=== PATIENT | female | born 1965 ===

== ENCOUNTER 2020-09-27 17:24 | Outpatient (REF) | payer BC, SELFPAY ==
[2020-09-27 14:02] LABS: Vitamin D 25 Total 50.4 ng/ml (30-100)
== END 2020-09-27 17:25 | disposition home or self-care (01) ==
LOC: NCHCN 17:24
PROVIDERS: Visit Provider Nurse Practitioner Community Health
DX: E55.9 Vitamin D deficiency, unspecified (principal)
CPT/HCPCS: 82306

== ENCOUNTER 2024-09-15 15:46 | Outpatient (REF) | payer BC, SELFPAY ==
--- OUTSIDE RECORDS SUMMARY | 2024-09-15 15:47 | XMS_ITS | Encounter Summary ---
Author Organization [facility] Address [address] [place] [address] Care Team Providers Care Crusher And Binder Operator Name Role Phone Elvira Brantley MD Primary Care Provider [phone] Reason for Visit * Reason Comments Advice Only Discuss refill of HR T and possible dose adjustment. Bria is feeling increased hot flashes, irritability and brain fog. Encounter Details Date Type Department Care Team (Late st Contact Info) Description 06/11/2024 8:00 EDT Office Visit [facility] [address] [place] [address] Larissa Watkins MD [address] [facility], [address] [place] [address] Hormone replacement therapy (postmenopausal) (Primary Dx); Vasomotor symptoms due to menopause; Screening cholesterol level Social History Tobacco Use Types Packs/Day Years Used Date Smoking Tobacco: Never Smokeless Tobacco: Never Tobacco Cessation:Counseling Given: Not Answered Alcohol Use Standard Drinks/Week Comments Yes 4 (1 standard drink = 0.6 oz pur e alcohol) Humiliation, Afraid, Rape, and Kick questionnair e Answer Date Recorded Within the last year, have y ou been afraid of your partner or ex-partner? No 11/30/2020 Within the last year, have y ou been humiliated or emotionally abused in other ways by your partner or ex-partner? No Within the last year, have y ou been kicked, hit, slapped, or otherwise physically hurt by your partner or ex-partner? No 11/30/2020 Within the last year, have y ou been raped or forced to have any kind of sexual activity by your partner or ex-partner? No 11/30/2020 AUDIT-C Answer Date Recorded Q1: How often do you have a drink containing alcohol? 4 or more times a week 11/30/2020 Q2: How many drinks containi ng alcohol do you have on a typical day when you are drinking? 1 or 2 Q3: How often do you have si x or more drinks on one occasion? Never 11/30/2020 PHQ-2 Answer Date Recorded PHQ-2 SUBTOTAL 0 06/09/2024 Hunger Vital Sign Answer Date Recorded Within the past 12 months, y ou worried that your food would run out before you got the money to buy more. Never true 12/01/19 21 Within the past 12 months, t he food you bought just didn't last and you didn't have money to get more. Never true 11/30/2020 PRAPARE - Transportation Answer Date Re corded In the past 12 months, has l ack of transportation kept you from medical appointments or from getting medications? No 11/12 In the past 12 months, has l ack of transportation kept you from meetings, work, or from getting things needed for daily living? No 11/30/2020 Interpersonal Safety Answer Date Record ed Physically Hurt Never 03/14/2020 Verbally Threaten Not on file 03/14/2020 Employment Answer Date Recorded Do you want help finding or keeping work or a job? I do not need or want help 06/09/2024 Financial Strain Answer Date Recorded How hard is it for you to pa y for the very basics like food, housing, medical care, and heating? Would you say it is: Not hard at all 06/09/2024 Living Situation Answer Date Recorded What is your living situation today? I have a [facility] place to live 06/09/[address] you li ve. Do you have problems with any of the following? None of the above 06/09/2024 Family & Community Support Answer Date Recorded If for any reason you need h elp with day-to-day activities such as bathing, preparing meals, shopping, managing finances, etc., do you get the help you need? I don't need any help 06/09/2024 How often do you feel lonely or isolated from those around you? Rarely 06/09/2024 Interpersonal Safety Answer Date Record ed How often does anyone, seth rivas family and friends, physically hurt you? Never 06/09/2024 How often does anyone, seth rivas family and friends, insult or talk down to you? Never 06/09/2024 How often does anyone, seth rivas family and friends, threaten you with harm? Never 06/09/2024 How often does anyone, seth rivas family and friends, scream or curse at you? Never 06/09/2024 Food Answer Date Recorded Within the past 12 months, y ou worried that your food would run out before you got money to buy more. Never true 06/09/2024 Within the past 12 months, t he food you bought just didn't last and you didn't have money to get more. Never true 06/09/2024 Transportation Answer Date Recorded In the past 12 months, has l ack of reliable transportation kept you from medical appointments, meetings, work or from getting things needed for daily living? No 06/09/2024 Utilities Answer Date Recorded In the past 12 months has [employer], gas, oil, or water [employer] threatened to shut off services in your home? No 06/09/2024 Education Answer Date Recorded Do you speak a language other than [place] [facility]? No 06/09/2024 Do you want help with school or training? For example, starting or completing job training or getting a high school diploma, GED or equivalent. No 06/09/2024 Physical Activity Answer Date Recorded In the last 30 days, other t mistry the activities you did for work, on average, how many days per week did you engage in moderate exercise (like walking fast, running, jogging, dancing, swimming, biking, or other similar activities)? 3 2023 On average, how many minutes did you usually spend exercising at this level on one of those days? 30 06/09/2024 Comments No Sex and Gender Information Value Date Recorded Sex Assigned at Male 07/03/2024 7:00 EST Legal Sex Female 18:31 EST Gender Identity Female 12/23/2019 14:04 EDT Sexual Orientation Not on file Occupation Industry Job Start Date Job End Date Not on file Not on file Not on file Not on file documented as of this encounter Last Filed Vital Signs Vital Sign Reading Time Taken Comments Blood Pressure 110/62 06/11/2024 08 EDT Pulse - - Temperature - - Respiratory Rate - - Oxygen Saturation - - Inhaled Oxygen Concentration - - Weight 106.6 kg (235 lb) 06/11/2024805 EDT Height 177.8 cm (5' 10) 06/11/2024 08 EDT Body Mass Index 33.72 06/11/2024805 EDT documented in this encounter Functional Status * Are you deaf or do you have serious difficulty hearing? Answer Date of Assessment Author No 06/17/2022 12:30 EDT Maico Trevino RN * Because of a physical, mental, or emotional condition, does this person have difficulty doing errands alone such as visiting a doctor's office or shopping? Answer Date of Assessment Author No 08/10/2017 10:42 EST documented as of this encounter Mental Status * Because of a physical, mental, or emotional condition, does this person have serious difficulty concentrating, remembering, or making decisions? Answer Entry Date Author No 08/10/2017 10:42 EST documented in this encounter Ordered Prescriptions Prescription Sig Dispense Quantity Refills Last Filled Start Date End Date estradioL (VIVELLE-DOT) 0.1 mg/[address] 1 Patch onto the skin twice a week for 90 days. 8 Patch 2 06/12/2024 09/10/2024 documented in this encounter Progress Notes * Larissa Watkins MD - 06/11/2024 0800 EDT I discussed with Bria Nichol Jackman the use of this audio recording tool to create a clinical note. I explained the benefits of the technology, such as time savings and a better patient experience. I explained that the recording will be confidential and converted into a written note which I will review and edit as needed before it is saved in the medical record. The patient expressed an understanding of the use of this technology for clinical documentation and agreed to allow its use for this encounter. HPI Bria Nichol Cedenoa is a 59 y.o. History of Present Illness The patient, on Vivelle (estrogen patch) for HRT for about two years, initially found relief from menopausal symptoms such as brain fog, hot flashes, and irritability. However, in recent months, she has noticed a return of these symptoms. The patient describes experiencing brain fog, forgetfulness,and significant irritability, likening it to a seizing ball of rage in her chest. She also reports occasional hot flashes. The patient initially attributed these symptoms to work-related stress butis now considering other potential causes. She has a history of hysterectomy, therefor does not need progesterone. The patient is also in regular therapy for mental health support. CLIENT ACCOUNT ASSISTANT Hx Cervical cancer screening: nml 11/2020 Medications Outpatient Medications Marked as Taking for the 06/11/24 encounter (Office Visit) with Larissa Watkins MD Medication Sig acetaminophen (TYLENOL ORAL) Take 1,000 mg by mouth as needed. albuterol 90 mcg/actuation HFA aerosol inhaler inhaler Inhale 1 Puff as directed every 4 hours as needed. cholecalciferol, Vitamin D3, 25 mcg (1,000 unit) tablet Take 1 Tablet by mouth daily. cyanocobalamin, vitamin B-12, (VITAMIN B-12 ORAL) Take by mouth. [DISCONTINUED] estradioL (VIVELLE-DOT) 0.05 mg/24 hr patch Use one patch twice weekly. [START ON 06/12/2024] estradioL (VIVELLE-DOT) 0.1 mg/[address] 1 Patch onto the skin twice a week for 90 days. fexofenadine (ROCKY) 60 mg tablet Take 1 Tablet by mouth daily. ibuprofen (MOTRIN) 200 mg tablet Take 3 Tablets by mouth as needed for Pain. MULTIVITAMIN ORAL Take by mouth. Reported on 07/19/2016 sertraline (ZOLOFT) 50 mg tablet Take 1.5 Tablets by mouth daily. vitamin B complex (B COMPLEX ORAL) Take by mouth daily. Takes 1 per day Objective BP 110/62 (BP Cuff Sizes: Adult, regular) Ht 177.8 cm (70) Wt (!) 106.6 kg (235 lb) BMI 33.72 kg/m?? Physical Exam Gen: NAD Results LABS Lipids: Normal (2018) Assessment/Plan Bria Jackman is a 59 y.o. seen today for: Assessment & Plan Menopausal Symptoms Increased irritability, brain fog, and hot flashes despite being on 0.05mg of Vivelle (estrogen) for two years. No contraindications to HRT. Previsouly discussed r/b/a of HRT and these were reviewed again today. -Increase Vivelle to 0.1mg daily. -Continue current self-care routine and therapy. -Reevaluate in a few months to assess effectiveness of increased dose. General Health Maintenance -Not due for pap -Order fasting lipid panel as it was last checked in 2018 and results were normal. -Continue annual mammograms, next one scheduled for later in May 2024. -Continue regular colonoscopies, next one scheduled for August 11, 2024. Larissa Watkins MD This note was prepared using voice recognition software and the EMR. There may be inadvertent errors and omissions. I spent a total of 30 minutes on the date of this encounter meeting with the patient and reviewing documentation/coordinating care as described in the above note. No procedures were performed at the time of the visit. documented in this encounter Plan of Treatment Upcoming Encounters Date Type Department Care Team (Late st Contact Info) Description 09/24/2024 7:30 EST Rehab Therapy Visit [facility] [address] [place], [place] [id number] Mirlande Keene, PT [address] [place] [address] 11/25/2024 9:00 EDT Office Visit [facility] - [address] [place] [address] Tess Rojas NP [address] [place] [address] Scheduled Orders Name Type Priority Associated Diagnoses Orde r Schedule LIPID PROFILE (INCLUDES CHOLESTEROL, TRIGLYCERIDES, HDL, LDL) Lab Routine Screening cholesterol level Expected: 06/11/2024 (Approximate), Expires: 06/11/2025 documented as of this encounter Visit Diagnoses Diagnosis Hormone replacement therapy (postmenopausal)- Primary Need for prophylactic hormone replacement therapy (postmenopausal) Vasomotor symptoms due to menopause Screening cholesterol level Screening for lipoid disorders documented in this encounter Discontinued Medications Medication Sig Discontinue Reason Start Date End Da te fluconazole (DIFLUCAN) 150 mg tablet Take 1 Tablet by mouth daily. May repeat in 3 days if symptoms persist Therapy completed 08/15/2023 06/11/2024 estradioL (VIVELLE-DOT) 0.05 mg/24 hr patchIndications:Vasomot or symptoms due to menopause,Hormone replacement therapy (postmenopausal) Use one patch twice weekly. 01/23/2024 06/11/2024 documented as of this encounter Historical Medications * This list may reflect changes made after this encounter. cyanocobalamin, vitamin B-12, (VITAMIN B-12 ORAL) Take by mouth. added in this encounter Care Teams Crusher And Binder Operator Relationship Specialty Start Date End Date Elvira Brantley MD [address] [place] [address] PCP - General 04/20/22 documented as of this encounter
--- OUTSIDE RECORDS SUMMARY | 2024-09-15 15:47 | XMS_ITS | Encounter Summary ---
Author Organization [facility] Address [address] [place] [address] Care Team Providers Care Line Rider Name Role Phone Elvira Brantley MD Primary Care Provider [phone] Reason for Visit * Reason Comments Burn Encounter Details Date Type Department Care Team (Late st Contact Info) Description 03/30/2024 9:45 EDT Walk-In [facility] [address] [place] [id number] Fior Metz PA-C [address] [facility] [address] [place] [address] Partial thickness burn of finger of right hand, initial encounter (Primary Dx) Social History Tobacco Use Types Packs/Day Years Used Date Smoking Tobacco: Never Smokeless Tobacco: Never Alcohol Use Standard Drinks/Week Comments Yes 4 [...] more drinks on one occasion? Never 11/30/2020 Hunger Vital Sign Answer Date Recorded Within the past 12 months, y ou worried that your food would run out before you got the money to buy more. Never true 12/01/19 Within the past 12 months, t he [...] 03/14/2020 Verbally Threaten Not on file 03/14/2020 Comments No Sex and Gender Information Value [...] Sign Reading Time Taken Comments Blood Pressure 96/58 03/30/2024 0956 EDT Pulse 63 03/30/2024 0956 EDT Temperature 36.6 ??C (97.8 ??F) 03/30/2024 0956 EDT Respiratory Rate 16 03/30/2024 0956 EDT Oxygen Saturation 96% 03/30/2024 0956 EDT Inhaled Oxygen Concentration - - Weight - - Height - - Body Mass Index - - documented in this encounter Functional Status * [...] 08/10/2017 10:42 EST documented in this encounter Patient Instructions * Patient Instructions* Fior Metz PA-C - 03/30/2024 9:45 EDT If your doctor told you how to care for your burn, follow your doctor's instructions. If you did not get instructions, follow this general advice: Wash the burn every day with a mild soap and water. Don't use hydrogen peroxide or alcohol, which can slow healing. Gently pat the burn dry after you wash it. Apply a thin layer of antibiotic ointment or petroleum jelly on the burn. You may cover the burn with a nonstick bandage. There are many bandage products available. Be sure to read the product label for correct use. Replace the bandage as needed. Protect your burn while it is healing. Cover your burn if you are going out in the cold or the sun. Wear long sleeves if the burn is on your hands or arms. Wear a hat if the burn is on your face. Wear socks and shoes if the burn is on your feet. Do not break blisters open. This increases the chance of infection. If a blister breaks open by itself, blot up the liquid, and leave the skin that covered the blister. This helps protect the new skin. If your doctor prescribed antibiotics, take them as directed. Do not stop taking them just because you feel better. You need to take the full course of antibiotics. If you develop increasing swelling, spreading redness, pain develops, fever, or red streaking up hand seek immediate further evaluation. documented in this encounter Progress Notes * Allyson Pulliam RN - 03/30/2024 6684 EDT CC/HPI: Pt here with leiva on index finger and thumb on right hand. Happened yesterday on a bee smoker. Does not hurt. Pt has minimal feeling in those areas at present. Covid Screening: In the last 72 hours, has the patient had: New or unusual cough, shortness of breath, new nasal congestion, sore throat, fever, chills, body aches, or new loss of taste or smell without a reasonable alternative diagnosis? N In the past 10 days, has the patient had a positive Covid test OR a confirmed close Covid exposure?N * Fior Metz PA-C - 03/30/2024 1718 EDT Images from the original note were not included. [facility] Chief Complaint(s): Burn Assessment & Plan: Bria was seen today for burn. Diagnoses and all orders for this visit: Partial thickness burn of finger of right hand, initial encounter Bria Jackman is a 59 y.o. female presents for leiva of 2-3 fingers of right hand that occurred yesterday. Diminished sensation overlying the 2nd finger distal 2nd degree burn with skin layer intact, the surrounding skin has normal sensation to light touch, the same is found in area of 3rd finger burn. Advised on signs of infection to monitor for. The skin remains intact in both areas of burn. Advised on keeping covered with vaseline and bandaid. Leave blisters intact if form. An appropriate medical screening examination was performed. The patient was assessed prior to discharge and deemed stable for discharge home. I printed material and reviewed home management and follow up in detail with patient, see patient instructions below. Patient is advised in use of [employer] to access any lab results or other pertinentvisit information. All questions are answered. Patient is advised to follow up for urgent reassessment for any new/worsening signs and symptoms, otherwise, follow up with PCP or at [facility] for symptoms that persist past current course of treatment or expected resolution as discussed. Patient verbalizes understanding and agreement with this plan of care. HPI: Bria Jackman is a 59 y.o. female who is here with complaint of leiva of the right 2nd and 3rd fingers when using her bee smoker yesterday. Reports the reason she came in is because the areas don'thurt and feel diminished sensation which she was concerned about. The skin is intact overlying and has not developed significant blisters. Has applied aloe. Social History Tobacco Use Smoking Status Never Smokeless Tobacco Never I have reviewed current problem list, current medications and allergies. ROS: ROS See HPI for details Objective: Vitals and nursing notes reviewed Examination: BP 96/58 Pulse 63 Temp 36.6 ??C (97.8 ??F) (Oral) Resp 16 SpO2 96% Physical Exam Constitutional: General: She is not in acute distress. Appearance: She is not toxic-appearing. Skin: Comments: Diminished sensation overlying the 2nd finger distal 2nd degree burn with skin layer intact, the surrounding skin has normal sensation to light touch, the same is found in area of 3rd finger burn. Photo obtained with verbal consent from pt. Neurological: Mental Status: She is alert. This note may be in part documented using [employer] dictation software. Please forgive any errors, omissions or typos that may result from use of dictation. documented in this encounter Plan of Treatment Upcoming Encounters Date Type Department Care Team (Late st Contact Info) Description 09/24/2024 7:30 EST Rehab Therapy Visit [facility] [address] [place], [place] [id number] Mirlande Keene, PT [address] [place] [id number] 11/25/2024 9:00 EDT Office Visit [facility] [place] [address] [place], [place] [address] [place] [address] Tess Rojas NP [address] [place] [address] documented as of this encounter Visit Diagnoses Diagnosis Partial thickness burn of finger of right hand, initial encounter- Primary documented in this encounter Historical Medications * This list may reflect changes made after this encounter. fexofenadine (ROCKY) 60 mg tablet Take 1 Tablet by mouth daily. albuterol 90 mcg/actuation HFA aerosol inhaler inhaler Inhale 1 Puff as directed every 4 hours as needed. 09/07/2023 added in this encounter Care Teams Line Rider Relationship Specialty Start Date End Date Elvira Brantley MD [address] [place] [id number] PCP - General 04/20/22 documented as of this encounter
--- OUTSIDE RECORDS SUMMARY | 2024-09-15 15:47 | XMS_ITS | Encounter Summary ---
Author Organization [facility] Address [address] [place] [address] Care Team Providers Care Technical Services Librarian Name Role Phone Elvira Brantley MD Primary Care Provider Reason for Referral * Referral (Routine/Next Available) - Authorization Not Required Specialty Diagnoses / Procedures Referred By Jefferson ramires Referred To Contact General Surgery Diagnoses Screen for colon cancer Procedures COLONOSCOPY Elvira Brantley MD [address] [place] [address] Phone: tel: fax: [facility] General Surgery [address] [place] [address] Phone: tel: fax: Referral ID Status Reason Start Date Expiration Date Visits Requested Visits Authorized [id number] Authorization Not Required 01/14/2024 1 1 Reason for Visit * Auth/Cert (Routine) Specialty Diagnoses / Procedures Referred By Jefferson ramires Referred To Contact Referral ID Status Reason Start Date Expiration Date Visits Re quested Visits Authorized [id number] 1 1 Encounter Details Date Type Department Care Team (Late st Contact Info) Description 08/11/2024 7:00 EST - 08/11/2024 23:59 EST Hospital Encounter [facility] Endoscopy [address] [place] [address] Zacarias David MD [address] [facility], [facility], [address] [place] [phone] Screen for colon cancer Discharge Disposition: Home or Self Care Social History Tobacco Use Types Packs/Day Years [...] your living situation today? I have a [facility] place to live 06/09/2024 Think about the [...] Recorded In the past 12 months has th e [employer], gas, oil, or water [employer] threatened to shut off services in your home? No 06/09/2024 Education Answer Date Recorded Do you speak a language other than Swedish at [facility]? No 06/09/2024 Do you want help with [...] Sign Reading Time Taken Comments Blood Pressure 110/71 08/11/2024 0913 EST Pulse - - Temperature 36.5 ??C (97.7 ??F) 08/11/2024 0857 EST Respiratory Rate 11 08/11/2024 0913 EST Oxygen Saturation 93% 08/11/2024 0913 EST Inhaled Oxygen Concentration - - Weight 107.7 kg (237 lb 6.4 oz) 08/11/2024 0732 EST Height 182.9 cm (6') 08/11/2024 0732 EST Body Mass Index 32.2 08/11/2024 0732 EST documented in this encounter Functional Status * [...] 08/10/2017 10:42 EST documented in this encounter Medications at Time of Discharge acetaminophen (TYLENOL ORAL) Take 1,000 mg by mouth as needed. albuterol 90 mcg/actuation HFA aerosol inhaler inhaler Inhale 1 Puff as directed every 4 hours as needed. 09/07/2023 cholecalciferol, Vitamin D3, 25 mcg (1,000 unit) tablet Take 1 Tablet by mouth daily. cyanocobalamin, vitamin B-12, (VITAMIN B-12 ORAL) Take by mouth. fexofenadine (ROCKY) 60 mg tablet Take 1 Tablet by mouth daily. ibuprofen (MOTRIN) 200 mg tablet Take 3 Tablets by mouth as needed for Pain. MULTIVITAMIN ORAL Take by mouth. Reported on 07/19/2016 sertraline (ZOLOFT) 50 mg tablet Take 1.5 Tablets by mouth daily. vitamin B complex (B COMPLEX ORAL) Take by mouth daily. Takes 1 per day estradioL (VIVELLE-DOT) 0.1 mg/[address] 1 Patch onto the skin twice a week for 90 days. 8 Patch 2 06/12/2024 09/10/2024 documented as of this encounter Discharge Disposition Disposition Code Departure Means Destination Home or Self Care documented in this encounter H&P Notes * Zacarias David MD - 08/11/2024 0800 EST Endoscopy Sedation for Procedure History & Physical Date: 08/11/2024 Time: 8:05 Location: [facility] Endoscopy Planned Procedure: Colonoscopy Chief Complaint/Indications for Procedure: Screen for colon cancer History Previous Complication with Sedation and/or Anesthesia? No Allergies: Allergies Allergen Reactions Percocet [Oxycodone-Acetaminophen] Other (See Comments) DROPS BLOOD PRESSURE Unable To Assess Other (See Comments) Clams - vomiting Penicillins Rash Sulfa (Sulfonamide Antibiotics) Rash Current Medications: Current Outpatient Medications Medication acetaminophen (TYLENOL ORAL) albuterol 90 mcg/actuation HFA aerosol inhaler inhaler cholecalciferol, Vitamin D3, 25 mcg (1,000 unit) tablet cyanocobalamin, vitamin B-12, (VITAMIN B-12 ORAL) estradioL (VIVELLE-DOT) 0.1 mg/24 hr patch fexofenadine (ROCKY) 60 mg tablet ibuprofen (MOTRIN) 200 mg tablet MULTIVITAMIN ORAL sertraline (ZOLOFT) 50 mg tablet vitamin B complex (B COMPLEX ORAL) Current Facility-Administered Medications Medication Route Frequency sodium chloride 0.9 % (NS) infusion intravenous PRN Or lactated ringers (LR) infusion intravenous PRN lidocaine (PF) 10 mg/mL (1 %) injection 2 mg intradermal PRN lidocaine (PF) 10 mg/mL (1 %) injection 2 mg intradermal PRN ondansetron (PF) (ZOFRAN) injection 4 mg intravenous PRN sodium chloride 0.9 % (flush) flush 5 mL intravenous Q8H sodium chloride 0.9 % (flush) flush 5 mL intravenous PRN Past Medical History: Past Medical History: Diagnosis Date Abnormal Pap smear of cervix Depression Environmental allergies Exercise involving walking Genital herpes History of general anesthesia Keratoconus, unspecified Social History: Past Surgical History: Procedure Laterality Date COLONOSCOPY N/A 06/2018 polyp-sessile adenoma-repeat in 5 years COLPOSCOPY HIP ARTHROSCOPY Left 2005 HUMERUS FRACTURE SURGERY Right 2021 HYSTERECTOMY N/A 02/2017 For endometriosis, still has ovaries KNEE ARTHROSCOPY Bilateral TUBAL LIGATION VARICOSE VEIN SURGERY Right vericose vein tied off Social History Tobacco Use Smoking status: Never Smokeless tobacco: Never Substance Use Topics Alcohol use: Yes Alcohol/week: 4.0 standard drinks of alcohol Types: 4 Glasses of wine per week Family History: Family History Problem Relation Age of Onset Endometrial Cancer Mother Macular Degeneration Mother Atrial fibrillation Mother Dementia Mother COPD Mother Supraventricular tachycardia Mother Bipolar Disorder Father Kidney Failure Father Endometrial Cancer Maternal Grandmother Dementia Maternal Grandfather Breast Cancer Paternal Grandmother Bipolar Disorder Paternal Grandfather Glaucoma Neg Hx Retinal Detachment Neg Hx Review of Systems as pertinent: Physical Exam Vital Signs: BP 119/73 Resp 9 Ht 182.9 cm (72) Wt (!) 107.7 kg (237 lb 6.4 oz) SpO2 95% BMI 32.20 kg/m?? Heart Examination: Cardiac Regularity: Regular Respiratory Examination: Respiratory Pattern: Regular Breath Sounds Right: Clear Breath Sounds Left: Clear Abdominal Examination: Soft, non-tender, bowel sounds normal, no masses, no organomegaly Additional physical exam related to the proposed procedure, patient activity, disease state and treatment as pertinent: Assessment Previous complications with sedation or anesthesia?: No Airway Concerns: None/NA Anesthesia Classification: ASA 2 Plan: Proceed with sedation for procedure Fasting Time: Date of Last Liquid: 08/11/24 Time of Last Liquid: 0115 Date of Last Solid: 08/10/24 Time of Last Solid: 0700 Patient Appropriate Candidate for Planned Sedation?: Yes Zacarias David MD 08/11/2024 8:05 documented in this encounter Plan of Treatment Upcoming Encounters Date Type Department Care Team (Late st Contact Info) Description 09/24/2024 7:30 EST Rehab Therapy Visit [facility] Therapy [address] [place], [place] [phone] Mirlande Keene, PT [address] [place], [place] [phone] 11/25/2024 9:[address] [facility] Total Joint Program - [address] [phone] Tess Rojas NP [address] [place] [address] documented as of this encounter Procedures Procedure Name Priority Date/Time Associated Diagnosis Comments ECG REPORT - SCANNED 08/12/2024 11:06 EST COLONOSCOPY Routine 08/11/2024 8:00 EST Screen for colon cancer documented in this encounter Results * ECG REPORT - SCANNED (08/12/2024 11:06 EST) 08/12/2024 11:0 6 EST us Scan 2 Supervisor [employer] PROCEDURE/MINOR SURGICAL OR DERABLES Final Result * COLONOSCOPY (08/11/2024 8:00 EST) Anatomical Region Laterality Modality Endoscopy Narrative 08/11/2024 8:00 EST [facility] ?? [address], [place], [place] [address] ?? Patient Name ?BESSIE VAUGHN Date of ?1965 Record Number ?[id number] Date/Time of Procedure ?08/11/2024, 08:00:00 AM Endoscopist ?Zacarias David MD ?? Chief Human Resources Officer ? Referring Physician(s) ?? ELVIRA BRANTLEY , Anesthesiologist ? Procedure Performed: COLONOSCOPY Indications for Exam: Surveillance. Instruments: ? F-[id number] ([id number]) Medications: ?Fentanyl 100 mcg , Versed 7 mg I was in continuous face to face attendance during the administration of moderate sedation services that were monitored by an independent trained observer who had no other duties during the procedure. ? Visualization: ? Good ?Tolerance: Good ?Complications: None ? Extent of Exam: ?cecum ? Limitations: ?? Procedure Technique: A physical exam was performed. Informed consent was obtained from the patient after explaining all the risks (perforation, bleeding, infection and adverse effects to the medicine) , benefits and alternatives to the procedure which the patient appeared to understand and so stated. ??The patient was connected to the monitoring devices and placed in the left lateral position. Continuous oxygen was provided with a nasal cannula and IV medicine administered thru an indwelling cannula. After adequate conscious sedation was achieved, a digital exam was performed and the colonoscope introduced into the rectum and advanced under direct visualization to the cecum which was identified by visual landmarks. The scope was subsequently removed slowly while carefully examining the color, texture, anatomy, and integrity of the mucosa on the way out. In the rectum the scope was retroflexed to evaluate for internal hemorrhoids and anorectal pathology. The patient was subsequently transferred to the recovery area in satisfactory condition. The following findings were noted: Findings: small external hemorrhoid on KEVYN no masses or polyps seen to cecum, adequate prep Endoscopic Diagnosis: Normal colonoscopy Recommendations: Based on polyp history repeat colonoscopy in 5 years. Sedation Start: 08:06:45 AM ?? Sedation End: 08:37:40 AM Signature: Zacarias David MD, This note was electronically signed on 08/11/2024 08:39:54 AM By Zacarias David MD Elvira Brantley MD GI PROCEDURE ORDERABLES Final Result documented in this encounter Visit Diagnoses Diagnosis Screen for colon cancer Special screening for malignant neoplasms, colon documented in this encounter Administered Medications Inactive Administered Medications - up to 3 most recent administrations Medication Order MAR Action Action Date Dose Rate Site fentaNYL citrate (PF) injection intravenous, As needed, Starting on Sun08/11/24 at 0807, Until Sun08/11/24 at 0839, Routine, Intraprocedure Given 08/11/2024 8:13 EST 25 mcg Given 08/11/2024 8:10 EST 25 mcg Given 08/11/2024 8:07 EST 50 mcg midazolam (VERSED) injection intravenous, As needed, Starting on Sun08/11/24 at 0807, Until 08/11/24 at 0839, Routine, Intraprocedure Given 08/11/2024 8:29 EST 2 mg Given 08/11/2024 8:13 EST 1 mg Given 08/11/2024 8:10 EST 1 mg documented in this encounter Orders Medications Ordered That Sae ht Not Have Been Administered Count Last Ordered Date First Ordered Date lactated ringers (LR) infusion 1 08/11/2024 lidocaine (PF) 10 mg/mL (1 % ) injection 2 mg 2 08/11/2024 ondansetron (PF) (ZOFRAN) injection 4 mg 1 08/11/2024 sodium chloride 0.9 % (flush) flush 5 mL 2 08/11/2024 sodium chloride 0.9 % (NS) infusion 1 08/11 Discharge Count Last Ordered Date First Orde red Date DISCHARGE PATIENT 1 08/10/2024 documented in this encounter Care Teams Technical Services Librarian Relationship Specialty Start Date End Date Elvira Brantley MD [address] [place] [address] PCP - General 04/20/22 documented as of this encounter
--- OUTSIDE RECORDS SUMMARY | 2024-09-15 15:47 | XMS_ITS | Referral Summary ---
Author Organization [facility] Address [address] [place] [address] Care Team Providers Care Card Player Name Role Phone Elvira Brantley MD Primary Care Provider [phone] Encounters Date Type Department Care Team Description 09/09/2024 Telephone [facility] OBGYN [address] [place] [phone] Larissa Watkins MD Medications Refill 08/11/2024 7:00 EST - 08/11/2024 23:59 EST Hospital Encounter [facility] Endoscopy [address] [place] [address] Zacarias David MD Screen for colon cancer Discharge Disposition: Home or Self Care 07/03/2024 7:00 EST - 07/03/2024 23:59 EST Hospital Encounter [facility] Mammography [address] [place] [address] Encounter for other screening for malignant neoplasm of breast Discharge Disposition: Home or Self Care from Last 3 Months Allergies Active Allergy Reactions Criticality Noted Date Comments Penicillins Rash Low 11/27/2012 Oxycodone-Acetaminophen Other (See Comments) DROPS BLOOD PRESSURE Sulfa (Sulfonamide Antibiotics) Rash Low 11/27/2012 Unable To Assess Other (See Comments) 5 Clams - vomiting Medications sertraline (ZOLOFT) 50 mg tablet Take 1.5 Tablets by mouth daily. Active MULTIVITAMIN ORAL Take by mouth. Reported on 07/19/2016 Active ibuprofen (MOTRIN) 200 mg tablet Take 3 Tablets by mouth as needed for Pain. Active acetaminophen (TYLENOL ORAL) Take 1,000 mg by mouth as needed. Active cholecalciferol , Vitamin D3, 25 mcg (1,000 unit) tablet Take 1 Tablet by mouth daily. Active vitamin B complex (B COMPLEX ORAL) Take by mouth daily. Takes 1 per day Active albuterol 90 mcg/actuation HFA aerosol inhaler inhaler Inhale 1 Puff as directed every 4 hours as needed. 4 Active fexofenadine (ROCKY) 60 mg tablet Take 1 Tablet by mouth daily. Active cyanocobalamin, vitamin B-12, (VITAMIN B-12 ORAL) Take by mouth. Active estradioL (VIVELLE-DOT) 0.1 mg/[address] 1 Patch onto the skin twice a week for 90 days. 8 Patch 2 4 09/10/19 25 Active Problems Problem Noted Date Diagnosed Date Screen for colon cancer 08/11/2024 Bilateral knee pain 07/06/2015 Facet arthropathy, lumbar 05/26/2015 Arthralgia of left hip 05/26/2015 Low back pain radiating to left leg 04/05/2015 Immunizations Name Administration Dates Next Due Covid-19 mRNA Booster Vaccin e (MODERNA COVID-19 BOOSTER) PF 0.25 mL IM (18 yrs+) 06/26/2021 Covid-19 mRNA Vaccine (MODER NA COVID-19) PF 0.5 ml IM (12 yrs+) 11/22/2020,10/25/2020 Social History Tobacco Use Types Packs/Day Years [...] In the past 12 months has th [employer], gas, oil, or water [employer] threatened to shut off services in your home? No 06/09/2024 Education Answer Date Recorded Do you speak a language other than Persian at [facility]? No 06/09/2024 Do you want help with [...] file Not on file Not on file Last Filed Vital Signs Vital Sign Reading Time Taken Comments Blood Pressure 110/71 08/11/2024 0913 EST Pulse 63 03/30/2024 0956 EDT Temperature 36.5 ??C (97.7 ??F) 08/11/2024 0857 EST Respiratory Rate 11 08/11/2024 0913 EST Oxygen Saturation 93% 08/11/2024 0913 EST Inhaled Oxygen Concentration - - Weight 107.7 kg (237 lb 6.4 oz) 08/11/2024 0732 EST Height 182.9 cm (6') 08/11/2024 0732 EST Body Mass Index 32.2 08/11/2024 0732 EST Functional Status * Are you deaf or do you have serious difficulty hearing? Answer Date of Assessment Author No 06/17/2022 12:30 EDT Maico Trevino , JOIE * Because of a physical, mental, or emotional condition, does this person have difficulty doing errands alone such as visiting a doctor's office or shopping? Answer Date of Assessment Author No 08/10/2017 10:42 EST Mental Status * Because of a physical, mental, or emotional condition, does this person have serious difficulty concentrating, remembering, or making decisions? Answer Entry Date Author No 08/10/2017 10:42 EST Plan of Treatment Upcoming Encounters Date Type Department Care Team (Late st Contact Info) Description 09/24/2024 7:30 EST Rehab Therapy Visit [facility] [place] [facility] Therapy [address] [place] [address] Mirlande Keene, PT [address] [place] [address] 11/25/2024 9:00 EDT Office Visit [facility] Total Joint Program - [address] [place] [address] Tess Rojas, LUCAS [address] [place] [address] Medical Devices Implanted Type Area Stereotyper Device Identifier Shelf Expiration Date Model / Serial / Lot Bone Cancellous Cubes 5cc [id number] - [id number] Implanted:Qty: 1 on 10/12/2022 by Gallito Sanders MD MPH at [facility] Bone Right: Humerus [facility] 03/22/2027 [id number] / [id number] / [id number] Plate Bone Cmprs Lckng Prox Hum 12 Hole Sm Frag [id number] Lcp [id number] - [id number] Implanted:Qty: 1 on 10/12/2022 by Gallito Sanders MD MPH at [facility] Plate Implant Right: Humerus [employer] 10/13/2023 223.621 / . / Plate Bone Cmprs Lckng Ankl Ft Lo Pro 7 Hole 2.7x67mm Lcp 670856 - [id number] Implanted:Qty: 1 on 10/12/2022 by Gallito Sanders MD MPH at [facility] Plate Implant Right: Humerus [employer] 10/13/2023 249.683 / . / Screw Cortex 2.7mm 20mm Slftpng With T8 [employer] - [id number] Implanted:Qty: 2 on 10/12/2022 by Gallito Sanders MD MPH at [facility] [place] [facility] Screw Implant Right: Humerus [employer] 10/13/2023 202.880 / . / Screw Bone Cortical Slf Tpng 2.7x22mm Lcp [id number] - [id number] Implanted:Qty: 1 on 10/12/2022 by Gallito Sanders MD MPH at [facility] Screw Implant Right: Humerus [employer] 10/13/2023 202.882 / . / Screw Bone Cortical Slf Tpng 2.7x24mm Lcp 900896 - [id number] Implanted:Qty: 1 on 10/12/2022 by Gallito Sanders MD MPH at [facility] Screw Implant Right: Humerus [employer] 10/13/2023 202.884 / . / Screw Cortex Self-Tapping [id number] 75288 - [id number] Implanted:Qty: 1 on 10/12/2022 by Gallito Sanders MD MPH at [facility] Screw Implant Right: Humerus [employer] 10/13/2023 204.820 / . / Screw Cortex Self-Tapping [id number] 655469 - [id number] Implanted:Qty: 2 on 10/12/2022 by Gallito Sanders MD MPH at [facility] Screw Implant Right: Humerus [employer] 10/13/2023 204.822 / . / Screw Cortex Self-Tapping [id number] 192396 - [id number] Implanted:Qty: 1 on 10/12/2022 by Gallito Sanders MD MPH at [facility] [place] [facility] Screw Implant Right: Humerus [employer] 10/13/2023 204.824 / . / Screw Cortex Self-Tapping [id number] - [id number] Implanted:Qty: 2 on 10/12/2022 by Gallito Sanders MD MPH at [facility] Screw Implant Right: Humerus [employer] 10/13/2023 204.826 / . / Procedures Procedure Name Priority Date/Time Associated Diagnosis Comments ECG REPORT - SCANNED 08/12/2024 11:06 EST COLONOSCOPY Routine 08/11/2024 8:00 EST Screen for colon cancer MA BREAST SCREENING SHRUTI BILATERAL Routine 07/03/2024 7:21 EST Encounter for other screening for malignant neoplasm of breast from Last 3 Months Results * ECG REPORT - SCANNED (08/12/2024 11:06 EST) 08/12/2024 11:0 6 EST us Scan 2 Autopsy Assistant PROCEDURE/MINOR SURGICAL OR DERABLES Final Result * COLONOSCOPY (08/11/2024 8:00 EST) Anatomical Region Laterality Modality Endoscopy Narrative 08/11/2024 8:00 EST [facility] ?? [address], [place], [place] [address] ?? Patient Name ?BESSIE VAUGHN Date of ?1965 Record Number ?[id number] Date/Time of Procedure ?08/11/2024, 08:00:00 AM Endoscopist ?Zacarias David MD ?? High School Guidance Counselor ? Referring Physician(s) ?? ELVIRA BRANTLEY , Anesthesiologist ? Procedure Performed: COLONOSCOPY Indications for Exam: Surveillance. Instruments: ? [facility]-[id number] ([id number]) Medications: ?Fentanyl 100 mcg , Versed 7 [...] 08/11/2024 08:39:54 AM By Zacarias David MD us Elvira Brantley MD GI PROCEDURE ORDERABLES Final Result * MA BREAST SCREENING SHRUTI BILATERAL (07/03/2024 7:21 EST) Anatomical Region Laterality Modality Breast Bilateral Mammography 07/03/2024 8:14 EST Impressions 07/03/2024 8:14 EST Negative, no evidence of malignancy. RECOMMENDATION: Routine screening mammography is recommended. OVERALL ASSESSMENT: BI-RADS 1: Negative These results will be communicated to your patient via a lay letter from Radiology. If any additional imaging is needed we will [place] [address] [id number] Narrative 07/03/2024 8:14 EST MA BREAST SCREENING SHRUTI BILATERAL ??07/03/2024 7:11 AM History: Bilateral Screening Comparison: ??Comparison has been made to previous images . ? Technique: Routine 3D tomosynthesis with synthesized 2D views with CAD Breast Composition: There are scattered areas of fibroglandular density. Bilateral Breast Findings: ??No significant masses, calcifications or other abnormalities are seen. Resulting Agency Comment [id number] Procedure Note Willie Cuellar MD - 07/03/2024 MA BREAST SCREENING SHRUTI BILATERAL 07/03/2024 7:11 AM History: Bilateral Screening Comparison: Comparison has been made to previous images . Technique: Routine 3D tomosynthesis with synthesized 2D views with CAD Breast Composition: There are scattered areas of fibroglandular density. Bilateral Breast Findings: No significant masses, calcifications or otherabnormalities are seen. IMPRESSION Negative, no evidence of malignancy. RECOMMENDATION: Routine screening mammography is recommended. OVERALL ASSESSMENT: BI-RADS 1: Negative These results will be communicated to your patient via a lay letter fromRadiology. If any additional imaging is needed we will contact yourpatient directly. [place] [phone] [id number] Elvira Brantley MD IMG MAMMOGRAPHY ORDERABLES Fi nal Result from Last 3 Months Insurance [facility] Address: [address] [address] Advance Directives For more information, please contact: [phone] * Full Code (Latest Code Status on File) Date Activated Date Inactivated Comments 10/12/2022 7:04 10/12/2022 19:15 Question Answer Comments When the patient has NO PULSE: Full Code / CPR Who Made the Decision? Default/Not Discussed Care Teams Card Player Relationship Specialty Start Date End Date Elvira Brantley MD [address] [place] [address] PCP - General 04/20/22
--- OUTSIDE RECORDS SUMMARY | 2024-09-15 15:47 | XMS_ITS | Encounter Summary ---
Author Organization [facility] Address [address] [place] [address] Care Team Providers Care Custodian Blood Bank Name Role Phone Elvira Brantley MD Primary Care Provider [phone] Reason for Visit * Reason Onset Date Comments Medications Refill 09/09/2024 Encounter Details Date Type Department Care Team (Late st Contact Info) Description 09/09/2024 Telephone [facility] OBGYN [address] [place], [place] [id number] Larissa Watkins MD [address] [facility], [address] [place] [address] Medications Refill Social History Tobacco Use Types Packs/Day Years [...] your living situation today? I have a [facility] place to live 06/09/2024 Think about the [...] Recorded In the past 12 months has [facility] [employer], gas, oil, or water [employer] threatened to shut off services in your home? No 06/09/2024 Education Answer Date Recorded Do you speak a language other than Latvian at [facility]? No 06/09/2024 Do you want help with [...] on file documented as of this encounter Functional Status * Are you deaf or do you have serious difficulty hearing? Answer Date of Assessment Author No 06/17/2022 12:30 EDT Maico Trevino , RN * Because of a physical, mental, [...] 08/10/2017 10:42 EST documented in this encounter Miscellaneous Notes * Telephone Encounter - Larissa Watkins MD - 09/10/2024 1023 EST Ok to refill. Please scheudle f/u as below Waitlist Don't sched b/f: NA F/u time: within 3 mo Call day? Yes Televideo? Yes Priority: Normal Visit type: Follow up (15) or Mychart Televideo (30) Reason: f/u HRT Provider: Garland watkins Other: NA * Telephone Encounter - Maritza Olvera RN - 09/09/2024 1620 EST Last appt: 06/11/2024 OV with RL - f/u HRT Plan: Menopausal Symptoms Increased irritability, brain fog, and hot flashes despite being on 0.05mg of Vivelle (estrogen) for two years. No contraindications to HRT. Previsouly discussed r/b/a of HRT and these were reviewed again today. -Increase Vivelle to 0.1mg daily. -Continue current self-care routine and therapy. -Reevaluate in a few months to assess effectiveness of increased dose. Next appt: none scheduled Last refilled / Rx last sent: 06/12/2024 for 8 patches with 2 refills with end date of 09/10/24 Dr. Watkins - please advise re: refill and f/u plan. Thanks! * Telephone Encounter - Tate Garcia MA - 09/09/2024 1556 EST Pt calling needing a refill on her estradiol patch. documented in this encounter Plan of Treatment Upcoming Encounters Date Type Department Care Team (Late st Contact Info) Description 09/24/2024 7:30 EST Rehab Therapy Visit [facility] Rehabilitation Therapy [address] [place], [place] [phone] Mirlande Keene, PT [address] [place] [address] 11/25/2024 9:00 EDT Office Visit [facility] Total Joint Program - [address] [address] Tess Rojas NP [address] [place] [address] documented as of this encounter Visit Diagnoses Not on filedocumented in this encounter Care Teams Custodian Blood Bank Relationship Specialty Start Date End Date Elvira Brantley MD [address] [place] [id number] PCP - General 04/20/22 documented as of this encounter
--- OUTSIDE RECORDS SUMMARY | 2024-09-15 15:47 | XMS_ITS | Encounter Summary ---
Author Organization [facility] Address [address] [place] [address] Care Team Providers Care Battery Filler Name Role Phone Elvira Brantley MD Primary Care Provider [phone] Reason for Referral * Radiology Services (Routine/Next Available) - Authorization Not Required Specialty Diagnoses / Procedures Referred By Jefferson ramires Referred To Contact Diagnoses Encounter for other screening for malignant neoplasm of breast Procedures MA BREAST SCREENING SHRUTI BILATERAL Elvira Brantley MD [address] [place] [address] Phone: tel: fax: [facility] Referral ID Status Reason Start Date Expiration Date Visits Requested Visits Authorized [id number] Authorization Not Required 09/06/2023 1 1 Reason for Visit * Radiology Services (Routine/Next Available) - Authorization Not Required Specialty Diagnoses / Procedures Referred By Jefferson ramires Referred To Contact Diagnoses Encounter for other screening for malignant neoplasm of breast Procedures MA BREAST SCREENING SHRUTI BILATERAL Elvira Brantley MD [address] [place] [address] Phone: tel: fax: [facility] Referral ID Status Reason Start Date Expiration Date Visits Requested Visits Authorized [id number] Authorization Not Required 09/06/2023 1 1 Encounter Details Date Type Department Care Team (Latest Contact Info) Description 07/03/2024 7:00 EST - 07/03/2024 23:59 [facility] Hospital Encounter [facility] Mammography [address] [place] [address] Encounter for other screening for malignant neoplasm of breast Discharge Disposition: Home or Self Care Social [...] your living situation today? I have a [facility] place to live 06/09/2024 Think about [...] the past 12 months has th e [employer] gas, oil, or water company threatened to shut off services in your home? No 06/09/2024 Education Answer Date Recorded Do you speak a language other than Latvian at [facility]? No 06/09/2024 Do you want help [...] Sign Reading Time Taken Comments Blood Pressure - - Pulse - - Temperature - - Respiratory Rate - - Oxygen Saturation - - Inhaled Oxygen Concentration - - Weight 106.6 kg (235 lb) 07/03/2024 0712 EST Height 182.9 cm (6') 07/03/2024 0712 EST Body Mass Index 31.87 07/03/2024 0712 EST documented in this encounter Functional Status [...] or Self Care documented in this encounter Plan of Treatment Upcoming Encounters Date Type Department Care Team (Late st Contact Info) Description 09/24/2024 7:30 EST Rehab Therapy Visit [facility] Rehabilitation Therapy [address] [place], [place] [address] Mirlande Keene, PT [address] [place] [address] 11/25/2024 9:00 EDT Office Visit [facility] Total Joint Program - [address] [place] [address] Tess Rojas NP [address] [place] [address] documented as of this encounter Procedures Procedure Name Priority Date/Time Associated Diagnosis Comments MA BREAST SCREENING SHRUTI BILATERAL Routine 07/03/2024 7:21 EST Encounter for other screening for malignant neoplasm of breast documented in this encounter Results * MA BREAST SCREENING SHRUTI BILATERAL (07/03/2024 [...] needed we will contact your patient directly. [place] [phone] [id number] Narrative 07/03/2024 8:14 EST MA BREAST SCREENING SHRUTI BILATERAL ??07/03/2024 7:11 AM History: Bilateral Screening Comparison: ??Comparison has been made to previous images . ? Technique: Routine 3D tomosynthesis with synthesized 2D views with CAD Breast Composition: There are scattered areas of fibroglandular density. Bilateral Breast Findings: ??No significant masses, calcifications or other abnormalities are seen. Resulting Agency Comment [id number] Procedure Note Willie Cuellar MD - 07/03/2024 [...] is needed we [place] [address] [id number] Result [facility] Elvira Brantley MD IM MAMMOGRAPHY ORDERABLES Fi nal Result documented in this encounter Visit Diagnoses Diagnosis Encounter for other screening for malignant neoplasm of breast documented in this encounter Care Teams Battery Filler Relationship Specialty Start Date End Date Elvira Brantley MD [address] [place] [address] PCP - General 04/20/22 documented as of this encounter
--- OUTSIDE RECORDS SUMMARY | 2024-09-15 15:47 | XMS_ITS | Clinical Summary ---
Author Organization [facility] Address [address] [place] [address] Care Team Providers Care Pediatric Psychologist Name Role Phone Elvira Brantley MD Primary Care Provider [phone] Allergies Active Allergy Reactions Criticality Noted Date [...] back pain radiating to left leg 04/05/2015 Encounters Date Type Department Care Team Description 09/09/2024 Telephone [facility] OBGYN [address] [place] [address] Larissa Watkins MD Medications Refill 08/11/2024 7:00 EST - 08/11/2024 23:59 EST Hospital Encounter [facility] Endoscopy [address] [place] [address] Zacarias David MD Screen for colon cancer Discharge Disposition: Home or Self Care 07/03/2024 7:00 EST - 07/03/2024 23:59 EST Hospital Encounter [facility] Mammography [address] [place] [address] Encounter for other screening for malignant neoplasm of breast Discharge Disposition: Home or Self Care from Last 3 Months Immunizations Name Administration Dates Next Due Covid-19 mRNA Booster Vaccin e (MODERNA COVID-19 BOOSTER) PF 0.25 mL IM (18 yrs+) 06/26/2021 Covid-19 mRNA Vaccine (MODER NA COVID-19) PF 0.5 ml IM (12 yrs+) 11/22/2020,10/25/2020 Surgical History Surgery Date Site/Laterality Comments KNEE ARTHROSCOPY Bilateral HIP ARTHROSCOPY 08/13/2005 - 08/12/2006 Left TUBAL LIGATION HYSTERECTOMY 02/10/2017 - 03/12/2017 N/A For endometriosis, still has ovaries COLONOSCOPY 06/13/2018 - 07/12/2018 N/A polyp-sessile adenoma-repeat in 5 years COLPOSCOPY VARICOSE VEIN SURGERY Right vericose vein tied off HUMERUS FRACTURE SURGERY 08/13/2021 - 08/12/2022 Right Medical History Medical History Date Comments Depression Keratoconus, unspecified Environmental allergies Abnormal Pap smear of cervix Genital herpes History of general anesthesia Exercise involving walking Family History Medical History Relation Comments Bipolar Disorder Father Kidney Failure Father Dementia Maternal Grandfather Endometrial Cancer Maternal Grandmother Atrial fibrillation Mother COPD Mother Dementia Mother Endometrial Cancer Mother Macular Degeneration Mother Supraventricular tachycardia Mother Bipolar Disorder Paternal Grandfather Breast Cancer Paternal Grandmother Glaucoma Neg Hx Retinal Detachment Neg Hx Relation Status Comments Brother 1 Alive Brother 2 Alive Daughter Alive Father Kidney failure d /t lithium Maternal Grandfather Maternal Grandmother Mother ventricular tach ycardia Paternal Grandfather Paternal Grandmother Social History Tobacco Use Types Packs/Day Years [...] your living situation today? I have a [facility] place to live 06/09/2024 Think about the [...] Recorded In the past 12 months has [employer], gas, oil, or water company threatened to shut off services in your home? No 06/09/2024 Education Answer Date Recorded Do you speak a language other than Slovak at [facility]? No 06/09/2024 Do you want help with [...] file Not on file Not on file Obstetrics History Para Term AB IAB SAB Ectopic Multiple Livin g Live Births 1 1 1 1 1 Date Outcome GA Total Labor Labor/2nd/3rd Weight Sex Type Anes PTL Vivian A1 A5 Name Clin 1995 Term F Vag-S pont Living Last Filed Vital Signs Vital Sign Reading [...] Body Mass Index 32.2 08/11/2024 0732 EST Plan of Treatment Upcoming Encounters Date Type Department Care Team (Late st Contact Info) Description 09/24/2024 7:30 EST Rehab Therapy Visit [facility] [place] [facility] Therapy [address] [place], [place] [phone] Mirlande Keene, PT [address] [place] [address] 11/25/2024 9:00 EDT Office Visit [facility] Total Joint Program - [facility] [address] [facility] [place], [place] [phone] Tess Rojas, PLUG AND MOLD FINISHER [address] [place] [address] Health Maintenance Due Date Last Done Comments Hepatitis C Screen 1965 Hepatitis B Vaccine (1 of 3 - 19+ 3-dose series) 1986 COVID-19 Vaccine (2023-2 5 season) 2024 05/31/2022, 06/26/2021, 11/22/2020, Additional history exists Colonoscopy (Colon Cancer Screening) Discontinued 08/11/2024 Colorectal Cancer Screening Discontinued Cologuard (Colon Cancer Screening) Discontinued FIT Test (Colon Cancer Screening) Discontinued Sigmoidoscopy (Colon Cancer Screening) Discontinued Medical Devices Implanted Type Area Hoop Flaring Machine Operator Device Identifier Shelf Expiration Date Model / Serial / Lot Bone Cancellous Cubes 5cc [id number] - [id number] Implanted:Qty: 1 on 10/12/2022 by Gallito Sanders MD MPH at [facility] Bone Right: Humerus [employer] 03/22/2027 [id number] / [id number] / [id number] Plate Bone Cmprs Lckng Prox Hum 12 Hole Sm Frag 3.8m384sh Lcp [id number] - [id number] Implanted:Qty: 1 on 10/12/2022 by Gallito Sanders MD MPH at [facility] Plate Implant Right: Humerus [employer] 10/13/2023 223.621 / . / Plate Bone Cmprs Lckng Ankl Ft Lo Pro 7 Hole 2.7x67mm Lcp [id number] - [id number] Implanted:Qty: 1 on 10/12/2022 by Gallito Sanders MD MPH at [facility] Plate Implant Right: Humerus [employer] 10/13/2023 249.683 / . / Screw Cortex 2.7mm 20mm Slftpng With T8 [employer] - [id number] Implanted:Qty: 2 on 10/12/2022 by Gallito Sanders MD MPH at [facility] Screw Implant Right: Humerus [employer] 10/13/2023 202.880 / . / Screw Bone Cortical Slf Tpng 2.7x22mm Lcp [id number] - [id number] Implanted:Qty: 1 on 10/12/2022 by Gallito Sanders MD MPH at [facility] Screw Implant Right: Humerus [employer] 10/13/2023 202.882 / . / Screw Bone Cortical Slf Tpng 2.7x24mm Lcp [id number] - [id number] Implanted:Qty: 1 on 10/12/2022 by Gallito Sanders MD MPH at [facility] Screw Implant Right: Humerus [employer] 10/13/2023 202.884 / . / Screw Cortex Self-Tapping [id number] 83939 - [id number] Implanted:Qty: 1 on 10/12/2022 by Gallito Sanders MD MPH at [facility] Screw Implant Right: Humerus [employer] 10/13/2023 204.820 / . / Screw Cortex Self-Tapping [id number] - [id number] Implanted:Qty: 2 on 10/12/2022 by Gallito Sanders MD MPH at [facility] Screw Implant Right: Humerus [employer] 10/13/2023 204.822 / . / Screw Cortex Self-Tapping [id number] - [id number] Implanted:Qty: 1 on 10/12/2022 by Gallito Sanders MD MPH at [facility] Screw Implant Right: Humerus [employer] 10/13/2023 204.824 / . / Screw Cortex Self-Tapping [id number] - [id number] Implanted:Qty: 2 on 10/12/2022 by Gallito Sanders MD MPH at [facility] Screw Implant Right: Humerus DEPUY [...] 08/12/2024 11:0 6 EST us Scan 2 Care Program Resident PROCEDURE/MINOR SURGICAL OR DERABLES Final Result * COLONOSCOPY (08/11/2024 8:00 EST) Anatomical Region Laterality Modality Endoscopy Narrative 08/11/2024 8:00 EST [facility] ?? [address] [address] ?? Patient Name ?BESSIE VAUGHN Date of ?1965 Record Number ?[id number] Date/Time of Procedure ?08/11/2024, 08:00:00 AM Endoscopist ?Zacarias David MD ?? Police Officer Booking ? Referring Physician(s) ?? ELVIRA BRANTLEY , Anesthesiologist ? Procedure Performed: COLONOSCOPY Indications for Exam: Surveillance. Instruments: ? [id number] ([id number]) Medications: ?Fentanyl 100 mcg , Versed 7 [...] needed we will contact your patient directly. [address] [address] [id number] Narrative 07/03/2024 8:14 EST MA BREAST SCREENING SHRUTI BILATERAL ??07/03/2024 7:11 AM History: Bilateral Screening Comparison: ??Comparison has been made to previous images . ? Technique: Routine 3D tomosynthesis with synthesized 2D views with CAD Breast Composition: There are scattered areas of fibroglandular density. Bilateral Breast Findings: ??No significant masses, calcifications or other abnormalities are seen. Resulting Agency Comment [id number] Procedure Note Willie Cuellar MD - 07/03/2024 MA BREAST SCREENING SHRTUI BILATERAL 07/03/2024 7:11 AM History: Bilateral Screening [...] is needed we will contact yourpatient directly. [address] [address] [id number] Elvira Brantley MD IMG MAMMOGRAPHY ORDERABLES Fi nal Result from Last 3 Months Insurance [facility] Advance Directives For more information, please contact: [phone] * Full Code (Latest Code Status on File) Date Activated Date Inactivated Comments 10/12/2022 7:04 10/12/2022 19:15 Question Answer Comments When the patient has NO PULSE: Full Code / CPR Who Made the Decision? Default/Not Discussed Care Teams Pediatric Psychologist Relationship Specialty Start Date End Date Elvira Brantley MD [address] [place] [address] PCP - General 04/20/22
--- OUTSIDE RECORDS SUMMARY | 2024-09-15 15:47 | XMS_ITS | Encounter Summary ---
Author Organization [facility] Address [address] [place] [address] Care Team Providers Care Per Assessment Nurse Name Role Phone Elvira Brantley MD Primary Care Provider [phone] Reason for Visit * Reason Onset Date Comments Medication Questions 06/06/2024 Encounter Details Date Type Department Care Team (Late st Contact Info) Description 06/06/2024 Telephone [facility] OBGYN [address] [place] [address] Adrienne Cordova DO [address] [facility], [address] [place] [address] Medication Questions Social History Tobacco Use Types Packs/Day Years [...] encounter Miscellaneous Notes * Telephone Encounter - Dorota Taylor - 06/06/2024 1101 EDT Scheduled 06/11 with RL, Óscar LMOM to call and Confirm * Telephone Encounter - Maritza Olvera RN - 06/06/2024 1048 EDT Last appt: 08/15/2023 OV with CG Was scheduled for AE with VERNELL 02/11/24 - pt canceled Last OV for f/u on estrogen replacement/WW care = 02/22/2023 Please assist pt with scheduling an AE Waitlist: Appt type: : AE / WWE Provider: Any Provider Timeframe: June and July, or August 2024 * Telephone Encounter - Saumya Haywood - 06/06/2024 0912 EDT Patient would like to get her hormone levels checked. She is taking Estradiol but has increased night sweats, brain frog, irritability, etc. documented in this encounter Plan of Treatment Upcoming Encounters Date Type Department Care Team (Late st Contact Info) Description 09/24/2024 7:30 EST Rehab Therapy Visit [facility] Therapy [address] [place], [place] [address] Mirlande Keene, PT [address] [place] [address] 11/25/2024 9:00 EDT Office Visit [facility] Total Joint Program - [place] [address] Tess Rojas, LUCAS [address] [place] [address] documented as of this encounter Visit Diagnoses Not on filedocumented in this encounter Care Teams Per Assessment Nurse Relationship Specialty Start Date End Date Elvira Brantley MD [address] [place] [address] PCP - General 04/20/22 documented as of this encounter
--- OUTSIDE RECORDS SUMMARY | 2024-09-15 15:48 | XMS_ITS | Encounter Summary ---
Author Organization [facility] Address [address] [place] [address] Care Team Providers Care Punch Box Tender Name Role Phone Elvira Brantley MD Primary Care Provider [phone] Reason for Visit * Reason Onset Date Comments Vaginal Issues 08/07/2023 Encounter Details Date Type Department Care Team (Late st Contact Info) Description 08/07/2023 Telephone [facility] OBGYN [address] [place], [place] [id number] Larissa Watkins MD [address] [facility], [address] [place] [address] Vaginal Issues Social History Tobacco Use Types Packs/Day Years [...] encounter Miscellaneous Notes * Telephone Encounter - Saumya Haywood - 08/08/2023 0919 EST Patient has appointment with CG on 08/15. * Telephone Encounter - Larissa Watkins MD - 08/07/2023 1659 EST Please schedule visit as follows: Waitlist Don't sched b/f: NA F/u time: within 2 weeks Call day? Yes Televideo? No Priority: Normal Visit type: Office Visit Reason: vaginitis DIPTI: 20m Provider: Any provider Other: NA * Telephone Encounter - Maritza Olvera RN - 08/07/2023 1528 EST Last appt: 03/02/2023 HRT discussion with Next appt: NA Spoke with pt. Reports 2 weeks ago started with vaginal discomfort and irritation. Thought it was an abnormal flare of HSV at first - took a course of valacyclovir and it didn't seem to help at all. Pt reports vaginal discharge - clear , discharge is thin, and amount - moderate; feels damp all thetime. Denies foul / fishy odor. Reports some external itching, and a low grade vaginal burning feeling. Feels a little bit like things are swollen. Denies urinary burning/pain. Reports some recent pain with intercourse as well; had to stop the last time they attempted. Plan: will review with provider and call back with plan Pt verbalized understanding of plan * Telephone Encounter - Saumya Haywood - 08/07/2023 1431 EST Patient has had vaginal irritation and discomfort for the past two weeks and it seems to be gettingworse. Please advise at [phone]. documented in this encounter Plan of Treatment Upcoming Encounters Date Type Department Care Team (Late st Contact Info) Description 09/24/2024 7:30 EST Rehab Therapy Visit [facility] Rehabilitation Therapy [address] [place], [place] [address] Mirlande Keene, PT [address] [place] [address], [place] [phone] 11/25/2024 9:00 EDT Office Visit [facility] Total Joint Program - [address] [place] [address] Tess Rojas, LUCAS [address] [place] [address] documented as of this encounter Visit Diagnoses Not on filedocumented in this encounter Care Teams Punch Box Tender Relationship Specialty Start Date End Date Elvira Brantley MD [address] [place] [id number] PCP - General 04/20/22 documented as of this encounter
--- OUTSIDE RECORDS SUMMARY | 2024-09-15 15:48 | XMS_ITS | Encounter Summary ---
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 Orthopedic Trauma - [address] [address] Phone: tel: fax: Referral ID Status Reason Start Date Expiration Date Visits Requested Visits Authorized [id number] Receiving Office to Obtain Authorization Specialty Services Required 10/12/2022 1 1 Encounter Details Date Type Department Care Team (Late st Contact Info) Description 10/17/2023 9:00 EST Office Visit 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 Date of Injury/Surgery: 10/12/2022. Subjective: Bria Jackman presents to clinic for regular scheduled follow-up 1 year after undergoing open treatment of a right humeral shaft fracture nonunion via an anterolateral approach with open plating and iliac crest bone autograft. Overall she feels like is doing fairly well. She notes the recovery around the shoulder and upper extremity has been slow and, in hindsight, was fairly exhausting mentally for her. She does have some mild cold weather dependent, pain around her fracture site and notes that, as she is starting to get back to her normal activity, her arm feels a little bit funny with resisted flexion. She has not any wound issues nor any concerns for infection-she in fact recently hada tattoo done around her surgical scar. Objective: On examination, patient remains a pleasant adult female in no acute distress. Well-healed surgical scar without erythema or drainage. Active flexion arc through the right versus left elbow is roughly intact, with perhaps a 5 degree asymmetric loss of extension on the right versus the left. No pain with resisted flexion or flexion/supination. Assessment and Plan: 58 y.o. female, 1 year out from above-satisfactory course postoperatively. I discussed with her that the likely be a little bit different in appearance of her anterior brachial musculature due to surgical approach and tethering. I also discussed that our surgical approach violates the brachialis bynecessity, which could lead to some loss of strength with flexion and also some irritation/scarringaround the brachialis. At this point she is in no way shape or form interested in hardware removal and feels like her complaints are relatively minor. Going forward, she can follow-up with our clinicon an as- needed basis if any new issues arise. All of her questions and concerns were answered and addressed in clinic today. I spent a total of 26 minutes on the date of this encounter meeting with the patient and reviewing and preparing documentation/coordinating care as described in the above note. documented in this encounter Plan of Treatment Upcoming Encounters Date Type Department Care Team (Late st Contact Info) Description 09/24/2024 7:30 EST Rehab Therapy Visit [facility] [address] [place], [place] [phone] Mirlande Keene, PT [address] [place] [id number] 11/25/2024 9:00 EDT Office Visit 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
--- OUTSIDE RECORDS SUMMARY | 2024-09-15 15:48 | XMS_ITS | Encounter Summary ---
Author Organization [facility] Address [address] [place] [address] Care Team Providers Care Senior Examiner Name Role Phone Elvira Brantley MD Primary Care Provider [phone] Reason for Visit * Reason Onset Date Comments Appointment Related 12/13/2022 Encounter Details Date Type Department Care Team (Late st Contact Info) Description 12/13/2022 Telephone [facility] OBGYN [address] [place], [place] [phone] Corina Naik NP [facility] [address] [facility], [address] [place] [address] Appointment Related Social History Tobacco Use Types Packs/Day Years [...] encounter Miscellaneous Notes * Telephone Encounter - Adilene Crowley RN - 12/14/2022 0817 EDT Can you call pt and adjust apt per EV instructions may have to be different day and time per scheduled availability. * Telephone Encounter - Corina Naik APRN - 12/13/2022 2158 EDT This is a patient scheduled with me next week by triage nurse. Please move to SENIOR VICE PRESIDENT or Farideh. Not an ideal client to be seen by CNM. Thank-you! documented in this encounter Plan of Treatment Upcoming Encounters Date Type Department Care Team (Late st Contact Info) Description 09/24/2024 7:30 EST Rehab Therapy Visit [facility] [address] [place], [place] [phone] Mirlande Keene, PT [address] [place] [address] 11/25/2024 9:00 EDT Office Visit [facility] Total Joint Program - [address] [phone] Tess Rojas, LUCAS [address] [place] [phone] documented as of this encounter Visit Diagnoses Not on filedocumented in this encounter Care Teams Senior Examiner Relationship Specialty Start Date End Date Elvira Brantley MD [address] [place] [phone] PCP - General 04/20/22 documented as of this encounter
--- OUTSIDE RECORDS SUMMARY | 2024-09-15 15:48 | XMS_ITS | Encounter Summary ---
Author Organization [facility] Address [address] [place] [address] Care Team Providers Care Medical Examiner Name Role Phone Elvira Brantley MD Primary Care Provider [phone] Reason for Visit * Reason Onset Date Comments Medications Refill 12/27/2022 Needs a refil l please Encounter Details Date Type Department Care Team (Late st Contact Info) Description 12/27/2022 Refill [facility] [address] [place] [address] Yeimi Castaneda, CHAPTER RELATIONS ADMINISTRATOR [address] [facility], [address] [place] [address] Medications Refill (Needs a refill please ) Social History Tobacco Use Types Packs/Day Years [...] Filled Start Date End Date estradioL (VIVELLE-DOT) 0.05 mg/24 hr patch Use one patch twice weekly. 8 Patch 12/28/2022 02/07/2023 documented in this encounter Miscellaneous Notes * Telephone Encounter - Maritza Olvera RN - 12/27/2022 8148 EDT Last appt: TM visit with JF on 04/11/22 to discuss HRT / f/u on vivelle start in 12/2021 ?? Next appt: 01/04/23 AE with [facility] ?? Refill was sent on 04/11/22 for 84 days with 2 refills Yeimi - ok to refill x 1 month? Order pended. Thanks! * Telephone Encounter - Ruba Melo - 12/27/2022 4366 EDT Pt is seeing VERNELL next week to go over her medication. She will run out of the estradiol before her visit. Pt is wondering if she could get a 1 month refill. Just in case the prescription changes. [facility] in [place]. documented in this encounter Plan of Treatment Upcoming Encounters Date Type Department Care Team (Late st Contact Info) Description 09/24/2024 7:30 EST Rehab Therapy Visit [facility] [address] [place], [place] [address] Mirlande Keene, PT [address] [place] [phone] 11/25/2024 9:00 EDT Office Visit [facility] Total Joint Program - [address] [place] [address] Tess Rojas, LUCAS [address] [place] [address] documented as of this encounter Visit Diagnoses Not on filedocumented in this encounter Discontinued Medications Medication Sig Discontinue Reason Start Date End Da te estradioL (VIVELLE) 0.05 mg/24 hr patch Use one patch twice weekly. Reorder 04/11/2022 12/27/2022 documented as of this encounter Care Teams Medical Examiner Relationship Specialty Start Date End Date Elvira Brantley MD [address] [place] [address] PCP - General 04/20/22 documented as of this encounter
--- OUTSIDE RECORDS SUMMARY | 2024-09-15 15:48 | XMS_ITS | Encounter Summary ---
Author Organization [facility] Address [address] [place] [address] Care Team Providers Care Store Stock Help Name Role Phone Elvira Brantley MD Primary Care Provider [phone] Encounter Details Date Type Department Care Team (Latest Contact Info) Description 01/03/2023 8:41 EDT - 01/03/2023 23:59 EDT Hospital Encounter [address] [facility] [address] [place] [address] Closed fracture of shaft of right humerus with routine healing, unspecified fracture morphology, subsequent encounter Discharge Disposition: Home or Self Care Social [...] Take 1,000 mg by mouth as needed. cholecalciferol, Vitamin D3, 25 mcg (1,000 unit) tablet Take 1 Tablet by mouth daily. ibuprofen (MOTRIN) 200 mg tablet Take 3 Tablets by mouth as needed for Pain. MULTIVITAMIN ORAL Take by mouth. Reported on 07/19/2016 sertraline (ZOLOFT) 50 mg tablet Take 1.5 Tablets by mouth daily. estradioL (VIVELLE-DOT) 0.05 mg/24 hr patch Use one patch twice weekly. 8 Patch 12/28/2022 02/07/2023 documented as of this encounter Discharge Disposition Disposition Code Departure Means Destination Home or Self Care documented in this encounter Plan of Treatment Upcoming Encounters Date Type Department Care Team (Late st Contact Info) Description 09/24/2024 7:30 EST Rehab Therapy Visit [facility] Rehabilitation Therapy [address] [place], [place] [phone] Mirlande Keene, PT [address] [place] [address] 11/25/2024 9:00 EDT Office Visit [facility] Total Joint Program - [address] [address] Tess Rojas NP [address] [place] [address] documented as of this encounter Procedures Procedure Name Priority Date/Time Associated Diagnosis Comments XR HUMERUS RIGHT Routine 01/03/2023 8:49 EDT Closed fracture of shaft of right humerus with routine healing, unspecified fracture morphology, subsequent encounter documented in this encounter Results * XR HUMERUS RIGHT (01/03/2023 8:49 EDT) Anatomical Region Laterality Modality Right Computed Radiogr aphy 01/03/2023 12:0 7 EDT Impressions 01/03/2023 12:07 EDT FINDINGS / IMPRESSION: 2 views of the right humerus again demonstrate ORIF of the mid humeral shaft fracture using 2 plate screw constructs that both appear intact and well aligned. There is progressive healing and callus formation at the fracture site. An nirali spur is again incidentally noted. Narrative 01/03/2023 12:07 EDT EXAM/TECHNIQUE: XR HUMERUS RIGHT ??01/03/2023 8:45 AM HISTORY: ?? Assess healing COMPARISON: Radiograph 11/22/2022. Procedure Note Aidan Haile, DO - 01/03/2023 EXAM/TECHNIQUE: XR HUMERUS RIGHT 01/03/2023 8:45 AM HISTORY: Assess healing COMPARISON: Radiograph 11/22/2022. IMPRESSION FINDINGS / IMPRESSION: 2 views of the right humerus again demonstrate ORIF of the mid humeralshaft fracture using 2 plate screw constructs that both appear intact andwell aligned. There is progressive healing and callus formation at thefracture site. An nirali spur is again incidentally noted. us Gallito Sanders MD MPH IMG DIAGNOSTIC IMAGING ORDERABLES Final Result documented in this encounter Visit Diagnoses Diagnosis Closed fracture of shaft of right humerus with routine healing, unspecified fracture morphology, subsequent encounter documented in this encounter Care Teams Store Stock Help Relationship Specialty Start Date End Date Elvira Brantley MD [address] [place] [address] PCP - General 04/20/22 documented as of this encounter
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
--- OUTSIDE RECORDS SUMMARY | 2024-09-15 15:48 | XMS_ITS | Encounter Summary ---
Author Organization [facility] Address [address] [place] [address] Care Team Providers Care Digitizer Operator Name Role Phone Elvira Brantley MD Primary Care Provider [phone] Encounter Details Date Type Department Care Team (Late st Contact Info) Description 12/24/2022 Orders Only [facility] Orthopedic Trauma - [address] [phone] Gallito Sanders MD MPH [address] [place] [address] Other closed displaced fracture of proximal end of right humerus with routine healing, subsequent encounter (Primary Dx) Social History Tobacco [...] documented in this encounter Progress Notes * Whit Tadeo 12/24/2022 1832 EDT ERROR documented in this encounter Plan of Treatment Upcoming Encounters Date Type Department Care Team (Late st Contact Info) Description 09/24/2024 7:30 EST Rehab Therapy Visit [facility] [address] [place], [place] [address] Mirlande Keene, PT [address] [place] [phone] 11/25/2024 9:00 EDT Office Visit [facility] Total Joint Program - [address] [phone] Tess Rojas, LUCAS [address] [place] [address] documented as of this encounter Visit Diagnoses Diagnosis Other closed displaced fracture of proximal end of right humerus with routine healing, subsequent encounter- Primary documented in this encounter Care Teams Digitizer Operator Relationship Specialty Start Date End Date Elvira Brantley MD [address] [place] [address] PCP - General 04/20/22 documented as of this encounter
--- OUTSIDE RECORDS SUMMARY | 2024-09-15 15:48 | XMS_ITS | Encounter Summary ---
Author Organization [facility] Address [address] [place] [address] Care Team Providers Care Security Manager Name Role Phone Elvira Brantley MD Primary Care Provider [phone] Encounter Details Date Type Department Care Team (Late st Contact Info) Description 12/17/2022 Orders Only [facility] Orthopedic Trauma - [address] [phone] Gallito Sanders MD MPH [address] [place] [address] Closed fracture of shaft of right humerus with routine healing, unspecified fracture morphology, subsequent encounter (Primary Dx) Social History Tobacco [...] 08/10/2017 10:42 EST documented in this encounter Plan of Treatment Upcoming Encounters Date Type Department Care Team (Late st Contact Info) Description 09/24/2024 7:30 EST Rehab Therapy Visit [facility] [address] [place], [place] [address] Keene Mirlande, PT [address] [place], [place] [address] 11/25/2024 9:00 EDT Office Visit [facility] Total Joint Program - [address] [place] [address] Tess Rojas, LUCAS [address] [place] [address] documented as of this encounter Results * XR HUMERUS RIGHT [...] with routine healing, unspecified fracture morphology, subsequent encounter- Primary Closed fracture of shaft of right humerus with routine healing, unspecified fracture morphology, subsequent encounter documented in this encounter Care Teams Security Manager Relationship Specialty Start Date End Date Elvira Brantley MD [address] [place] [address] PCP - General 04/20/22 documented as of this encounter
--- OUTSIDE RECORDS SUMMARY | 2024-09-15 15:48 | XMS_ITS | Encounter Summary ---
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 Bob Arora MD Phone: tel: fax: [facility] Orthopedic Trauma - [address] [address] Phone: tel: fax: Referral ID Status Reason Start Date Expiration Date Visits Requested Visits Authorized [id number] Receiving Office to Obtain Authorization Specialty Services Required 10/12/2022 1 1 Encounter Details Date Type Department Care Team (Late st Contact Info) Description 01/03/2023 9:00 EDT Office Visit [facility] Orthopedic Trauma - [address] [address] Gallito Sanders MD MPH [address] [place] [phone] Closed displaced transverse fracture of shaft [...] Notes * Gallito Sanders MD MPH - 01/03/2023 0900 EDT Orthopaedic Trauma Service [facility] Orthopaedics Clinic Note Problem/Surgery:??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 Date of Injury/Surgery:??10/12/2022. ?? Subjective: Bria Jackman presents to clinic for regular scheduled 3-month postoperative follow-up after undergoing ORIF of right humeral shaft fracture nonunion that was treated surgically with takedown of her nonunion and compression plating in addition iliac crest bone marrow autograft. Her initial injury was back in June 2022. Postoperatively, she has done well without any significant complications. She notes she has continued to make fairly steady progress with her range of motion and activity. She feels her shoulder motion is essentially symmetric to her left and she recently had a fairly sudden increase in her elbow range of motion with a few painless crackles while she was doing PT that rest ored her ability to fully extend her elbow. Her pain has remained minimal and her incision has remained well-healed without any concerns for infection. Objective: On examination, Bria remains a pleasant adult female in no acute distress. She is alert and oriented in clinic. Right shoulder abduction is near symmetric with perhaps 10 degree deficit on the right versus left;forward flexion similarly near symmetric. Shoulder external rotation symmetric to 45 degrees and internal rotation symmetric to the mid/low lumbar. Right elbow flexion arc from 5 to 135 degrees of flexion, painless. Light touch sensation is intact distally in the right upper extremity in the radial, ulnar and median nerve distributions. Strength is 5/5 in testing of right EPL, FPL, FDS/FDP to theindex, EIP as well as finger abduction/interossei. Incision is well-healed over the anterolateral right brachium without erythema or drainage suggestive of infection. Plain radiographs of the right humerus, obtained in clinic today, ordered and independently reviewed by myself. These demonstrate maintained satisfactory reduction alignment. There is been interval callus formation, bridging and maturing, along the posterior cortex as well as posterior lateral and medial cortices. The 2.7 mm cortical screws that are nearest to the fracture site do appear fractured but otherwise implants are intact without evidence of implant failure or loosening. There appears to be callus formation and progressive healing within the fracture itself. Assessment and Plan: Bria is a 57-year-old female, 3 months s/p ORIF of a right humeral shaft fracture, satisfactory course postoperative. She has a fracture of two of the 2.7 mm cortical screws-but I suspect this wasa bit of auto-dynamization of her construct and there is likely some strain on these screws was placed during compression across the fracture site during implant placement. Radiographically and clinically she appears like she has robustly healing and at this point she can increase her activity, including weightbearing and range of motion, as tolerated. I did prevocational/rehabilitation counselor her that she should avoid riding, given the unpredictability nature of horses, until around 6 months from surgery. I'd like to seeher back at around that time, and early April/late March 2023. No x- rays need to be obtained unless she has new or worsening symptoms. All of her questions and concerns were answered in clinic today. 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
--- OUTSIDE RECORDS SUMMARY | 2024-09-15 15:48 | XMS_ITS | Encounter Summary ---
Author Organization [facility] Address [address] [place] [address] Care Team Providers Care Religious Activities Director Name Role Phone Elvira Brantley MD Primary Care Provider Reason for Visit * Reason Onset Date Comments Medications Refill 02/07/2023 Appointment Related 02/07/2023 Encounter Details Date Type Department Care Team (Late st Contact Info) Description 02/07/2023 Refill [facility] [address] [place] [address] Larissa Watkins MD [address] [facility], [address] [place] [address] Medications Refill; Appointment Related Social History Tobacco Use Types [...] End Date estradioL (VIVELLE-DOT) 0.05 mg/24 hr patchIndications:Ho rmone replacement therapy (postmenopausal),Pe rimenopausal vasomotor symptoms Use one patch twice weekly. 8 Patch 02/07/2023 02/22/2023 documented in this encounter Miscellaneous Notes * Telephone Encounter - Fior Rodas RN - 02/07/2023 1504 EDT Pt rescheduled for her f/u for HRT on 02/22/2023 w/. Ok to refill her estradial to get her to that appt? Order pended, pharmacy verified * Telephone Encounter - Dorota Taylor - 02/07/2023 1049 EDT Patient missed her Follow up Last week wanted to know if she really needed it, she is feeling much better thinks it was due to anxiety from her brother. Also Needs a Refill on the Medication, Estradiol documented in this encounter Plan of Treatment Upcoming Encounters Date Type Department Care Team (Late st Contact Info) Description 09/24/2024 7:30 EST Rehab Therapy Visit [facility] [address] [place], [place] [id number] Mirlande Keene, PT [address] [place] [id number] 11/25/2024 9:00 EDT Office Visit [facility] [place] [address] Tess Rojas, LUCAS [address] [place] [address] documented as of this encounter Visit Diagnoses Diagnosis Perimenopausal vasomotor symptoms- Primary Symptomatic menopausal or female climacteric states Hormone replacement therapy (postmenopausal) Need for prophylactic hormone replacement therapy (postmenopausal) documented in this encounter Discontinued Medications Medication Sig Discontinue Reason Start Date End Da te estradioL (VIVELLE-DOT) 0.05 mg/24 hr patch Use one patch twice weekly. Reorder 12/28/2022 02/07/2023 documented as of this encounter Care Teams Religious Activities Director Relationship Specialty Start Date End Date Elvira Brantley MD [address] [place] [id number] PCP - General 04/20/22 documented as of this encounter
--- OUTSIDE RECORDS SUMMARY | 2024-09-15 15:48 | XMS_ITS | Encounter Summary ---
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 Bob Arora MD Phone: tel: fax: [facility] Orthopedic Trauma - [address] [address] Phone: tel: fax: Referral ID Status Reason Start Date Expiration Date Visits Requested Visits Authorized [id number] Receiving Office to Obtain Authorization Specialty Services Required 10/12/2022 1 1 Encounter Details Date Type Department Care Team (Late st Contact Info) Description 04/18/2023 9:00 EDT Office Visit [facility] Orthopedic Trauma - [address] [address] Gallito Sanders MD MPH [address] [place] [phone] Closed displaced transverse fracture of shaft [...] Notes * Gallito Sanders MD MPH - 04/18/2023 0900 EDT Orthopaedic Trauma Service [facility] Clinic Note Problem/Surgery:??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 Date of Injury/Surgery:??10/12/2022. Subjective: Bria Jackman presents to clinic for regularly scheduled follow up now 6 months after undergoing open reduction internal fixation with iliac crest autograft of her right humeral shaft fracture nonunion. She feels that she is back to her usual level of activity but does not feel like her right arm limits her from doing anything that she would like to do. She has yet to get back to horseback riding, though is planning to get back in the saddle here in the next few days or weeks. Objective: On examination, patient remains a pleasant adult female in no acute distress. Focused examination of the right upper extremity continues to reveal light touch sensation is intact in the radial, ulnar, median and axillary nerve distribution with 5/5 elbow flexion and extension as well as intact wrist extension and IP extension. Incision is well-healed over the anterolateral brachium. Shoulder abduction lacks perhaps 10 to 15 degrees as does forward flexion. External and internal rotation of the shoulder is intact. Elbow flexion arc symmetric bilaterally. Assessment and Plan: Bria Jackman is a 58-year-old active female, satisfactory course now 6 months s/p above. At thispoint I think it perfectly fine for her to return to all activities as tolerated, allowing for her pain to continue limit advancing her function and activity. Her range of motion is great and radiographically she had excellent evidence of progression towards union at her last follow-up. I like to see her back at the 1 year keila postoperatively, in October 2023. If she is doing well she can certainly cancel this appointment. All of her questions and concerns were answered in clinic today. I spent a total of 23 minutes on the date of this encounter meeting with the patient and reviewing and preparing documentation/coordinating care as described in the above note. 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
--- OUTSIDE RECORDS SUMMARY | 2024-09-15 15:48 | XMS_ITS | Encounter Summary ---
Author Organization [facility] Address [address] [place] [address] Care Team Providers Care Sales And Marketing Intern Name Role Phone Elvira Brantley MD Primary Care Provider [phone] Reason for Visit * Reason Onset Date Comments Medications Refill 01/14/2024 Encounter Details Date Type Department Care Team (Late st Contact Info) Description 01/14/2024 Refill [facility] [address] [place] [address] Deanne Valverde RN Medications Refill Social History Tobacco Use Types [...] one patch twice weekly. 24 Patch 3 01/23/2024 06/11/2024 documented in this encounter Miscellaneous Notes * Telephone Encounter - Maritza Olvera RN - 01/23/2024 1450 EDT Spoke with pt; discussed reason for call. Pt states no concerns; happy to defer appt this year. Happy for 1 year refill. Will call back with any questions or concerns. I will update scheduling team to update recall for AE with summer 2024 Spoke with Saumya; recall list updated. * Telephone Encounter - Kimberly Lopez MD - 01/23/2024 1440 EDT If she has no concerns/changes and would like to defer visit this year as we discussed, that is fine. * Telephone Encounter - Maritza Olvera RN - 01/22/2024 1508 EDT Last AE / f/u on HRT: 02/22/2023 with [facility] Last appt: 08/15/2023 OV with CG for BV Plan: f/u every OTHER year Next appt: on waitlist - but ? If she needs to be? Last refilled / Rx last sent: 03/02/2023 for 90 days with [address] Lopez - Order pended x 1 yr based on your notes from last year * Telephone Encounter - Saumya Haywood - 01/22/2024 1444 EDT Patient called office to make AE appointment and get refill on Estradiol (preferred pharmacy is [facility] in [place]). Told her that she had AE scheduled for 02/10. She was not aware and is on vacation that week. No AE available with [facility], [facility], [facility] or [facility]. Cancelled appointment and put her on Wait list. Patient said she has about 2 weeks of Estradiol left. * Telephone Encounter - Maritza Olvera RN - 01/21/2024 1055 EDT Fax from [facility] for estradiol 0.05 mg patches, #24 patches, last filled 11/05/23 is on file Pt has not returned call to office * Telephone Encounter - Deanne Valverde RN - 01/14/2024 1555 EDT Please see scans on 01/13 for Medication refill request. Pt was last seen on 02/22/2023 by for Vasomotor symptoms and HRT therapy. The recommendation/ plan for that OV was to return in 03/2024 for reevaluation. PSS scheduling is aware of this. Pt was called to see if she is still using the medications and needs a refill. documented in this encounter Plan of Treatment Upcoming Encounters Date Type Department Care Team (Late st Contact Info) Description 09/24/2024 7:30 EST Rehab Therapy Visit [facility] [address] [place], [place] [phone] Mirlande Keene, PT [address] [place] [address] 11/25/2024 9:00 EDT Office Visit [facility] - [address] [place] [address] Tess Rojas NP [address] [place] [address] documented as of this encounter Visit Diagnoses Diagnosis Vasomotor symptoms due to menopause Hormone replacement therapy (postmenopausal) Need for prophylactic hormone replacement therapy (postmenopausal) documented in this encounter Discontinued Medications Medication Sig Discontinue Reason Start Date End Da te estradioL (VIVELLE-DOT) 0.05 mg/24 hr patchIndications:Vasomoto r symptoms due to menopause,Hormone replacement therapy (postmenopausal) Use one patch twice weekly. Reorder 03/02/2023 01/22/2024 documented as of this encounter Care Teams Sales And Marketing Intern Relationship Specialty Start Date End Date Elvira Brantley MD [address] [place] [address] PCP - General 04/20/22 documented as of this encounter
--- OUTSIDE RECORDS SUMMARY | 2024-09-15 15:48 | XMS_ITS | Encounter Summary ---
Author Organization [facility] Address [address] [place] [address] Care Team Providers Care Heel Seat Flap Stapler Name Role Phone Elvira Brantley MD Primary Care Provider [phone] Reason for Visit * Reason Comments Vaginitis Some vaginal dischar ge. Achy, irritated, no noticeable lesions, pain with intercourse, took PRN valtrex. Encounter Details Date Type Department Care Team (Late st Contact Info) Description 08/15/2023 10:20 EST Office Visit [facility] [address] [place] [address] Luma Lucas, SALIMA [facility] [address] [facility], [address] [place] [address] Bacterial vaginitis (Primary Dx); Vaginal yeast infection Social History Tobacco Use Types Packs/Day Years [...] Sign Reading Time Taken Comments Blood Pressure 112/70 08/15/2023 1028 EST Pulse - - Temperature - - Respiratory Rate - - Oxygen Saturation - - Inhaled Oxygen Concentration - - Weight 104.3 kg (230 lb) 08/15/2023 1028 EST Height 177.8 cm (5' 10) 08/15/2023 1028 EST Body Mass Index 33 08/15/2023 1028 EST documented in this encounter Functional Status [...] Refills Last Filled Start Date End Date metroNIDAZOLE (FLAGYL) 500 mg tablet Take 1 Tablet by mouth 2 times daily for 7 days. 14 Tablet 08/15/2023 4 fluconazole (DIFLUCAN) 150 mg tablet Take 1 Tablet by mouth daily. May repeat in 3 days if symptoms persist 2 Tablet 08/15/2023 4 documented in this encounter Progress Notes * Luma Lucas, MUKUND - 08/15/2023 1020 EST Subjective: Chief Complaint Patient presents with Vaginitis Some vaginal discharge. Achy, irritated, no noticeable lesions, pain with intercourse, took PRN valtrex. Bria Jackman is a 58 y.o. female here for symptoms of vaginits. States she has had vaginal burning, pain with intercourse and feels as though her vagina feel irritated. Has a history of HSV and thought she was having an outbreak - although taking Valtrex did not help. Has noticed a vaginal odor at times, but not fishy. Declines STD screening. No LMP recorded. Patient has had a hysterectomy. Sexually active with same partner : Current Outpatient Medications on File Prior to Visit Medication Sig Dispense Refill acetaminophen (TYLENOL ORAL) Take 1,000 mg by mouth as needed. cholecalciferol, Vitamin D3, 25 mcg (1,000 unit) tablet Take 1 Tablet by mouth daily. estradioL (VIVELLE-DOT) 0.05 mg/24 hr patch Use one patch twice weekly. 24 Patch 3 ibuprofen (MOTRIN) 200 mg tablet Take 3 Tablets by mouth as needed for Pain. MULTIVITAMIN ORAL Take by mouth. Reported on 07/19/2016 (Patient not taking: Reported on 02/22/2023) sertraline (ZOLOFT) 50 mg tablet Take 1.5 Tablets by mouth daily. vitamin B complex (B COMPLEX ORAL) Take by mouth daily. Takes 1 per day No current facility-administered medications on file prior to visit. Allergies Allergen Reactions Percocet [Oxycodone-Acetaminophen] Other (See Comments) DROPS BLOOD PRESSURE Unable To Assess Other (See Comments) Clams - vomiting Penicillins Rash Sulfa (Sulfonamide Antibiotics) Rash OB History Para Term AB Living 1 1 1 1 SAB IAB Ectopic Multiple Live Births 1 # Outcome Date GA Lbr Jc/2nd Weight Sex Delivery Anes PTL Lv 1 Term 03/01/96 F Vag-Spont ALMA Past Medical History: Diagnosis Date Abnormal Pap smear of cervix Depression Environmental allergies Exercise involving walking Genital herpes History of general anesthesia Keratoconus, unspecified Objective: BP 112/70 (BP Cuff Location: Right arm, BP Patient Position: Sitting, BP Cuff Sizes: Adult, regular) Ht 177.8 cm (70) Wt (!) 104.3 kg (230 lb) BMI 33.00 kg/m?? Appears well, no acute distress, bright affect FLOOR CLEANER: normal outer genitalia with no lesions. Speculum exam with normal appearing CX, white clumpy discharge on vaginal martin. Water discharge also noted. Outer labia slightly pink with irritation. No herpetic lesions visualized. Wet mount: + clue cells + yeast hyphae PH 6 + whiff test Assessment & Plan: 1. Bacterial vaginitis 2. Vaginal yeast infection Plan: Meds, labs, imaging as detailed above Treat with Flagyl BID for 7 days Diflucan for treatment of yeast Avoid intercourse for the next week Increase foods with beneficial bacteria No scented products vaginally Call/see sooner PRN if sxs persist or do not improve This visit was conducted in the clinic. I spent a total of 25 minutes in discussion/exam with the patient as described in the progress note. documented in this encounter Plan of Treatment Upcoming Encounters Date Type Department Care Team (Late st Contact Info) Description 09/24/2024 7:30 EST Rehab Therapy Visit [facility] Therapy [address] [place], [place] [phone] Mirlande Keene, PT [address] [place], [place] [phone] 11/25/2024 9:00 EDT Office Visit [facility] - [address] [place] [address] Tess Rojas, LUCAS [address] [place] [address] documented as of this encounter Visit Diagnoses Diagnosis Bacterial vaginitis- Primary Vaginitis and vulvovaginitis, unspecified Vaginal yeast infection Candidiasis of vulva and vagina documented in this encounter Care Teams Heel Seat Flap Stapler Relationship Specialty Start Date End Date Elvira Brantley MD [address] [place], [place] [phone] PCP - General 04/20/22 documented as of this encounter
--- OUTSIDE RECORDS SUMMARY | 2024-09-15 15:48 | XMS_ITS | Encounter Summary ---
Author Organization [facility] Address [address] [place] [address] Care Team Providers Care Veterinary Surgeon Name Role Phone Elvira Brantley MD Primary Care Provider [phone] Reason for Visit * Reason Comments Follow-up Encounter Details Date Type Department Care Team (Late st Contact Info) Description 02/22/2023 14:00 EDT Office Visit [facility] OBGYN [address] [place] [address] Kimberly Lopez MD [address], [address] [place] [address] Vasomotor symptoms due to menopause (Primary Dx); Hormone replacement therapy (postmenopausal) Social History Tobacco Use Types Packs/Day Years [...] Sign Reading Time Taken Comments Blood Pressure 122/78 02/22/2023 1411 EDT Pulse - - Temperature - - Respiratory Rate - - Oxygen Saturation - - Inhaled Oxygen Concentration - - Weight 102.1 kg (225 lb) 02/22/2023 1411 EDT Height 177.8 cm (5' 10) 02/22/2023 1411 EDT Body Mass Index 32.28 02/22/2023 1411 EDT documented in this encounter Functional Status [...] this encounter Patient Instructions * Patient Instructions* Kimberly Lopez MD - 02/22/2023 14:00 EDT Here are some other sources of menopause information that may be helpful: [place] [employer] (NAMS) - Focused on Providing Physicians, Practitioners & Women Menopause Information, Help & Treatment Insights Menopause Manifesto - Dr. Leilani Sorto (L-3 GCS) Women Have Been Misled About Menopause - The [employer] ([employer]) documented in this encounter Ordered Prescriptions Prescription Sig Dispense Quantity Refills Last Filled Start Date End Date estradioL (VIVELLE-DOT) 0.05 mg/24 hr patchIndications:Va somotor symptoms due to menopause,Hormone replacement therapy (postmenopausal) Use one patch twice weekly. 24 Patch 3 02/22/2023 03/02/2023 estradioL (VIVELLE-DOT) 0.05 mg/24 hr patchIndications:Ho rmone replacement therapy (postmenopausal) Use one patch twice weekly. 24 Patch 3 02/22/2023 02/22/2023 documented in this encounter Progress Notes * Kimberly Lopez MD - 02/22/2023 1400 EDT Images from the original note were not included. [facility] Gynecology Visit Note HPI: Bria Jackman is a 58 y.o. who presents for follow up on her estrogen replacement and discussion of ongoing women's wellness care. Originally made appointment in December due to scrambled thinking and not sleeping well. This improved after she finished dealing with some family stressors. Has been on estradiol patch for a little over a year. It is a game changer. Sleeps much better overall. Only occasional night sweats or hot flashes. Concentration and articulation are significantlybetter. Sexually active - uses coconut oil as a lubricant. Libido is not great but also not a concern. PROMOTIONS COORDINATOR History: No LMP recorded. Patient has had a hysterectomy. Social History Substance and Sexual Activity Sexual Activity Yes ??? Partners: Male ??? control/protection: Post-menopausal Comment: 3 1/2 yrs relationship Health Maintenance: Cervical cancer screening: up to date Cervical Cancer Screening History - Results and Follow-ups All results Result date Tests and Procedures Follow-ups 11/30/2020 (Order#[id number]) HPV DNA Detection with Genotyping, PCR, ThinPrep [facility] HPV SPECIMEN SOURCE: vagina [facility] HPV HIGH RISK TYPE 16, PCR: Negative [facility] HPV HIGH RISK TYPE 18, PCR: Negative [facility] HPV OTHER HIGH RISK TYPES, PCR: Negative 11/30/2020 (Order#[id number]) PAP TEST *Pap Smear: NILM *HPV: HRHPV - [facility] GREASE BUFFER 1 SPECIMEN ADEQUACY: Satisfactory for Evaluation - assessment of transformation zone component not applicable ( e.g. atrophy, vaginal sample, hysterectomy) [facility] GREASE BUFFER 1 GENERAL CATEGORIZATION: Negative for intraepithelial lesion or malignancy [facility] CYTOLOGY ATTESTATION: . HPV testing in 5 years, Pap in 5 years Due Date: 11/30/2025 02/25/2016 (Order#[id number]) Pap Test 02/02/2016 (Order#[id number]) Pap Test 03/06/2013 (Order#[id number]) PAP TEST 11/15/2011 (Order#[id number]) PAP TEST 11/03/2010 (Order#[id number]) PAP TEST 07/14/2009 (Order#[id number]) PAP TEST *Indicates a transcribed result Breast cancer screening: up to date History of breast cancer in Paternal Grandmother. Colon cancer screening up to date Osteoporosis risk factors: Parental history of hip fracture - father - in late 70s, was on dialysis Osteoporosis Screening: may not needed at this time, recently menopausal and on ERT, had a fracturebut not fragility OB History Para Term AB Living 1 1 1 1 SAB IAB Ectopic Multiple Live Births 1 # Outcome Date GA Lbr Jc/2nd Weight Sex Delivery Anes PTL Lv 1 Term 03/01/96 F Vag-Spont ALMA Allergies Allergen Reactions ??? Percocet [Oxycodone-Acetaminophen] Other (See Comments) DROPS BLOOD PRESSURE ??? Unable To Assess Other (See Comments) Clams - vomiting ??? Penicillins Rash ??? Sulfa (Sulfonamide Antibiotics) Rash Outpatient Medications Marked as Taking for the 02/22/23 encounter (Office Visit) with Kimberly Lopez MD Medication Sig ??? acetaminophen (TYLENOL ORAL) Take 1,000 mg by mouth as needed. ??? cholecalciferol, Vitamin D3, 25 mcg (1,000 unit) tablet Take 1 Tablet by mouth daily. ??? [DISCONTINUED] estradioL (VIVELLE-DOT) 0.05 mg/24 hr patch Use one patch twice weekly. ??? ibuprofen (MOTRIN) 200 mg tablet Take 3 Tablets by mouth as needed for Pain. ??? sertraline (ZOLOFT) 50 mg tablet Take 1.5 Tablets by mouth daily. ??? vitamin B complex (B COMPLEX ORAL) Take by mouth daily. Takes 1 per day I have reviewed medical, surgical, social, and family history. Problem list updated; diagnoses relevant to today's visit indicated below. Objective: BP 122/78 (BP Cuff Location: Right arm, BP Patient Position: Sitting) Ht 177.8 cm (70) Wt (!) 102.1 kg (225 lb) BMI 32.28 kg/m?? Exam deferred Assessment/Plan: Bria Jackman is a 58 y.o. who presents for a follow up of mensopausal symptoms on transdermal estrogen replacement. She is doing well on current dose and her risk profile has not changed. She is up to date on screening. Discussed role of clinical breast and pelvic examinations, and frequency of these can be individualized in absence of symptoms. She thinks every other year (even years) seems like a good plan for her. She does practice breast self awareness. 1. Vasomotor symptoms due to menopause estradioL (VIVELLE-DOT) 0.05 mg/24 hr patch 2. Hormone replacement therapy (postmenopausal) estradioL (VIVELLE-DOT) 0.05 mg/24 hr patch DISCONTINUED: estradioL (VIVELLE-DOT) 0.05 mg/24 hr patch I spent a total of 35 minutes on the date of this encounter meeting with the patient and reviewing documentation/coordinating care as described in the above note. No procedures were performed at the time of the visit. Kimberly Lopez MD documented in this encounter Plan of Treatment Upcoming Encounters Date Type Department Care Team (Late st Contact Info) Description 09/24/2024 7:30 EST Rehab Therapy Visit [facility] [address] [place], [place] [phone] Mirlande Keene, PT [address] [place] [address] 11/25/2024 9:00 EDT Office Visit [facility] Total Joint Program - [address] [address] Tess Rojas, LUCAS [address] [place] [address] documented as of this encounter Visit Diagnoses Diagnosis Vasomotor symptoms due to menopause- Primary Hormone replacement therapy (postmenopausal) Need for prophylactic hormone replacement therapy (postmenopausal) documented in this encounter Discontinued Medications Medication Sig Discontinue Reason Start Date End Da te estradioL (VIVELLE-DOT) 0.05 mg/24 hr patchIndications:Hormone replacement therapy (postmenopausal),Perimeno pausal vasomotor symptoms Use one patch twice weekly. Reorder 02/07/2023 02/22/2023 estradioL (VIVELLE-DOT) 0.05 mg/24 hr patchIndications:Hormone replacement therapy (postmenopausal) Use one patch twice weekly. 02/22/2023 02/22/2023 documented as of this encounter Historical Medications * This list may reflect changes made after this encounter. vitamin B complex (B COMPLEX ORAL) Take by mouth daily. Takes 1 per day added in this encounter Care Teams Veterinary Surgeon Relationship Specialty Start Date End Date Elvira Brantley MD [address] [place], [place] [address] PCP - General 04/20/22 documented as of this encounter
--- OUTSIDE RECORDS SUMMARY | 2024-09-15 15:48 | XMS_ITS | Encounter Summary ---
Author Organization [facility] Address [address] [place] [address] Care Team Providers Care Block Mason Name Role Phone Elvira Brantley MD Primary Care Provider Encounter Details Date Type Department Care Team (Latest Contact Info) Description 09/25/2023 12:26 EST - 09/25/2023 23:59 EST Hospital Encounter [facility] [address] [place] [address] Discharge Disposition: Home or Self Care Social [...] daily. Takes 1 per day estradioL (VIVELLE-DOT) 0.05 mg/24 hr patchIndications: Vasomotor symptoms due to menopause,Hormone replacement therapy (postmenopausal) Use one patch twice weekly. 24 Patch 3 03/02/2023 fluconazole (DIFLUCAN) 150 mg tablet Take 1 Tablet by mouth daily. May repeat in 3 days if symptoms persist 2 Tablet 08/15/2023 4 documented as of this encounter Discharge Disposition Disposition Code Departure Means Destination Home or Self Care documented in this encounter Plan of Treatment Upcoming Encounters Date Type Department Care Team (Late st Contact Info) Description 09/24/2024 7:30 EST Rehab Therapy Visit [facility] [address] [place], [place] [address] Mirlande Keene, PT [address] [place] [address] 11/25/2024 9:00 EDT [facility] Visit [facility] Total Joint Program - [address] [phone] Tess Rojas NP [address] [place] [address] documented as of this encounter Visit Diagnoses Not on filedocumented in this encounter Care Teams Block Mason Relationship Specialty Start Date End Date Elvira Brantley MD [address] [place] [address] PCP - General 04/20/22 documented as of this encounter
--- OUTSIDE RECORDS SUMMARY | 2024-09-15 15:48 | XMS_ITS | Encounter Summary ---
Author Organization [facility] Address [address] [place] [address] Care Team Providers Care Green End Department Supervisor Name Role Phone Elvira Brantley MD Primary Care Provider [phone] Reason for Referral * Referral (Routine/Next Available) - Authorization Not Required Specialty Diagnoses / Procedures [facility] Referred To Contact General Surgery Diagnoses Screen for colon cancer Procedures COLONOSCOPY Elvira Brantley MD [address] [place] [address] Phone: tel: fax: [facility] General Surgery [address] [place] [address] Phone: tel: fax: Referral ID Status Reason Start Date Expiration Date Visits Requested Visits Authorized [id number] Authorization Not Required 01/14/2024 1 1 Encounter Details Date Type Department Care Team (Latest Contact Info) Description 01/14/2024 Transcribe Orders [facility] General Surgery [address] [place] [id number] Elvira Brantley MD [address] [place] [address] Screen for colon cancer (Primary Dx) Social History Tobacco Use Types [...] Description 09/24/2024 7:30 EST Rehab Therapy Visit [facility] [place] [facility] Therapy [address] [place], [place] [phone] Mirlande Keene, PT [address] [place] [phone] 11/25/2024 9:00 EDT Office Visit [facility] Total Joint Program - [address] [place] [address] Tess Rojas, LUCAS [address] [place] [address] documented as of this encounter Results * COLONOSCOPY (08/11/2024 8:00 EST) Anatomical Region Laterality Modality Endoscopy Narrative 08/11/2024 8:00 EST [facility] ?? [address], [place], [place] [address] ?? Patient Name ?BESSIE VAUGHN Date of ?1965 Record Number ?[id number] Date/Time of Procedure ?08/11/2024, 08:00:00 AM Endoscopist ?Zacarias David MD ?? Applications Architect ? Referring Physician(s) ?? ELVIRA BRANTLEY , Anesthesiologist ? Procedure Performed: COLONOSCOPY Indications for Exam: Surveillance. Instruments: ? [id number] ([id number]) Medications: ?Fentanyl 100 mcg , Versed 7 [...] encounter Visit Diagnoses Diagnosis Screen for colon cancer- Primary Special screening for malignant neoplasms, colon Screen for colon cancer Special screening for malignant neoplasms, colon documented in this encounter Care Teams Green End Department Supervisor Relationship Specialty Start Date End Date Elvira Brantley MD [address] [place] [address] PCP - General 04/20/22 documented as of this encounter
--- OUTSIDE RECORDS SUMMARY | 2024-09-15 15:49 | XMS_ITS | Encounter Summary ---
Author Organization [facility] Address [address] [place] [address] Care Team Providers Care Cobol Application Developer Name Role Phone Elvira Brantley MD Primary Care Provider [phone] Reason for Referral * Radiology Services (Routine/Next Available) - Authorization Not Required Specialty Diagnoses / Procedures Referred By [facility] ramires Referred To Contact Diagnoses Encounter for screening mammogram for malignant neoplasm of breast Procedures MA BREAST SCREENING SHRUTI BILATERAL Elvira Brantley MD [address] [place] [address] Phone: tel: fax: [facility] Referral ID Status Reason Start Date Expiration Date Visits Requested Visits Authorized [id number] Authorization Not Required 11/07/2022 1 1 Reason for Visit * Radiology Services (Routine/Next Available) - Authorization Not Required Specialty Diagnoses / Procedures Referred By [facility] ramires Referred To Contact Diagnoses Encounter for screening mammogram for malignant neoplasm of breast Procedures MA BREAST SCREENING SHRUTI BILATERAL Elvira Brantley MD [address] [place] [address] Phone: tel: fax: [facility] Referral ID Status Reason Start Date Expiration Date Visits Requested Visits Authorized [id number] Authorization Not Required 11/07/2022 1 1 Encounter Details Date Type Department Care Team (Latest Contact Info) Description 12/05/2022 7:56 EDT - 12/05/2022 23:59 EDT Hospital Encounter [facility] Mammography [address] [place] [address] Encounter for screening mammogram for malignant neoplasm of breast Discharge Disposition: [...] - - Weight 102.1 kg (225 lb) 12/05/2022 08 EDT Height 177.8 cm (5' 10) 12/05/2022818 EDT Body Mass Index 32.28 12/05/2022 08 EDT documented in this encounter Functional Status [...] Take 1.5 Tablets by mouth daily. estradioL (VIVELLE) 0.05 mg/24 hr patch Use one patch twice weekly. 24 Patch 2 04/11/2022 12/27/2022 documented as of this encounter Discharge Disposition Disposition Code Departure Means Destination Home or Self Care documented in this encounter Plan of Treatment Upcoming Encounters Date Type Department Care Team (Late st Contact Info) Description 09/24/2024 7:30 EST Rehab Therapy Visit [facility] [address] [place], [place] [phone] Mirlande Keene, PT [address] [place], [place] [address] 11/25/2024 9:00 EDT Office Visit [facility] Total Joint Program - [facility] [address] [facility] [place] [address] Tess Rojas, LUCAS [address] [place] [address] documented as of this encounter Procedures Procedure Name Priority Date/Time Associated Diagnosis Comments MA BREAST SCREENING SHRUTI BILATERAL Routine 12/05/2022 8:22 EDT Encounter for screening mammogram for malignant neoplasm of breast documented in this encounter Results * MA BREAST SCREENING SHRUTI BILATERAL (12/05/2022 8:22 EDT) Anatomical Region Laterality Modality Breast Bilateral Mammography 12/05/2022 15:3 8 EDT Impressions 12/05/2022 15:38 EDT Negative, no evidence of malignancy. RECOMMENDATION: Routine screening mammography is recommended. OVERALL ASSESSMENT: BI-RADS 1: Negative These results will be communicated to your patient via a lay letter from Radiology. If any additional imaging is needed we will contact your patient directly. Narrative 12/05/2022 15:38 EDT MA BREAST SCREENING SHRUTI BILATERAL ??12/05/2022 8:10 AM History: routine screening Comparison: ??Comparison has been made to previous images. Technique: Routine 3D tomosynthesis with synthesized 2D views with CAD Bilateral Breast Composition: The breast tissue is heterogenously dense, which may obscure small masses. Bilateral Breast Findings: ??No significant masses, calcifications or other abnormalities are seen. Procedure Note Matti Martinez MD - 12/05/2022 MA BREAST SCREENING SHRUTI BILATERAL 12/05/2022 8:10 AM History: routine screening Comparison: Comparison has been made to previous images. Technique: Routine 3D tomosynthesis with synthesized 2D views with CAD Bilateral Breast Composition: The breast tissue is heterogenously dense,which may obscure small masses. Bilateral Breast Findings: No significant masses, calcifications or otherabnormalities are seen. IMPRESSION Negative, no evidence of malignancy. RECOMMENDATION: Routine screening mammography is recommended. OVERALL ASSESSMENT: BI-RADS 1: Negative These results will be communicated to your patient via a lay letter fromRadiology. If any additional imaging is needed we will contact yourpatient directly. us Elvira Brantley MD IMG MAMMOGRAPHY ORDERABLES Fi nal Result documented in this encounter Visit Diagnoses Diagnosis Encounter for screening mammogram for malignant neoplasm of breast Other screening mammogram documented in this encounter Care Teams Cobol Application Developer Relationship Specialty Start Date End Date Elvira Brantley MD [address] [place] [address] PCP - General 04/20/22 documented as of this encounter
--- OUTSIDE RECORDS SUMMARY | 2024-09-15 15:49 | XMS_ITS | Encounter Summary ---
Author Organization [facility] Address [address] [place] [address] Care Team Providers Care Pbx Wire Chief Name Role Phone Elvira Brantley MD Primary Care Provider [phone] Encounter Details Date Type Department Care Team (Latest Contact Info) Description 09/06/2022 13:26 EST - 09/06/2022 23:59 EST Hospital Encounter [address] [facility] [address] [place] [address] Displaced transverse fracture of shaft of humerus, left arm, subsequent encounter for fracture with routine healing Discharge Disposition: Home or Self Care Social History Tobacco Use Types Packs/Day Years Used Date Smoking Tobacco: Never Smokeless Tobacco: Never Alcohol Use Standard Drinks/Week Comments Yes 0 (1 standard drink = 0.6 oz pur e alcohol) social Humiliation, Afraid, Rape, and Kick questionnair e [...] Take 1,000 mg by mouth as needed. ibuprofen (MOTRIN) 200 mg tablet Take 3 Tablets by mouth as needed for Pain. MULTIVITAMIN ORAL Take by mouth. Reported on 07/19/2016 sertraline (ZOLOFT) 50 mg tablet Take 1.5 Tablets by mouth daily. estradioL (VIVELLE) 0.05 mg/24 hr patch Use one patch twice weekly. 24 Patch 2 04/11/2022 12/27/2022 fexofenadine HCl (ROCKY ORAL) Take by mouth. 2022 valACYclovir (VALTREX) 500 mg tablet Take 500 mg by mouth as needed. Reported on 07/19/2016 10/12/2022 documented as of this encounter Discharge Disposition Disposition Code Departure Means Destination Home or Self Care documented in this encounter Plan of Treatment Upcoming Encounters Date Type Department Care Team (Late st Contact Info) Description 09/24/2024 7:30 EST Rehab Therapy Visit [facility] Rehabilitation Therapy [address] [place] [phone] Mirlande Keene, PT [address] [place] [phone] 11/25/2024 9:00 EDT Office Visit [facility] Total Joint Program - [address] [place] [address] Tess Rojas NP [address] [place] [address] documented as of this encounter Procedures Procedure Name Priority Date/Time Associated Diagnosis Comments XR HUMERUS RIGHT Routine 09/06/2022 13:4 5 EST Displaced transverse fracture of shaft of humerus, left arm, subsequent encounter for fracture with routine healing documented in this encounter Results * XR HUMERUS RIGHT (09/06/2022 13:45 EST) Anatomical Region Laterality Modality Right Computed Radiogr aphy 09/06/2022 16:4 4 EST Impressions 09/06/2022 16:44 EST FINDINGS / IMPRESSION: 2 views of the right humerus were obtained with a soft tissue brace in place. There is a small amount of progressive callus formation at the fracture site in the mid humeral shaft with unchanged alignment of fragments. The bones are osteopenic. Narrative 09/06/2022 16:44 EST EXAM/TECHNIQUE: XR HUMERUS RIGHT ??09/06/2022 1:30 PM HISTORY: ?? Assess healing,transverse fracture of shaft of humerus COMPARISON: Radiographs 08/09/2022. Procedure Note Aidan Haile, DO - 09/06/2022 EXAM/TECHNIQUE: XR HUMERUS RIGHT 09/06/2022 1:30 PM HISTORY: Assess healing,transverse fracture of shaft of humerus COMPARISON: Radiographs 08/09/2022. IMPRESSION FINDINGS / IMPRESSION: 2 views of the right humerus were obtained with a soft tissue brace inplace. There is a small amount of progressive callus formation at thefracture site in the mid humeral shaft with unchanged alignment offragments. The bones are osteopenic. Bairon Kat PA-C [facility] ORDERABLES Final Result documented in this encounter Visit Diagnoses Diagnosis Displaced transverse fracture of shaft of humerus, left arm, subsequent encounter for fracture with routine healing documented in this encounter Care Teams Pbx Wire Chief Relationship Specialty Start Date End Date Elvira Brantley MD [address] [place] [address] PCP - General 04/20/22 documented as of this encounter
--- OUTSIDE RECORDS SUMMARY | 2024-09-15 15:49 | XMS_ITS | Encounter Summary ---
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 Bob Arora MD Phone: tel: fax: [facility] Orthopedic Trauma - [address] [address] Phone: tel: fax: Referral ID Status Reason Start Date Expiration Date Visits Requested Visits Authorized [id number] Receiving Office to Obtain Authorization Specialty Services Required 10/12/2022 1 1 Encounter Details Date Type Department Care Team (Late st Contact Info) Description 11/22/2022 9:00 EDT Office Visit [facility] Orthopedic Trauma - [address] [address] Gallito Sanders MD MPH [address] [place] [phone] Closed displaced transverse fracture of shaft [...] Notes * Gallito Sanders MD MPH - 11/22/2022 0900 EDT Orthopaedic Trauma Service [facility] Orthopaedics Clinic Note Problem/Surgery: 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 Date of Injury/Surgery: 10/12/2022. Subjective: Bria Jackman presents to clinic for regular scheduled 6-week postoperative follow-up after undergoing open treatment with compression plating and iliac crest autograft for her right humeral shaft fracture nonunion in early October. Overall she feels that she is doing well and progressing satisfactorily with PT. She has been working on both shoulder and elbow range of motion and feels like she is making good progress in this regard. She had some numbness along the lateral aspect of her arm, just along the outside portion of her incision, that progressed to some uncomfortable tingly sensationswhich has slowly subsided with time. Otherwise she has not had any other complaints of numbness andher incision has gone on to heal without issue. Objective: On examination, Bria remains a pleasant adult female in no acute distress. She is alert and oriented in clinic. Light touch sensation is intact distally in bilateral upper extremities with a well-healed surgical incision over the anterolateral brachium. Elbow flexion arc is from 5 to 135 degreesand shoulder scapular plane abduction is to 120 degrees and forward flexion to the same on the right. 5/5 strength in testing of bilateral EPL, FPL, EIP, FDS/FDP to the index, wrist extension, wrist flexion as well as interossei. Plain radiographs of the right humerus, obtained in clinic today, were ordered and independent reviewed by myself. These demonstrate maintained satisfactory coronal and sagittal plane alignment through a right humeral shaft fracture with ongoing progression towards bony union and interval formationof bony callus along the dorsal as well as ulnar aspects of the fracture nonunion site. Implants remain intact without evidence of loosening or failure. 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 At this point she can progress as previously described to5 pounds weightbearing through the right upper extremity and range of motion as tolerated through the same. No antibiotic prophylaxis for dental procedures necessary. I would like to see her back in another 6 weeks with repeat radiographs of the right humerus taken prior to being seen. All of her questions and concerns were answered in clinic today. 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 Therapy completed 10/12/2022 11/22/2022 ondansetron (ZOFRAN) 4 mg tablet Take 1 Tablet by mouth daily as needed for Nausea. Therapy completed 10/12/2022 11/22/2022 oxyCODONE (ROXICODONE) 5 mg immediate release tablet Take 1 Tablet by mouth every 4 hours as needed for Pain. Daily Max: 30 mg Therapy completed 10/12/2022 11/22/2022 documented as of this encounter Historical Medications * This list may reflect changes made after this encounter. cholecalciferol, Vitamin D3, 25 mcg (1,000 unit) tablet Take 1 Tablet by mouth daily. added in this encounter Care Teams Semiconductor Packages Sealer Relationship Specialty Start Date End Date Elvira Brantley MD [address] [place] [id number] PCP - General 04/20/22 documented as of this encounter
--- OUTSIDE RECORDS SUMMARY | 2024-09-15 15:49 | XMS_ITS | Encounter Summary ---
Author Organization [facility] Address [address] [place] [address] Care Team Providers Care Head Turbine Operator Name Role Phone Elvira Brantley MD Primary Care Provider [phone] Encounter Details Date Type Department Care Team (Latest Contact Info) Description 08/09/2022 11:42 EST - 08/09/2022 23:59 EST Hospital Encounter [address] [facility] [address] [place] [address] Displaced transverse fracture of shaft [...] tablet Take 1.5 Tablets by mouth daily. Carboxymethylcel lulose Sodium 1 % drops, liquid gel Place 1 Drop into the right eye 4 times daily. Reported on 09/18/2016 09/06/2022 estradioL (VIVELLE) 0.05 mg/24 hr patch Use [...] Therapy Visit [facility] Rehabilitation Therapy [address] [place], [place] [phone] Mirlande Keene, PT [address] [place] [phone] 11/25/2024 9:00 EDT Office Visit [facility] Total Joint Program - [address] [address] Tess Rojas NP [address] [place] [address] documented as of this encounter Procedures Procedure Name Priority Date/Time Associated Diagnosis Comments XR HUMERUS RIGHT Routine 08/09/2022 11:4 8 EST Displaced transverse fracture of shaft of humerus, left arm, subsequent encounter for fracture with routine healing documented in this encounter Results * XR HUMERUS RIGHT (08/09/2022 11:48 EST) Anatomical Region Laterality Modality Right Computed Radiogr aphy 08/09/2022 14:0 5 EST Impressions 08/09/2022 14:05 EST FINDINGS / IMPRESSION: * ??Mid humeral diaphyseal fracture with mild angulation demonstrates stable alignment with some interval healing changes. * ??Osseous demineralization. * ??Anterior distal humeral insertional ligamentous spur. Narrative 08/09/2022 14:05 EST EXAM/TECHNIQUE: 08/09/2022 11:45 AM ??XR HUMERUS RIGHT 2 views ?? HISTORY: ??Assess healing,displaced transverse fracture of shaft of humerus Procedure Note Abhishek Cortez MD - 08/09/2022 EXAM/TECHNIQUE: 08/09/2022 11:45 AM XR HUMERUS RIGHT 2 views HISTORY: Assess healing,displaced transverse fracture of shaft ofhumerus IMPRESSION FINDINGS / IMPRESSION: * Mid humeral diaphyseal fracture with mild angulation demonstratesstable alignment with some interval healing changes. * Osseous demineralization. * Anterior distal humeral insertional ligamentous spur. Bairon Kat PA-C IMG DIAGNOSTIC IMAGING ORDERABLES Final Result documented in this encounter Visit Diagnoses Diagnosis Displaced transverse fracture of shaft of humerus, left arm, subsequent encounter for fracture with routine healing documented in this encounter Care Teams Head Turbine Operator Relationship Specialty Start Date End Date Elvira Brantley MD [address] [place] [id number] PCP - General 04/20/22 documented as of this encounter
--- OUTSIDE RECORDS SUMMARY | 2024-09-15 15:49 | XMS_ITS | Encounter Summary ---
Author Organization [facility] Address [address] [place] [address] Care Team Providers Care Aerospace Manager Name Role Phone Elvira Brantley MD Primary Care Provider Reason for Visit * Reason Onset Date Comments Medications Refill 09/08/2022 Naye patch Encounter Details Date Type Department Care Team (Late st Contact Info) Description 09/08/2022 Telephone [facility] [address] [place] [address] Maritza Olvera RN Medications Refill (Naye patch) Social History Tobacco Use Types Packs/Day Years [...] Telephone Encounter - Maritza Olvera RN - 09/08/2022 1142 EST Please add pt to recall for AE end of December any provider. Then ok to close this - thanks! * Telephone Encounter - Maritza Olvera RN - 09/08/2022 1137 EST Chart reviewed - pt had TM visit with JF on 04/11/22 to discuss HRT / f/u on vivelle start in 12/2021 AE is due 12/2022. Refill was sent on 04/11/22 for 84 days with 2 refills = should be covered until due for AE Called pharmacy - they do have refills on file; this came in under old rx. They will remove that from system and prepare refill for pt. * Telephone Encounter - Maritza Olvera RN - 09/08/2022 1032 EST Fax refill request from [facility] for Naye 0.05 patch documented in this encounter Plan of Treatment Upcoming Encounters Date Type Department Care Team (Late st Contact Info) Description 09/24/2024 7:30 EST Rehab Therapy Visit [facility] Rehabilitation Therapy [address] [place], [place] [phone] Mirlande Keene, PT [address] [place] [id number] 11/25/2024 9:00 EDT Office Visit [facility] Total Joint Program - [address] [facility] [place] [address] Tess Rojas, LUCAS [address] [place] [address] documented as of this encounter Visit Diagnoses Not on filedocumented in this encounter Care Teams Aerospace Manager Relationship Specialty Start Date End Date Elvira Brantley MD [address] [place] [address] PCP - General 04/20/22 documented as of this encounter
--- OUTSIDE RECORDS SUMMARY | 2024-09-15 15:49 | XMS_ITS | Encounter Summary ---
Author Organization [facility] Address [address] [place] [address] Care Team Providers Care Software Quality Analyst Name Role Phone Elvira Brantley MD Primary Care Provider [phone] Encounter Details Date Type Department Care Team (Late st Contact Info) Description 09/27/2022 Orders Only [facility] Orthopedic Trauma - [address] [address] Bairon Kat PA-C [address] [place] [address] Displaced transverse fracture of shaft of humerus, left arm, subsequent encounter for fracture with routine healing (Primary Dx) Social History Tobacco Use Types [...] Description 09/24/2024 7:30 EST Rehab Therapy Visit [facility] Rehabilitation Therapy [address] [place], [place] [phone] Mirlande Keene, PT [address] [place], [place] [phone] 11/25/2024 9:00 EDT Office Visit [facility] Total Joint Program - [address] [facility] [place] [address] Tess Rojas, LUCAS [address] [place] [address] documented as of this encounter Results * XR HUMERUS RIGHT (10/04/2022 11:31 EST) Anatomical Region Laterality Modality Right Computed Radiogr aphy 10/08/2022 23:1 1 EST Impressions 10/08/2022 23:11 EST FINDINGS / IMPRESSION: 2 views of the right humerus redemonstrate a mildly displaced mid shaft humeral fracture, the overall alignment is stable including the degree of displacement and apex and evaluation of the fracture site. While there is evidence of some ongoing callus formation, no significant bone bridging is seen along the fracture edges. No new fracture seen. The shoulder and elbow joints are congruent. Redemonstrated is a supracondylar process (i.e., nirali spur), an anatomical variant. Mineralization is age appropriate. Soft tissues are grossly unremarkable. Narrative 10/08/2022 23:11 EST EXAM/TECHNIQUE: XR HUMERUS RIGHT ??10/04/2022 11:30 AM HISTORY: ?? Assess healing COMPARISON: Radiographs of the right humerus dated September 06, 2022; August 09, 2022; July 05, 2022; June 26, 2022 and June 17, 2022. Procedure Note Ash Wallace MD - 10/08/2022 EXAM/TECHNIQUE: XR HUMERUS RIGHT 10/04/2022 11:30 AM HISTORY: Assess healing COMPARISON: Radiographs of the right humerus dated September 06, 2022; July; July 05, 2022; June 26, 2022 and June 17, 2022. IMPRESSION FINDINGS / IMPRESSION: 2 views of the right humerus redemonstrate a mildly displaced mid shafthumeral fracture, the overall alignment is stable including the degree ofdisplacement and apex and evaluation of the fracture site. While there isevidence of some ongoing callus formation, no significant bone bridging isseen along the fracture edges. No new fracture seen. The shoulder andelbow joints are congruent. Redemonstrated is a supracondylar process(i.e., nirali spur), an anatomical variant. Mineralization is ageappropriate. Soft tissues are grossly unremarkable. Bairon Kat PA-C IM[facility] DIAGNOSTIC IMAGING ORDERABLES Final Result documented in this encounter Visit Diagnoses Diagnosis Displaced transverse fracture of shaft of humerus, left arm, subsequent encounter for fracture with routine healing- Primary Displaced transverse fracture of shaft of humerus, left arm, subsequent encounter for fracture with routine healing documented in this encounter Care Teams Software Quality Analyst Relationship Specialty Start Date End Date Elvira Brantley MD [address] [place] [address] PCP - General 04/20/22 documented as of this encounter
--- OUTSIDE RECORDS SUMMARY | 2024-09-15 15:49 | XMS_ITS | Encounter Summary ---
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, unspecified fracture morphology, subsequent encounter (Primary Dx) [...] Description 09/24/2024 7:30 EST Rehab Therapy Visit [facility] Therapy [address] [place], [place] [phone] KeeneMirlande, PT [address] [place], [place] [phone] 11/25/2024 9:00 EDT Office Visit [facility] Total Joint Program - [address] [place], [place] [phone] Tess Rojas, LUCAS [address] [place] [address] documented as of this encounter Results * XR HUMERUS RIGHT (10/25/2022 9:17 EDT) Anatomical Region Laterality Modality Right Computed Radiogr aphy 10/25/2022 11:0 3 EDT Impressions 10/25/2022 11:03 EDT FINDINGS / IMPRESSION: Right humerus 2 views again show postsurgical changes related to the recent plate and screw fixation of the humeral midshaft fracture with grossly unchanged appearance and alignment compared to the fluoroscopic images from 10/12/2022. There appears to be a very slight degree of residual apex dorsal angulation at the fracture site. The bones are osteopenic. Redemonstrated is a humeral supracondylar process (nirali spur) an anatomic variant. Residual soft tissue swelling is noted. Narrative 10/25/2022 11:03 EDT EXAM/TECHNIQUE: 10/25/2022 9:00 AM ??XR HUMERUS RIGHT 2 views ?? HISTORY: ??Assess healing COMPARISON: Intraoperative fluoroscopic images right humerus 10/12/2022. Right humerus radiographs 10/04/2022 Procedure Note Fahad Vivas MD - 10/25/2022 EXAM/TECHNIQUE: 10/25/2022 9:00 AM XR HUMERUS RIGHT 2 views HISTORY: Assess healing COMPARISON: Intraoperative fluoroscopic images right humerus 10/12/2022.Right humerus radiographs 10/04/2022 IMPRESSION FINDINGS / IMPRESSION: Right humerus 2 views again show postsurgical changes related to therecent plate and screw fixation of the humeral midshaft fracture withgrossly unchanged appearance and alignment compared to the fluoroscopicimages from 10/12/2022. There appears to be a very slight degree of residualapex dorsal angulation at the fracture site. The bones are osteopenic.Redemonstrated is a humeral supracondylar process (nirali spur) an anatomicvariant. Residual soft tissue swelling is noted. 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
--- OUTSIDE RECORDS SUMMARY | 2024-09-15 15:49 | XMS_ITS | Encounter Summary ---
Author Organization [facility] Address [address] [place] [address] Care Team Providers Care Sprinkler Repair Technician Name Role Phone Elvira Brantley MD Primary Care Provider [phone] Reason for Visit * Auth/Cert (Routine) Specialty Diagnoses / Procedures Referred By Jefferson ramires Referred To Contact Diagnoses Closed nondisplaced 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, subsequent encounter Procedures NM REPAIR NON/MALUNION HUMERUS,GRAFT open treatment of right humeral shaft fracture nonunion with right iliac crest bone marrow autograft harvest Gallito Sanders MD [address] [address] Phone: tel: fax: Referral ID Status Reason Start Date Expiration Date Visits Re quested Visits Authorized [id number] 10/05/2022 1 1 Encounter Details Date Type Department Care Team (Late st Contact Info) Description 10/12/2022 8:34 EST Anesthesia Event [facility] [place] [facility] [address] [place], [place] [id number] Rowdy Godinez MD [address] [place] [id number] Pedrito Gtz MD [address] [place] [id number] Anesthesia Record Procedure Summary Procedure Name Responsible Anesthesiologist Anesthesia Start Time Anesthesia Stop Time open treatment of right humeral shaft fracture nonunion with right iliac crest bone marrow autograft harvest (Right: Shoulder) Rowdy Godinez MD 10/12/22 0834 10/12/22 1315 Events Date Time Event Comment 10/12/2022 0834 An Start The patient was re-evaluated immediately before moderate or deep sedation use, before anesthesia induction, or before the anesthesia procedure. 0834 An Start Data 0837 An Induction The patient was reevaluated immediately before moderate or deep sedation use and before anesthesia induction. 0839 An Intubation 0851 Anesthesia Ready 1256 An Extubation 1306 an stop data 1315 Handoff to RN I completed my handoff to the receiving nurse during which we: 1. Identified the patient 2. Identified the responsible provider 3. Reviewed the pertinent medical history 4. Discussed the surgical course 5. Reviewed intra-op anesthesia management and issues during anesthesia 6. Set expectations for post-procedure period 7. Allowed opportunity for questions and acknowledgement of understanding. 1315 An Stop Meds Name Total dexaMETHasone (DECADRON) injection 4 mg/ mL (for IV doses up to 10mg) 8 mg ePHEDrine pre-filled syringe 15 mg fentanyl citrate (PF) injection 100 mcg HYDROmorphone vial 2 mg/mL 1.2 mg ketAMINE 5 mL prefilled syringe 40 mg midazolam (versed) 1 mg/mL 2 mL vial 2 m g ondansetron (PF) (ZOFRAN) injection 4 mg lidocaine 2% (PF) injection glass vial 8 0 mg phenylephrine pre-filled syringe 500 mcg propOFol (DIPRIVAN) injection 180 mg propOFol injection 1,442,286 mcg rocuronium 10 mg/mL vial 80 mg sugammadex 100 mg/mL 2 mL vial 200 mg ceFAZolin (ANCEF) syringe 2 g 4 g phenylephrine pre-made bag 20 mg/250 mL 4,620 mcg acetaminophen 10 mg/ml 100 mL infusion 1 ,000 mg dexmedetomidine injection - vial 8 mcg lactated ringers (LR) infusion 1,300 mL * Agents Name Insp Sevoflurane Exp Sevoflurane O2 N2O Air * Blood No blood administrations on file. Lines, Drains, and Airways Type Details Placement Removal Peripheral IV 10/12/22; 0742; 05/05; 20; 1.25; Protect IV Plus; Anterior, Left; Forearm; Inserted by RN; 2; None; 3.15% Chlorhexidine with IPA; 10/12/22; 1640; Discharged, Per order; Catheter intact, Dressing applied 10/12/22 0742 by Melani Hair RN 10/12/22 1640 by Steff Gagnon RN Non-Surgical Airway 10/12/22; 0907 (brenda nieves via procedure documentation); 10/12/22; 1256 10/12/22 0907 by Citlalli Larose, CROSSTIE INSPECTOR 10/12/22 1256 by Citlalli Larose, CROSSTIE INSPECTOR Wound 10/12/22; 0932; Inci judy; Anterior, Right, Upper; Arm; open treatment of right humeral shaft fracture nonunion; N; Full thickness; 08/11/24; Healed 10/12/22 0932 by Molly Rothman RN 08/11/24 0000 by Arjun Lema RN Wound 10/12/22; 0933; Inci judy; Anterior, Proximal, Right; Hip; right iliac crest bone marrow autograft harvest site; N; Full thickness; 08/11/24; Healed 10/12/22 0933 by Molly Rothman RN 08/11/24 0000 by Arjun Lema RN documented in this encounter Social History Tobacco Use Types Packs/Day Years [...] 08/10/2017 10:42 EST documented in this encounter OR Notes * Anesthesia Postprocedure Evaluation - Citlalli Bennett CRNA - 10/12/2022 1315 EST Patient: Bria Gandara Gasper Vital signs were reviewed with the recovery nurse. Complete vitals history is available in the Epicflowsheets. Vitals Value Taken Time BP 104/68 10/12/22 1315 Temp 36.1 10/12/22 1315 Resp 10 10/12/22 1315 Pulse From Oximetry 66 BPM 10/12/22 1315 SpO2 97 % 10/12/22 1315 Heart Rate 66 BPM 10/12/22 1315 Vitals shown include unvalidated device data. Last Pain Score - Numeric Pain Level (Scale 1-10): 1 Type of Anesthesia - general Anesthesia Post Evaluation Post-procedure vitals reviewed and are stable. Level of consciousness: awake Temperature status: normothermia Respiratory status: airway patent and face mask Cardiovascular status: acceptable Hydration status: adequate Nausea/Vomiting: none Pain management: adequate Post-Op Assessment: patient tolerated procedure well with no complications Patient participation: able to participate Disposition: outpatient/home Anesthesia Complications: No apparent anesthesia complications * Anesthesia Procedure Notes - Citlalli Bennett CRNA - 10/12/2022 0906 EST Associated Order(s): Airway Airway Date/Time: 10/12/2022 8:39 Urgency: elective Airway not difficult General Information and Staff Patient location during procedure: OR Performed: resident/CROSSTIE INSPECTOR/AA Indications and Patient Condition Indications for airway management: anesthesia Sedation level: GA Preoxygenated: yes Patient position: sniffing Ventilation assessment: 1 - Easy Final Airway Details Final airway type: endotracheal airway Successful airway: ETT Cuffed: yes Successful intubation technique: direct laryngoscopy Facilitating devices/methods: intubating stylet Endotracheal tube insertion site: oral Blade: Cheng Blade size: #3 ETT size (mm): 7.0 Cormack-Lehane Classification: grade IIa - partial view of glottis Placement verified by: chest auscultation and capnometry Cuff volume (mL): 9 Measured from: teeth ETT to teeth (cm): 21 Number of attempts at approach: 1 Ventilation between attempts: none Number of other approaches attempted: 0 Additional Comments ETT placed without difficulty by medical student dalila Musa. * Anesthesia Preprocedure Evaluation - Rowdy Godinez MD - 10/12/2022 0603 EST Anesthesia Preprocedure Evaluation Patient Medical History, including Anesthesia History reviewed. Chart and Nursing Notes reviewed, including NPO status and Medication History. Additional ROS/History Findings: 57 y.o. right hand dominant female who is here today for follow up. Today Bria is a little under4 months out from her right humeral shaft fracture. This injury has been treated nonoperatively with a fracture brace. She has been doing physical therapy working on light range of motion in the elbow and shoulder. At today's encounter she reports 0/10 pain in the right humerus. She is unsure if there continues to be some movement through the fracture but overall does not feel any significant pain. She denies any numbness or tingling or weakness in the right wrist or hand. ?? Hx back/hip pain, depression, s/p hysterectomy. Plan GETA, possible post op block Allergies Allergen Reactions ??? Percocet [Oxycodone-Acetaminophen] Other (See Comments) DROPS BLOOD PRESSURE ??? Unable To Assess clams ??? Penicillins Rash ??? Sulfa (Sulfonamide Antibiotics) Rash Review of Systems Past Medical History: Diagnosis Date ??? Abnormal Pap smear of cervix ??? Depression ??? Environmental allergies ??? Exercise involving walking ??? Genital herpes ??? History of general anesthesia ??? Keratoconus, unspecified Relevant Problems No relevant active problems Physical Exam Airway Mallampati: II TM distance: >3 FB Neck ROM: full Cardiovascular - normal exam Dental - normal exam Pulmonary - normal exam Abdominal Anesthesia Plan ASA 2 Anesthesia Type - general, to include intravenous induction. Anesthesia plan and risks discussed. Informed consent obtained from patient. Use of blood products discussed with patient who. PAT Note Notes from 09/12/22 through 10/12/22 No notes of this type exist for this encounter. documented in this encounter Plan of Treatment Upcoming Encounters Date Type Department Care Team (Late st Contact Info) Description 09/24/2024 7:30 EST Rehab Therapy Visit [facility] [address] [place] [address] Keene Mirlande, PT [address] [place] [address] 11/25/2024 9:00 EDT Office Visit [facility] Total [facility] Program - [place] [address] [facility] [place] [address] Tess Rojas, LUCAS [address] [place] [address] documented as of this encounter Procedures Procedure Name Priority Date/Time Associated Diagnosis Comments ANESTHESIA INTUBATION Routine 10/12/2022 8:39 EST documented in this encounter Results * NM AN ELECTIVE ENDOTRACHEAL AIRWAY (10/12/2022 8:39 EST) Narrative Citlalli Bennett CRNA - 10/12/2022 8:39 EST Citlalli Bennett CRNA ? 10/12/2022 ??9:07 Airway Date/Time: 10/12/2022 8:39 Urgency: elective Airway not difficult General Information and Staff Patient location during procedure: OR Performed: resident/CROSSTIE INSPECTOR/AA Indications and Patient Condition Indications for airway management: anesthesia Sedation level: GA Preoxygenated: yes Patient position: sniffing Ventilation assessment: 1 - Easy Final Airway Details Final airway type: endotracheal airway Successful airway: ETT Cuffed: yes Successful intubation technique: direct laryngoscopy Facilitating devices/methods: intubating stylet Endotracheal tube insertion site: oral Blade: Cheng Blade size: #3 ETT size (mm): 7.0 Cormack-Lehane Classification: grade IIa - partial view of glottis Placement verified by: chest auscultation and capnometry Cuff volume (mL): 9 Measured from: teeth ETT to teeth (cm): 21 Number of attempts at approach: 1 Ventilation between attempts: none Number of other approaches attempted: 0 Additional Comments ETT placed without difficulty by medical student dalila Musa. us Rowdy Godinez MD ANESTHESIA ORDERABLES Final R esult documented in this encounter Visit Diagnoses Not on filedocumented in this encounter Administered Medications Inactive Administered Medications - up to 3 most recent administrations Medication Order MAR Action Action Date Dose Rate Site acetaminophen (OFIRMEV) IV solution intravenous, PRN, Starting on Yelena 10/12/22 at 1102, Until Yelena 10/12/22 at 1315, Routine, Anesthesia Intraprocedure Given 10/12/2022 11:02 EST 1,000 mg ceFAZolin (ANCEF) syringe 2 g 2 g, intravenous, Administer over 5 Minutes, PRE-OP ONCE, 1 dose, On Yelena 10/12/22 at 0730, Routine, Preprocedure Given 10/12/2022 12:49 EST 2 g Given 10/12/2022 8:51 EST 2 g dexAMETHasone (DECADRON) injection intravenous, PRN, Starting on Yelena 10/12/22 at 0850, Until Yelena 10/12/22 at 1315, Routine, Anesthesia Intraprocedure Given 10/12/2022 8:50 EST 8 mg dexmedeTOMIDine (PRECEDEX) injection intravenous, PRN, Starting on Yelena 10/12/22 at 1258, Until Yelena 10/12/22 at 1315, Routine, Anesthesia Intraprocedure Given 10/12/2022 12:58 EST 8 mcg ePHEDrine injection 25 mg/5 mL syringe intravenous, PRN, Starting on Yelena 10/12/22 at 0923, Until Yelena 10/12/22 at 1315, Routine, Anesthesia Intraprocedure Given 10/12/2022 9:46 EST 5 mg Given 10/12/2022 9:37 EST 5 mg Given 10/12/2022 9:23 EST 5 mg fentaNYL citrate (PF) injection intravenous, PRN, Starting on Yelena 10/12/22 at 0837, Until Yelena 10/12/22 at 1315, Routine, Anesthesia Intraprocedure Given 10/12/2022 9:16 EST 50 mcg Given 10/12/2022 8:37 EST 50 mcg HYDROmorphone (DILAUDUD) 2 mg/mL injection intravenous, PRN, Starting on Yelena 10/12/22 at 0944, Until Yelena 10/12/22 at 1315, Routine, Anesthesia Intraprocedure Given 10/12/2022 12:58 EST 0.2 mg Given 10/12/2022 12:15 EST 0.4 mg Given 10/12/2022 9:44 EST 0.6 mg ketAMINE in NaCl, iso-osmotic (KETALAR) 50 mg/5 mL (10 mg/mL) IV injection intravenous, PRN, Starting on Yelena 10/12/22 at 0854, Until Yelena 10/12/22 at 1315, Routine, Anesthesia Intraprocedure Given 10/12/2022 11:00 EST 10 mg Given 10/12/2022 8:54 EST 30 mg lactated ringers (LR) infusion at 25 mL/hr, intravenous, CONTINUOUS, Starting on Yelena 10/12/22 at 0730, Until Yelena 10/12/22 at 1915, Routine, Preprocedure New Bag 10/12/2022 12:16 EST Restarted 10/12/2022 8:35 EST Continued by Anesthesia 10/12/2022 8:34 EST 25 mL/hr lidocaine (PF) 20 mg/mL (2 %) injection intravenous, PRN, Starting on Yelena 10/12/22 at 0837, Until Yelena 10/12/22 at 1315, Routine, Anesthesia Intraprocedure Given 10/12/2022 8:37 EST 80 mg midazolam (PF) (VERSED) injection intravenous, PRN, Starting on Yelena 10/12/22 at 0834, Until Yelena 10/12/22 at 1315, Routine, Anesthesia Intraprocedure Given 10/12/2022 8:34 EST 2 mg ondansetron (PF) (ZOFRAN) injection intravenous, PRN, Starting on Yelena 10/12/22 at 1230, Until Yelena 10/12/22 at 1315, Routine, Anesthesia Intraprocedure Given 10/12/2022 12:30 EST 4 mg phenylephrine HCl in 0.9% NaCl (NEO_SYNEPHRINE) 20 mg/250 mL (80 mcg/mL) infusion solution intravenous, FA IP EQF CONTINUOUS PRN FOR ONE STEP MEDS, Starting on Yelena 10/12/22 at 1015, Until Yelena 10/12/22 at 1315, Routine, Anesthesia Intraprocedure Rate Change 10/12/2022 11:52 EST 30 mcg/min 22.5 mL/hr Rate Change 10/12/2022 11:20 EST 40 mcg/min 30 mL/hr Rate Change 10/12/2022 10:27 EST 20 mcg/min 15 mL/hr phenylephrine HCl in 0.9% NaCl injection intravenous, PRN, Starting on Yelena 10/12/22 at 0905, Until Yelena 3 at 1315, Routine, Anesthesia Intraprocedure Given 10/12/2022 13:13 EST 100 mcg Given 10/12/2022 10:11 EST 100 mcg Given 10/12/2022 9:46 EST 100 mcg propOFol (DIPRIVAN) injection intravenous, PRN, Starting on Yelena 10/12/22 at 0837, Until Yelena 3 at 1315, Routine, Anesthesia Intraprocedure Given 10/12/2022 8:37 EST 180 mg propOFol (DIPRIVAN) injection intravenous, FA IP EQF CONTINUOUS PRN FOR ONE STEP MEDS, Starting on Yelena 10/12/22 at 0838, Until Yelena 10/12/22 at 1315, Routine, Anesthesia Intraprocedure Rate Change 10/12/2022 12:41 EST 15 mcg/kg/min 9.396 mL/hr Rate Change 10/12/2022 12:20 EST 30 mcg/kg/min 18.792 mL/h r Rate Change 10/12/2022 9:25 EST 50 mcg/kg/min 31.32 mL/hr rocuronium (ZEMURON) injection intravenous, PRN, Starting on Yelena 10/12/22 at 0837, Until Yelena 3 at 1315, Routine, Anesthesia Intraprocedure Given 10/12/2022 8:37 EST 80 mg sugammadex (BRIDION) injection intravenous, PRN, Starting on Yelena 10/12/22 at 1252, Until Yelena 3 at 1315, Routine, Anesthesia Intraprocedure Given 10/12/2022 12:52 EST 200 mg documented in this encounter Care Teams Sprinkler Repair Technician Relationship Specialty Start Date End Date Elvira Brantley MD [address] [place] [id number] PCP - General 04/20/22 documented as of this encounter
--- OUTSIDE RECORDS SUMMARY | 2024-09-15 15:49 | XMS_ITS | Encounter Summary ---
Author Organization [facility] Address [address] [place] [address] Care Team Providers Care Plywood Layup Line Core Feeder Name Role Phone Elvira Brantley MD Primary Care Provider [phone] Reason for Visit * Reason Comments Fracture Follow-up * Consult (See Order Priority) - Order Cancelled Specialty Diagnoses / Procedures Referred By Jefferson ramires Referred To Contact Orthopedic Surgery Diagnoses Closed fracture of shaft of right humerus, unspecified fracture morphology, initial encounter [facility] Emergency Department [address] [place] [address] Phone: tel: fax: [facility] Orthopedic Trauma - [address] [address] Phone: tel: fax: Referral ID Status Reason Start Date Expiration Date Visits Requested Visits Authorized [id number] Order Cancelled Specialty Services Required 06/17/2022 1 1 Encounter Details Date Type Department Care Team (Late st Contact Info) Description 10/04/2022 11:30 EST Office Visit [facility] Orthopedic Trauma - [address] [address] Bairon Kat PA-C [address] [place] [id number] Closed nondisplaced transverse fracture of shaft of [...] documented in this encounter Progress Notes * Bairon Kat PA-C - 10/04/2022 1130 EST PROBLEM: Follow-up: Right humeral shaft fracture. Date of injury: 06/17/2022 SUBJECTIVE: Bria Jackman is a 57 y.o. right hand dominant female who is here today for follow up. Today Bria is a little under 4 months out from her right humeral shaft [...] or tingling or weakness in the right wristor hand. The past medical, family and social history have been reviewed in the patient chart. OBJECTIVE: There were no vitals taken for this visit. On physical exam, the patient is found to be a very pleasant and cooperative female. Psych: She is alert and oriented x 3 with normal affect. Constitutional: She is well-developed and in no significant distress. Eyes: Sclerae clear. Resp: Breathing is regular and nonlabored without audible wheezing. Skin: On examination of the right arm the skin is intact. Hem: There is no visible ecchymosis. Msk: Focused extremity examination: Inspection of the patient's right upper arm reveals an obvious deformity of the arm with apex anterior/lateral angulation to the mid arm. No tenderness to palpation over the known fracture site is observed. There is gross movement through the fracture site however without any significant pain. She has 5 out of 5 strength with wrist extension, thumb extension, and extension of the index and middle finger. Elbow range of motion is grossly normal. Neuro-vascularly: Sensation intact in the distribution of the radial, ulnar, and median nerves measured at the right hand with no pallor or cyanosis observed. DIAGNOSTICS: Radiographs of the patient's right humerus including AP and lateral views were orderedand taken in the office today. These were independently reviewed by me. These radiographs demonstrate an incompletely healed fracture through the midshaft of the right humerus. There is evidence of increased callus formation however which is not bridging the fracture. 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 At today's encounter Dr. Sanders was consulted regarding this patient's care. He was able to meet with the patient in the clinic today to discuss the diagnosis of fracture nonunion and advised treatment options to help treat the fracture. Dr. Sanders explained that at this point in time it is unlikely that this fracture will go on to heal and that operative managementmay be necessary in order to affect fracture healing. He discussed the procedure for open reductioninternal fixation of fracture nonunion with use of bone graft in order to further stimulate bone healing. Dr. Sanders discussed the rare possibility that her poor fracture healing is the result of the metabolic derangement and therefore we will order bone metabolic labs today to assess for any medicalcause for this. Additionally, Dr. Sanders discussed the risks of surgery including the very small risk of infection, injury of the radial nerve to include temporary neuropraxia, and low risk that despite good fracture reduction, that the bone fails to heal. After considering the risks and benefits of surgery, she would like to move forward with surgical treatment at the next available opportunity. PLAN: 1. The plan today is to move forward with scheduling open reduction internal fixation for right humeral shaft fracture nonunion. This will be done by Dr. Sanders at the next available surgical opportunity. Bone metabolic labs are ordered today and will be reviewed by Dr. Sanders prior to surgery. She will be contacted with any abnormal results which need attention. 2. Concluding today's encounter the patient was met by Dr Marilyn Whittaker's surgical nurse for preoperative scheduling and counseling. 3. She will follow-up postoperatively with Dr. Sanders. 4. Today all questions were answered, the patient indicates understanding, and agrees with the plan. Dr. Sanders was the attending physician available in the clinic today if needed. A consultation was not required. This note was prepared using voice recognition software and the EMR. There may be inadvertent errors and omissions. 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 Patient was seen and examined with Compa Kat at his request. I independently reviewed her x-rays from today and discussed her course with him. 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 This was treated closed with a functional fracture brace. She has been followed with x-rays and clinical exam and on today's exam she has continued persistent subjective as well as objective gross motion through her fracture site. X-rays, which were obtained in clinic today were reviewed and these demonstrate no bridgingcallus. On exam her light touch sensation is intact over the right upper extremity distal wrist andEPL, EIP as well as interosseous, FDS/FDP to the index are all 5/5 in strength. There is gross motion on passive manipulation through the fracture site/mid brachium. There is decreased light touch sensation over the dorsum of her antebrachium. I discussed treatment options with her at length. Though not unreasonable, I discussed that continued observation of her fracture will be unlikely to result in progression towards union. Though thereis no urgency in treating this surgically, surgical treatment would be indicated to help promote union. This surgery would be an open reduction internal fixation through an anterolateral approach with compression plating of her nonunion, debriding the nonunion site at the time and obtaining severalbone biopsies to evaluate for an occult infection. In addition we would obtain ipsilateral iliac crest bone marrow autograft and apply this at the fracture site. The most reasonable risks inherent with the surgery would be radial nerve palsy-which could be permanent and resultant debility as well as infection, joint stiffness, recurrent nonunion/malunion and other neurovascular injury. She would like to proceed with surgery and we will plan on proceeding with this outpatient procedure at our nex t available operative date. All of her questions and concerns were answered in clinic today. * Rose Marie Short RN - 10/04/2022 1130 EST Patient Education Topic: pre-op education Method: Handout and Verbal Taught to: Patient Barriers: None Outcomes: independent and verbalized understanding Acetaminophen pre-op protocol Handout: 3 doses of 1 gram each Signature:ROSE MARIE SHORT RN documented in this encounter Plan of Treatment Upcoming Encounters Date Type Department Care Team (Late st Contact Info) Description 09/24/2024 7:30 EST Rehab Therapy Visit [facility] Rehabilitation Therapy [address] [place], [place] [address] Mirlande Keene, PT [address] [place] [id number] 11/25/2024 9:00 EDT Office Visit [facility] Total Joint Program - [address] [place], [place] [id number] Tess Rojas NP [address] [place] [address] documented as of this encounter Results * SED RATE (10/05/2022 12:53 EST) Sed Rate 9 0 - 30 mm/hr 10/05/2022 13:42 EST [facility] Blood VENOUS BLOOD / Unknown Venipuncture / Unknown 10/05/2022 12:53 EST 10/05/2022 13:35 EST Baironelaine KUHN-C HEMATOLOGY & PF4 ORDER EDWIN Final Result Performing Organization Address City/[facility]/ZIP Co de Phone Number [facility] [address] [place] [address] * C REACTIVE PROTEIN (10/05/2022 12:53 EST) Pathologist [facility] C-Reactive Protein <5.0 <10.0 mg/L 10/05/2022 14:09 EST [facility] Blood VENOUS BLOOD / Unknown Venipuncture / Unknown 10/05/2022 12:53 EST 10/05/2022 13:33 EST Bairon Tram KUHN-C CHEMISTRY & BLOOD GAS ORDERABLES Final Result Performing Organization Address [facility] Co de Phone Number [facility] [address] [place] [address] * VITAMIN D (25,OH) (10/05/2022 12:53 EST) Pathologist [facility] 25OH Vitamin D Tot 39 30 - 100 ng/mL 10/05/2022 14:28 EST [facility] Blood VENOUS BLOOD / Unknown Venipuncture / Unknown 10/05/2022 12:53 EST 10/05/2022 13:33 EST Bairon Tram KUHN-C CHEMISTRY & BLOOD GAS ORDERABLES Final Result Performing Organization Address City/[facility]/ZIP Co de Phone Number [facility] [address] [place] [address] * TSH (10/05/2022 12:53 EST) Pathologist [facility] TSH 1.90 0.47 - 4.68 mIU/L 10/05/2022 14:42 EST [facility] Blood VENOUS BLOOD / Unknown Venipuncture / Unknown 10/05/2022 12:53 EST 10/05/2022 13:33 EST Narrative [facility] - 10/05/2022 14:42 EST The results of this assay can be falsely lowered due to the consumption of Biotin. Bairon Rasheedveronique Kat PA-C CHEMISTRY & BLOOD GAS ORDERABLES Final Result Performing Organization Address [facility]/ZIP Co de Phone Number [facility] [address] [place] [address] * PTT (10/05/2022 12:53 EST) Pathologist [facility] PTT 31 26 - 37 secs 10/05/2022 13:57 EST [facility] Blood VENOUS BLOOD / Unknown Venipuncture / Unknown 10/05/2022 12:53 EST 10/05/2022 13:35 EST Bairon Ugalde Shey PA-C HEMATOLOGY & PF4 ORDER EDWIN Final Result Performing Organization Address [facility] Co de Phone Number [facility] [address] [place] [address] * PTH INTACT (10/05/2022 12:53 EST) [facility] Intact PTH 78 19 - 88 pg/mL 10/05/2022 21:00 EST [facility] Blood VENOUS BLOOD / Unknown Venipuncture / Unknown 10/05/2022 12:53 EST 10/05/2022 13:32 EST Bairon Ugalde Shey PA-C CHEMISTRY & BLOOD GAS ORDERABLES Final Result Performing Organization Address City/[facility]/ZIP Co de Phone Number [facility] [address] [place] [address] * (ABNORMAL) COMPREHENSIVE METABOLIC PANEL (CMP) (10/05/2022 12:53 EST) [facility] Sodium 140 136 - 145 mmol/L 10/05/2022 14:09 [facility] Potassium 3.9 3.5 - 5.0 mmol/L 10/05/2022 14:09 [facility] Chloride 103 96 - 110 mmol/L 10/05/2022 14:09 [facility] CO2 Total 26 22 - 32 mmol/L 10/05/2022 14:09 [facility] Glucose 112(H) 70 - 100 mg/dL 10/05/2022 14:09 [facility] BUN 14 10 - 26 mg/dL 10/05/2022 14:09 [facility] Creatinine 0.70 0.52 - 1.04 mg/dL 10/05/2022 14:09 [facility] eGFR 102 >60 mL/min/1.7 3m2 10/05/2022 14:09 [facility] Total Protein 7.5 6.3 - 8.2 g/dL 10/05/2022 14:09 [facility] Albumin 4.4 3.4 - 4.9 g/dL 10/05/2022 14:09 [facility] Alkaline Phosphatase 74 38 - 126 U/L 10/05/2022 14:09 [facility] AST 37 15 - 46 U/L 10/05/2022 14:09 [facility] ALT 25 <35 U/L 10/05/2022 14:09 [facility] Bilirubin, Total 0.3 <1.4 mg/dL 10/05/19 14:09 [facility] Calcium 8.9 8.5 - 10.5 mg/dL 10/05/2022 14:09 [facility] Albumin/Globulin Ratio 1.4 1.0 - 2.5 10/05/2022 14:09 [facility] Anion Gap 11 5 - 14 10/05/2022 14:09 [facility] Blood VENOUS BLOOD / Unknown Venipuncture / Unknown 10/05/2022 12:53 EST 10/05/2022 13:33 EST us Bairon Kat PA-C CHEMISTRY & BLOOD GAS ORDERABLES Final Result [facility] [address] [place] [address] * (ABNORMAL) COMPLETE BLOOD COUNT AND DIFFERENTIAL (10/05/2022 12:53 [facility]) WBC 5.00 4.00 - 12.40 K/cmm 10/05/2022 13:37 [facility] RBC 4.09 3.86 - 5.04 M/cmm 10/05/2022 13:37 [facility] Hemoglobin 13.3 11.6 - 15.2 gm/dL 10/05/2022 13:37 [facility] HCT 41.0 34.9 - 44.4 % 10/05/2022 13:37 [facility] MCV 100(H) 81 - 98 fl 10/05/2022 13:37 [facility] MCH 32.5 26.7 - 33.3 pg 10/05/2022 13:37 [facility] MCHC 32.4 32.1 - 35.9 gm/dL 10/05/2022 13:37 [facility] RDW-CV 13.0 <14.7 % 10/05/2022 13:37 [facility] RDW-SD 48.3 <50.4 fl 10/05/2022 13:37 [facility] PLT 225 141 - 377 K/cmm 10/05/2022 13:37 [facility] MPV 10.5 9.5 - 12.7 fl 10/05/2022 13:37 [facility] % Neutrophils 45.4 % 10/05/2022 13:37 [facility] % Lymphocytes 44.0 % 10/05/2022 13:37 [facility] % Monocytes 7.8 % 10/05/2022 13:37 [facility] % Eosinophils 2.4 % 10/05/2022 13:37 [facility] % Basophils 0.4 % 10/05/2022 13:37 [facility] % Immature Grans 0.0 % 10/05/19 13:37 [facility] Absolute Neutrophils 2.27 2.20 - 8.85 K/cmm 10/05/2022 13:37 [facility] Absolute Lymphocytes 2.20 1.09 - 3.30 K/cmm 10/05/2022 13:37 [facility] Absolute Monocytes 0.39 0.10 - 0.80 K/cmm 10/05/2022 13:37 [facility] Absolute Eosinophils 0.12 0.03 - 0.61 K/cmm 10/05/2022 13:37 [facility] ABS Basophils 0.02 0.01 - 0.11 K/cmm 10/05/2022 13:37 [facility] Absolute Immature Grans 0.00 0.00 - 0.06 K/cmm 10/05/2022 13:37 [facility] Type of Differential: Auto 10/05/2022 13:37 [facility] Blood VENOUS BLOOD / Unknown Venipuncture / Unknown 10/05/2022 12:53 EST 10/05/2022 13:35 EST us Bairon Kat PA-C PACKAGES & DNA PROBE O RDERABLES Final Result Performing Organization Address City/State/[facility] Co de Phone Number [facility] [address] [place] [address] documented in this encounter Visit Diagnoses Diagnosis Closed nondisplaced 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, subsequent encounter- Primary documented in this encounter Care Teams Plywood Layup Line Core Feeder Relationship Specialty Start Date End Date Elvira Brantley MD [address] [place], [place] [address] PCP - General 04/20/22 documented as of this encounter
--- OUTSIDE RECORDS SUMMARY | 2024-09-15 15:49 | XMS_ITS | Encounter Summary ---
Author Organization [facility] Address [address] [place] [address] Care Team Providers Care Lye Boiler Name Role Phone Elvira Brantley MD Primary Care Provider Encounter Details Date Type Department Care Team (Latest Contact Info) Description 10/25/2022 9:00 EDT - 10/25/2022 23:59 EDT Hospital Encounter [facility] [address] [place] [address] Closed fracture of shaft of right humerus with nonunion, unspecified fracture morphology, subsequent encounter Discharge Disposition: [...] twice weekly. 24 Patch 2 04/11/2022 12/27/2022 methocarbamoL (ROBAXIN) 750 mg tablet Take 1 Tablet by mouth every 6 hours as needed for Muscle Spasms. 25 Tablet 10/12/2022 11/22/2022 ondansetron (ZOFRAN) 4 mg tablet Take 1 Tablet by mouth daily as needed for Nausea. 10 Tablet 1 10/12/2022 11/22/2022 oxyCODONE (ROXICODONE) 5 mg immediate release tablet Take 1 Tablet by mouth every 4 hours as needed for Pain. Daily Max: 30 mg 20 Tablet 10/12/2022 11/22/2022 documented as of this encounter Discharge Disposition Disposition Code Departure Means Destination Home or Self Care documented in this encounter Plan of Treatment Upcoming Encounters Date Type Department Care Team (Late st Contact Info) Description 09/24/2024 7:30 EST Rehab Therapy Visit [facility] Rehabilitation Therapy [address] [place], [place] [address] Mirlande Keene, PT [address] [place] [address] 11/25/2024 9:00 EDT Office Visit [facility] Total Joint Program - [address] [place] [address] Tess Rojas, LUCAS [address] [place] [address] documented as of this encounter Procedures Procedure Name Priority Date/Time Associated Diagnosis Comments XR HUMERUS RIGHT Routine 10/25/2022 9:17 EDT Closed fracture of shaft of right [...] encounter documented in this encounter Care Teams Lye Boiler Relationship Specialty Start Date End Date Elvira Brantley MD [address] [place] [id number] PCP - General 04/20/22 documented as of this encounter
--- OUTSIDE RECORDS SUMMARY | 2024-09-15 15:49 | XMS_ITS | Encounter Summary ---
Author Organization [facility] Address [address] [place] [address] Care Team Providers Care Resource Room Special Education Teacher Name Role Phone Elvira Brantley MD Primary Care Provider [phone] Encounter Details Date Type Department Care Team (Latest Contact Info) Description 10/11/2022 13:18 EST - 10/11/2022 23:59 [facility] Hospital Encounter [facility] Pre-Surgical Testing [address], [place] [id number] Discharge Disposition: Home or Self Care Social [...] - - Weight 104.3 kg (230 lb) 10/11/2022 1308 EST Height 182.9 cm (6') 10/11/2022 1308 EST Body Mass Index 31.19 10/11/2022 1308 EST documented in this encounter Functional Status [...] HCl (ROCKY ORAL) Take by mouth. 2022 methocarbamoL (ROBAXIN) 750 mg tablet Take 1 [...] Max: 30 mg 20 Tablet 10/12/2022 11/22/2022 valACYclovir (VALTREX) 500 mg tablet Take 500 mg by mouth as needed. Reported on 07/19/2016 10/12/2022 documented as of this encounter Discharge Disposition Disposition Code Departure Means Destination Home or Self Care documented in this encounter OR Notes * Preprocedure Instructions - Yanira Cassidy RN - 10/11/2022 1400 EST Bria Jackman has been instructed as follows regarding medication administration for the day of the scheduled procedure. Date of Surgery: 10/12/22 Instructions for Taking Medications Day of Surgery Medication Dose and frequency Last Dose Hold Day of Surgery Take Day of Surgery acetaminophen (TYLENOL ORAL) Take 1,000 mg by mouth as needed. x estradioL (VIVELLE) 0.05 mg/24 hr patch Use one patch twice weekly. x fexofenadine HCl (ROCKY ORAL) Take by mouth. x ibuprofen (MOTRIN) 200 mg tablet Take 200 mg by mouth as needed for Pain. x MULTIVITAMIN ORAL Take by mouth. Reported on 07/19/2016 x sertraline (ZOLOFT) 50 mg tablet Take 75 mg by mouth daily. x valACYclovir (VALTREX) 500 mg tablet Take 500 mg by mouth as needed. Reported on 07/19/2016 x Stop all vitamins and supplements 7 days prior to surgery. Nonsteroidal anti-inflammatories (NSAIDS; i.e. ibuprofen, naproxen, indomethacin, ketorolac, Motrin) stop 3 days prior to surgery. Acetaminophen (Tylenol) can be taken prior to surgery if needed. Preparing for surgery: o Fasting- Follow the eating and drinking instructions below unless otherwise instructed by your surgeon - STOP all solid FOOD and LIQUIDS Containing Fats, including Milk, at midnight the night before surgery - You May have FAT FREE CLEAR liquids until 2 hours before your scheduled time to arrive to the hospital on the day of surgery. Acceptable clear liquids include Water, apple juice, and sports drinks (Gatorade?? or Powerade?? avoid red and purple). - On the day of your procedure, no gum, mints, lozenges or hard candy. - Children under 1 year of age may have breast milk up to 4 hours and formula up to 6 hours before their procedure. - Pedialyte?? is also an acceptable clear liquid for children. o Safety - Infection prevention Shower with an ANTIBACTERIAL SOAP the night before surgery and the morning of surgery. If you were given scrub sponges, use those also, scrubbing well over the area indicated by your surgeon. Do not shave your surgical site for 3 days prior to surgery. Protect Surgical Site from injury such as cuts, bruising or leiva After your morning shower avoid any personal care products such as creams, lotion, powders, deodorant, makeup, hairspray, perfumes or colognes. - Ride home We require you have a responsible Adult to drive you home after surgery or to accompany you in getting home via Taxi or Bus Your Family Member/Ride Home should stay at the hospital during the procedure until you are discharged. If your ride can't stay in the hospital, they still need to come in to pick you up to assist with medication warehouse picker from pharmacy, review of discharge instructions and surgical consult. We ask that your ride stay within 15 minutes of the hospital for warehouse picker. - CPAP/BiPAP Bring your CPAP or BiPAP machine in with you on the day of your surgery. - Nail colombian and Jewelry Remove all finger nail colombian and makeup before surgery Remove all jewelry including rings and Body Piercings before coming in for Surgery. - Glasses and Contacts Wear glasses on the Day of surgery. For eye surgeries avoid contacts for 7 days prior to surgery, unless otherwise instructed by your surgeon. - Full beards Shaving is optional, certain aspects of the anesthetic management can be made easier without a fullbeard. - Smoking Stop smoking tobacco and marijuana prior to surgery as much as possible with a minimum of 24 hours prior to surgery. o Medications - Inhalers Bring your inhalers in with you on the day of your surgery. - Bowel cleansing Follow the instructions for bowel cleansing given to you by your surgeon. Once you start, drink lots of clear liquids, stopping them at the time your surgeon told you to stop. It would be best to stay at home while doing the bowel cleansing. o Legal Guardianship - BRING Proof of Guardianship on Day of Surgery. - Legal Guardian is to be available on the Day of Surgery by Telephone if not physically present onthe Day of Surgery. - Surgical and/or other consents will be signed by Legal Guardian prior to the Day of Surgery if possible. o Call your surgeon IF: - You become ill before your surgery. - You have any new skin problems near the area where your surgery will be, such as a rash, blister,or infection. - You have any questions. - Your surgeon may have given you other instructions to prepare for surgery. Please follow these and if you have questions call your surgeon's office. Day of surgery o Identification - Please bring a photo ID, insurance card and any other information needed for your surgery. o Arrival - General Arrival Time is 2 hours prior to your surgery time. o Medications - Take as directed above with a small sip of water on day of surgery. - Bring a list of medications you take on the day of surgery. - Leave medications at home. o Clothing - Wear casual, loose fitting and comfortable clothing. We recommend you wear/bring inexpensive (avoid silks, etc.) clothing on Day of Surgery. For arm and hand surgery wear a zip up or button up shirt with short sleeves. For eye surgery, do not wear a shirt that pulls over the head unless it has a wide neck opening. Bring a hat with a visor or a pair of sunglasses to wear home after surgery. o Medical Devices - Bring any medical devices that you would normally use during the course of your day. These items include, but are not limited to: insulin pumps, mobility aids, CPAP. o Valuables - Bring only money you may need for you hospital co-pay and to purchase any prescriptions on the way home. Let the person driving you home hold you're your money while you are in surgery. - Leave jewelry at home - Leave contact lenses at home. Wear your eye glasses and bring your eye glass case. - Leave valuable items at home. Ask a family member to bring them in after you have been admitted to the inpatient unit if possible. o Equipment - Remember to bring pillows for the car ride home to elevate your arm or leg (for arm/leg surgery).Bring Crutches if needed. - Use the Volumetric Professor Of Genetics given to you by your surgeon or nurse. Starting 2 weeks prior to your surgery use it 2 times a day, 10 times each use. Bring it with you on the day of your surgery. o Visitation - Per our Welcoming Policy ???Unit nursing staff may have to ask patients and families to limit numbers of family members at the bedside when it impacts the environment of care?? - Typically two visitors are allowed in the Preop and Recovery areas. o Bring plastic bags and paper towels in the car for the Trip Home. o Contact information - Patient/Family given Preop Contact Numbers appropriate to campus of surgery. For Day of Surgery: [facility] [place]: [phone]; [facility] [place]; [phone]. Prior to Day of Surgery call: [phone]. Pre-op toll Free Number . - More information can also be found on our website: [email or web address] YANIRA CASSIDY RN documented in this encounter Plan of Treatment Upcoming Encounters Date Type Department Care Team (Late st Contact Info) Description 09/24/2024 7:30 EST Rehab Therapy Visit [facility] Rehabilitation Therapy [address] [place], [place] [id number] Mirlande Keene, PT [address] [place] [id number] 11/25/2024 9:00 EDT Office Visit [facility] Total Joint Program - [address] [place], [place] [id number] Tess Rojas, LUCAS [address] [place] [address] documented as of this encounter Visit Diagnoses Not on filedocumented in this encounter Care Teams Resource Room Special Education Teacher Relationship Specialty Start Date End Date Elvira Brantley MD [address] [place], [place] [id number] PCP - General 04/20/22 documented as of this encounter
--- OUTSIDE RECORDS SUMMARY | 2024-09-15 15:49 | XMS_ITS | Encounter Summary ---
Author Organization [facility] Address [address] [place] [address] Care Team Providers Care Service And Repair Supervisor Name Role Phone Elvira Brantley MD Primary Care Provider [phone] Encounter Details Date Type Department Care Team (Latest Contact Info) Description 11/22/2022 8:35 EDT - 11/22/2022 23:59 EDT Hospital Encounter [address] [facility] [address] [place] [address] Closed displaced 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, subsequent encounter Discharge Disposition: Home or Self [...] Description 09/24/2024 7:30 EST Rehab Therapy Visit [facility] Rehabilitation Therapy [address] [place], [place] [phone] Mirlande Keene, PT [address] [place] [address] 11/25/2024 9:00 EDT Office Visit 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 An nirali spur is again noted on the anteromedial aspect of the distal humerus. Narrative 11/22/2022 17:11 EDT EXAM/TECHNIQUE: XR HUMERUS RIGHT ??11/22/2022 8:45 AM HISTORY: ?? Assess healing COMPARISON: Radiograph 10/25/2022. Procedure Note Aidan Haile, DO - 11/22/2022 EXAM/TECHNIQUE: XR HUMERUS RIGHT 11/22/2022 8:45 AM HISTORY: Assess healing COMPARISON: Radiograph 10/25/2022. IMPRESSION FINDINGS / IMPRESSION: 2 views of the right humerus again demonstrate plate-screw fixation of themid humeral shaft fracture with ongoing healing and intact hardware. Anavian spur is again noted on the anteromedial aspect of the distalhumerus. us Gallito Sanders MD MPH IMG DIAGNOSTIC IMAGING ORDERABLES Final Result documented in this encounter Visit Diagnoses Diagnosis Closed displaced 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, subsequent encounter documented in this encounter Care Teams Service And Repair Supervisor Relationship Specialty Start Date End Date Elvira Brantley MD [address] [place] [address] PCP - General 04/20/22 documented as of this encounter
--- OUTSIDE RECORDS SUMMARY | 2024-09-15 15:49 | XMS_ITS | Encounter Summary ---
Author Organization [facility] Address [address] [place] [address] Care Team Providers Care Intern Product Marketing Manager Name Role Phone Elvira Brantley MD Primary Care Provider [phone] Reason for Visit * Reason Comments Post-OP Follow Up Right humerus fx DOI 06/17/22 DOS 10/12/22 * Consult (Routine/Next Available) - Receiving Office to Obtain Authorization Specialty Diagnoses / Procedures Referred By Contronald t Referred To Contact Orthopedic Surgery Diagnoses Closed displaced 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 Bob Arora MD Phone: tel: fax: [facility] Orthopedic Trauma - [address] [address] Phone: tel: fax: Referral ID Status Reason Start Date Expiration Date Visits Requested Visits Authorized [id number] Receiving Office to Obtain Authorization Specialty Services Required 10/12/2022 1 1 Encounter Details Date Type Department Care Team (Late st Contact Info) Description 10/25/2022 9:15 EDT Post-op Visit [facility] Orthopedic Trauma - [address] [address] Gallito Sanders MD MPH [address] [place] [phone] Closed fracture of shaft of right [...] Notes * Gallito Sanders MD MPH - 10/25/2022 0915 [address] Trauma Service 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 Date of Injury/Surgery: 10/12/2022. Subjective: Bria Jackman presents to clinic for regular scheduled postoperative follow-up now 2 weeks after undergoing open treatment of her right humeral shaft fracture nonunion. She feels that she is doing quite well and is back to work. She has started knitting again and was actually able to knit a couple of frogs which she brought into clinic with her today. She denies any new numbness or tingling in the right upper extremity has not any fevers or wound chills. There have been no issues with her dressing and she denies any significant drainage or spotting on her bandage. Pain has been well controlled on oral medications. She has discontinued her sling and for the most part has not been wearing it throughout her day. Objective: On examination, Bria remains a pleasant adult female in no acute distress. She is alert and oriented in clinic. Light touch sensation is intact and symmetric bilaterally in the radial, ulnar and median nerve distributions of her hands as well as over the lateral and medial aspects of her brachium-with maintained/static and unchanged-decrease sensation over her dorsal lateral forearm, which waspresent preoperatively. Strength is 5 out of 5 in testing of bilateral EIP, EPL, FDS/FDP to the index, FPL and interosseous as well as shoulder abduction. There is a well approximated anterolateral incision over the right brachium with an intact closure line; no drainage, erythema or other signs ofinfection/breakdown. Elbow flexion arc is actively from 30 to 105 degrees. Plain radiographs of the right humerus, obtained in clinic today, ordered and independent reviewed by myself. These demonstrate maintained satisfactory reduction and implant placement relative to a midshaft humeral shaft fracture. Assessment and Plan: Bria Jackman is a 57-year-old female, 2 weeks s/p right humeral shaft fracture nonunion open treatment, satisfactory course postoperatively without any new neurovascular deficit. I counseled her to continue working on elbow and shoulder range of motion. Physical therapy can be useful to both help guide her in regaining a symmetric elbow flexion arc as well as to help rehab her periscapular musculature. We discussed that focusing on her posterior scapular muscles, including her rhomboids etc., can be helpful to regaining normal upper extremity function. There is no evidence of infection today or major complications. At this point she no longer needs to apply dressing and can get her woundwet in the shower. No soaks until the wound is entirely healed and this was discussed with her. Shecan continue to not use her sling. I would like to see her back in 4 weeks, around the 6-week keila postoperatively, with repeat x- rays of the right humerus taken prior to being seen. All of her questions and concerns were answered in clinic today. documented in this encounter Plan of Treatment Upcoming Encounters Date Type Department Care Team (Late st Contact Info) Description 09/24/2024 7:30 EST Rehab Therapy Visit [facility] Rehabilitation Therapy [address] [place], [place] [phone] Mirlande Keene, PT [address] [place], [place] [id number] 11/25/2024 9:00 EDT Office Visit [facility] Total Joint Program - [address] [facility] [place] [address] Tess Rojas NP [address] [place] [address] documented as of this encounter Visit Diagnoses Diagnosis Closed fracture of shaft of right humerus with nonunion, unspecified fracture morphology, subsequent encounter- Primary documented in this encounter Care Teams Intern Product Marketing Manager Relationship Specialty Start Date End Date Elvira Brantley MD [address] [place] [address] PCP - General 04/20/22 documented as of this encounter
--- OUTSIDE RECORDS SUMMARY | 2024-09-15 15:49 | XMS_ITS | Encounter Summary ---
Author Organization [facility] Address [address] [place] [address] Care Team Providers Care Tool Sharpener Name Role Phone Elvira Brantley MD Primary Care Provider [phone] Reason for Visit * Reason Comments Follow-up Right humerus fx DOI 06/17/22 * Consult (See Order Priority) - Order Cancelled Specialty Diagnoses / Procedures Referred By Jefferson ramires Referred To Contact Orthopedic Surgery Diagnoses Closed fracture of shaft of right humerus, unspecified fracture morphology, initial encounter [facility] Emergency Department [address] [place] [address] Phone: tel: fax: [facility] Orthopedic Trauma - [address] [address] Phone: tel: fax: Referral ID Status Reason Start Date Expiration Date Visits Requested Visits Authorized [id number] Order Cancelled Specialty Services Required 06/17/2022 1 1 Encounter Details Date Type Department Care Team (Late st Contact Info) Description 09/06/2022 13:30 EST Office Visit [facility] Orthopedic Trauma - [address] [address] Bairon Kat PA-C [address] [place] [phone] Displaced transverse fracture of shaft of [...] Progress Notes * Bairon Kat PA-C - 09/06/2022 1330 EST PROBLEM: Follow-up: Right humeral shaft fracture. Date of injury: 06/17/2022 SUBJECTIVE: Bria Jackman is a 57 y.o. right hand dominant female who is here today for follow up. Today Bria is approximately 2 months +3 weeks out from her injury which has been treated nonoperatively with a fracture brace. Today she is doing well. She began physical therapy around 2 weeks agoand has been working on very light range of motion in the elbow and shoulder. She has continued to wear her fracture brace without difficulty although does find it annoying with a little bit of skin irritation noted. In general she does not report any significant pain in the right arm. She denies any numbness or tingling in the right upper extremity. The past medical, family and social history [...] wheezing. Skin: On examination of the right upper arm overlying the fracture the skin is intact, is warm and well-perfused. Hem: There is no visible ecchymosis. Msk: Focused extremity examination: Inspection of the patient's right arm does not reveal any noticeable swelling of the soft tissues. No gross deformity is observed in the right upper arm. Elbow, wrist, and digital range of motion appears grossly normal. She fires EPL, FPL, and first dorsal interosseous without difficulty. Neuro-vascularly: Sensation intact in the distribution of the radial, ulnar, and median nerves measured at the right hand with no pallor or cyanosis observed. DIAGNOSTICS: Radiographs of right humerus including AP and lateral views were ordered and taken in the office today. These were independently reviewed by me. These radiographs demonstrate a progressively healing fracture of the right humeral shaft. There is evidence of progressive bony callus formation bridging the fracture which remains incompletely healed at this time. ASSESSMENT: Bria Jackman is a 57-year-old [id number] female with a healing midshaft fracture of the right humerus. Date of injury: 06/17/2022. Now 2 months +3 weeks postinjury. She is doing well today both clinically and radiographically. Radiographs were reviewed with her in the office today. I showed her specifically the increase in bony callus that is visible on today's x-rays versus those taken 4 weeks ago. I imagine that this fracture will take at least another 2 months to fully heal, possibly longer. For the time being, we will continue with nonoperative management of this fracture. PLAN: 1. Continue immobilization in fracture brace. Limit weightbearing with the right upper extremity to1 to 2 pounds. Physical therapy can be continued and should focus on range of motion in the shoulder and elbow without strengthening at this time. 2. Follow-up with me in clinic in 1 month for reevaluation. Follow-up repeat radiographs of the right humerus will be obtained including AP and lateral views. 3. Today all questions were answered, the patient indicates understanding, and agrees with the plan. Dr. Gallito Sanders was the attending physician available in the clinic today if needed. A consultation was not required. This note was prepared using voice recognition software and the EMR. There may be inadvertent errors and omissions. BAM [place] 09/06/2022 documented in this encounter Plan of Treatment Upcoming Encounters Date Type Department Care Team (Late st Contact Info) Description 09/24/2024 7:30 EST Rehab Therapy Visit [facility] Rehabilitation Therapy [address] [place], [place] [address] Mirlande Keene, PT [address] [place], [place] [address] 11/25/2024 9:00 EDT Office Visit [facility] Total Joint Program - [facility] [address] [facility] [place] [address] Tess Rojas, LUCAS [address] [place] [address] documented as of this encounter Visit Diagnoses Diagnosis Displaced transverse fracture of shaft of humerus, left arm, subsequent encounter for fracture with routine healing- Primary documented in this encounter Discontinued Medications Medication Sig Discontinue Reason Start Date End Da te Carboxymethylcellulose Sodium 1 % drops, liquid gel Place 1 Drop into the right eye 4 times daily. Reported on 09/18/2016 Therapy completed 09/06/2022 documented as of this encounter Care Teams Tool Sharpener Relationship Specialty Start Date End Date Elvira Brantley MD [address] [place] [address] PCP - General 04/20/22 documented as of this encounter
--- OUTSIDE RECORDS SUMMARY | 2024-09-15 15:49 | XMS_ITS | Encounter Summary ---
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 Bob Arora MD Phone: tel: fax: [facility] [address] [address] Phone: tel: fax: Referral ID Status Reason Start Date Expiration Date Visits Requested Visits Authorized [id number] Receiving Office to Obtain Authorization Specialty Services Required 10/12/2022 1 1 Question Answer Reason for Request: S/p ORIF right humeral shaft nonunion 10/12 (Marilyn) * Specialty Diagnoses / Procedures Referred By Jefferson ramires Referred To Contact Bob Arora MD Phone: tel: fax: Referral ID Status Reason Start Date Expiration Date Visits Re quested Visits Authorized Comments See Gallito Sanders MD *. [facility] is located at [address] [place] [address]. Call [phone] if no appointment is scheduled. Reason for Visit * Auth/Cert (Routine) Specialty Diagnoses / Procedures Referred By Contac t Referred To Contact Diagnoses Closed nondisplaced 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, subsequent encounter Procedures NV REPAIR NON/MALUNION HUMERUS,GRAFT open treatment of right humeral shaft fracture nonunion with right iliac crest bone marrow autograft harvest Gallito Sanders MD MPH [address] [place] [phone] Phone: tel: fax: Referral ID Status Reason Start Date Expiration Date Visits Re quested Visits Authorized [id number] 10/05/2022 1 1 Encounter Details Date Type Department Care Team (Latest Contact Info) Description 10/12/2022 6:27 EST - 10/12/2022 16:45 EST Hospital Encounter [facility] [place] [address] [place] [address] Gallito Sanders MD MPH [address] [place] [phone] 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 Answer Date of Assessment Author No 06/17/2022 12:30 Maico Uribe RN * Because of a physical, mental, [...] 10/12/2022 11/22/2022 documented as of this encounter Ordered Prescriptions Prescription Sig Dispense Quantity Refills Last Filled Start Date End Date methocarbamoL (ROBAXIN) 750 mg tablet Take 1 [...] 30 mg 20 Tablet 10/12/2022 11/22/2022 documented in this encounter Discharge Disposition Disposition Code Departure Means Destination Home or Self Skilled Nursing documented in this encounter H&P Notes * Bob Arora MD - 10/12/2022 0813 EST The preoperative history and physical which was performed within 30 days of this procedure has been reviewed and the clinically appropriate elements of the physical examination have been repeated. There are no changes to the documented history and physical or if so such changes are documented below Bob Arora MD 10/12/2022 8:13 Cosigned by Gallito Sanders MD MPH at 10/12/2022 13:18 EST Source Note - TROUBLE LOCATER, SCAN - 10/09/2022 9:43 EST * Gallito Sanders MD MPH - 10/12/2022 0811 EST The preoperative history and physical which was performed within 30 days of this procedure has beenreviewed and the clinically appropriate elements of the physical examination have been repeated. There are no changes to the documented history and physical or if so such changes are documented below Gallito Sanders MD MPH 10/12/2022 8:11 Source Note - TROUBLE LOCATER, SCAN - 10/09/2022 9:43 EST documented in this encounter OR Notes * OR Surgeon - Gallito Sanders MD MPH - 10/12/2022 1329 EST OPERATIVE REPORT SERVICE DATE: 10/12/2022 SURGEON: Gallito Sanders MD MPH ASSISTANTS: Bob Arora MD and Santos Mendoza MD. 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 PROCEDURE: Open treatment of right humeral shaft fracture nonunion with right iliac crest bone autograft and cortical cancellous allograft. ANESTHESIA: GETA. ESTIMATED BLOOD LOSS: 100 mL. IMPLANTS: Synthes 2.7 mm LC-DCP; Synthes 12-hole 3.5 mm LC-DCP. COMPLICATIONS: None. Post operative neurovascular exam demonstrated intact radial nerve function. INDICATIONS: Ms. Jackman is a 57-year-old female who sustained a right humeral shaft fracture after fall off a horse in June. She was treated nonsurgically with a functional fracture brace. She recently followed up in the orthopedic trauma clinic at the [facility] and was 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 There is no evidence of bridging bony callus radiographically. Metabolic bone work-up demonstrated no metabolic abnormality. The risks and benefits of operative versus nonoperative treatment were discussed with her and she elected to proceed with surgical treatment. She presents to the operative theater at [facility] for that purpose today. NARRATIVE: Patient was greeted pre-operatively; operative extremity was identified and marked. Risks and benefits of operative versus non-operative treatment, including all reasonable alternative treatments, were discussed with patient and/or surrogate. Consent reviewed and verified. Patient transferred to the operative theater where upon institutional, pre-induction, brief was performed. Patient transferred to the operative table where care was taken to appropriately pad all bony prominences and secure the patient on the table. Anesthesia induced and airway secured by anesthesia. Operative site preppedwith a gentle chlorhexidine soap scrub followed by isopropyl alcohol wash. Operative site was then prepped with ChloraPrep and draped in a standard sterile fashion. A second institutional, pre-incisional, brief was performed. A 2 cm incision was made proximal to the iliac crest in line with the gluteus medius pillar. Blunt dissection was taken down to the iliac crest. A trocar- tipped needle was introduced between the inner and outer tables through the iliac crest cortex. In separate 5 ml aliquots, 20 mL of iliac crest bone marrow autograft were obtained-with each aliquot obtained from a different region within the gluteus medius pillar. This autograft was mixed with 5 cm?? of morselized cortical cancellous allograft. This wound was irrigated and closed with Monocryl and Dermabond and dressed with a sterile dressing. An anterior lateral approach to the brachium and humerus was performed with an incision made in line with the deltopectoral groove proximally and following the lateral border of the biceps brachii and lateral aspect of the biceps tendon distally. Incision taken sharply through skin with a scalpel. Bovie electrocautery was used to obtain hemostasis. Fascia overlying the biceps brachii and the anterior compartment fascia identified and split along the lateral border of the biceps. Biceps elevatedoff the lateral intermuscular septum and the pseudocapsule and fibrous nonunion site identified. Radial nerve identified and mobilized. This nerve was protected throughout the case. Nonunion site debrided with periosteal elevators and rongeurs. Any local bone that was obtained wasincorporated into the bone graft mixture as noted above. The nonunion site was debrided thoroughly back to bleeding cortical cancellous bone ends at the cranial and caudal aspect of the nonunion site. Intramedullary canal reestablished. The nonunion was then reduced with pointed reduction forceps and a 2.7 mm LC-DCP was selected and applied to the medial aspect of the anterior humeral shaft. Given the short-oblique nature of the fracture, this plate was applied and fixated proximally to function as an anti-glide plate. After fixation proximally, fluoroscopy was brought in and demonstrated sati sfactory reduction. A portion of the autograft/allograft mixture was then impacted into the fracture site. The distal segment was then compressed through the plate to the proximal segment with placement of two distal screws in the dynamic holes of the LC-DCP. A 12-hole 3.5 mm LC-DCP was then applied to the lateral aspect of the humeral shaft and position under fluoroscopy. Care was taken to protect the radial nerve to prevent iatrogenic placement of the plate over the nerve distally. The plate was provisionally fixated and compressed to the humeral shaft and then definitively fixated proximally with cortical screws. The further amount of the bone graft mixture was then impacted into the nonunion site. Three cortical screws were placed distally with further compression applied through the plate. Fluoroscopy again demonstrated satisfactory reductionand fixation. Provisional implements removed. Wound irrigated with sterile saline and the remainderof the allograft/autograft mixture was impacted about the nonunion site. Wound was then closed in layers with anterior compartment fascia repaired with nonabsorbable monofilament suture. Subcutaneous fascia closed with 2-0 Monocryl in a running 3-0 Monocryl was used to close skin with Dermabond applied thereafter. Sterile dressing applied. Final fluoroscopic imaging noted no unintended radiopaque foreign body and satisfactory implant position as well as reduction. Patient was then awakened from anesthesia and transferred to the PACU in good and stable condition with a neurovascular exam as noted above demonstrating intact radial nerve function. POST-OPERATIVE PLAN: 1. DVT/VTE PROPHYLAXIS: Mobilization. 2. ACTIVITY RESTRICTIONS: Range of motion as tolerated-Donahue brace may be worn as needed. Slingshould be DC'd after 2 weeks postoperatively. 2 pound weightbearing limit until 6 weeks postoperatively and then advance to 5 pound weightbearing limit until 3 months and then advance to weightbearing as tolerated. 3. WOUND CARE: Keep dressing clean dry and intact until first postoperative visit. No soaks until wound is entirely healed. 4. ANTIBIOTICS/SPECIAL MEDICATIONS: Perioperative antibiotics only. 5. PAIN MANAGEMENT: Wean off all narcotic opioids prior to 6 weeks postoperatively. 6. FOLLOW UP VISIT: 10 to 14 days at [facility] orthopedics for wound check and x-rays and clinical exam at 6 weeks and 3 months postoperatively. documented in this encounter Miscellaneous Notes * Brief Op Note - Bob Arora MD - 10/12/2022 1241 EST Brief Op Note Date of Surgery: 10/12/2022 Diagnosis: Right humeral shaft nonunion Procedure: 1. Open treatment of right humeral shaft nonunion 2. Iliac crest autograft Surgeon: Marilyn Lead Software Development Engineer: Ulysses Mendoza Anesthesia Type: General EBL: 200 IVF: 1100 UOP: NR Specimen: None Cultures: None Implants: See formal dictation Complications: None perceived Disposition and Condition: PACU in Stable condition per anesthesia. NWB RUE, AAT Sling CHICHO Regular diet Multimodal pain control Dispo planning: Home from PACU Closed with monocryl, dermabond Bob Arora MD 10/12/2022 12:41 [id number] documented in this encounter Plan of Treatment Upcoming Encounters Date Type Department Care Team (Golden Contact Info) Description 09/24/2024 7:30 EST Rehab Therapy Visit [facility] [address] [place], [place] [id number] Mirlande Keene, PT [address] [place], [place] [address] 11/25/2024 9:00 EDT Office Visit [facility] [address] [place] [address] Tess Rojas NP [address] [place] [phone] Scheduled Referrals Name Type Priority Associated Diagnoses Order Schedule PROVIDER FOLLOW-UP INSTRUCTIONS Outpatient Referral Routine Ordered: 10/12/2022 AMB CONS/FOLLOW UP ORTHOPEDICS - [facility] Outpatient Referral Routine/Next Available 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 AEROBES), OTHER Routine 10/12/2022 11:02 EST ANAEROBE CULTURE/SMEAR(INC. AEROBES), OTHER Routine 10/12/2022 11:01 EST ANAEROBE CULTURE/SMEAR(INC. AEROBES), OTHER Routine 10/12/2022 10:58 EST POC US ANESTHESIA NERVE BLOCK INTERSCALENE Routine 10/12/2022 9:15 EST REPAIR, FRACTURE NONUNION OR MALUNION, HUMERUS, USING AUTOGRAFT 10/12/2022 8:32 EST Closed nondisplaced 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, subsequent encounter Special Needs Skytron radiolucent with extension REVERSED WITH EXTENSION @ HOB;Ortho basic; Trauma specialty; Bone marrow aspirate needle / Jamshidi needle; Synthes small frag; Synthes mini frag locking documented in this encounter Results * IMPLANT RECORD - SCANNED (10/16/2022 9:27 EST) 10/16/2022 9:27 EST us Scan 2 Block Sorter PROCEDURE/MINOR SURGICAL OR DERABLES Final Result * XR HUMERUS RIGHT (10/12/2022 13:05 EST) Anatomical Region Laterality Modality Right Radio Fluoroscop y 10/12/2022 13:5 7 EST Impressions 10/12/2022 13:57 EST FINDINGS / IMPRESSION: Coned-down two-view fluoroscopic images of the right humeral midshaft show postsurgical changes related to plate and screw fixation of the humeral midshaft fracture. Expected postsurgical changes are noted in the soft tissues. No unexpected retained radiopaque foreign body identified on the final 2 views. Redemonstrated is a supracondylar process (i.e., nirali spur), an anatomical variant. Narrative 10/12/2022 13:57 EST EXAM/TECHNIQUE: 10/12/2022 8:30 AM ??XR HUMERUS RIGHT 2 views ?? HISTORY: ??Right humerus fx S/P ORIF Routine post op for no count ??Done in OR COMPARISON: Right humerus radiographs 10/04/2022. Procedure Note Fahad Vivas MD - 10/12/2022 EXAM/TECHNIQUE: 10/12/2022 8:30 AM XR HUMERUS RIGHT 2 views HISTORY: Right humerus fx S/P ORIF Routine post op for no count Donein OR COMPARISON: Right humerus radiographs 10/04/2022. IMPRESSION FINDINGS / IMPRESSION: Coned-down two-view fluoroscopic images of the right humeral midshaft showpostsurgical changes related to plate and screw fixation of the humeralmidshaft fracture. Expected postsurgical changes are noted in the softtissues. No unexpected retained radiopaque foreign body identified on thefinal 2 views. Redemonstrated is a supracondylar process (i.e., avianspur), an anatomical variant. us Gallito Sanders MD MPH IMG DIAGNOSTIC IMAGING ORDERABLES Final Result * FL C-ARM 0-1 HOUR (10/12/2022 13:05 EST) Narrative 10/12/2022 13:05 EST This is a non-reportable exam. us Gallito Sanders MD MPH IMG OTHER IMAGING ORDE RABLES Final Result * (ABNORMAL) ANAEROBE CULTURE/SMEAR(INC. AEROBES), OTHER (10/12/2022 11:02 EST) Organism ID No Growth 10/17/2022 12:23 EST [facility] Smear Neutrophils Present(A) 10/17/2022 12:23 EST [facility] Smear No bacteria seen(A) 10/17/2022 12:23 EST [facility] Tissue SOFT TISSUE / Unknown 10/12/2022 11:02 EST 10/12/2022 11:14 EST Gallito Sanders MD MPH MICROBIOLOGY - GENERAL ORDERABLES Final Result [facility] [address] [place] [address] * (ABNORMAL) ANAEROBE CULTURE/SMEAR(INC. AEROBES), OTHER (10/12/2022 11:01 EST) Organism ID No Growth 10/17/2022 12:24 EST [facility] Smear Neutrophils Present(A) 10/17/2022 12:24 EST [facility] Smear No bacteria seen(A) 10/17/2022 12:24 EST [facility] Tissue SOFT TISSUE / Unknown 10/12/2022 11:01 EST 10/12/2022 11:14 EST Result [facility] Gallito Sanders MD MPH MICROBIOLOGY - GENERAL ORDERABLES Final Result [facility] [address] [place] [address] * (ABNORMAL) ANAEROBE CULTURE/SMEAR(INC. AEROBES), OTHER (10/12/2022 10:58 EST) Organism ID No Growth 10/17/2022 12:24 EST [facility] Smear Neutrophils Present(A) 10/17/2022 12:24 EST [facility] Smear No bacteria seen(A) 10/17/2022 12:24 EST [facility] Tissue SOFT TISSUE / Unknown 10/12/2022 10:58 EST 10/12/2022 11:14 EST Gallito Sanders MD MPH MICROBIOLOGY - GENERAL ORDERABLES Final Result Performing Organization Address City/[facility] Co de Phone Number [facility] [address] [place] [address] * POC US ANESTHESIA NERVE BLOCK INTERSCALENE (10/12/2022 9:15 EST) Narrative 10/12/2022 9:15 EST This is a non-reportable exam. 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- Primary documented in this encounter Administered Medications Inactive Administered Medications - up to 3 most recent administrations Medication Order MAR Action Action Date Dose Rate Site atropine 0.1 mg/mL syringe 0.5 mg 0.5 mg, intravenous, PRN, Starting on Yelena 10/12/22 at 1227, Until Yelena 10/12/22 at 1915, Symptomatic HR < 50, Routine, Recovery (only) diphenhydrAMINE (BENADRYL) injection 12.5 mg 12.5 mg, intravenous, PRN, 1 dose, Starting on Yelena 10/12/22 at 1227, Until Yelena 10/12/22 at 1915, nausea, Routine, Recovery (only) fentaNYL citrate (PF) injection 25-50 mcg 25-50 mcg, intravenous, EVERY 5 MIN PRN, Starting on Yelena 10/12/22 at 1227, Until Yelena 10/12/22 at 1915, Pain, Routine, Recovery (only) HYDROmorphone (DILAUDID) tablet 2-4 mg 2-4 mg, oral, EVERY 30 MINUTES PRN, 2 doses, Starting on Yelena 10/12/22 at 1227, Until Yelena 10/12/22 at 1915, Pain, Routine, Recovery (only) HYDROmorphone (PF) (DILAUDID) 0.5 mg/0.5 mL syringe 0.3-0.5 mg 0.3-0.5 mg, intravenous, EVERY 10 MINUTES PRN, Starting on Yelena 10/12/22 at 1227, Until Yelena 10/12/22 at 1915, Pain, Routine, Recovery (only) ketOROLAC (TORADOL) injection 15 mg 15 mg, intravenous, NOW X1, 1 dose, On Yelena 10/12/22 at 1445, Routine, Recovery (only) Given 10/12/2022 16:11 EST 15 mg lactated ringers (LR) infusion at 25 mL/hr, intravenous, CONTINUOUS, Starting on Yelena 10/12/22 at 0730, Until Yelena 10/12/22 at 1915, Routine, Preprocedure New Bag 10/12/2022 12:16 EST Restarted 10/12/2022 8:35 EST Continued by Anesthesia 10/12/2022 8:34 EST 25 mL/hr lactated ringers (LR) infusion at 75 mL/hr, intravenous, PACU CONTINUOUS, Starting on Yelena 10/12/22 at 1245, Until Yelena 10/12/22 at 1915, Routine, Recovery (only) Rate Change 10/12/2022 13:15 EST 75 mL/hr Rate Change 10/12/2022 13:10 EST 75 mL/hr naloxone (NARCAN) injection 0.2 mg 0.2 mg, intravenous, PRN, Starting on Yelena 10/12/22 at 1227, Until Yelena 10/12/22 at 1915, Opioid Reversal, Routine, Recovery (only) ondansetron (PF) (ZOFRAN) injection 4 mg 4 mg, intravenous, PRN, 1 dose, Starting on Yelena 3 at 1227, Until Yelena 10/12/22 at 1915, Nausea, Vomiting, Routine, Recovery (only) documented in this encounter Discontinued Medications Medication Sig Discontinue Reason Start Date End Da te valACYclovir (VALTREX) 500 mg tablet Take 500 mg by mouth as needed. Reported on 07/19/2016 10/12/2022 fexofenadine HCl (ROCKY ORAL) Take by mouth. 10/12/2022 documented as of this encounter Active and Recently Administered Medications Times are shown in EST. Scheduled Medication Order 10/10/2022 10/11/2022 10/12/2022 ceFAZolin (ANCEF) syringe 2 g (COMPLETED) 2 g, intravenous, Administer over 5 Minutes, PRE-OP ONCE, 1 dose, On Yelena 10/12/22 at 0730, Routine, Preprocedure 0851 (Given - Provid er: Citlalli Bennett CRNA)1249 (Given - Provider: Citlalli Bennett CRNA)1314 (Anesthesia Volume Adjustment - Provider: Citlalli Bennett CRNA) ketOROLAC (TORADOL) injection 15 mg (COMPLETED) 15 mg, intravenous, NOW X1, 1 dose, On Yelena 3 at 1445, Routine, Recovery (only) 1611 (Given - Provid er: Steff Gagnon RN - Comment: Given in PACU) Continuous Medication Order 10/10/2022 10/11/2022 10/12/2022 lactated ringers (LR) infusion at 25 mL/hr, intravenous, CONTINUOUS, Starting on Yelena 3 at 0730, Until Yelena 323 at 1915, Routine, Preprocedure 0742 (New Bag - Prov ider: Melani Hair RN)0834 (Continued by Anesthesia - Provider: Citlalli Bennett CRNA)0834 (Paused - Provider: iCtlalli Bennett CRNA - Comment: Switch to gravity)0835 (Restarted - Provider: Citlalli Bennett CRNA)1216 (New Bag - Provider: Citlalli Bennett CRNA)1314 (Anesthesia Volume Adjustment - Provider: Citlalli Bennett CRNA) lactated ringers (LR) infusion at 75 mL/hr, intravenous, PACU CONTINUOUS, Starting on Yelena 10/12/22 at 1245, Until Yelena 10/12/22 at 191, Routine, Recovery (only) 1310 (Rate Change - Provider: Steff Gagnon, JOIE)1315 (Rate Change - Provider: Steff Gagnon RN) PRN Medication Order 10/10/2022 10/11/2022 10/12/2022 atropine 0.1 mg/mL syringe 0.5 mg 0.5 mg, intravenous, PRN, Starting on Yelena 10/12/22 at 1227, Until Yelena 10/12/22 at 191, Symptomatic HR < 50, Routine, Recovery (only) diphenhydrAMINE (BENADRYL) injection 12.5 mg 12.5 mg, intravenous, PRN, 1 dose, Starting on Yelena 10/12/22 at 1227, Until Yelena 10/12/22 at 191, nausea, Routine, Recovery (only) fentaNYL citrate (PF) injection 25-50 mcg 25-50 mcg, intravenous, EVERY 5 MIN PRN, Starting on Yelena 10/12/22 at 1227, Until Yelena 10/12/22 at 191, Pain, Routine, Recovery (only) HYDROmorphone (DILAUDID) tablet 2-4 mg 2-4 mg, oral, EVERY 30 MINUTES PRN, 2 doses, Starting on Yelena 10/12/22 at 1227, Until Yelena 10/12/22 at 191, Pain, Routine, Recovery (only) HYDROmorphone (PF) (DILAUDID) 0.5 mg/0.5 mL syringe 0.3-0.5 mg 0.3-0.5 mg, intravenous, EVERY 10 MINUTES PRN, Starting on Yelena 10/12/22 at 1227, Until Yelena 10/12/22 at 191, Pain, Routine, Recovery (only) naloxone (NARCAN) injection 0.2 mg 0.2 mg, intravenous, PRN, Starting on Yelnea 10/12/22 at 1227, Until Yelena 10/12/22 at 191, Opioid Reversal, Routine, Recovery (only) ondansetron (PF) (ZOFRAN) injection 4 mg 4 mg, intravenous, PRN, 1 dose, Starting on Yelena 3 at 1227, Until Yelena 10/12/22 at 1915, Nausea, Vomiting, Routine, Recovery (only) sodium chloride 0.9 % irrigation (CANCELED) PRN, Starting on Yelena 10/12/22 at 0917, Until Yelena 10/12/22 at 1323, Routine, Intraprocedure 0917 (Given - Provid er: Gallito Sanders MD MPH - Comment: to back table)1141 (Given - Provider: Gallito Sanders MD MPH) documented in this encounter Orders Medications Ordered That Sae ht Not Have Been Administered Count Last Ordered Date First Ordered Date atropine 0.1 mg/mL syringe 0.5 mg 1 023 ceFAZolin (ANCEF) syringe 2 g 1 10/12/2022 diphenhydrAMINE (BENADRYL) i njection 12.5 mg 1 10/12/2022 fentaNYL citrate (PF) injection 25-50 mcg 1 10/12/2022 HYDROmorphone (DILAUDID) tablet 2-4 mg 1 HYDROmorphone (PF) (DILAUDID ) 0.5 mg/0.5 mL syringe 0.3-0.5 mg 1 10/12/2022 lidocaine (PF) 10 mg/mL (1 % ) injection 2 mg 1 10/12/2022 naloxone (NARCAN) injection 0.2 mg 1 2022 ondansetron (PF) (ZOFRAN) injection 4 mg 1 10/12/2022 sodium chloride 0.9 % irrigation 1 10/13/19 23 Diet Count Last Ordered Date First Orde red Date DISCHARGE DIET 1 10/12/2022 Nursing Count Last Ordered Date First Orde red Date ACTIVITY INSTRUCTIONS 2 10/12/2022 BATHING INSTRUCTIONS 1 10/12/2022 WOUND CARE INSTRUCTIONS 1 10/12/2022 Discharge Count Last Ordered Date First Orde red Date DISCHARGE PATIENT 1 10/12/2022 Legal Count Last Ordered Date First Orde red Date MISCELLANEOUS DISCHARGE INSTRUCTIONS 1 09/2022 documented in this encounter Care Teams Advanced Practice Registered Nurse Relationship Specialty Start Date End Date Elvira Brantley MD [address] [place] [address] PCP - General 04/20/22 documented as of this encounter
--- OUTSIDE RECORDS SUMMARY | 2024-09-15 15:49 | XMS_ITS | Encounter Summary ---
Author Organization [facility] Address [address] [place] [address] Care Team Providers Care Film Critic Name Role Phone Elvira Brantley MD Primary Care Provider [phone] Reason for Visit * Reason Onset Date Comments Physical Therapy 09/04/2022 Encounter Details Date Type Department Care Team (Late st Contact Info) Description 09/04/2022 Telephone [facility] Spine Program - [address] [address] Bairon Kat PA-C [address] [place] [address] Physical Therapy Social History Tobacco Use Types Packs/Day Years [...] encounter Miscellaneous Notes * Telephone Encounter - Edi Blackwood - 09/04/2022 1500 EST Reason for Call: PT Summary: Called to inform PT were wondering what protocol they should be following for her fx. Patient is not expecting a call back unless we are unable to inform PT. Appointment Offered? No Edi Blackwood 09/04/2022 15:01 documented in this encounter Plan of Treatment Upcoming Encounters Date Type Department Care Team (Late st Contact Info) Description 09/24/2024 7:30 EST Rehab Therapy Visit [facility] Rehabilitation Therapy [address] [place], [place] [address] Mirlande Keene, PT [address] [place] [id number] 11/25/2024 9:00 EDT Office Visit [facility] Total Joint Program - [address] [phone] Tess Rojas, LUCAS [address] [place] [address] documented as of this encounter Visit Diagnoses Not on filedocumented in this encounter Care Teams Film Critic Relationship Specialty Start Date End Date Elvira Brantley MD [address] [place] [phone] PCP - General 04/20/22 documented as of this encounter
--- OUTSIDE RECORDS SUMMARY | 2024-09-15 15:49 | XMS_ITS | Encounter Summary ---
Author Organization [facility] Address [address] [place] [address] Care Team Providers Care Firesetter Name Role Phone Elvira Brantley MD Primary Care Provider [phone] Encounter Details Date Type Department Care Team (Late st Contact Info) Description 11/16/2022 Orders Only [facility] Orthopedic Trauma - [address] [phone] Gallito Sanders MD MPH [address] [place] [address] Closed displaced transverse fracture of shaft [...] Description 09/24/2024 7:30 EST Rehab Therapy Visit [facility] Rehabilitation Therapy [address] [place], [place] [address] Keene Mirlande, PT [address] [place] [address] 11/25/2024 9:00 EDT Office Visit [facility] Total Joint Program - [facility] [address] [place], [place] [phone] Tess Rojas, LUCAS [address] [place] [address] documented as of this encounter [...] right humerus with nonunion, subsequent encounter- Primary 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
--- OUTSIDE RECORDS SUMMARY | 2024-09-15 15:49 | XMS_ITS | Encounter Summary ---
Author Organization [facility] Address [address] [place] [address] Care Team Providers Care Co Founder And Chief Strategy Officer Name Role Phone Elvira Brantley MD Primary Care Provider [phone] Encounter Details Date Type Department Care Team (Late st Contact Info) Description 08/31/2022 Orders Only [facility] Orthopedic Trauma - [address] [address] Bairon Kat PA-C [address] [place] [address] Displaced transverse fracture of shaft [...] Description 09/24/2024 7:30 EST Rehab Therapy Visit [facility] Rehabilitation Therapy [address] [place], [place] [phone] Mirlande Keene, PT [address] [place], [place] [address] 11/25/2024 9:00 EDT Office Visit [facility] Total Joint Program - [address] [place] [address] Tess Rojas, LUCAS [address] [place] [address] documented as of this encounter [...] COMPARISON: Radiographs 08/09/2022. Procedure Note Aidan Haile, - 09/06/2022 EXAM/TECHNIQUE: XR HUMERUS RIGHT 09/06/2022 1:30 PM HISTORY: Assess healing,transverse fracture of shaft of humerus COMPARISON: Radiographs 08/09/2022. IMPRESSION FINDINGS / IMPRESSION: 2 views of the right humerus were obtained with a soft tissue brace inplace. There is a small amount of progressive callus formation at thefracture site in the mid humeral shaft with unchanged alignment offragments. The bones are osteopenic. us Bairon Kat PA-C IMG DIAGNOSTIC IMAGING ORDERABLES Final Result documented in this encounter Visit Diagnoses Diagnosis Displaced transverse fracture of shaft of humerus, left arm, subsequent encounter for fracture with routine healing- Primary Displaced transverse fracture of shaft of humerus, left arm, subsequent encounter for fracture with routine healing documented in this encounter Care Teams Co Founder And Chief Strategy Officer Relationship Specialty Start Date End Date Elvira Brantley MD [address] [place] [address] PCP - General 04/20/22 documented as of this encounter
--- OUTSIDE RECORDS SUMMARY | 2024-09-15 15:49 | XMS_ITS | Encounter Summary ---
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, subsequent encounter Social History Tobacco Use Types Packs/Day [...] Visit [facility] Rehabilitation Therapy [address] [place] [address] Mirlande Keene, PT [address] [place] [address] 11/25/2024 9:00 EDT Office Visit [facility] Total Joint Program - [facility] [address] [facility] [place] [address] Tess Rojas, LUCAS [address] [facility] [place] [address] documented as of this encounter Procedures Procedure Name Priority Date/Time Associated Diagnosis Comments VITAMIN D (25,[place]) Routine 10/05/2022 12: 53 EST Closed nondisplaced 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, subsequent encounter PTH INTACT Routine 10/05/2022 12:53 EST Closed nondisplaced 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, subsequent encounter PTT Routine 10/05/2022 12:53 EST Closed nondisplaced 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, subsequent encounter SED RATE Routine 10/05/2022 12:53 EST Closed nondisplaced 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, subsequent encounter COMPLETE BLOOD COUNT AND DIFFERENTIAL Routine 10/05/2022 12:53 EST Closed nondisplaced 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, subsequent encounter C REACTIVE PROTEIN Routine 10/05/2022 12 :53 EST Closed nondisplaced 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, subsequent encounter TSH Routine 10/05/2022 12:53 EST Closed nondisplaced 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, subsequent encounter COMPREHENSIVE METABOLIC PANEL (CMP) Routine 10/05/2022 12:53 EST Closed nondisplaced 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, subsequent encounter documented in this encounter Results * SED RATE (10/05/2022 12:53 EST) Pathologist [facility] Sed Rate 9 0 - 30 mm/hr 10/05/2022 13:42 EST [facility] Blood VENOUS BLOOD / Unknown Venipuncture / Unknown 10/05/2022 12:53 EST 10/05/2022 13:35 EST Bairon Tram Kat PA-C HEMATOLOGY & PF4 ORDER [place] Final Result Performing Organization Address City/[facility]/ZIP Co de Phone Number [facility] [address] [place] [address] * C REACTIVE PROTEIN (10/05/2022 12:53 EST) [facility] C-Reactive Protein <5.0 <10.0 mg/L 10/05/2022 14:09 EST [facility] Blood VENOUS BLOOD / Unknown Venipuncture / Unknown 10/05/2022 12:53 EST 10/05/2022 13:33 EST Bairon Tram Cardenasman PA-C CHEMISTRY & BLOOD GAS ORDERABLES Final Result Performing Organization Address City/[facility]/ZIP Co de Phone Number [facility] [address] [place] [id number] * VITAMIN D (25,[place]) (10/05/2022 12:53 EST) [facility] 25OH Vitamin D Tot 39 30 - 100 ng/mL 10/05/2022 14:28 EST [facility] Blood VENOUS BLOOD / Unknown Venipuncture / Unknown 10/05/2022 12:53 EST 10/05/2022 13:33 EST Bairon Benwood Shey PA-C CHEMISTRY & BLOOD GAS ORDERABLES Final Result Performing Organization Address City/[facility]/ZIP Co de Phone Number [facility] [address] [place] [address] * TSH (10/05/2022 12:53 EST) TSH 1.90 0.47 - 4.68 mIU/L 10/05/2022 14:42 EST [facility] Blood VENOUS BLOOD / Unknown Venipuncture / Unknown 10/05/2022 12:53 EST 10/05/2022 13:33 EST Narrative [facility] - 10/05/2022 14:42 EST The results of this assay can be falsely lowered due to the consumption of Biotin. AdNectarton Shey PA-C CHEMISTRY & BLOOD GAS ORDERABLES Final Result Performing Organization Address City/[facility]/ZIP Co de Phone Number [facility] [address] [place] [address] * PTT (10/05/2022 12:53 EST) Pathologist [facility] PTT 31 26 - 37 secs 10/05/2022 13:57 EST [facility] Blood VENOUS BLOOD / Unknown Venipuncture / Unknown 10/05/2022 12:53 EST 10/05/2022 13:35 EST Bairon Tramveronique Kat PA-C HEMATOLOGY & PF4 ORDER [place] Final Result Performing Organization Address City/[facility]/ZIP Co de Phone Number [facility] [address] [place] [address] * PTH INTACT (10/05/2022 12:53 EST) Pathologist [facility] Intact PTH 78 19 - 88 pg/mL 10/05/2022 21:00 EST [facility] Blood VENOUS BLOOD / Unknown Venipuncture / Unknown 10/05/2022 12:53 EST 10/05/2022 13:32 EST Gogo Shey PA-C CHEMISTRY & BLOOD GAS ORDERABLES Final Result [facility] [address] [place] [address] * (ABNORMAL) COMPREHENSIVE METABOLIC PANEL (CMP) (10/05/2022 12:53 [facility]) Sodium 140 136 - 145 mmol/L 10/05/2022 14:09 [facility] Potassium 3.9 3.5 - 5.0 mmol/L 10/05/2022 14:09 [facility] Chloride 103 96 - 110 mmol/L 10/05/2022 14:09 [facility] CO2 Total 26 22 - 32 mmol/L 10/05/2022 14:09 [facility] Glucose 112(H) 70 - 100 mg/dL 10/05/2022 14:09 [facility] BUN 14 10 - 26 mg/dL 10/05/2022 14:09 [facility] Creatinine 0.70 0.52 - 1.04 mg/dL 10/05/2022 14:09 [facility] eGFR 102 >60 mL/min/1.7 3m2 10/05/2022 14:09 [facility] Total Protein 7.5 6.3 - 8.2 g/dL 10/05/2022 14:09 [facility] Albumin 4.4 3.4 - 4.9 g/dL 10/05/2022 14:09 [facility] Alkaline Phosphatase 74 38 - 126 U/L 10/05/2022 14:09 [facility] AST 37 15 - 46 U/L 10/05/2022 14:09 [facility] ALT 25 <35 U/L 10/05/2022 14:09 [facility] Bilirubin, Total 0.3 <1.4 mg/dL 10/05/19 14:09 [facility] Calcium 8.9 8.5 - 10.5 mg/dL 10/05/2022 14:09 [facility] Albumin/Globulin Ratio 1.4 1.0 - 2.5 10/05/2022 14:09 [facility] Anion Gap 11 5 - 14 10/05/2022 14:09 [facility] Blood VENOUS BLOOD / Unknown Venipuncture / Unknown 10/05/2022 12:53 EST 10/05/2022 13:33 EST us Bairon Kat PA-C CHEMISTRY & BLOOD GAS ORDERABLES Final Result [facility] [address] [place] [address] * (ABNORMAL) COMPLETE BLOOD COUNT AND DIFFERENTIAL (10/05/2022 12:53 EST) WBC 5.00 4.00 - 12.40 K/cmm 10/05/2022 13:37 [facility] RBC 4.09 3.86 - 5.04 M/cmm 10/05/2022 13:37 [facility] Hemoglobin 13.3 11.6 - 15.2 gm/dL 10/05/2022 13:37 [facility] HCT 41.0 34.9 - 44.4 % 10/05/2022 13:37 [facility] MCV 100(H) 81 - 98 fl 10/05/2022 13:37 [facility] MCH 32.5 26.7 - 33.3 pg 10/05/2022 13:37 [facility] MCHC 32.4 32.1 - 35.9 gm/dL 10/05/2022 13:37 [facility] RDW-CV 13.0 <14.7 % 10/05/2022 13:37 [facility] RDW-SD 48.3 <50.4 fl 10/05/2022 13:37 [facility] PLT 225 141 - 377 K/cmm 10/05/2022 13:37 [facility] MPV 10.5 9.5 - 12.7 fl 10/05/2022 13:37 [facility] % Neutrophils 45.4 % 10/05/2022 13:37 [facility] % Lymphocytes 44.0 % 10/05/2022 13:37 [facility] % Monocytes 7.8 % 10/05/2022 13:37 [facility] % Eosinophils 2.4 % 10/05/2022 13:37 [facility] % Basophils 0.4 % 10/05/2022 13:37 [facility] % Immature Grans 0.0 % 10/05/19 13:37 [facility] Absolute Neutrophils 2.27 2.20 - 8.85 K/cmm 10/05/2022 13:37 [facility] Absolute Lymphocytes 2.20 1.09 - 3.30 K/cmm 10/05/2022 13:37 [facility] Absolute Monocytes 0.39 0.10 - 0.80 K/cmm 10/05/2022 13:37 [facility] Absolute Eosinophils 0.12 0.03 - 0.61 K/cmm 10/05/2022 13:37 [facility] ABS Basophils 0.02 0.01 - 0.11 K/cmm 10/05/2022 13:37 [facility] Absolute Immature Grans 0.00 0.00 - 0.06 K/cmm 10/05/2022 13:37 [facility] Type of Differential: Auto 10/05/2022 13:37 [facility] Blood VENOUS BLOOD / Unknown Venipuncture / Unknown 10/05/2022 12:53 EST 10/05/2022 13:35 EST us Bairon Kat PA-C PACKAGES & DNA PROBE O RDERABLES Final Result [facility] [address] [place] [address] documented in this encounter Visit Diagnoses Diagnosis 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
--- OUTSIDE RECORDS SUMMARY | 2024-09-15 15:49 | XMS_ITS | Encounter Summary ---
Author Organization [facility] Address [address] [place] [address] Care Team Providers Care Manager Clinic Name Role Phone Elvira Brantley MD Primary Care Provider [phone] Reason for Visit * Reason Onset Date Comments Medication Management 12/12/2022 Encounter Details Date Type Department Care Team (Late st Contact Info) Description 12/12/2022 Telephone [facility] OBGYN [address] [place] [address] Corina Naik NP [facility] [address] [facility], [address] [place] [address] Medication Management Social History Tobacco Use Types Packs/Day Years [...] Miscellaneous Notes * Telephone Encounter - Adilene Crowley, RN - 12/12/2022 1119 EDT Left message for pt that my suggestion would be to see provider and discuss at that visit if any need for blood work and it can be ordered at that visit. If further questions pt can call back. * Telephone Encounter - Pennie Liang - 12/12/2022 1110 EDT Yeimi put pt on Estradial and now pt is having night sweats, not sure if dosing needs to change. Ptscheduled with EV 12/20, pt wondering of she needs to get any blood work done before appt. documented in this encounter Plan of Treatment Upcoming Encounters Date Type Department Care Team (Late st Contact Info) Description 09/24/2024 7:30 EST Rehab Therapy Visit [facility] Rehabilitation Therapy [address] [place], [place] [phone] Mirlande Keene, PT [address] [place] [address] 11/25/2024 9:00 EDT Office Visit [facility] Total Joint Program - [address] [phone] Tess Rojas, LUCAS [address] [place] [address] documented as of this encounter Visit Diagnoses Not on filedocumented in this encounter Care Teams Manager Clinic Relationship Specialty Start Date End Date Elvira Brantley MD [address] [place], [place] [phone] PCP - General 04/20/22 documented as of this encounter
--- OUTSIDE RECORDS SUMMARY | 2024-09-15 15:49 | XMS_ITS | Encounter Summary ---
Author Organization [facility] Address [address] [place] [address] Care Team Providers Care Chisel Grinder Name Role Phone Elvira Brantley MD Primary Care Provider [phone] Encounter Details Date Type Department Care Team (Latest Contact Info) Description 10/04/2022 11:21 EST - 10/04/2022 23:59 EST Hospital Encounter [address] [place] [address] Displaced transverse fracture of shaft [...] EST Rehab Therapy Visit [facility] Rehabilitation Therapy [address] [place] [phone] Mirlande Keene, PT [address] [place] [phone] 11/25/2024 9:00 EDT Office Visit [facility] Total Joint Program - [address] [place] [address] Tess Rojas NP [address] [place] [address] documented as of this encounter Procedures Procedure Name Priority Date/Time Associated Diagnosis Comments XR HUMERUS RIGHT Routine 10/04/2022 11:3 1 EST Displaced transverse fracture of shaft of [...] healing documented in this encounter Care Teams Chisel Grinder Relationship Specialty Start Date End Date Elvira Brantley MD [address] [place] [phone] PCP - General 04/20/22 documented as of this encounter
--- OUTSIDE RECORDS SUMMARY | 2024-09-15 15:49 | XMS_ITS | Encounter Summary ---
Author Organization [facility] Address [address] [place] [address] Care Team Providers Care [employer] Services Program Associate Name Role Phone Elvira Brantley MD Primary Care Provider [phone] Encounter Details Date Type Department Care Team (Late st Contact Info) Description 10/09/2022 Prep for Procedure [facility] Orthopedic Trauma - [address] [address] Rose Marie Short, RN Social History Tobacco Use Types Packs/Day Years [...] 7:30 EST Rehab Therapy Visit [facility] Rehabilitation Therapy [address] [place] [phone] Mirlande Keene, PT [address] [place], [place] [phone] 11/25/2024 9:00 EDT Office Visit [facility] Total Joint Program - [address] [place] [address] Tess Rojas, LUCAS [address] [place] [address] documented as of this encounter Visit Diagnoses Not on filedocumented in this encounter Care Teams [employer] Services Program Associate Relationship Specialty Start Date End Date Elvira Brantley MD [address] [place] [phone] PCP - General 04/20/22 documented as of this encounter
--- OUTSIDE RECORDS SUMMARY | 2024-09-15 15:49 | XMS_ITS | Encounter Summary ---
Author Organization [facility] Address [address] [place] [address] Care Team Providers Care Loading And Unloading Supervisor Name Role Phone Elvira Brantley MD Primary Care Provider [phone] Reason for Visit * Reason Comments Fracture Follow-up * Consult (See Order Priority) - Order Cancelled Specialty Diagnoses / Procedures Referred By Jefferson ramires Referred To Contact Orthopedic Surgery Diagnoses Closed fracture of shaft of right humerus, unspecified fracture morphology, initial encounter [facility] Emergency Department [address] [place] [address] Phone: tel: fax: [facility] Orthopedic Trauma - [address] [address] Phone: tel: fax: Referral ID Status Reason Start Date Expiration Date Visits Requested Visits Authorized [id number] Order Cancelled Specialty Services Required 06/17/2022 1 1 Encounter Details Date Type Department Care Team (Late st Contact Info) Description 08/09/2022 11:45 EST Office Visit [facility] Orthopedic Trauma - [address] [address] Bairon Kat PA-C [address] [place] [phone] Displaced transverse fracture of shaft of [...] Progress Notes * Bairon Kat PA-C - 08/09/2022 1145 EST PROBLEM: Follow-up: Right humeral shaft fracture. DOI: 06/17/2022 SUBJECTIVE: Bria Jackman is a 57 y.o. right hand dominant female who is here today for follow up. Today Bria is approximately 7 weeks post injury. She has been treated nonoperatively for her midshaft right humerus fracture with a fracture brace. She reports that she is doing very well today noting a current 3/10 pain in the right shoulder. She does not report any new numbness or tingling in the right upper extremity. She has a scheduled physical therapy appointment for 08/21/2022. The past medical, family and social history [...] On examination of the right upper arm the skin is intact with mild scaling flaking noted. Hem: There is no visible ecchymosis. Msk: Focused extremity examination: With fracture brace removed inspection of the patient's right upper extremity does not reveal any significant swelling over the fracture. The fracture does not appear to be grossly unstable although range of motion in the right shoulder was not significantly challenged. There is no tenderness to palpation over the humerus. Elbow, wrist, and digital range of motion appears grossly normal and she fires EPL, FPL, and first dorsal interosseous difficulty. Neuro-vascularly: Sensation intact in the distribution of the radial, ulnar, and median nerves measured at the right hand with no pallor or cyanosis observed. DIAGNOSTICS: Radiographs of the patient's right humerus including AP and lateral views were orderedand taken in the office today. These were independently reviewed by me. These radiographs redemonstrate a slightly apex varus angulated fracture of the right humeral shaft when viewed AP with overallfracture alignment that appears unchanged when compared to previous radiographs. There is evidence of early fracture healing. ASSESSMENT: Bria Jackman is a 57-year-old [id number] female with a healing midshaft fracture of the right humerus. Date of injury: 06/17/2022. She is doing very well today both clinically and radiographically. We will continue with nonoperative management of this fracture. PLAN: 1. The plan today is to continue with immobilization of her humeral shaft fracture in current fracture brace. She should remain largely nonweightbearing through the right upper extremity except for light tasks as tolerated by her own comfort. She can start physical therapy on 08/21/2022 for which shehas a scheduled appointment. 2. Follow-up with myself in 4 weeks for reevaluation. Follow-up repeat radiographs of the [...] be inadvertent errors and omissions. BAM Johnson 08/09/2022 documented in this encounter Plan of Treatment Upcoming Encounters Date Type Department Care Team (Late st Contact Info) Description 09/24/2024 7:30 EST Rehab Therapy Visit [facility] Rehabilitation Therapy [address] [place] [id number] Mirlande Keene, PT [address] [place] [phone] 11/25/2024 9:00 EDT Office Visit [facility] Total Joint Program - [facility] [address] [facility] [place] [address] Tess Rojas, LUCAS [address] [place] [address] documented as of this encounter Visit Diagnoses Diagnosis Displaced transverse fracture of shaft of humerus, left arm, subsequent encounter for fracture with routine healing- Primary documented in this encounter Care Teams Loading And Unloading Supervisor Relationship Specialty Start Date End Date Elvira Brantley MD [address] [place] [phone] PCP - General 04/20/22 documented as of this encounter
--- OUTSIDE RECORDS SUMMARY | 2024-09-15 15:49 | XMS_ITS | Encounter Summary ---
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, subsequent encounter Procedures MO REPAIR NON/MALUNION HUMERUS,GRAFT open treatment of right humeral shaft fracture nonunion with right iliac crest bone marrow autograft harvest Gallito Sanders MD MPH [address] [place] [phone] Phone: tel: fax: Referral ID Status Reason Start Date Expiration Date Visits Re quested Visits Authorized [id number] 10/05/2022 1 1 Encounter Details Date Type Department Care Team (Late st Contact Info) Description 10/12/2022 8:25 EST - 10/12/2022 13:20 EST Surgery [facility] [place] [address] [place], [place] [address] Gallito Sanders MD MPH [address] [place] [phone] open treatment of right humeral shaft fracture nonunion with right iliac crest bone marrow autograft harvest [[id number] (CPT??)] Surgery Details Date/Time Status Location OR Service Patient Class Case Cl ass Case Type Trauma Case? 10/12/2022 0825 Posted [facility] OR [address] Outpatient Surgery H - Elective Panel 1 Procedure LRB Anes Op Region Wound Class Comments open treatment of right augusto ral shaft fracture nonunion with right iliac crest bone marrow autograft harvest Right General Shoulder Class I/ Clean Surgeon Surgeon Role Service Panel Gallito Sanders MD MPH Primary Orthopedics 1 Santos Mendoza MD Resident - Assisting Orthopedics 1 Bob Arora MD Resident - Assisting Orthopedic s 1 Bob Arora MD Resident - Assisting Orthopedic s 1 Special Needs Skytron radiolucent with extension REVERSED WITH EXTENSION @ HOB;Ortho basic; Trauma specialty; Bone marrow aspirate needle / Jamshidi needle; Synthes small frag; Synthes mini frag locking documented in this encounter Social History Tobacco [...] Sign Reading Time Taken Comments Blood Pressure 104/68 10/12/2022 1315 EST Pulse - - Temperature 36.1 ??C (97 ??F) 10/12/2022 1310 EST Respiratory Rate 10 10/12/2022 1315 EST Oxygen Saturation 98% 10/12/2022 1315 EST Inhaled Oxygen Concentration - - Weight [...] Code Departure Means Destination Home or Self Custodial documented in this encounter H&P Notes * [...] at 10/12/2022 13:18 EST Source Note - TELEPHONE BETTING CLERK, SCAN 2 - 10/09/2022 9:43 EST * Gallito Sanders [...] MD MPH 10/12/2022 8:11 Source Note - TELEPHONE BETTING CLERK, SCAN - 10/09/2022 9:43 EST documented in [...] in the orthopedic trauma clinic at the [facility] and was 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 There is no evidence of bridging bony callus radiographically. Metabolic bone work-up demonstrated no metabolic abnormality. The risks and benefits of operative versus nonoperative treatment were discussed with her and she elected to proceed with surgical treatment. She presents to the operative theater at [facility] for that purpose today. NARRATIVE: Patient [...] UP VISIT: 10 to 14 days at [facility] orthopedics for wound check and x-rays and clinical exam at 6 weeks and 3 months postoperatively. documented in this encounter Miscellaneous Notes * Brief Op Note - Bob Arora MD - 10/12/2022 1241 EST Brief Op Note Date of Surgery: 10/12/2022 Diagnosis: Right humeral shaft nonunion Procedure: 1. Open treatment of right humeral shaft nonunion 2. Iliac crest autograft Surgeon: Marilyn Account Leader: Ulysses Mendoza Anesthesia Type: General EBL: 200 IVF: 1100 UOP: NR Specimen: None Cultures: None Implants: See formal dictation Complications: None perceived Disposition and Condition: PACU in Stable condition per anesthesia. NWB RUE, AAT Sling RUE Regular diet Multimodal pain control Dispo planning: Home from PACU Closed with donalryervin agrawalabond Bob Arora MD 10/12/2022 12:41 [id number] documented in this encounter Plan of Treatment Upcoming Encounters Date Type Department Care Team (Late st Contact Info) Description 09/24/2024 7:30 EST Rehab Therapy Visit [facility] Rehabilitation Therapy [address] [place], [place] [address] Mirlande Keene, PT [address] [place] [phone] 11/25/2024 9:00 EDT Office Visit [facility] Total Joint Program - [address] [place] [id number] Tess Rojas, LUCAS [address] [place] [phone] Scheduled Referrals Name Type Priority Associated Diagnoses Order Schedule PROVIDER FOLLOW-UP INSTRUCTIONS Outpatient Referral Routine Ordered: 10/12/2022 AMB CONS/FOLLOW UP ORTHOPEDICS - [facility] Outpatient Referral Routine/Next Available Closed displaced [...] EST) 10/16/2022 9:27 EST us Scan 2 Basic Combatant Swimmer PROCEDURE/MINOR SURGICAL OR DERABLES Final Result * [...] Organism ID No Growth 10/17/2022 12:23 EST [facility] Smear Neutrophils Present(A) 10/17/2022 12:23 EST [facility] Smear No bacteria seen(A) 10/17/2022 12:23 EST [facility] Tissue SOFT TISSUE / Unknown 10/12/2022 11:02 EST 10/12/2022 11:14 EST Gallito Sanders MD MPH MICROBIOLOGY - GENERAL ORDERABLES Final Result Performing Organization Address [facility] Co de Phone Number [facility] [address] [place] [address] * (ABNORMAL) ANAEROBE CULTURE/SMEAR(INC. AEROBES), OTHER (10/12/2022 11:01 EST) Organism ID No Growth 10/17/2022 12:24 EST [facility] Smear Neutrophils Present(A) 10/17/2022 12:24 EST [facility] Smear No bacteria seen(A) 10/17/2022 12:24 EST [facility] Tissue SOFT TISSUE / Unknown 10/12/2022 11:01 EST 10/12/2022 11:14 EST Gallito Sanders MD MPH MICROBIOLOGY - GENERAL ORDERABLES Final Result Performing Organization Address City/[facility]/ZIP Co de Phone Number [facility] [address] [place] [address] * (ABNORMAL) ANAEROBE CULTURE/SMEAR(INC. AEROBES), OTHER (10/12/2022 10:58 EST) Organism ID No Growth 10/17/2022 12:24 EST [facility] Smear Neutrophils Present(A) 10/17/2022 12:24 EST [facility] Smear No bacteria seen(A) 10/17/2022 12:24 EST [facility] Tissue SOFT TISSUE / Unknown 10/12/2022 10:58 EST 10/12/2022 11:14 EST us Gallito Sanders MD MPH MICROBIOLOGY - GENERAL ORDERABLES Final Result [facility] [address] [place] [address] * POC US ANESTHESIA NERVE BLOCK INTERSCALENE (10/12/2022 9:15 EST) Narrative 10/12/2022 9:15 EST This is a non-reportable exam. 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, subsequent encounter documented in this encounter Administered Medications Inactive [...] Starting on Yelena 10/12/22 at 1227, Until Yelnea 10/12/22 at 1915, nausea, Routine, Recovery (only) [...] Recovery (only) sodium chloride 0.9 % irrigation PRN, Starting on Yelena 10/12/22 at 0917, Until Yelena 10/12/22 at 1323, Routine, Intraprocedure Given 10/12/2022 11:41 EST 1,000 mL Right Arm Given 10/12/2022 9:17 EST 1,000 mL Right Arm documented in this encounter Discontinued Medications Medication [...] Yelena 10/12/22 at 1445, Routine, Recovery (only) 1611 (Given - Provid er: Steff Gagnon RN - Comment: Given in PACU) Continuous Medication Order 10/10/2022 10/11/2022 10/12/2022 lactated ringers (LR) infusion at 25 mL/hr, intravenous, CONTINUOUS, Starting on Yelena 3 at 0730, Until Yelena 3 at 1915, Routine, Preprocedure 0742 (New Bag - Prov ider: Melani Hair RN)0834 (Continued by Anesthesia - Provider: Citlalli Bennett CRNA)0834 (Paused - Provider: Citlalli Bennett CRNA - Comment: Switch to gravity)0835 (Restarted - Provider: Citlalli Bennett CRNA)1216 (New Bag - Provider: Citlalli Bennett CRNA)1314 (Anesthesia Volume Adjustment - Provider: Citlalli Bennett CRNA) lactated ringers (LR) infusion at 75 mL/hr, intravenous, PACU CONTINUOUS, Starting on Yelena 3 at 1245, Until Yelena 3 at 1915, Routine, Recovery (only) 1310 (Rate Change - [...] at 1227, Until Yelena 10/12/22 at 191, Nausea, Vomiting, Routine, Recovery (only) sodium chloride 0.9 % irrigation (CANCELED) PRN, Starting on Yelena 3 at 0917, Until Yelena 3 at 1323, Routine, Intraprocedure 0917 (Given - [...] (PF) (ZOFRAN) injection 4 mg 1 10/12/2022 Diet Count Last Ordered Date First Orde [...] 09/2022 documented in this encounter Care Teams Medicare Coordinator Relationship Specialty Start Date End Date Elvira Brantley MD [address] [place] [address] PCP - General 04/20/22 documented as of this encounter
--- OUTSIDE RECORDS SUMMARY | 2024-09-15 15:50 | XMS_ITS | Encounter Summary ---
Author Organization [facility] Address [address] [place] [address] Care Team Providers Care Divisional Merchandising Manager Name Role Phone Elvira Brantley MD Primary Care Provider [phone] Encounter Details Date Type Department Care Team (Late st Contact Info) Description 06/22/2022 Orders Only [facility] Orthopedic Trauma - [address] [address] Bairon Kat PA-C [address] [place] [address] Closed displaced oblique fracture of shaft of right humerus with routine healing, subsequent [...] file Not on file Not on file COVID-19 Exposure Response Date Recorded In the last 10 days, have yo u been in contact with someone who was confirmed or suspected to have Coronavirus/COVID-19? No / Unsure 06/17/2022 12:30 EDT documented as of this encounter Functional Status [...] Therapy Visit [facility] Rehabilitation Therapy [address] [place], [place] [phone] Mirlande Keene, PT [address] [place], [place] [phone] 11/25/2024 9:00 EDT Office Visit [facility] Total Joint Program - [facility] [address] [place] [address] Tess Rojas NP [address] [facility] [place] [address] documented as of this encounter Results * XR HUMERUS RIGHT (06/26/2022 13:55 EST) Anatomical Region Laterality Modality Right Computed Radiogr aphy 06/26/2022 15:3 3 EST Impressions 06/26/2022 15:33 EST FINDINGS / IMPRESSION: * ??There is a displaced fracture of the distal humeral diaphysis, without radiographic evidence of osseous healing or bony bridging. * ??Stable ossific fragment adjacent to the fracture site. * ??Unremarkable soft tissues. * ??Incidental osseous spur in the distal humerus. I have personally reviewed the images and the above interpretation and agree with the findings. Narrative 06/26/2022 15:33 EST EXAM/TECHNIQUE: 06/26/2022 1:00 PM ??XR HUMERUS RIGHT 2 views ?? HISTORY: ??Assess healing,Oblique fracture with displacement mid humeral shaft. COMPARISON: Right humerus radiographs 06/17/2022 Procedure Note Pedrito Perry MD - 06/26/2022 EXAM/TECHNIQUE: 06/26/2022 1:00 PM XR HUMERUS RIGHT 2 views HISTORY: Assess healing,Oblique fracture with displacement mid humeralshaft. COMPARISON: Right humerus radiographs 06/17/2022 IMPRESSION FINDINGS / IMPRESSION: * There is a displaced fracture of the distal humeral diaphysis, withoutradiographic evidence of osseous healing or bony bridging. * Stable ossific fragment adjacent to the fracture site. * Unremarkable soft tissues. * Incidental osseous spur in the distal humerus. I have personally reviewed the images and the above interpretation andagree with the findings. Bairon Kat PA-C [facility] ORDERABLES Final Result documented in this encounter Visit Diagnoses Diagnosis Closed displaced oblique fracture of shaft of right humerus with routine healing, subsequent encounter- Primary Closed displaced oblique fracture of shaft of right humerus with routine healing, subsequent encounter documented in this encounter Care Teams Divisional Merchandising Manager Relationship Specialty Start Date End Date Elvira Brantley MD [address] [place] [address] PCP - General 04/20/22 documented as of this encounter
--- OUTSIDE RECORDS SUMMARY | 2024-09-15 15:50 | XMS_ITS | Encounter Summary ---
Author Organization [facility] Address [address] [place] [address] Care Team Providers Care Truck Body Builder Apprentice Name Role Phone Elvira Brantley MD Primary Care Provider [phone] Encounter Details Date Type Department Care Team (Latest Contact Info) Description 06/17/2022 Travel Social History Tobacco Use Types Packs/Day Years [...] Rehab Therapy Visit [facility] Rehabilitation Therapy [address] [place], [place] [phone] Mirlande Keene, PT [address] [place] [address] 11/25/2024 9:00 EDT Office Visit [facility] Total Joint Program - [address] [place] [address] Tess Rojas, LUCAS [address] [place] [address] documented as of this encounter Visit Diagnoses Not on filedocumented in this encounter Care Teams Truck Body Builder Apprentice Relationship Specialty Start Date End Date Elvira Brantley MD [address] [place], [place] [phone] PCP - General 04/20/22 documented as of this encounter
--- OUTSIDE RECORDS SUMMARY | 2024-09-15 15:50 | XMS_ITS | Encounter Summary ---
Author Organization [facility] Address [address] [place] [address] Care Team Providers Care Sports Activities Foul Judge Name Role Phone Elvira Brantley MD Primary Care Provider [phone] Encounter Details Date Type Department Care Team (Late st Contact Info) Description 08/02/2022 Orders Only [facility] Orthopedic Trauma - [address] [address] Bairon Kat PA-C [address] [place] [address] Displaced transverse fracture of shaft [...] Rehab Therapy Visit [facility] Rehabilitation Therapy [address] [place], [place] [address] Mirlande Keene, PT [address] [place], [place] [address] 11/25/2024 9:00 EDT Office Visit [facility] Total Joint Program - [address] [place] [address] Tess Rojas, LUCAS [address] [place] [address] documented as of this encounter [...] * Anterior distal humeral insertional ligamentous spur. us Bairon Kat PA-C [facility] ORDERABLES Final Result documented in this encounter Visit Diagnoses Diagnosis Displaced transverse fracture of shaft of humerus, left arm, subsequent encounter for fracture with routine healing- Primary Displaced transverse fracture of shaft of humerus, left arm, subsequent encounter for fracture with routine healing documented in this encounter Care Teams Sports Activities Foul Judge Relationship Specialty Start Date End Date Elvira Brantley MD [address] [place] [address] PCP - General 04/20/22 documented as of this encounter
--- OUTSIDE RECORDS SUMMARY | 2024-09-15 15:50 | XMS_ITS | Encounter Summary ---
Author Organization [facility] Address [address] [place] [address] Care Team Providers Care Rotary Shear Operator Name Role Phone Elvira Brantley MD Primary Care Provider [phone] Encounter Details Date Type Department Care Team (Late st Contact Info) Description 07/03/2022 Orders Only [facility] Orthopedic Trauma - [address] [address] Bairon Kat PA-C [address] [place] [address] Closed displaced oblique fracture of [...] Rehab Therapy Visit [facility] Rehabilitation Therapy [address] [place] [address] Mirlande Keene, PT [address] [place] [address] 11/25/2024 9:00 EDT Office Visit [facility] Total Joint Program - [facility] [address] [place] [address] Tess Rojas, LUCAS [address] [facility] [place] [address] documented as of this encounter Results * XR HUMERUS RIGHT (07/05/2022 13:16 EST) Anatomical Region Laterality Modality Right Computed Radiogr aphy 07/05/2022 13:5 1 EST Impressions 07/05/2022 13:51 EST FINDINGS / IMPRESSION: Right humerus 2 views obtained with the arm in an external brace device. The mildly displaced and slightly angulated fracture of the humeral diaphysis is grossly unchanged in appearance and alignment compared to the prior study. No radiographic evidence for osseous bridging of the fracture site. Previously identified nirali supracondylar humeral spur is again noted. Narrative 07/05/2022 13:51 EST EXAM/TECHNIQUE: XR HUMERUS RIGHT ??07/05/2022 1:00 PM HISTORY: ?? Assess healing COMPARISON: Right humerus radiographs 06/26/2022. Procedure Note Fahad Vivas MD - 07/05/2022 EXAM/TECHNIQUE: XR HUMERUS RIGHT 07/05/2022 1:00 PM HISTORY: Assess healing COMPARISON: Right humerus radiographs 06/26/2022. IMPRESSION FINDINGS / IMPRESSION: Right humerus 2 views obtained with the arm in an external brace device.The mildly displaced and slightly angulated fracture of the humeraldiaphysis is grossly unchanged in appearance and alignment compared to theprior study. No radiographic evidence for osseous bridging of the fracturesite. Previously identified nirali supracondylar humeral spur is againnoted. us Bairon Tram Kat PA-C [facility] DI[facility]NOSTIC IMAGING ORDERABLES Final Result documented in this encounter Visit Diagnoses Diagnosis Closed displaced oblique fracture of shaft of right humerus with routine healing, subsequent encounter- Primary Closed displaced oblique fracture of shaft of right humerus with routine healing, subsequent encounter documented in this encounter Care Teams Rotary Shear Operator Relationship Specialty Start Date End Date Elvira Brantley MD [address] [place] [address] PCP - General 04/20/22 documented as of this encounter
--- OUTSIDE RECORDS SUMMARY | 2024-09-15 15:50 | XMS_ITS | Encounter Summary ---
Author Organization [facility] Address [address] [place] [address] Care Team Providers Care Solar Energy System Installer Name Role Phone Elvira Brantley MD Primary Care Provider [phone] Reason for Visit * Reason Comments Fracture * Consult (See Order Priority) - Order Cancelled Specialty Diagnoses / Procedures Referred By Jefferson ramires Referred To Contact Orthopedic Surgery Diagnoses Closed fracture of shaft of right humerus, unspecified fracture morphology, initial encounter [facility] Emergency Department [address] [place] [address] Phone: tel: fax: [facility] Orthopedic Trauma - [address] [address] Phone: tel: fax: Referral ID Status Reason Start Date Expiration Date Visits Requested Visits Authorized [id number] Order Cancelled Specialty Services Required 06/17/2022 1 1 Encounter Details Date Type Department Care Team (Late st Contact Info) Description 06/26/2022 13:00 EST Office Visit [facility] Orthopedic Trauma - [address] [address] Bairon Kat PA-C [address] [place] [phone] Closed displaced transverse fracture of shaft of right humerus, initial encounter (Primary Dx) Social History Tobacco [...] Recorded In the last 10 days, have haim howe been in contact with someone who was [...] Progress Notes * Bairon Kat PA-C - 06/26/2022 1300 EST PROBLEM: Right humeral shaft fracture. Date of injury: 06/17/2022 SUBJECTIVE: Bria Jackman is a 57 y.o. right hand dominant female with past medical history that issignificant for depression, arthritis, and allergies who presents to the office today for evaluation of a right humeral shaft fracture which occurred on 06/17/2022 when she fell from her horse. She was subsequently seen at the [facility] emergency department on the day of injury where x-rays revealed an essentially transverse and minimally to moderately displaced fracture of the right humeral shaft. She was placed into a long coaptation splint and referred to [facility] trauma orthopedics for further outpatient management. At today's encounter she is 9 days postinjury. She reportsthat she is doing well and that her pain is well controlled with Tylenol, current 11/20. She denies any numbness or tingling in the right hand. She denies any weakness in the right wrist or hand. A 10-point review of systems has been reviewed from the new patient intake sheet. At today's encounter the new patient intake sheet was reviewed in the office by myself, signed, dated, and scanned into the patient's chart. The past medical, family and social history have been reviewed in the patient chart. She is a non-smoker. 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 Past Medical History: Diagnosis Date ??? Abnormal Pap smear of cervix ??? Arthritis ??? Depression ??? Environmental allergies ??? Genital herpes ??? Keratoconus, unspecified Past Surgical History: Procedure Laterality Date ??? COLONOSCOPY N/A 06/2018 polyp-sessile adenoma-repeat in 5 years ??? COLPOSCOPY ??? HIP ARTHROSCOPY Left 2005 ??? HYSTERECTOMY N/A 02/2017 For endometriosis, still has ovaries ??? KNEE ARTHROSCOPY Bilateral ??? TUBAL LIGATION ??? VARICOSE VEIN SURGERY Right vericose vein tied off Outpatient Encounter Medications as of 06/26/2022 Medication Sig Dispense Refill ??? Carboxymethylcellulose Sodium (REFRESH) 1 % Drops, Liquid Gel Place 1 Drop into the right eye 4times daily. Reported on 09/18/2016 ??? estradioL (VIVELLE) 0.05 mg/24 hr patch Use one patch twice weekly. 24 Patch 2 ??? fexofenadine HCl (ROCKY ORAL) Take by mouth. (Patient not taking: Reported on 03/17/2022) ??? ibuprofen (MOTRIN) 200 mg tablet Take 200 mg by mouth every 6 hours as needed for Pain. ??? MULTIVITAMIN ORAL Take by mouth. Reported on 07/19/2016 ??? sertraline (ZOLOFT) 50 mg tablet Take 75 mg by mouth daily. ??? valACYclovir (VALTREX) 500 mg tablet Take 500 mg by mouth as needed. Reported on 07/19/2016 No facility-administered encounter medications on file as of 06/26/2022. OBJECTIVE: There were no vitals taken for this visit. On physical exam, the patient is found to be a very pleasant and cooperative female. Psych: She is alert and oriented x 3 with normal affect. Constitutional: She is well-developed and in no significant distress. Skin: On examination of the right arm the skin is intact. Hem: There is very mild visible ecchymosis over the anterior aspect of the right arm. Msk: Focused extremity examination: Inspection of the patient's right arm does not reveal any significant swelling of the soft tissues except for mild swelling over the dorsum of the right hand. No swelling over the fracture. No tenderness to light palpation over the fracture. Elbow, wrist, and digital range of motion appears full and she has 5 out of 5 strength with resisted extension of the fing ers. Neuro-vascularly: Sensation intact in the distribution of the radial, ulnar, and median nerves measured at the right hand with no pallor or cyanosis observed. DIAGNOSTICS: X-rays of the patient's right humerus including AP and lateral views were obtained at today's encounter. These radiographs demonstrate interval placement of a clamshell fracture brace. Redemonstrated is the transverse fracture of the right humeral shaft. Fracture alignment appears stable when compared to previous radiographs. There is around 20 degrees of varus angulation. ASSESSMENT: This is a 57-year-old sqyij-tlad-wulldltg female with a right mid humeral shaft fracture. Date of injury 06/17/2022. Radiographs taken today show acceptable fracture alignment for continued nonoperative management. There is no evidence of a radial nerve palsy. I explained that full fracture healing will take around 3 to 4 months time and that immobilization in a current fracture brace should provide effective immobilization of the fracture. We will continue with close follow-up to ensure that the fracture remains well aligned. PLAN: 1. The plan today is to place Cyrus into a fracture brace for her humeral shaft fracture. She willremain immobilized in the brace at all times except for when bathing and during those times will use extreme caution to avoid any movement of her right arm. 2. She can work on some gentle pendular and circumduction exercises with the right shoulder to limit stiffness and an informational handout was provided today detailing these. 3. Follow-up with myself in 7 to 10 days time for reevaluation. At follow-up repeat radiographs of the right humerus will be obtained including AP and lateral views with fracture brace on. 4. Today all questions were answered, the patient indicates understanding, and agrees with the plan. Dr. Johns was the attending physician available in the clinic today if needed. A consultation was not required. This note was prepared using voice recognition software and the EMR. There may be inadvertent errors and omissions. BAM Johnson 06/26/2022 documented in this encounter Plan of Treatment Upcoming Encounters Date Type Department Care Team (Late st Contact Info) Description 09/24/2024 7:30 EST Rehab Therapy Visit [facility] Rehabilitation Therapy [address] [place], [place] [id number] Mirlande Keene, PT [address] [place] [address] 11/25/2024 9:00 EDT Office Visit [facility] Total Joint Program - [address] [address] Tess Rojas, LUCAS [address] [place] [address] documented as of this encounter Visit Diagnoses Diagnosis Closed displaced transverse fracture of shaft of right humerus, initial encounter- Primary documented in this encounter Care Teams Solar Energy System Installer Relationship Specialty Start Date End Date Elvira Brantley MD [address] [place], [place] [address] PCP - General 04/20/22 documented as of this encounter
--- OUTSIDE RECORDS SUMMARY | 2024-09-15 15:50 | XMS_ITS | Encounter Summary ---
Author Organization [facility] Address [address] [place] [address] Care Team Providers Care Candy Catcher Name Role Phone Elvira Brantley MD Primary Care Provider [phone] Reason for Visit * Reason Onset Date Comments Appointment Related 07/17/2022 Encounter Details Date Type Department Care Team (Late st Contact Info) Description 07/17/2022 Telephone [facility] Orthopedic Trauma - [address] [address] Bairon Kat PA-C [address] [place] [address] Appointment Related Social History Tobacco Use Types [...] encounter Miscellaneous Notes * Telephone Encounter - Margarita Martinez MA - 07/17/2022 1045 EST Left a message for patient to reschedule her 07/19 to 07/20 with Bairon Kat am appointment only. documented in this encounter Plan of Treatment Upcoming Encounters Date Type Department Care Team (Late st Contact Info) Description 09/24/2024 7:30 EST Rehab Therapy Visit [facility] Rehabilitation Therapy [address] [place], [place] [phone] Mirlande Keene, PT [address] [place] [phone] 11/25/2024 9:00 EDT Office Visit [facility] Total Joint Program - [address] [address] Tess Rojas NP [address] [place] [phone] documented as of this encounter Visit Diagnoses Not on filedocumented in this encounter Care Teams Candy Catcher Relationship Specialty Start Date End Date Elvira Brantley MD [address] [place] [address] PCP - General 04/20/22 documented as of this encounter
--- OUTSIDE RECORDS SUMMARY | 2024-09-15 15:50 | XMS_ITS | Encounter Summary ---
Author Organization [facility] Address [address] [place] [address] Care Team Providers Care Occupational Therapist Assistants Name Role Phone Elvira Brantley MD Primary Care Provider [phone] Reason for Visit * Reason Comments Fracture Follow-up * Consult (See Order Priority) - Order Cancelled Specialty Diagnoses / Procedures Referred By Jefferson ramires Referred To Contact Orthopedic Surgery Diagnoses Closed fracture of shaft of right humerus, unspecified fracture morphology, initial encounter [facility] Emergency Department [address] [place] [address] Phone: tel: fax: [facility] Orthopedic Trauma - [address] [address] Phone: tel: fax: Referral ID Status Reason Start Date Expiration Date Visits Requested Visits Authorized [id number] Order Cancelled Specialty Services Required 06/17/2022 1 1 Encounter Details Date Type Department Care Team (Late st Contact Info) Description 07/05/2022 13:00 EST Office Visit [facility] Orthopedic Trauma - [address] [address] Bairon Kat PA-C [address] [place] [phone] Closed displaced transverse fracture of shaft [...] In the last 10 days, have yo shyam been in contact with someone who was [...] Progress Notes * Bairon Kat PA-C - 07/05/2022 1300 EST PROBLEM: Follow-up: Right humeral shaft fracture. DOI: 06/17/2022 SUBJECTIVE: Bria Jackman is a 57 y.o. right hand dominant female who is here today for follow up for a right midshaft humerus fracture sustained on 06/17/2022 when she fell off a horse. She has been treated nonoperatively with a humerus fracture brace which was fitted at our last encounter dated 06/26/2022. At today's encounter she reports that she is doing generally well noting a current 4-5 outof 10 pain in the right arm. She reports her pain is generally tolerable unless suddenly move when she can get a twinge. She does report a slight new area of decreased sensation in the right forearm overlying the area served by the musculocutaneous nerve. She does report that her forearm brace has had some trouble staying up on her arm and has been pressing on her forearm on occasion when it slips down. She otherwise reports no new numbness or tingling in the right upper extremity. All she continues to sleep in a reclined position. The past medical, family and social history [...] examination: Inspection of the patient's right upper extremity does not reveal any significant swelling or deformity. Elbow, wrist, and digital range of motion appears grossly normal. She fires the EPL, FPL, and first dorsal interosseous. Wrist extension is full with 5 out of5 strength. Neuro-vascularly: Sensation intact in the distribution of the radial, ulnar, and median nerves measured at the right hand with no pallor or cyanosis observed. Sensation decreased in the musculocutaneous nerve distribution in the right forearm. DIAGNOSTICS: X-rays of the patient's right humerus including AP and lateral views were obtained at today's encounter. These radiographs redemonstrate a slightly displaced transverse fracture through the midportion of the right humerus. Fracture alignment appears generally stable and compared to previous radiographs with no evidence of fracture healing as of yet. ASSESSMENT: This is a 57-year-old ftvxm-wcdr-mhjdtqcz female 18 days status post right midshaft humerus fracture. Bria is doing well today both clinically and radiographically. We will continue with nonoperative management of the fracture. I reeducated her today on proper fitting of the fracturebrace and I explained that I believe that some pressure from the brace over the proximal forearm may be the cause of her recent area of numbness, and advised her that this will likely return. PLAN: 1. Continue with nonoperative management for right humeral shaft fracture. Encouraged proper wearing of functional brace. Applied a small strip of Coban around her upper arm to limit distal migrationof the brace. 2. Continue to avoid any significant weightbearing with the right upper extremity. 3. Informational handout on Codman exercises which she can perform on her own at home was provided today. 4. Follow-up with myself in 2 weeks for reevaluation. Follow-up repeat radiographs of the right humerus will be obtained including AP and lateral views. 5. Today all questions were answered, the patient indicates understanding, and agrees with the plan. Dr. Vazquez was the attending physician available in the clinic today if needed. A consultation was not required. This note was prepared using voice recognition software and the EMR. There may be inadvertent errors and omissions. BAM Johnson 07/05/2022 documented in this encounter Plan of Treatment Upcoming Encounters Date Type Department Care Team (Late st Contact Info) Description 09/24/2024 7:30 EST Rehab Therapy Visit [facility] [place] [facility] Rehabilitation Therapy [address] [place], [place] [address] Mirlande Keene, PT [address] [place] [phone] 11/25/2024 9:00 EDT Office Visit [facility] Total Joint Program - [address] [phone] Tess Rojas, LUCAS [address] [place] [address] documented as of this encounter Visit Diagnoses Diagnosis Closed displaced transverse fracture of shaft of right humerus with routine healing, subsequent encounter- Primary documented in this encounter Care Teams Occupational Therapist Assistants Relationship Specialty Start Date End Date Elvira Brantley MD [address] [place] [phone] PCP - General 04/20/22 documented as of this encounter
--- OUTSIDE RECORDS SUMMARY | 2024-09-15 15:50 | XMS_ITS | Encounter Summary ---
Author Organization [facility] Address [address] [place] [address] Care Team Providers Care Coat Presser Name Role Phone Elvira Brantley MD Primary Care Provider [phone] Encounter Details Date Type Department Care Team (Late st Contact Info) Description 06/26/2022 Orders Only [facility] Orthopedic Trauma - [address] [phone] Bairon Kat PA-C [address] [place] [address] Closed nondisplaced oblique fracture of shaft of right humerus [...] Therapy Visit [facility] [place] [facility] Rehabilitation Therapy [address] [place], [place] [address] Mirlande Keene, PT [address] [place], [place] [phone] 11/25/2024 9:00 EDT Office Visit [facility] Total Joint Program - [address] [phone] Tess Rojas, LUCAS [address] [place] [phone] documented as of this encounter Visit Diagnoses Diagnosis Closed nondisplaced oblique fracture of shaft of right humerus with routine healing, subsequent encounter- Primary documented in this encounter Orders Equipment Count Last Ordered Date First Orde red Date SCHWARZ BRACE (HUMERUS) ID D-LENGTH (L3980) 1 06/26/2022 documented in this encounter Care Teams Coat Presser Relationship Specialty Start Date End Date Elvira Brantley MD [address] [place], [place] [phone] PCP - General 04/20/22 documented as of this encounter
--- OUTSIDE RECORDS SUMMARY | 2024-09-15 15:50 | XMS_ITS | Encounter Summary ---
Author Organization [facility] Address [address] [place] [address] Care Team Providers Care Dial Brusher Name Role Phone Elvira Brantley MD Primary Care Provider [phone] Encounter Details Date Type Department Care Team (Latest Contact Info) Description 07/05/2022 12:57 EST - 07/05/2022 23:59 EST Hospital Encounter [address] [place] [address] Closed displaced oblique fracture of shaft of right humerus with routine healing, subsequent encounter Discharge Disposition: Home or Self [...] this encounter Medications at Time of Discharge ibuprofen (MOTRIN) 200 mg tablet Take 3 [...] 7:30 EST Rehab Therapy Visit [facility] Rehabilitation Therapy [address] [place], [place] [address] Mirlande Keene, PT [address] [place] [address] 11/25/2024 9:00 EDT Office Visit [facility] Total Joint Program - [address] [place] [address] Tess Rojas NP [address] [place] [address] documented as of this encounter Procedures Procedure Name Priority Date/Time Associated Diagnosis Comments XR HUMERUS RIGHT Routine 07/05/2022 13:1 6 EST Closed displaced oblique fracture of shaft of right humerus with routine healing, subsequent encounter documented in this encounter Results [...] identified nirali supracondylar humeral spur is againnoted. Bairon Kat PA-C [facility] ORDERABLES Final Result documented in this encounter Visit Diagnoses Diagnosis Closed displaced oblique fracture of shaft of right humerus with routine healing, subsequent encounter documented in this encounter Care Teams Dial Brusher Relationship Specialty Start Date End Date Elvira Brantley MD [address] [place] [id number] PCP - General 04/20/22 documented as of this encounter
--- OUTSIDE RECORDS SUMMARY | 2024-09-15 15:50 | XMS_ITS | Encounter Summary ---
Author Organization [facility] Address [address] [place] [address] Care Team Providers Care Lead Javascript Engineer Name Role Phone Elvira Brantley MD Primary Care Provider [phone] Encounter Details Date Type Department Care Team (Late st Contact Info) Description 08/02/2022 Orders Only [facility] Orthopedic Trauma - [address] [address] Bairon Kat PA-C [address] [place] [address] Social History Tobacco Use Types Packs/Day Years [...] Rehab Therapy Visit [facility] Rehabilitation Therapy [address] [facility] [place] [phone] Mirlande Keene, PT [address] [place] [address], [place] [phone] 11/25/2024 9:00 EDT Office Visit [facility] Total Joint Program - [address] [place] [address] Tess Rojas, LUCAS [address] [place] [address] documented as of this encounter Visit Diagnoses Not on filedocumented in this encounter Care Teams Lead Javascript Engineer Relationship Specialty Start Date End Date Elvira Brantley MD [address] [place] [id number] PCP - General 04/20/22 documented as of this encounter
--- OUTSIDE RECORDS SUMMARY | 2024-09-15 15:50 | XMS_ITS | Encounter Summary ---
Author Organization [facility] Address [address] [place] [address] Care Team Providers Care Human Capital Consultant Name Role Phone Elvira Brantley MD Primary Care Provider Encounter Details Date Type Department Care Team (Latest Contact Info) Description 06/26/2022 13:00 EST - 06/26/2022 23:59 [facility] Hospital Encounter [address] [place] [address] Closed displaced oblique fracture of [...] EST Rehab Therapy Visit [facility] Rehabilitation Therapy [address] [place], [place] [phone] Mirlande Keene, PT [address] [place] [address] 11/25/2024 9:00 EDT Office Visit [facility] Total Joint Program - [address] [place] [address] Tess Rojas NP [address] [place] [phone] documented as of this encounter Procedures Procedure Name Priority Date/Time Associated Diagnosis Comments XR HUMERUS RIGHT Routine 06/26/2022 13:5 5 EST Closed displaced oblique fracture of shaft [...] Right humerus radiographs 06/17/2022 Procedure Note Pedrito Peryr MD - 06/26/2022 EXAM/TECHNIQUE: 06/26/2022 1:00 PM [...] encounter documented in this encounter Care Teams Human Capital Consultant Relationship Specialty Start Date End Date Elvira Brantley MD [address] [place] [address] PCP - General 04/20/22 documented as of this encounter
--- OUTSIDE RECORDS SUMMARY | 2024-09-15 15:50 | XMS_ITS | Encounter Summary ---
Author Organization [facility] Address [address] [place] [address] Care Team Providers Care Coffee Sampler Name Role Phone Elvira Brantley MD Primary Care Provider [phone] Reason for Visit * Reason Onset Date Comments Advice Only 06/28/2022 Encounter Details Date Type Department Care Team (Late st Contact Info) Description 06/28/2022 Telephone [facility] Orthopedic Trauma - [address] [address] Bairon Kat PA-C [address] [place] [address] Advice Only Social History Tobacco Use Types Packs/Day Years [...] Telephone Encounter - Margarita Martinez MA - 06/28/2022 5255 EST Patient was calling today to state that last night her brace slipped down while sleeping and she woke up and re-adjusted her brace. She states that she has some numbness between her wrist and elbow. We saw her here for her Right humeral shaft fracture on 06/26/2022. Spoke with Bairon Kat and he asked me to ask patient if she had any numbness between index finger and little finger and if she could bend her wrist backwards. He also indicated patient should be wearing brace up as high as possible. I spoke with the patient and she stated she could bend wrist and did not have any more numbness in the fingers than she did at her appointment on 06/26/2022. I lether know that she could call with any other concerns. She agreed and understood. documented in this encounter Plan of Treatment Upcoming Encounters Date Type Department Care Team (Late st Contact Info) Description 09/24/2024 7:30 EST Rehab Therapy Visit [facility] Rehabilitation Therapy [address] [place], [place] [phone] Mirlande Keene, PT [address] [place] [phone] 11/25/2024 9:00 EDT Office Visit [facility] Total Joint Program - [address] [place] [address] Tess Rojas, LUCAS [address] [place] [address] documented as of this encounter Visit Diagnoses Not on filedocumented in this encounter Care Teams Coffee Sampler Relationship Specialty Start Date End Date Elvira Brantley MD [address] [place] [address] PCP - General 04/20/22 documented as of this encounter
--- OUTSIDE RECORDS SUMMARY | 2024-09-15 15:50 | XMS_ITS | Encounter Summary ---
Author Organization [facility] Address [address] [place] [address] Care Team Providers Care Wireless Development Manager Name Role Phone Elvira Brantley MD Primary Care Provider [phone] Reason for Visit * Reason Comments Fracture Right humerus fx 06/17/22 * Consult (See Order Priority) - Order Cancelled Specialty Diagnoses / Procedures Referred By Jefferson ramires Referred To Contact Orthopedic Surgery Diagnoses Closed fracture of shaft of right humerus, unspecified fracture morphology, initial encounter [facility] Emergency Department [address] [place] [address] Phone: tel: fax: [facility] Orthopedic Trauma - [address] [address] Phone: tel: fax: Referral ID Status Reason Start Date Expiration Date Visits Requested Visits Authorized [id number] Order Cancelled Specialty Services Required 06/17/2022 1 1 Encounter Details Date Type Department Care Team (Late st Contact Info) Description 07/20/2022 8:30 EST Office Visit [facility] Orthopedic Trauma - [address] [address] Bairon Kat PA-C [address] [place] [phone] Closed displaced transverse fracture of shaft of right humerus with routine healing, subsequent encounter (Primary Dx) Social History Tobacco Use Types Packs/Day Years Used Date Smoking Tobacco: Never Smokeless Tobacco: Never Tobacco Cessation:Counseling Given: Not Answered Alcohol Use Standard Drinks/Week Comments Yes 0 [...] Progress Notes * Bairon Kat PA-C - 07/20/2022 0830 EST PROBLEM: Follow-up: Right humeral shaft fracture. Date of injury: 06/17/2022 SUBJECTIVE: Bria Jackman is a 57 y.o. right hand dominant female who is here today for follow up. Briefly, she has been treated nonoperatively by myself for a right humeral shaft fracture suffered on 06/17/2022 when she fell off a horse. This injury has been treated with a fracture brace since our first visit dated 06/26/2022. At today's encounter she is a little bit shy 5 weeks postinjury. She is doing well today. She reports that her right arm pain has been improving since our last visit on 07/05/2022. She continues to do pendular and circumduction exercises with the right arm while hangingwithout significant discomfort. She has been diligent with wearing of her fracture brace, and is jensen ping it high on her arm, adjusting it whenever it slides down. She denies any new onset weakness inthe right upper extremity. She does continue to have a little bit of subjective decrease sensation over the radial aspect of the right forearm. The past medical, family and social history [...] On examination of the right arm the exposed skin is intact. Hem: There is no visible ecchymosis. Msk: Focused extremity examination: Inspection of the patient's right upper extremity does not reveal any significant swelling or deformity. Fracture brace is on, in good position, positioned midway over the fracture. Elbow range of motion appears grossly normal with a little bit of discomfort elicited during flexion beyond 90 degrees at the site of fracture. Wrist and digital range of motion is full and she fires the EPL, FPL, and first dorsal interosseous with 5/5 strength. Neuro-vascularly: Sensation intact in the distribution of the axillary, radial, ulnar, and median nerves measured at the right shoulder and right hand with no pallor or cyanosis observed. DIAGNOSTICS: Radiographs of the patient's right humerus including AP and lateral views were orderedand taken in the office today. These were independently reviewed by me. These radiographs redemonstrate a slightly apex varus angulated fracture of the right proximal humerus when viewed AP with 20 to 30% shaft displacement when viewed laterally. Fracture alignment appears otherwise unchanged when compared to previous radiographs. ASSESSMENT: Bria Jackman is a 57-year-old [id number] female a little under 5 weeks out for right humeral shaft fracture. Date of injury: 06/17/2022. She is doing very well today both clinically and radiographically. We will continue with nonoperative management of this fracture. I reiterated the fact that this fracture will likely take 4 months to heal however in another month or so should be effectively healed so that she can start coming out of her fracture brace with increased frequency at times of low risk of reinjury. PLAN: 1. The plan today is to continue with nonoperative management for right humeral shaft fracture. Shecan continue to do pendular and circumduction exercises with the right shoulder to limit stiffness in the shoulder. Range of motion in the right elbow was encouraged including passive range of motionbeyond 90 degrees where she is currently limited by discomfort in order to limit stiffness in the elbow. Light activity such as holding a coffee cup can be done on the right side as long as does not cause undue pain. 2. Physical therapy referral provided at today's encounter so she can schedule PT in another 3 to 4weeks shortly following her next visit. 3. Follow-up with myself 3 weeks for reevaluation. At follow-up repeat radiographs of the right humerus will be obtained including AP and lateral views. If fracture healing is observed then I would recommend she begin physical therapy. 4. Today all questions were answered, the patient indicates understanding, and agrees with the plan. Dr. Hodges was the attending physician available in the clinic today if needed. A consultation was not required. This note was prepared using voice recognition software and the EMR. There may be inadvertent errors and omissions. BAM Johnson 07/20/2022 documented in this encounter Plan of Treatment Upcoming Encounters Date Type Department Care Team (Late st Contact Info) Description 09/24/2024 7:30 EST Rehab Therapy Visit [facility] Rehabilitation Therapy [address] [place], [place] [id number] Mirlande Keene, PT [address] [place] [phone] 11/25/2024 9:00 EDT Office Visit [facility] Total Joint Program - [address] [place] [address] Tess Rojas, LUCAS [address] [place] [address] documented as of this encounter Procedures Procedure Name Priority Date/Time Associated Diagnosis Comments XR HUMERUS RIGHT Routine 07/20/2022 8:48 EST Closed displaced transverse fracture of shaft of right humerus with routine healing, subsequent encounter documented in this encounter Results * XR HUMERUS RIGHT (07/20/2022 8:48 EST) Anatomical Region Laterality Modality Right Computed Radiogr aphy 07/20/2022 9:19 EST Impressions 07/20/2022 9:19 EST FINDINGS / IMPRESSION: Right humerus 2 views obtained with the arm in an external brace device again demonstrates a mildly displaced and slightly angulated fracture of the humeral diaphysis is grossly unchanged in appearance and alignment compared to the prior study. No radiographic evidence for osseous bridging of the fracture site. Previously identified nirali supracondylar humeral spur is again noted as well. Narrative 07/20/2022 9:19 EST EXAM/TECHNIQUE: XR HUMERUS RIGHT ??07/20/2022 8:40 AM HISTORY: ?? Right humerus fracture COMPARISON: Right humerus radiographs 07/05/2022. Procedure Note Fahad Vivas MD - 07/20/2022 EXAM/TECHNIQUE: XR HUMERUS RIGHT 07/20/2022 8:40 AM HISTORY: Right humerus fracture COMPARISON: Right humerus radiographs 07/05/2022. IMPRESSION FINDINGS / IMPRESSION: Right humerus 2 views obtained with the arm in an external brace deviceagain demonstrates a mildly displaced and slightly angulated fracture ofthe humeral diaphysis is grossly unchanged in appearance and alignmentcompared to the prior study. No radiographic evidence for osseous bridgingof the fracture site. Previously identified nirali supracondylar humeralspur is again noted as well. Bairon Kat PA-C [facility] ORDERABLES Final Result documented in this encounter Visit Diagnoses Diagnosis Closed displaced transverse fracture of shaft of right humerus with routine healing, subsequent encounter- Primary documented in this encounter Historical Medications * This list may reflect changes made after this encounter. acetaminophen (TYLENOL ORAL) Take 1,000 mg by mouth as needed. added in this encounter Care Teams Wireless Development Manager Relationship Specialty Start Date End Date Elvira Brantley MD [address] [place] [address] PCP - General 04/20/22 documented as of this encounter
--- OUTSIDE RECORDS SUMMARY | 2024-09-15 15:50 | XMS_ITS | Encounter Summary ---
Author Organization [facility] Address [address] [place] [address] Care Team Providers Care Insurance Instructor Name Role Phone Elvira Brantley MD Primary Care Provider [phone] Encounter Details Date Type Department Care Team (Late st Contact Info) Description 07/10/2022 Orders Only [facility] Orthopedic Trauma - [address] [address] Bairon Kat PA-C [address] [place] [address] Closed displaced transverse fracture of [...] Therapy Visit [facility] Therapy [address] [place], [place] [phone] Mirlande Keene, PT [address] [place] [phone] 11/25/2024 9:00 EDT Office Visit [facility] Total Joint Program - [address] [address] Tess Rojas, LUCAS [address] [place] [address] documented as of this encounter Visit Diagnoses Diagnosis Closed displaced transverse fracture of shaft of right humerus with routine healing, subsequent encounter- Primary documented in this encounter Care Teams Insurance Instructor Relationship Specialty Start Date End Date Elvira Brantley MD [address] [place] [id number] PCP - General 04/20/22 documented as of this encounter
--- OUTSIDE RECORDS SUMMARY | 2024-09-15 15:50 | XMS_ITS | Encounter Summary ---
Author Organization [facility] Address [address] [place] [address] Care Team Providers Care Cooling System Operator Name Role Phone Elvira Brantley MD Primary Care Provider [phone] Encounter Details Date Type Department Care Team (Latest Contact Info) Description 07/20/2022 8:38 EST - 07/20/2022 23:59 EST Hospital Encounter [address] [facility] [place], [place] [phone] Discharge Disposition: Home or Self Care Social [...] Visit [facility] Rehabilitation Therapy [address] [place], [place] [phone] Mirlande Keene, PT [address] [place], [place] [address] 11/25/2024 9:00 EDT Office Visit [facility] Total Joint Program - [address] [phone] Tess Rojas NP [address] [place] [address] documented as of this encounter [...] supracondylar humeralspur is again noted as well. us Bairon Kat PA-C [facility] ORDERABLES Final Result documented in this encounter Visit Diagnoses Not on filedocumented in this encounter Care Teams Cooling System Operator Relationship Specialty Start Date End Date Elvira Brantley MD [address] [place] [address] PCP - General 04/20/22 documented as of this encounter
--- OUTSIDE RECORDS SUMMARY | 2024-09-15 15:51 | XMS_ITS | Encounter Summary ---
Author Organization [facility] Address [address] [place] [address] Care Team Providers Care Cytotechnologist Name Role Phone Brea Mendoza BRITT Primary Care Provider [phone] Reason for Referral * Radiology Services (STAT) - Closed Specialty Diagnoses / Procedures Referred By Jefferson ramires Referred To Contact Radiology Diagnoses Right shoulder pain, unspecified chronicity Procedures MR SHOULDER WO CONTRAST RIGHT Ulises Cortez MD Phone: tel: fax: [facility] Referral ID Status Reason Start Date Expiration Date Visits Re quested Visits Authorized [id number] Closed 04/07/2022 06/05/2022 1 1 Reason for Visit * Reason Onset Date Comments Other 04/05/2022 Encounter Details Date Type Department Care Team (Late st Contact Info) Description 04/05/2022 Orders Only [facility] Sports Medicine Program - [address] [address] Ulises Cortez MD [address] [place] [phone] Right shoulder pain, unspecified chronicity (Primary Dx) Social History Tobacco Use Types [...] suspected to have Coronavirus/COVID-19? No / Unsure 03/12/2022 12:48 EDT documented as of this encounter Functional Status * Because of a physical, mental, [...] documented in this encounter Progress Notes * Stacia Jane MA - 04/05/2022 1114 EDT Patient was seen on 03/17/2022. Calling today requesting an MRI be ordered for her right shoulder. Spoke with Dr. Cortez who agreed with this. Order placed. STACIA JANE MA 04/05/22 documented in this encounter Plan of Treatment Upcoming Encounters Date Type Department Care Team (Late st Contact Info) Description 09/24/2024 7:30 EST Rehab Therapy Visit [facility] Rehabilitation Therapy [address] [place], [place] [phone] Mirlande Keene, PT [address] [place] [phone] 11/25/2024 9:00 EDT Office Visit [facility] Total Joint Program - [address] [place] [address] Tess Rojas NP [address] [place] [address] documented as of this encounter Results * MR SHOULDER WO CONTRAST RIGHT (04/21/2022 11:35 EDT) Anatomical Region Laterality Modality Upper Extremities Right Magnetic Reson ance 04/21/2022 12:3 1 EDT Impressions 04/21/2022 12:31 EDT MR SHOULDER WO CONTRAST RIGHT 1. ??Sequela from shoulder dislocation with anterior inferior glenoid and posterior superior humeral fractures. 2. ??Labral tearing involving the superior, anterior, and inferior labrum with anterior inferior glenoid chondral fissuring. 3. ??Supraspinatus and subscapularis tendinosis without discrete tearing. 4. ??Infraspinatus tendinosis with high signal of the insertional fibers likely related to contusion from the regional Hill-Sachs injury. Narrative 04/21/2022 12:31 EDT EXAM: MR SHOULDER WO CONTRAST RIGHT ??04/21/2022 11:15 AM TECHNIQUE: MR SHOULDER WO CONTRAST RIGHT HISTORY: RIGHT SHOULDER PAIN; right shoulder pain COMPARISON: None. FINDINGS: Rotator Cuff: Supraspinatus: Supraspinatus demonstrates mild tendinosis without discrete tearing or muscle atrophy. Infraspinatus: Infraspinatus demonstrates mild tendinosis with high signal of the insertional fibers likely related to regional Hill-Sachs injury. No muscle atrophy. Teres Minor: Teres minor tendon is intact. ??No muscle atrophy or fatty infiltration. Subscapularis: Subscapularis demonstrates tendinosis as well without discrete tearing or muscle atrophy. Long head biceps tendon: ??Long head biceps tendon is intact and normally positioned within the bicipital groove. Labrum: Superior, anterior, inferior labral tearing. Cartilage: ??Anterior inferior chondral fissuring with adjacent small anteroinferior glenoid avulsion. Joint Space: ??No joint effusion or definite intra-articular body. Bones: ??Hill-Sachs impaction deformity along the posterior lateral proximal humerus. Anterior inferior glenoid avulsion fracture. Acromioclavicular Joint: ??Mild AC joint degenerative changes. Subacromial-Subdeltoid Bursa: ??Small subacromial bursal fluid Procedure Note Abhishek Cortez MD - 04/21/2022 EXAM: MR SHOULDER WO CONTRAST RIGHT 04/21/2022 11:15 AM TECHNIQUE: MR SHOULDER WO CONTRAST RIGHT HISTORY: RIGHT SHOULDER PAIN; right shoulder pain COMPARISON: None. FINDINGS: Rotator Cuff: Supraspinatus: Supraspinatus demonstrates mild tendinosis without discretetearing or muscle atrophy. Infraspinatus: Infraspinatus demonstrates mild tendinosis with high signalof the insertional fibers likely related to regional Hill-Sachs injury. Nomuscle atrophy. Teres Minor: Teres minor tendon is intact. No muscle atrophy or fattyinfiltration. Subscapularis: Subscapularis demonstrates tendinosis as well withoutdiscrete tearing or muscle atrophy. Long head biceps tendon: Long head biceps tendon is intact and normallypositioned within the bicipital groove. Labrum: Superior, anterior, inferior labral tearing. Cartilage: Anterior inferior chondral fissuring with adjacent smallanteroinferior glenoid avulsion. Joint Space: No joint effusion or definite intra-articular body. Bones: Hill-Sachs impaction deformity along the posterior lateralproximal humerus. Anterior inferior glenoid avulsion fracture. Acromioclavicular Joint: Mild AC joint degenerative changes. Subacromial-Subdeltoid Bursa: Small subacromial bursal fluid IMPRESSION MR SHOULDER WO CONTRAST RIGHT 1. Sequela from shoulder dislocation with anterior inferior glenoid andposterior superior humeral fractures. 2. Labral tearing involving the superior, anterior, and inferior labrumwith anterior inferior glenoid chondral fissuring. 3. Supraspinatus and subscapularis tendinosis without discrete tearing. 4. Infraspinatus tendinosis with high signal of the insertional fiberslikely related to contusion from the regional Hill-Sachs injury. Ulises Cortez MD [facility] [place] ORDERABLES Final Resul t documented in this encounter Visit Diagnoses Diagnosis Right shoulder pain, unspecified chronicity- Primary Right shoulder pain, unspecified chronicity documented in this encounter Care Teams Cytotechnologist Relationship Specialty Start Date End Date Brea Mendoza FNP [facility], [address] [place] [address] PCP - General Family Medicine - Primary Care 03/12/22 04/19/22 documented as of this encounter
--- OUTSIDE RECORDS SUMMARY | 2024-09-15 15:51 | XMS_ITS | Encounter Summary ---
Author Organization [facility] Address [address] [place] [address] Care Team Providers Care Curtain Worker Name Role Phone Alissa Arellano Primary Care Provider [phone] Encounter Details Date Type Department Care Team (Latest Contact Info) Description 12/23/2021 Travel Social History Tobacco Use Types Packs/Day [...] suspected to have Coronavirus/COVID-19? No / Unsure 12/23/2021 8:40 EDT documented as of this encounter Functional [...] Visit [facility] Rehabilitation Therapy [address] [place] [address] Mirlande Keene, PT [address] [place] [phone] (Work) 11/25/2024 9:00 EDT Office Visit [facility] Total Joint Program - [address] [place], [place] [phone] Tess Rojas, LUCAS [address] [place] [phone] documented as of this encounter Visit Diagnoses Not on filedocumented in this encounter Care Teams Curtain Worker Relationship Specialty Start Date End Date Alissa Arellano PA [address] [place] [address] PCP - General 11/27/12 03/11/22 documented as of this encounter
--- OUTSIDE RECORDS SUMMARY | 2024-09-15 15:51 | XMS_ITS | Encounter Summary ---
Author Organization [facility] Address [address] [place] [address] Care Team Providers Care Laboratory Technology Teacher Name Role Phone Brea Mendoza BRITT Primary Care Provider Reason for Visit * Reason Comments Fall Fall from horse, abo ut 5'8, landing onto R shoulder. -LOC, -headstrike. Expressing dizziness when lifting head, believes to be related to severe pain from shoulder. Near syncopal in triage. Encounter Details Date Type Department Care Team (Late st Contact Info) Description 03/12/2022 12:48 EDT - 03/12/2022 15:[address] [facility] Emergency Department - [address] [phone] Nam Serrano MD [address] [place] [address], [address] [place] [address] Carlos Varner MD [address] [place] [id number] Anterior shoulder dislocation, right, initial encounter (Primary Dx) Discharge Disposition: Home or Self [...] 12:48 EDT documented as of this encounter Last Filed Vital Signs Vital Sign Reading Time Taken Comments Blood Pressure 103/68 03/12/2022 1450 EDT Pulse 100 03/12/2022 1246 EDT Temperature 36 ??C (96.8 ??F) 03/12/2022 1246 EDT Respiratory Rate 20 03/12/2022 1450 EDT Oxygen Saturation 100% 03/12/2022 1450 EDT Inhaled Oxygen Concentration - - Weight 99.8 kg (220 lb) 03/12/2022 1246 EDT Height 182.9 cm (6') 03/12/2022 1246 EDT Body Mass Index 29.84 03/12/2022 1246 EDT documented in this encounter Functional Status * Because of [...] 08/10/2017 10:42 EST documented in this encounter Discharge Instructions * Discharge Instructions* Perry Bey MD - 03/12/2022 15:10 EDT -Thank you for choosing [facility] for your medical care today. You were evaluated today for shoulder pain. X-rays showed a shoulder dislocation. Your dislocation was reduced in the emergency department. -Referral for outpatient follow-up with orthopedics has been placed. You should expect a phone callfrom the review coordinator at the clinic to set up your appointment. -Wear your sling as needed until your outpatient follow-up. It is advisable that you refrain from the reaching overhead with your right arm. -Continue to use ibuprofen and acetaminophen for pain in the outpatient setting. He may alternate these medications throughout the day for better pain coverage. -Return to the emergency department with any worsening or otherwise concerning symptoms. * Attachments The following attachments cannot be sent through Care Everywhere. * Shoulder Dislocation (Trinidadian) * Shoulder Joint: Anatomy Sketch (Trinidadian) documented in this encounter Medications at Time [...] Use one patch twice weekly. 8 Patch 03/09/2022 04/11/2022 fexofenadine HCl (ROCKY ORAL) Take by mouth. 2022 valACYclovir (VALTREX) 500 mg tablet Take 500 mg by mouth as needed. Reported on 07/19/2016 10/12/2022 documented as of this encounter Discharge Disposition Disposition Code Departure Means Destination Home or Self Prison documented in this encounter ED Notes * Renu Barcenas RN - 03/12/2022 1557 EDT Patient stable upon discharge, ambulatory out of department. Sling applied to RUE. Reviewed discharge instructions including follow up with orthopedics, pain control, movements to avoid with RUE andreturn precautions. Patient verbalized understanding and denied having further questions at this time. * Ligia Montoya MD - 03/12/2022 1538 EDT I, Tere Collins, am scribing for Carlos Varner MD and Ligia Montoya MD while he/she is personallyperforming the service. Tere Collins 03/12/2022 15:38 Bria Jackman is a 57 y.o. female who presents to the ED with a fall. The patient was riding a horse today when she fell off and landed on her right shoulder. She currently endorses right shoulder pain and dizziness. She denies neck pain. Care and work-up prior to sign out includes: Patient was administered Propofol, Fentanyl, Toradol, and Zofran. An XR right shoulder, XR humerus right, and an XR right wrist were obtained. Patient's right shoulder was reduced. I assumed care of patient from Dr. Serrano with reevaluation pending. After I assumed care the patient had: Relevant Data as of Mar 12 1625 Sun Mar 12, 2022 1534 Patient's postreduction films demonstrated relocation of her right shoulder. On reevaluation her pain is much improved and she does have good range of motion. The patient was placed in a sling. A referral was made to orthopedics. Advise she use Tylenol, ibuprofen, ice for pain. Additionally, she and her were given strict ED return precautions. They voiced understanding were agreeableto plan. They were stable and well-appearing at time discharge. [EG] Relevant Data User Index [EG] Ligia Montoya MD This documentation is recorded by Tere Collins acting as Scribe under the direction and presence ofCarlos Varner MD and Ligia Montoya MD . Carlos Varner MD and Ligia Montoya MD : I personally performed the services recorded by the scribe in my presence. I confirm the scribe's documentation has been reviewed by me to accurately and completely record my work, treatment, procedures, and medical decision making. LIGIA MONTOYA MD 03/12/2022 16:25 Cosigned by Carlos Varner MD at 03/12/2022 19:02 EDT Associated attestation - Carlos Varner MD - 03/12/2022 1902 EDT ICarlos MD, performed a history and exam of this patient and discussed the case with the resident. I have reviewed and edited this note, and the documentation is consistent with my findings, assessment and plan. I fully participated in the medical decision making. * Margarita OtooleJOIE - 03/12/2022 6899 EDT Sedation for shoulder relocation; 150mg IV Propofol administered for adequate sedation. VSS. * Nam Serrano MD - 03/12/2022 1258 EDTAssociated Order(s): Joint Disl - UE; Sedation Emergency Department Visit I, Nam Serrano MD, performed a history and exam of this patient and discussed the case withthe resident. I have reviewed and edited this note, and the documentation is consistent with my findings, assessment and plan. I fully participated in the medical decision making. I supervised the sedation procedure, which was performed by the resident. For further information, please see the procedure note. This documentation is recorded by Harsh Brennan acting as Scribe under the direction and presenceof Nam Serrano MD. Nam Serrano MD: I personally performed the services recorded by the scribe in my presence. I confirm the scribe's documentation has been reviewed by me to accurately and completely record my work, treatment, procedures, and medical decision making. Assessment and ED Course Patient presented to the emergency department for right shoulder pain following a fall from horse. Differential diagnosis includes but is not limited to fracture, dislocation, soft tissue injury. Plan of care includes physical examination and imaging to assess for etiology of patient's acute pain. Physical examination significant for right shoulder deformity, with arm held in adduction and internally rotated. Concern for both fracture and dislocation given presentation. Further evaluation withx-ray was performed, showing anterior dislocation without evidence of fracture. Right wrist also evaluated, no evidence of injury. Patient was administered Toradol, fentanyl, and ondansetron for his symptoms. Reduction was performed as below. Patient tolerated procedure without difficulty. She reported improvement in symptoms post reduction. X-ray was repeated and confirmed successful reduction. The patient was placed in a sling. Referral for outpatient follow-up with orthopedic surgery was placed. She was advised to follow-up with her PCP for further evaluation and to return to the emergency department with any worsening or otherwise concerning symptoms. ED COURSE: 1259: Patient's pain treated with 50 mcg Fentanyl IM. 1313: Patient received 15 mg Toradol IM. 1357: Patient received 4 mg Zofran IM & 50 mcg Fentanyl IM. Relevant Data as of Mar 12 1623 Sun Mar 12, 2022 1534 Patient's postreduction films demonstrated relocation of her right shoulder. On reevaluation her pain is much improved and she does have good range of motion. The patient was placed in a sling. A referral was made to orthopedics. Advise she use Tylenol, ibuprofen, ice for pain. Additionally, she and her were given strict ED return precautions. They voiced understanding were agreeableto plan. They were stable and well-appearing at time discharge. [EG] Relevant Data User Index [EG] Ligia Montoya MD Final diagnoses: None Disposition: No disposition on file Chief complaint: Fall HPI Bria Jackman is a 57 y.o. female who presents to the ED for fall. The patient was riding a horsetoday when she fell off and landed on her right shoulder. She reports wearing a helmet and denies head strike or LOC. She states the horse stood at about 5'8. She currently endorses right shoulder pain. She denies neck pain, headache, vision changes, hearing changes, chest pain, shortness of breath, abdominal pain, and nausea/emesis. Patient has full recollection of the fall. She did not have analgesic medication prior to arrival to ED. Patient is not on anticoagulant medications. She states that she is right-hand dominant and has not had prior dislocation or fracture. History was provided by: Patient Patient's pertinent PMH, FH, SH were reviewed and edited as necessary. ROS A 10-point review of systems was performed. The patient answered negative to all questions with theexceptions of those explicitly detailed as positives in the HPI. Pertinent negatives are also explicitly stated. Physical Exam BP (!) 87/51 (BP Cuff Location: Left arm, BP Patient Position: Sitting) Pulse 100 Temp 36 ??C (96.8 ??F) (Temporal) Resp 18 Ht 182.9 cm (72) Wt 99.8 kg (220 lb) SpO2 100% BMI 29.84 kg/m?? A medical screening exam was performed. Physical Exam Nursing notes and vital signs were reviewed. Constitutional: Awake and alert during interview and examination, in mild distress due to pain. HEENT: PERRL, EOMI, clear conjunctivae. Mouth: Moist oral mucosa without apparent lesions. Neck: Full ROM, no cervical LAD; no cervical spine tenderness to palpation. Heart: RRR, appears well perfused. Lungs: No audible airway noises. Bilateral chest rise. No respiratory distress or accessory muscle use. Lungs clear to auscultation bilaterally. Abdomen: Soft NT/ND. Skin: No overt rashes or lesions on exposed skin. MSK: Moving extremities spontaneously, warm, radial/DP/PT pulses 2+ b/l. Right arm held in adduction and internally rotated. Deformity noted at the right proximal humerus/shoulder. Neuro: CN 3, 4, 6, 7 evaluated and intact. Normal speech, gait wnl, strength and sensation to lighttouch wnl in UE/LE/b/l. Imaging obtained was reviewed and independently interpreted. Procedures Sedation Performed by: Nam Serrano MD Authorized by: Nam Serrano MD Consent: Consent obtained: Verbal Consent given by: Patient Risks discussed: Inadequate sedation Indications: Procedure performed: Dislocation reduction Procedure necessitating sedation performed by: Physician performing sedation Pre-sedation assessment: ASA classification: class 1 - normal, healthy patient Neck mobility: normal Pre-sedation assessments completed and reviewed: pain level History of difficult intubation: no Immediate pre-procedure details: Reviewed: vital signs Procedure details (see MAR for exact dosages): Sedation start time: 03/12/2022 14:55 Preoxygenation: Nasal cannula Sedation: Propofol Intra-procedure monitoring: Blood pressure monitoring, monitoring analyst and continuous pulse oximetry Intra-procedure events: none Post-procedure details: Patient is stable for discharge or admission: yes Patient tolerance: Tolerated well, no immediate complications Joint Disl - UE Performed by: Perry Bey MD Authorized by: Nam Serrano MD Consent: Consent obtained: Verbal Consent given by: Patient Risks discussed: Fracture, irreducible dislocation, recurrent dislocation, nerve damage and stiffness Alternatives discussed: Delayed treatment Location: Location: Shoulder Shoulder location: R shoulder Shoulder dislocation type: anterior Chronicity: New Pre-procedure assessment: Pre-procedure imaging: X-ray Imaging findings: dislocation present Imaging findings: no fracture Distal perfusion: normal Sedation: Sedation type: Moderate (conscious) sedation Anesthesia (see MAR for exact dosages): Anesthesia method: None Procedure details: Manipulation performed: no Shoulder reduction method: Direct traction and traction and counter traction Reduction successful: yes Reduction confirmed with imaging: yes Immobilization: Sling Supplies used: Sling Post-procedure details: Neurological function: normal Distal perfusion: normal Range of motion: improved Patient tolerance of procedure: Tolerated well, no immediate complications * Yesika Toledo - 03/12/2022 1245 EDT Assisted pt from vehicle to wheelchair, able to stand and pivot with support. documented in this encounter Plan of Treatment Upcoming Encounters Date Type Department Care Team (Late st Contact Info) Description 09/24/2024 7:30 EST Rehab Therapy Visit [facility] [address] [place], [place] [id number] Mirlande Keene, PT [address] [place] [id number] 11/25/2024 9:00 EDT Office Visit [facility] Program - [address] [place] [address] Tess Rojas NP [address] [place] [address] documented as of this encounter Procedures Procedure Name Priority Date/Time Associated Diagnosis Comments XR SHOULDER RIGHT 2 OR MORE VIEWS STAT 03/12/2022 15:04 EDT XR SHOULDER RIGHT 2 OR MORE VIEWS STAT 03/12/2022 13:45 EDT XR HUMERUS RIGHT STAT 03/12/2022 13:4 5 EDT XR WRIST RIGHT 3 OR MORE VIEWS STAT 03/12/2022 13:42 EDT ED ORTHOPAEDIC INJURY TREATMENT - UPPER EXTREMITY Routine 03/12/2022 12:58 EDT ED SEDATION PROCEDURE Routine 03/12/2022 12:58 EDT documented in this encounter Results * XR SHOULDER RIGHT 2 OR MORE VIEWS (03/12/2022 15:04 EDT) Anatomical Region Laterality Modality Right Computed Radiogr aphy 03/12/2022 15:2 0 EDT Impressions 03/12/2022 15:20 EDT Findings/ Impression: Previously seen dislocation of the right shoulder has been reduced. The right humeral head is now well seated within the glenoid fossa. Tiny osseous fragment along the inferior aspect of the glenoid appears well-corticated and may be chronic. However, it is possible that this represent a tiny Bankart lesion. No Hill-Sachs deformity is visible. No other fracture is seen. The acromioclavicular joint appears well aligned. Visualized soft tissues are unremarkable. Visualized portion of the right lung is clear. Narrative 03/12/2022 15:20 EDT XR SHOULDER RIGHT 2 OR MORE VIEWS ??03/12/2022 2:55 PM Clinical History/Comments: post-reduction x-ray Comparison: Radiographs done earlier on the same date Technique: Right shoulder, 3 views Procedure Note Janice Beltran MD - 03/12/2022 XR SHOULDER RIGHT 2 OR MORE VIEWS 03/12/2022 2:55 PM Clinical History/Comments: post-reduction x-ray Comparison: Radiographs done earlier on the same date Technique: Right shoulder, 3 views IMPRESSION Findings/ Impression: Previously seen dislocation of the right shoulder has been reduced. Theright humeral head is now well seated within the glenoid fossa. Tinyosseous fragment along the inferior aspect of the glenoid appearswell-corticated and may be chronic. However, it is possible that thisrepresent a tiny Bankart lesion. No Hill-Sachs deformity is visible. Noother fracture is seen. The acromioclavicular joint appears well aligned.Visualized soft tissues are unremarkable. Visualized portion of the rightlung is clear. us Perry Bey MD [facility] ORDERABL ES Final Result * XR HUMERUS RIGHT (03/12/2022 13:45 EDT) Anatomical Region Laterality Modality Right Computed Radiogr aphy 03/12/2022 13:5 5 EDT Impressions 03/12/2022 13:55 EDT Findings/ Impression: No fracture of the humerus is identified. The humeral head is dislocated from the glenoid fossa, however evaluation is limited on this single view. The elbow is essentially excluded from the [id number]. Soft tissues appear unremarkable. Narrative 03/12/2022 13:55 EDT XR HUMERUS RIGHT ??03/12/2022 1:05 PM Clinical History/Comments: fall from horse, concern for fracture/dislocation Comparison: None Technique: One view of the right humerus Procedure Note Janice Beltran MD - 03/12/2022 XR HUMERUS RIGHT 03/12/2022 1:05 PM Clinical History/Comments: fall from horse, concern for fracture/dislocation Comparison: None Technique: One view of the right humerus IMPRESSION Findings/ Impression: No fracture of the humerus is identified. The humeral head is dislocatedfrom the glenoid fossa, however evaluation is limited on this single view.The elbow is essentially excluded from the [id number]. Soft tissuesappear unremarkable. us Perry Bey MD [facility] ORDERABL ES Final Result * XR SHOULDER RIGHT 2 OR MORE VIEWS (03/12/2022 13:45 EDT) Anatomical Region Laterality Modality Right Computed Radiogr aphy 03/12/2022 13:5 6 EDT Impressions 03/12/2022 13:56 EDT Findings/ Impression: There is a complete anterior dislocation of the right shoulder. No fracture is identified. The acromioclavicular joint appears well aligned, with mild degenerative changes. Soft tissues are unremarkable. Visualized portion of the right lung appears clear. Narrative 03/12/2022 13:56 EDT XR SHOULDER RIGHT 2 OR MORE VIEWS ??03/12/2022 1:05 PM Clinical History/Comments: fall from horse, concern for fracture/dislocation Comparison: No prior x-rays of the right shoulder Technique: Right shoulder, 3 views Procedure Note Janice Beltran MD - 03/12/2022 XR SHOULDER RIGHT 2 OR MORE VIEWS 03/12/2022 1:05 PM Clinical History/Comments: fall from horse, concern for fracture/dislocation Comparison: No prior x-rays of the right shoulder Technique: Right shoulder, 3 views IMPRESSION Findings/ Impression: There is a complete anterior dislocation of the right shoulder. Nofracture is identified. The acromioclavicular joint appears well aligned,with mild degenerative changes. Soft tissues are unremarkable. Visualizedportion of the right lung appears clear. us Perry Bey MD [facility] ORDERABL ES Final Result * XR WRIST RIGHT 3 OR MORE VIEWS (03/12/2022 13:42 EDT) Anatomical Region Laterality Modality Upper Extremities Right Computed Radio graphy 03/12/2022 13:5 3 EDT Impressions 03/12/2022 13:53 EDT Findings/ Impression: No fracture or malalignment is seen. Joint spaces are well-maintained. There is slight negative ulnar variance. Soft tissues appear normal. Narrative 03/12/2022 13:53 EDT XR WRIST RIGHT 3 OR MORE VIEWS ??03/12/2022 1:15 PM Clinical History/Comments: fall, pain Comparison: None Technique: Right wrist, 3 views Procedure Note Janice Beltran MD - 03/12/2022 XR WRIST RIGHT 3 OR MORE VIEWS 03/12/2022 1:15 PM Clinical History/Comments: fall, pain Comparison: None Technique: Right wrist, 3 views IMPRESSION Findings/ Impression: No fracture or malalignment is seen. Joint spaces are well-maintained.There is slight negative ulnar variance. Soft tissues appear normal. us Nam Serrano MD [facility] ORDE RABLES Final Result * Joint Disl - UE (03/12/2022 12:58 EDT) Narrative [facility] EKG - 03/12/2022 12:58 EDT Nam Serrano MD ? 04/06/2022 14:45 Joint Disl - UE Performed by: Perry Bey MD Authorized by: Nam Serrano MD Consent: ??Consent obtained: ??Verbal ??Consent given by: ??Patient ??Risks discussed: ??Fracture, irreducible dislocation, recurrent dislocation, nerve damage and stiffness ??Alternatives discussed: ??Delayed treatment Location: ??Location: ??Shoulder ??Shoulder location: ??R shoulder ??Shoulder dislocation type: anterior ?Chronicity: ??New Pre-procedure assessment: ??Pre-procedure imaging: ??X-ray ??Imaging findings: dislocation present ?Imaging findings: no fracture ?Distal perfusion: normal ?? Sedation: ??Sedation type: ??Moderate (conscious) sedation Anesthesia (see MAR for exact dosages): ??Anesthesia method: ??None Procedure details: ??Manipulation performed: no ?Shoulder reduction method: ??Direct traction and traction and counter traction ??Reduction successful: yes ?Reduction confirmed with imaging: yes ?Immobilization: ??Sling ??Supplies used: ??Sling Post-procedure details: ??Neurological function: normal ?Distal perfusion: normal ?Range of motion: improved ?Patient tolerance of procedure: ??Tolerated well, no immediate complications Nam Serrano MD PROCEDURE/MINOR SURGICAL OR DERABLES Final Result Performing Organization Address City/State/[facility] Co de Phone Number [facility] EKG * Sedation (03/12/2022 12:58 EDT) Narrative [facility] EKG - 03/12/2022 12:58 EDT Nam Serrano MD ? 04/06/2022 14:45 Sedation Performed by: Nam Serrano MD Authorized by: Nam Serrano MD Consent: ??Consent obtained: ??Verbal ??Consent given by: ??Patient ??Risks discussed: ??Inadequate sedation Indications: ??Procedure performed: ??Dislocation reduction ??Procedure necessitating sedation performed by: ??Physician performing sedation Pre-sedation assessment: ??ASA classification: class 1 - normal, healthy patient ?Neck mobility: normal ?Pre-sedation assessments completed and reviewed: pain level ?History of difficult intubation: no ?? Immediate pre-procedure details: ??Reviewed: vital signs ?? Procedure details (see MAR for exact dosages): ??Sedation start time: ??03/12/2022 14:55 ??Preoxygenation: ??Nasal cannula ??Sedation: ??Propofol ??Intra-procedure monitoring: ??Blood pressure monitoring, monitoring analyst and continuous pulse oximetry ??Intra-procedure events: none ?? Post-procedure details: ??Patient is stable for discharge or admission: yes ?Patient tolerance: ??Tolerated well, no immediate complications us Nam Serrano MD PROCEDURE/MINOR SURGICAL OR DERABLES Final Result [facility] EKG documented in this encounter Visit Diagnoses Diagnosis Anterior shoulder dislocation, right, initial encounter- Primary documented in this encounter Administered Medications Inactive Administered Medications - up to 3 most recent administrations Medication Order [facility] Action Action Date Dose Rate Site fentaNYL citrate (PF) 50 mcg/mL injection 1 dose, Starting on 03/12/22 at 1258, Until 03/12/22 at 1259 fentaNYL citrate (PF) injection 50 mcg 50 mcg, intravenous, NOW X1, 1 dose, On 03/12/22 at 1300, STAT Given 03/12/2022 12:59 EDT 50 mcg fentaNYL citrate (PF) injection 50 mcg 50 mcg, intravenous, NOW X1, 1 dose, On 03/12/22 at 1300, STAT Given 03/12/2022 13:57 EDT 50 mcg ketOROLAC (TORADOL) injection 15 mg 15 mg, intravenous, NOW X1, 1 dose, On 03/12/22 at 1300, STAT Given 03/12/2022 13:13 EDT 15 mg ondansetron (PF) (ZOFRAN) 4 mg/2 mL injection 1 dose, Starting on 03/12/22 at 1351, Until 03/12/22 at 1357 ondansetron (PF) (ZOFRAN) injection 4 mg 4 mg, intravenous, NOW X1, 1 dose, On 03/12/22 at 1400, STAT Given 03/12/2022 13:57 EDT 4 mg propOFol (DIPRIVAN) injection 100 mg 100 mg (rounded from 99.8 mg = 1 mg/kg ? 99.8 kg), intravenous, NOW X1, 1 dose, On 03/12/22 at 1415, STAT Given 03/12/2022 14:44 EDT 150 mg documented in this encounter Active and Recently Administered Medications Times are shown in EDT. Scheduled Medication Order 03/10/2022 03/11/2022 03/12/2022 fentaNYL citrate (PF) injection 50 mcg (COMPLETED) 50 mcg, intravenous, NOW X1, 1 dose, On 03/12/22 at 1300, STAT 1259 (Given - Provid er: Margarita Otoole RN) fentaNYL citrate (PF) injection 50 mcg (COMPLETED) 50 mcg, intravenous, NOW X1, 1 dose, On 03/12/22 at 1300, STAT 1357 (Given - Provid er: Margarita Otoole RN) ketOROLAC (TORADOL) injection 15 mg (COMPLETED) 15 mg, intravenous, NOW X1, 1 dose, On 03/12/22 at 1300, STAT 1313 (Given - Provid er: Margarita Otoole RN) ondansetron (PF) (ZOFRAN) injection 4 mg (COMPLETED) 4 mg, intravenous, NOW X1, 1 dose, On 03/12/22 at 1400, STAT 1357 (Given - Provid er: Margarita Otoole RN) propOFol (DIPRIVAN) injection 100 mg (COMPLETED) 100 mg (rounded from 99.8 mg = 1 mg/kg ? 99.8 kg), intravenous, NOW X1, 1 dose, On 03/12/22 at 1415, STAT 1444 (Given - Provid er: Margarita Otoole RN - Comment: given during sedation, per MD Serrano) documented in this encounter Care Teams Laboratory Technology Teacher Relationship Specialty Start Date End Date Brea Mendoza FNP [facility] [employer] [facility], [address] [place] [address] PCP - General Family Medicine - Primary Care 03/12/22 04/19/22 documented as of this encounter
--- OUTSIDE RECORDS SUMMARY | 2024-09-15 15:51 | XMS_ITS | Encounter Summary ---
Author Organization [facility] Address [address] [place] [address] Care Team Providers Care Metal Fitter Name Role Phone Brea Mendoza BRITT Primary Care Provider [phone] Reason for Visit * Reason Comments Pain * Consult (See Order Priority) - Order Cancelled Specialty Diagnoses / Procedures Referred By Jefferson ramires Referred To Contact Orthopedic Surgery Diagnoses Anterior shoulder dislocation, right, initial encounter ePrry Bey MD [address] [place] [address] Phone: tel: fax: [facility] Sports Medicine Program [place] [place] [address] Phone: tel: fax: Referral ID Status Reason Start Date Expiration Date Visits Requested Visits Authorized [id number] Order Cancelled Specialty Services Required 03/12/2022 1 1 Encounter Details Date Type Department Care Team (Late st Contact Info) Description 03/17/2022 9:00 EDT Office Visit [facility] Medicine Program [place] [address] Ulises Cortez MD [address] [place] [address] Acute pain of right shoulder (Primary Dx) Social History Tobacco Use Types [...] documented in this encounter Progress Notes * Ulises Cortez MD - 03/17/2022 0900 EDT Chief Complaint Right shoulder dislocation HPI 03/17/2022 visit: Bria Jackman is 57 y.o. 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 Underwent closed reduction in the emergency department. Denies numbness or tingling. Has been using the sling for most activities. Physical Exam Functional: Mobilizes in exam room without difficulty C-Spine: No gross neurological deficits Left shoulder: Adequate range of motion and strength Right shoulder: Palpation: Nontender Appearance: Skin intact, no deformity AROM: 60 ER, lateral hip IR, 150 abd, 170 forward flexion Strength: 5-/5 ER, 5-/5 IR, 5-/5 Abd Apprehension testing deferred given acute injury Imaging 03/12/2022 pre and postreduction radiographs demonstrates a tiny inferior glenoid abnormality that could be consistent with a small glenoid fracture. Assessment/Plan 57-year-old status post right shoulder dislocation and closed reduction, possible small inferior glenoid fracture, adequate strength and motion. We discussed risk of rotator cuff tear. She is comfortable with performing physical therapy and then following up for an MRI if shoulder pain persists. Wediscussed night pain, lateral pain, difficulty lifting or signs of tearing. We also discussed risk of recurrent instability after shoulder dislocation. Ulises Cortez MD 03/17/2022 9:35 documented in this encounter Plan of Treatment Upcoming Encounters Date Type Department Care Team (Late st Contact Info) Description 09/24/2024 7:30 EST Rehab Therapy Visit [facility] [address] [place], [place] [address] Mirlande Keene, PT [address] [place] [phone] 11/25/2024 9:00 EDT Office Visit [facility] Total Joint Program - [address] [address] Tess Rojas NP [address] [place] [address] documented as of this encounter Visit Diagnoses Diagnosis Acute pain of right shoulder- Primary documented in this encounter Care Teams Metal Fitter Relationship Specialty Start Date End Date Brea Mendoza FNP [address], [address] [place], [place] [address] PCP - General Family Medicine - Primary Care 03/12/22 04/19/22 documented as of this encounter
--- OUTSIDE RECORDS SUMMARY | 2024-09-15 15:51 | XMS_ITS | Encounter Summary ---
Author Organization [facility] Address [address] [place] [address] Care Team Providers Care Chicken Fancier Name Role Phone Alissa Arellano Primary Care Provider [phone] Encounter Details Date Type Department Care Team (Late st Contact Info) Description 12/23/2021 9:10 EDT Phlebotomy Only [facility] - Outpatient Phlebotomy Drawing [address] [place] [address] Lab, [facility] Perimenopausal vasomotor symptoms; History of short term memory loss; Mood changes; Frequent headaches Social History Tobacco Use Types Packs/Day Years [...] Description 09/24/2024 7:30 EST Rehab Therapy Visit [facility] [place] [address] [place], [place] [phone] Mirlande Keene, PT [address] [place] [address] 11/25/2024 9:00 EDT Office Visit [facility] Total Joint Program - [facility] [address] [place], [place] [phone] Tess Rojas, LUCAS [address] [place] [address] documented as of this encounter Procedures Procedure Name Priority Date/Time Associated Diagnosis Comments PROLACTIN Routine 12/23/2021 9:14 EDT Perimenopausal vasomotor symptoms History of short term memory loss Mood changes Frequent headaches ESTRADIOL, ADULTS Routine 12/23/2021 9:14 EDT Perimenopausal vasomotor symptoms History of short term memory loss Mood changes FSH Routine 12/23/2021 9:14 EDT Perimenopausal vasomotor symptoms History of short term memory loss Mood changes documented in this encounter Results * PROLACTIN (12/23/2021 9:14 EDT) Prolactin 6.9 See Note ng/mL 12/23/2021 22:37 EDT [facility] Comment: NOTE: Female Reference Ranges: PHYSIOLOGICAL STATUS ?EXPECTED RANGE ? Postmenopausal ?1.8 - 20.3 ng/mL ?9.7 - 208.5 ng/mL Non- ?2.8 - 29.2 ng/mL Reference Ranges for Prolactin in female patients <18 years old have not been established. Blood VENOUS BLOOD / Unknown Venipuncture / Unknown 12/23/2021 9:14 EDT 12/23/2021 9:45 EDT Yeimi Castaneda NP CHEMISTRY & BLOOD GAS ORDERAB LES Final Result Performing Organization Address [facility] de Phone Number [facility] [address] [place] [address] * ESTRADIOL, ADULTS (12/23/2021 9:14 EDT) Estradiol 28 See Note pg/mL 12/23/2021 22:14 EDT [facility] Comment: NOTE: FEMALE REFERENCE RANGES: MENSTRUATING ? By cycle day relative to LH peak Follicular ?(-12 to -4 days) ??20-144 pg/mL Midcycle ?(-3 to +2 days) ?? 64-357 pg/mL Luteal ?(+4 t0 +12 days) ??56-214 pg/mL POSTMENOPAUSAL ?<32 pg/mL *Cross reactivity with Fulvestrant could lead to a falsely elevated estradiol result in patients treated with this drug. Blood VENOUS BLOOD / Unknown Venipuncture / Unknown 12/23/2021 9:14 EDT 12/23/2021 9:45 EDT Yeimi Castaneda NP CHEMISTRY & BLOOD GAS ORDERAB LES Final Result Performing Organization Address [facility] Co de Phone Number [facility] [address] [place] [address] * FSH (12/23/2021 9:14 EDT) FSH 23.7 See Note mIU/mL 12/23/2021 22:33 EDT [facility] Blood VENOUS BLOOD / Unknown Venipuncture / Unknown 12/23/2021 9:14 EDT 12/23/2021 9:45 EDT Narrative [facility] - 12/23/2021 22:33 EDT NOTE: Female FSH Reference Ranges (>= 13 Menstruating): PHYSIOLOGICAL STATUS ? REFERENCE RANGE ? Follicular (-12 to -4 days): ?? 2.5 - 10.2 mIU/mL Midcycle (-3 to +2 days): ?3.4 - 33.4 mIU/mL Luteal (+4 to +12 days): ? 1.5 - 9.1 mIU/mL Postmenopausal: ?23.0 - 116.3 mIU/mL Reference Ranges for female patients <13 years old have not been established. us Yeimi Castaneda NUCLEAR PLANT EQUIPMENT OPERATOR CHEMISTRY & BLOOD GAS ORDERAB LES Final Result [facility] [address] [place] [address] documented in this encounter Visit Diagnoses Diagnosis Perimenopausal vasomotor symptoms Symptomatic menopausal or female climacteric states History of short term memory loss Personal history of other disorders of nervous system and sense organs Mood changes Unspecified episodic mood disorder Frequent headaches documented in this encounter Care Teams Chicken Fancier Relationship Specialty Start Date End Date Alissa Arellano PA [address] [place], [place] PCP - General 11/27/12 03/11/22 documented as of this encounter
--- OUTSIDE RECORDS SUMMARY | 2024-09-15 15:51 | XMS_ITS | Encounter Summary ---
Author Organization [facility] Address [address] [place] [address] Care Team Providers Care Business Segment Manager Name Role Phone Brea Mendoza BRITT Primary Care Provider [phone] Reason for Visit * Reason Comments Medications Refill Menopause Telemedicine Phone Call Encounter Details Date Type Department Care Team (Late st Contact Info) Description 04/11/2022 14:00 EDT Telemedicine [facility] [address] [place] [address] Yeimi Castaneda, TAPER/FINISHER [address] [facility], [address] [place] [address] Hormone replacement therapy (postmenopausal) (Primary Dx); Vasomotor symptoms due to menopause Social History Tobacco Use Types Packs/Day Years [...] Last Filled Start Date End Date estradioL (VIVELLE) 0.05 mg/24 hr patch Use one patch twice weekly. 24 Patch 2 04/11/2022 12/27/2022 documented in this encounter Progress Notes * Yeimi Castaneda, TAPER/FINISHER - 04/11/2022 1400 EDT [facility] Telephone Visit Verbal consent: The concept of ???Telemedicine?? has been described to the patient.? Patient has been informed of the anticipated benefits and possible risks.? Patient understands the information provided regardingtelemedicine, has had the opportunity to ask questions about this information, and all questions have been answered to patient???s satisfaction. Patient consents for the use of telemedicine in his/her medical care and authorizes the transmission of any relevant medical information to providers and their staff involved in patient???s medical or mental health care. Subjective: Chief Complaint(s): No chief complaint on file. HPI: Telemed phone call to follow up on ERT-Vivelle patches. Bria is at work and I am in my office. Bria reports she had a great response to patches when she started them in the Spring-vasomotor sxs, mood changes, and memory issues resolved but then she got Covid in February and symptoms of memory fogreturned for awhile. Doing much better now. I have reviewed current problem list and current medications. ROS: Partial hysterectomy for endometriosis. Started Vivlle 0.05mg patch in 12/2021 for management of vasomotor hot flashes/night sweats, mood changes, headaches, and memory fog. Happy with her response and would like to continue. Objective: Examination: Home Vitals: There were no vitals taken for this visit. Pertinent exam findings patient can observe: see HPI/ROS Data reviewed with patient: B/P taken in ED 03/12/22 was 87/51 Assessment & Plan: HRT for post menopausal vasomotor and other symptoms. Vivelle dot 0.05mg patch refills sent. AE due12/2022 Patient initiated phone contact with the office No, Is an established patient (parent, guardian) Yes, E/M provided within previous 7 days for same Assessment No, Anticipate E/M service within 24hrs or next available urgent appointment No, Time spent in medical discussion 21-30. 25 minutes Yeimi Castaneda NP documented in this encounter Plan of Treatment Upcoming Encounters Date Type Department Care Team (Late st Contact Info) Description 09/24/2024 7:30 EST Rehab Therapy Visit [facility] [address] [place] [address] Mirlande Keene, PT [address] [place] [address], [place] [phone] 11/25/2024 9:00 EDT Office Visit [facility] Total Joint Program - [address] [place] [address] Tess Rojas NP [address] [place] [address] documented as of this encounter Visit Diagnoses Diagnosis Hormone replacement therapy (postmenopausal)- Primary Need for prophylactic hormone replacement therapy (postmenopausal) Vasomotor symptoms due to menopause documented in this encounter Discontinued Medications Medication Sig Discontinue Reason Start Date End Da te estradioL (VIVELLE) 0.05 mg/24 hr patch Use one patch twice weekly. Reorder 03/09/2022 04/11/2022 documented as of this encounter Care Teams Business Segment Manager Relationship Specialty Start Date End Date Brea Mendoza FNP [address], [address] [place] [address] PCP - General Family Medicine - Primary Care 03/12/22 04/19/22 documented as of this encounter
--- OUTSIDE RECORDS SUMMARY | 2024-09-15 15:51 | XMS_ITS | Encounter Summary ---
Author Organization [facility] Address [address] [place] [address] Care Team Providers Care Industrial Sociologist Name Role Phone Elvira Brantley MD Primary Care Provider [phone] Reason for Visit * Reason Comments Pain * Consult (See Order Priority) - Order Cancelled Specialty Diagnoses / Procedures Referred By Jefferson ramires Referred To Contact Orthopedic Surgery Diagnoses Anterior shoulder dislocation, right, initial encounter Perry Bey MD [address] [place] [address] Phone: tel: fax: [facility] Sports Medicine Program [place] [place] [address] Phone: tel: fax: Referral ID Status Reason Start Date Expiration Date Visits Requested Visits Authorized [id number] Order Cancelled Specialty Services Required 03/12/2022 1 1 Encounter Details Date Type Department Care Team (Late st Contact Info) Description 05/02/2022 9:45 EDT Office Visit [facility] Sports Medicine Program [place] [address] Ulises Cortez MD [address] [place] [phone] Traumatic closed displaced fracture of right shoulder with anterior dislocation with routine healing, subsequent encounter (Primary Dx) [...] Progress Notes * Ulises Cortez MD - 05/02/2022 0945 EDT Problem: Right anterior shoulder dislocation 03/12/2022 CC/HPI Bria Jackman is here for scheduled follow-up to review MRI results of the right shoulder. Bria has been doing physical therapy and has been to roughly 4 sessions since her last visit on 03/17/2022. She states today that her shoulder is drastically improved. She still has some aches and pains but feels like she is getting better every day. No recurrent episodes of instability and feels like her shoulder is tightening up in a good way. No numbness, tingling, weakness in the right upper extremity. Physical Exam Right shoulder AROM 45 ER/L5 IR/100 ABD, PROM 50 ER/150 ABD, mild tenderness in bicipital groove, nontender AC/coracoid, 5/5 strength ER/IR/ABD, sensation intact light touch M/U/R/A, 2+ radial pulse Imaging MRI right shoulder from 04/21/2022 shows small anterior inferior glenoid rim fracture with minimally displaced, posterior superior and anterior superior/inferior labrum tearing without displacement of the labrum, no intra- articular loose bodies, rotator cuff intact, very far lateral Hill-Sachs lesion with associated bony edema Assessment/Plan Acute traumatic right shoulder dislocation 03/12/2022- already improving greatly with physical therapy and conservative measures. Continue physical therapy and symptomatic management with anti-inflammatories as needed. Follow up as needed with any ongoing or worsening/new symptoms. Feliberot Delgado MD 05/02/2022 9:49 Dr. Geeslin Addendum: Attestation statement: I performed or was present during the borjas or critical portions of the visit and participated in the management of the patient. I agree with the findings and plan of care documented in the resident's/fellow's note. Relevant additions or modifications are outlined below. Notes continued improvement. Has been able to ride her horse. Still has some motion limitations. Noclear rotator cuff tear that requires repair. Okay to continue to monitor and progress activities under direction of therapy. Will call for new injury, instability, or other concerns. No scheduled follow-up required at this time. Ulises Cortez MD 05/02/2022 documented in this encounter Plan of Treatment Upcoming Encounters Date Type Department Care Team (Late st Contact Info) Description 09/24/2024 7:30 EST Rehab Therapy Visit [facility] Rehabilitation Therapy [address] [place], [place] [phone] Mirlande Keene, PT [address] [place] [phone] 11/25/2024 9:00 EDT Office Visit [facility] Total Joint Program - [address] [place], [place] [phone] Tess Rojas, LUCAS [address] [place] [address] documented as of this encounter Visit Diagnoses Diagnosis Traumatic closed displaced fracture of right shoulder with anterior dislocation with routine healing, subsequent encounter- Primary documented in this encounter Care Teams Industrial Sociologist Relationship Specialty Start Date End Date Elvira Brantley MD [address] [place] [id number] PCP - General 04/20/22 documented as of this encounter
--- OUTSIDE RECORDS SUMMARY | 2024-09-15 15:51 | XMS_ITS | Encounter Summary ---
Author Organization [facility] Address [address] [place] [address] Care Team Providers Care Ground Services Instructor Name Role Phone Elvira Brantley MD Primary Care Provider [phone] Reason for Referral * Radiology Services (STAT) - Closed Specialty Diagnoses / Procedures Referred By Jefferson t Referred To Contact Radiology Diagnoses Right shoulder pain, unspecified chronicity Procedures MR SHOULDER WO CONTRAST RIGHT Ulises Cortez MD Phone: tel: fax: [facility] Referral ID Status Reason Start Date Expiration Date Visits Re quested Visits Authorized [id number] Closed 04/07/2022 06/05/2022 1 1 Reason for Visit * Radiology Services (STAT) - Closed Specialty Diagnoses / Procedures Referred By Jefferson ramires Referred To Contact Radiology Diagnoses Right shoulder pain, unspecified chronicity Procedures MR SHOULDER WO CONTRAST RIGHT Ulises Cortez MD Phone: tel: fax: [facility] Referral ID Status Reason Start Date Expiration Date Visits Re quested Visits Authorized [id number] Closed 04/07/2022 06/05/2022 1 1 Encounter Details Date Type Department Care Team (Latest Contact Info) Description 04/21/2022 10:44 EDT - 04/21/2022 23:59 EDT Hospital Encounter [facility] [address] [place] [address] Right shoulder pain, unspecified chronicity Discharge Disposition: Home or Self Care Social [...] Visit [facility] Rehabilitation Therapy [address] [place] [address] Mirlande Keene, PT [address] [place] [address] 11/25/2024 9:00 EDT Office Visit [facility] Total Joint Program - [address] [facility] [place] [address] Tess Rojas NP [address] [place] [address] documented as of this encounter Procedures Procedure Name Priority Date/Time Associated Diagnosis Comments MR SHOULDER WO CONTRAST RIGHT STAT 04/21/2022 11:35 EDT Right shoulder pain, unspecified chronicity documented in this encounter Results * MR SHOULDER WO [...] to contusion from the regional Hill-Sachs injury. us Ulises Cortez MD IMG MRI ORDERABLES Final Resul t documented in this encounter Visit Diagnoses Diagnosis Right shoulder pain, unspecified chronicity documented in this encounter Care Teams Ground Services Instructor Relationship Specialty Start Date End Date Elvira Brantley MD [address] [place] [address] PCP - General 04/20/22 documented as of this encounter
--- OUTSIDE RECORDS SUMMARY | 2024-09-15 15:51 | XMS_ITS | Encounter Summary ---
Author Organization [facility] Address [address] [place] [address] Care Team Providers Care Consulting Manager Name Role Phone Brea Mendoza BRITT Primary Care Provider [phone] Encounter Details Date Type Department Care Team (Latest Contact Info) Description 03/12/2022 Travel Social History Tobacco Use Types Packs/Day [...] Visit [facility] Rehabilitation Therapy [address] [place] [address] Mirlande Keene, PT [address] [place] [phone] 11/25/2024 9:00 EDT Office Visit [facility] Total Joint Program - [address] [place], [place] [phone] Tess Rojas NP [address] [place] [address] documented as of this encounter Visit Diagnoses Not on filedocumented in this encounter Care Teams Consulting Manager Relationship Specialty Start Date End Date Brea Mendoza FNP [address], [address] [place], [place] [id number] PCP - General Family Medicine - Primary Care 03/12/22 04/19/22 documented as of this encounter
--- OUTSIDE RECORDS SUMMARY | 2024-09-15 15:51 | XMS_ITS | Encounter Summary ---
Author Organization [facility] Address [address] [place] [address] Care Team Providers Care Lumite Injector Name Role Phone Alissa Arellano Primary Care Provider [phone] Reason for Visit * Reason Onset Date Comments Results 12/26/2021 Encounter Details Date Type Department Care Team (Late st Contact Info) Description 12/26/2021 Telephone [facility] [address] [place], [place] [phone] Yeimi Castaneda, LUCAS [address] [facility], [address] [place] [address] Results Social History Tobacco Use Types Packs/Day Years [...] Use one patch twice weekly. 24 Patch 12/27/2021 03/09/2022 documented in this encounter Miscellaneous Notes * Telephone Encounter - Yeimi Castaneda NP - 12/27/2021 1002 EDT TC from Bria-reviewed lab results which do indicate menopause although could still be perimenopause. Will try vivelle dot-reviewed how to apply. Usually takes a couple of months before fully managing symptoms. Will send in 3 months worth-no refills. Bria to call back to check in in 2-3 months. Plans to get annual exams through PCP. * Telephone Encounter - Yeimi Castaneda NP - 12/26/2021 1733 EDT TC to [facility] calling with blood test results. Please CB tomorrow. Date, time, and phone # left documented in this encounter Plan of Treatment Upcoming Encounters Date Type Department Care Team (Late st Contact Info) Description 09/24/2024 7:30 EST Rehab Therapy Visit [facility] Therapy [address] [place] [address] Mirlande Keene, PT [address] [place] [address] 11/25/2024 9:00 EDT Office Visit [facility] Total Joint Program [place] [address] Tess Rojas NP [address] [place] [address] documented as of this encounter Visit Diagnoses Not on filedocumented in this encounter Care Teams Lumite Injector Relationship Specialty Start Date End Date Alissa Arellano PA [address] [place] [address] PCP - General 11/27/12 03/11/22 documented as of this encounter
--- OUTSIDE RECORDS SUMMARY | 2024-09-15 15:51 | XMS_ITS | Encounter Summary ---
Author Organization [facility] Address [address] [place] [address] Care Team Providers Care Nurse First Aid Name Role Phone Alissa Arellano Primary Care Provider [phone] Reason for Visit * Reason Onset Date Comments Medication Management 03/06/2022 Encounter Details Date Type Department Care Team (Late st Contact Info) Description 03/06/2022 Telephone [facility] OBG[facility] [address] [place] [address] Yeimi Castaneda, LUCAS [address] [facility], [address] [place] [address] Medication Management Social History Tobacco [...] patch twice weekly. 8 Patch 03/09/2022 04/11/2022 documented in this encounter Miscellaneous Notes * Telephone Encounter - Yeimi Castaneda NP - 03/09/2022 1111 EDT Refills sent for one month only * Telephone Encounter - Maritza Olvera RN - 03/06/2022 1039 EDT Yeimi - please advise; thanks Patches last refilled 12/27/21 - 1 patch twice weekly, #24 patches. * Telephone Encounter - Myrna Malave MA - 03/06/2022 1026 EDT Patient misses Garrick simons on 03/02. Called back today to reschedule, soonest available was 04/11. Patient would like to know if her patches can be refilled until then documented in this encounter Plan of Treatment Upcoming Encounters Date Type Department Care Team (Late st Contact Info) Description 09/24/2024 7:30 EST Rehab Therapy Visit [facility] Rehabilitation Therapy [address] [place] [id number] Mirlande Keene, PT [address] [place] [id number] 11/25/2024 9:00 EDT Office Visit [facility] - [facility] [place] [address] Tess Rojas NP [address] [place] [phone] documented as of this encounter Visit Diagnoses Not on filedocumented in this encounter Discontinued Medications Medication Sig Discontinue Reason Start Date End Da te estradioL (VIVELLE) 0.05 mg/24 hr patch Use one patch twice weekly. Reorder 12/27/2021 03/09/2022 documented as of this encounter Care Teams Nurse First Aid Relationship Specialty Start Date End Date Alissa Arellano PA [address] [place] [address] PCP - General 11/27/12 03/11/22 documented as of this encounter
--- OUTSIDE RECORDS SUMMARY | 2024-09-15 15:51 | XMS_ITS | Encounter Summary ---
Author Organization [facility] Address [address] [place] [address] Care Team Providers Care Superintendent General Name Role Phone Alissa Arellano Primary Care Provider [phone] Reason for Visit * Reason Comments Gynecologic Exam Menopausal check in Encounter Details Date Type Department Care Team (Latest Contact Info) Description 12/23/2021 8:40 EDT Office Visit [facility] OBGYN [address] [place], [place] [id number] Yeimi Castaneda, LUCAS [address] [facility], [address] [place] [address] Perimenopausal vasomotor symptoms (Primary Dx); History of short term memory loss; Mood changes; Frequent headaches; Counseling for hormone replacement therapy Social History Tobacco Use Types Packs/Day Years [...] 8:40 EDT documented as of this encounter Last Filed Vital Signs Vital Sign Reading Time Taken Comments Blood Pressure 112/68 12/23/2021 0842 EDT Pulse - - Temperature - - Respiratory Rate 20 12/23/2021 0842 EDT Oxygen Saturation - - Inhaled Oxygen Concentration - - Weight 102.1 kg (225 lb) 12/23/2021 0842 EDT Height 182.9 cm (6') 12/23/2021 0842 EDT Body Mass Index 30.52 12/23/2021 0842 EDT documented in this encounter Functional Status [...] in this encounter Progress Notes * Yeimi Castaneda NP - 12/23/2021 0840 EDT S-Here to discuss menopause. Past couple of months has had increased hot flashes, emotional changes-frequently on the brink of tears, and also some memory loss. Taking zoloft. Has not had PMS Ball of rage feeling and extreme irritability for awhile but then it did happen ~6 weeks ago Increased headaches Interested in HRT O- BP 112/68 Resp 20 Ht 182.9 cm (72) Wt (!) 102.1 kg (225 lb) BMI 30.52 kg/m?? General appearance-pleasant, cooperative, NAD Neuro-normal gait, oriented x 3 11/2021 mammo-CAT 1 06/2018 colonoscopy-polyp, rpt in 5 years 11/2020 vaginal PAP/HPV-both neg A- Perimenopausal vasomotor symptoms affecting quality of life including hot flashes. Also reports some short term memory issues/brain fog, more frequent headaches Interested in estrogen replacement therapy Had partial hysterectomy for endometriosis P- Labs to be drawn today for FSH, E2, Prolactin, thyroid cascade Discussed starting vivelle estrogen patch if labs indicate menopause. Reviewed risks and benefits of ERT. Increased risk of blood clots. Reviewed how to use/apply patches. I spent a total of 25 minutes on the date of this encounter meeting with the patient and reviewing documentation/coordinating care as described in the above note. No procedures were performed at the time of the visit. Yeimi Castaneda NP documented in this encounter Plan of Treatment Upcoming Encounters Date Type Department Care Team (Late st Contact Info) Description 09/24/2024 7:30 EST Rehab Therapy Visit [facility] [address] [place], [place] [phone] Mirlande Keene, PT [address] [place] [address] 11/25/2024 9:00 EDT Office Visit [facility] Program - [facility] [address] [place] [address] Tess Rojas NP [address] [place] [address] documented as of this encounter Results * PROLACTIN (12/23/2021 9:14 EDT) [facility] Prolactin 6.9 See Note ng/mL 12/23/2021 22:37 EDT [facility] Comment: NOTE: Female Reference [...] ORDERAB LES Final Result Performing Organization Address [facility] Co de Phone Number [facility] [address] [place] [address] * ESTRADIOL, ADULTS (12/23/2021 9:14 EDT) Estradiol 28 See Note pg/mL 12/23/2021 22:14 EDT [facility] Comment: NOTE: FEMALE REFERENCE [...] ORDERAB LES Final Result Performing Organization Address [facility] Co de Phone Number [facility] [address] [place] [address] * FSH (12/23/2021 9:14 EDT) FSH 23.7 See Note mIU/mL 12/23/2021 22:33 EDT [facility] Blood VENOUS BLOOD / Unknown Venipuncture / Unknown 12/23/2021 9:14 EDT 12/23/2021 9:45 EDT Narrative [facility] - 12/23/2021 22:33 EDT [...] have not been established. 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 ORDERAB LES Final Result [facility] [address] [place] [address] documented in this encounter Visit Diagnoses Diagnosis Perimenopausal vasomotor symptoms- Primary Symptomatic menopausal or female climacteric states History of short term memory loss Personal history of other disorders of nervous system and sense organs Mood changes Unspecified episodic mood disorder Frequent headaches Counseling for hormone replacement therapy Need for prophylactic hormone replacement therapy (postmenopausal) documented in this encounter Discontinued Medications Medication Sig Discontinue Reason Start Date End Da te fluconazole (DIFLUCAN) 150 mg tablet Take 1 Tablet by mouth once for 1 dose. May repeat in 72 hours after first dose if symptoms persist Therapy completed 06/01/2021 12/23/2021 documented as of this encounter Historical Medications * This list may reflect changes made after this encounter. fexofenadine HCl (ROCKY ORAL) Take by mouth. 10/12/2022 added in this encounter Care Teams Superintendent General Relationship Specialty Start Date End Date Alissa Arellano PA [address] [place], [place] PCP - General 11/27/12 03/11/22 documented as of this encounter
--- OUTSIDE RECORDS SUMMARY | 2024-09-15 15:51 | XMS_ITS | Encounter Summary ---
Author Organization [facility] Address [address] [place] [address] Care Team Providers Care Coat Tailor Name Role Phone Elvira Brantley MD Primary Care Provider [phone] Reason for Visit * Reason Comments Shoulder Injury pt was thrown from h orse landing on right elbow/arm. Pt states she can feel the bones moving. Pt denies LOC or Blood Thinners,, N/V. pt has estrogen path on the abdomen. Encounter Details Date Type Department Care Team (Late st Contact Info) Description 06/17/2022 12:38 EDT - 06/17/2022 16:28 EDT Emergency [facility] Emergency Department [address] [place] [address] Alfred Campbell MD Closed fracture of shaft of right humerus, unspecified fracture morphology, initial encounter (Primary Dx) Discharge Disposition: Home [...] 12:30 EDT documented as of this encounter Last Filed Vital Signs Vital Sign Reading Time Taken Comments Blood Pressure 108/63 06/17/2022 1622 EDT Pulse - - Temperature 36.7 ??C (98.1 ??F) 06/17/2022 1600 EDT Respiratory Rate 18 06/17/2022 1600 EDT Oxygen Saturation 96% 06/17/2022 1558 EDT Inhaled Oxygen Concentration - - Weight 102.1 kg (225 lb) 06/17/2022 1231 EDT Height 182.9 cm (6') 06/17/2022 1231 EDT Body Mass Index 30.52 06/17/2022 1231 EDT documented in this encounter Functional Status [...] this encounter Discharge Instructions * Discharge Instructions* Yvonne Campos - 06/17/2022 15:37 EDT You were seen in the emergency department after a fall. You were found to have a fracture of your right humerus. You were placed in a splint. I placed referral for you to be seen by orthopedics. Theywill give you a call within the next few days set up an appointment. Please follow-up with your primary care provider as needed. For pain, you may use over the counter ibuprofen 600 mg and acetaminophen 1,000 mg. Take each one every six hours and alternate so you are taking one and then the other every three hours. You were also prescribed a oxycodone starter pack. Please take it as prescribed. You were also prescribed a muscle relaxant, please take it as prescribed. Return to the Emergency Department (ED) if your condition worsens, does not improve as expected, orother new concerns arise. Specifically return if you have new or uncontrolled pain, high fever, difficulty breathing, vomiting and unable to keep down fluids or medications, or any other concerns. documented in this encounter Medications at Time [...] mouth every 6 hours as needed for up to 5 days for Muscle Spasms. 20 Tablet 06/17/2022 06/22/2022 valACYclovir (VALTREX) 500 mg tablet Take 500 mg by mouth as needed. Reported on 07/19/2016 10/12/2022 documented as of this encounter Ordered Prescriptions Prescription Sig Dispense Quantity Refills Last Filled Start Date End Date methocarbamoL (ROBAXIN) 750 mg tablet Take 1 Tablet by mouth every 6 hours as needed for up to 5 days for Muscle Spasms. 20 Tablet 06/17/2022 06/22/2022 documented in this encounter Discharge Disposition Disposition Code Departure Means Destination Home or Self Intermediate documented in this encounter ED Notes * Yvonne Campos - 06/17/2022 1628 EDTAssociated Order(s): Splint application/removal Emergency Department Visit Assessment and ED Course Relevant Data as of Jun 17 1651 Sat Jun 17, 2022 1338 Patient is an otherwise healthy 57-year-old female who presents for shoulder pain after a fall. Patient states that she fell approximately 6 feet off of her horse onto her right side. Denies hitting her head. Denies LOC. Patient states her pain is over her humerus. She states that she can feelbone shifting. Denies other injuries. Evaluation, patient is in mild distress, laying on left side. Right clavicle, shoulder, elbow, forearm, wrist, hand nontender to palpation. Humerus exquisitely tender to palpation. Sensation and strength intact distally. Axillary sensation intact. Patient able to move upper aspect of arm secondary to pain. Differential includes fracture, dislocation, injury to nerves and vasculature. Patient given Dilaudid for pain and arm placed in sling. Work-up will include x-rays of right shoulder, humerus and elbow. [CARMELO] 1649 X-rays demonstrated right humeral shaft fracture. Patient placed in splint. Patient instructed on symptomatic management. Given methocarbamol and oxycodone starter pack in addition to instructions on Tylenol and ibuprofen use. Orthopedics referral placed. Patient encouraged to follow-up with primary care further as needed. Given strict return precautions and discharged home. [CARMELO] Relevant Data User Index [CARMELO] Yvonne Campos Final diagnoses: Closed fracture of shaft of right humerus, unspecified fracture morphology, initial encounter Disposition: Discharged Chief complaint: Arm pain HPI Bria Jackman is a 57 y.o. female otherwise healthy who presents for shoulder pain after a fall. Patient states that she fell approximately 6 feet off of her horse onto her right side. Denies hitting her head. Denies LOC. Patient states her pain is over her humerus. She states that she can feel bone shifting. Denies other injuries. History was provided by: Patient Patient's pertinent PMH, FH, SH were reviewed and edited as necessary. ROS A focused review of systems was performed. Pertinent positives and negatives as noted in HPI. Physical Exam BP 108/63 Temp 36.7 ??C (98.1 ??F) (Oral) Resp 18 Ht 182.9 cm (72) Wt (!) 102.1 kg (225 lb) SpO2 96% BMI 30.52 kg/m?? A medical screening exam was performed. Physical Exam Constitutional: General: She is not in acute distress. Eyes: Pupils: Pupils are equal, round, and reactive to light. Cardiovascular: Rate and Rhythm: Normal rate. Pulmonary: Effort: Pulmonary effort is normal. Abdominal: Palpations: Abdomen is soft. Tenderness: There is no abdominal tenderness. Musculoskeletal: Cervical back: Normal range of motion. Comments: Right clavicle, shoulder, elbow, forearm, wrist, hand nontender to palpation. Humerus exquisitely tender to palpation. Sensation and strength intact distally. Axillary sensation intact. Patient able to move upper aspect of arm secondary to pain. Skin: General: Skin is warm and dry. Neurological: Mental Status: She is alert and oriented to person, place, and time. Imaging obtained was reviewed and independently interpreted. Laboratory data was reviewed and independently interpreted. Procedures Splint application/removal Performed by: Alfred Campbell MD Authorized by: Alfred Campbell MD Consent: Consent obtained: Verbal Consent given by: Patient Risks discussed: Pain Pre-procedure details: Sensation: Normal Procedure details: Laterality: Right Location: Arm Arm: R upper arm Splint type: Sugar tong Supplies: Ortho-Glass Post-procedure details: Pain: Improved Sensation: Normal Patient tolerance of procedure: Tolerated well, no immediate complications Cosigned by Alfred Campbell MD at 06/17/2022 21:58 EDT Associated attestation - Alfred Campbell MD - 06/17/2022 2158 EDT I, Alfred Campbell MD, performed a history and exam of this patient and discussed the case with theresident. I have reviewed and edited this note, and the documentation is consistent with my findings, assessment and plan. I fully participated in the medical decision making. * Norberto Casey - 06/17/2022 1531 EDT Coaptation splint applied to the Right upper arm. * Maico Trevino RN - 06/17/2022 1236 EDT Pt presents to Ed with c/o right should pain. Pt was mounting a horse when the horse started bucking and threw pt off onto her right side landing on her elbow/arm. Pt states she can feel the bones moving. Pt denies LOC, N/V and blood thinners. documented in this encounter Plan of Treatment Upcoming Encounters Date Type Department Care Team (Late st Contact Info) Description 09/24/2024 7:30 EST Rehab Therapy Visit [facility] [address] [place], [place] [id number] Mirlande Keene, PT [address] [place] [address] 11/25/2024 9:00 EDT Office Visit [facility] Program - [facility] [address] [facility] [place], [place] [id number] Tess Rojas, LUCAS [address] [facility] [place] [address] documented as of this encounter Procedures Procedure Name Priority Date/Time Associated Diagnosis Comments ED APPLICATION / REMOVAL SPLINT Routine 06/17/2022 16:28 EDT ED APPLICATION / REMOVAL SPLINT Routine 06/17/2022 16:28 EDT XR ELBOW RIGHT 3 OR MORE VIEWS STAT 06/17/2022 14:27 EDT XR HUMERUS RIGHT STAT 06/17/2022 14:2 7 EDT XR SHOULDER RIGHT 2 OR MORE VIEWS STAT 06/17/2022 14:27 EDT HOLD SST Routine 06/17/2022 13:37 EDT HOLD LAVENDER TOP Routine 06/17/2022 13: 37 EDT documented in this encounter Results * [place] APPLICATION SHORT ARM SPLINT FOREARM-HAND STATIC, HC - APPLICATION SHORT ARM SPLINT FOREARM-HANDSTATIC (06/17/2022 16:28 EDT) Narrative [facility] EKG - 06/17/2022 16:28 EDT Yvonne Campos ? 06/17/2022 16:53 Splint application/removal Performed by: Alfred Campbell MD Authorized by: Alfred Campbell MD Consent: ??Consent obtained: ??Verbal ??Consent given by: ??Patient ??Risks discussed: ??Pain Pre-procedure details: ??Sensation: ??Normal Procedure details: ??Laterality: ??Right ??Location: ??Arm ??Arm: ??R upper arm ??Splint type: ??Sugar tong ??Supplies: ??Ortho-Glass Post-procedure details: ??Pain: ??Improved ??Sensation: ??Normal ??Patient tolerance of procedure: ??Tolerated well, no immediate complications us Alfred Campbell MD PROCEDURE/MINOR SURGICAL ORDER EDWIN Final Result [facility] EKG * XR ELBOW RIGHT 3 OR MORE VIEWS (06/17/2022 14:27 EDT) Anatomical Region Laterality Modality Upper Extremities Right Computed Radio graphy 06/17/2022 13:4 9 EDT Impressions 06/17/2022 14:53 EDT Oblique fracture with displacement mid humeral shaft. THIS DOCUMENT HAS BEEN ELECTRONICALLY SIGNED BY DEE VENEGAS MD FOR ANY QUESTIONS OR CONCERNS REGARDING THIS REPORT PLEASE CALL [facility] AT [phone] Narrative 06/17/2022 14:53 EDT PROCEDURE INFORMATION: Exam: XR Right Elbow Exam date and time: 06/17/2022 1:49 PM Age: 57 years old Clinical indication: Pain; Elbow; Right; Additional info: Trauma TECHNIQUE: Imaging protocol: Radiologic exam of the Right elbow. Views: 3 or more views. COMPARISON: No relevant prior studies available. FINDINGS: Bones/joints: Oblique fracture with displacement mid humeral shaft. Osteochondroma distal humerus. Elbow joint unremarkable. Soft tissues: Normal. Procedure Note Dee Venegas MD - 06/17/2022 PROCEDURE INFORMATION: Exam: XR Right Elbow Exam date and time: 06/17/2022 1:49 PM Age: 57 years old Clinical indication: Pain; Elbow; Right; Additional info: Trauma TECHNIQUE: Imaging protocol: Radiologic exam of the Right elbow. Views: 3 or more views. COMPARISON: No relevant prior studies available. FINDINGS: Bones/joints: Oblique fracture with displacement mid humeral shaft. Osteochondroma distal humerus. Elbow joint unremarkable. Soft tissues: Normal. IMPRESSION Oblique fracture with displacement mid humeral shaft. THIS DOCUMENT HAS BEEN ELECTRONICALLY SIGNED BY DEE VENEGAS MD FOR ANY QUESTIONS OR CONCERNS REGARDING THIS REPORT PLEASE CALL [facility] [phone] Alfred Campbell MD [facility] ORDERAB LES Final Result * XR HUMERUS RIGHT (06/17/2022 14:27 EDT) Anatomical Region Laterality Modality Right Radio Fluoroscop y 06/17/2022 13:4 9 EDT Impressions 06/17/2022 14:52 EDT Oblique fracture with displacement mid humeral shaft. THIS DOCUMENT HAS BEEN ELECTRONICALLY SIGNED BY DEE VENEGAS MD FOR ANY QUESTIONS OR CONCERNS REGARDING THIS REPORT PLEASE CALL [facility] AT [phone] Narrative 06/17/2022 14:52 EDT PROCEDURE INFORMATION: Exam: XR Right Humerus Exam date and time: 06/17/2022 1:49 PM Age: 57 years old Clinical indication: Pain; Wrist; Right; Additional info: Traua TECHNIQUE: Imaging protocol: Radiologic exam of the Right humerus. Views: 2 or more views. COMPARISON: No relevant prior studies available. FINDINGS: Bones/joints: Oblique fracture with displacement mid humeral shaft. Osteochondroma distal humerus. Soft tissues: Normal. Procedure Note Dee Venegas MD - 06/17/2022 PROCEDURE INFORMATION: Exam: XR Right Humerus Exam date and time: 06/17/2022 1:49 PM Age: 57 years old Clinical indication: Pain; Wrist; Right; Additional info: Traua TECHNIQUE: Imaging protocol: Radiologic exam of the Right humerus. Views: 2 or more views. COMPARISON: No relevant prior studies available. FINDINGS: Bones/joints: Oblique fracture with displacement mid humeral shaft. Osteochondroma distal humerus. Soft tissues: Normal. IMPRESSION Oblique fracture with displacement mid humeral shaft. THIS DOCUMENT HAS BEEN ELECTRONICALLY SIGNED BY DEE VENEGAS MD FOR ANY QUESTIONS OR CONCERNS REGARDING THIS REPORT PLEASE CALL [facility] [phone] Alfred Campbell MD [facility] ORDERAB LES Final Result * XR SHOULDER RIGHT 2 OR MORE VIEWS (06/17/2022 14:27 EDT) Anatomical Region Laterality Modality Right Radio Fluoroscop y 06/17/2022 13:4 9 EDT Impressions 06/17/2022 14:54 EDT Fracture mid shaft humerus visualized on single view. THIS DOCUMENT HAS BEEN ELECTRONICALLY SIGNED BY DEE VENEGAS MD FOR ANY QUESTIONS OR CONCERNS REGARDING THIS REPORT PLEASE CALL [facility] AT [phone] Narrative 06/17/2022 14:54 EDT PROCEDURE INFORMATION: Exam: XR Right Shoulder Exam date and time: 06/17/2022 1:49 PM Age: 57 years old Clinical indication: Pain; Shoulder; Right; Additional info: Trauma TECHNIQUE: Imaging protocol: Radiologic exam of the Right shoulder. Views: 2 or more views. COMPARISON: No relevant prior studies available. FINDINGS: Bones/joints: Fracture mid shaft humerus visualized on single view. Shoulder joint intact. Soft tissues: Normal. Procedure Note Dee Venegas MD - 06/17/2022 PROCEDURE INFORMATION: Exam: XR Right Shoulder Exam date and time: 06/17/2022 1:49 PM Age: 57 years old Clinical indication: Pain; Shoulder; Right; Additional info: Trauma TECHNIQUE: Imaging protocol: Radiologic exam of the Right shoulder. Views: 2 or more views. COMPARISON: No relevant prior studies available. FINDINGS: Bones/joints: Fracture mid shaft humerus visualized on single view. Shoulder joint intact. Soft tissues: Normal. IMPRESSION Fracture mid shaft humerus visualized on single view. THIS DOCUMENT HAS BEEN ELECTRONICALLY SIGNED BY DEE VENEGAS MD FOR ANY QUESTIONS OR CONCERNS REGARDING THIS REPORT PLEASE CALL [facility] [phone] Alfred Campbell MD [facility] ORDERAB LES Final Result * HOLD SST (06/17/2022 13:37 EDT) Hold Hold 06/17/2022 14:47 EDT [facility] Blood VENOUS BLOOD / Unknown Venipuncture / Unknown 06/17/2022 13:37 EDT 06/17/2022 13:41 EDT us Alfred Campbell MD LAB INFO SERVICE AND SUPPORT & PHONE RESULT Final Result [facility] [address] [place] [address] * HOLD LAVENDER TOP (06/17/2022 13:37 EDT) Hold Hold 06/17/2022 14:47 EDT [facility] Blood VENOUS BLOOD / Unknown Venipuncture / Unknown 06/17/2022 13:37 EDT 06/17/2022 13:41 EDT us Alfred Campbell MD LAB INFO SERVICE AND SUPPORT & PHONE RESULT Final Result [facility] [address] [place] [address] documented in this encounter Visit Diagnoses Diagnosis Closed fracture of shaft of right humerus, unspecified fracture morphology, initial encounter- Primary documented in this encounter Administered Medications Inactive Administered Medications - up to 3 most recent administrations Medication Order MAR Action Action Date Dose Rate Site HYDROmorphone (PF) (DILAUDID) 0.5 mg/0.5 mL syringe 0.5 mg 0.5 mg, intravenous, NOW X1, 1 dose, On 06/17/22 at 1345, Routine Given 06/17/2022 13:30 EDT 0.5 mg IV ketOROLAC (TORADOL) injection 15 mg 15 mg, intravenous, NOW X1, 1 dose, On 06/17/22 at 1515, STAT Given 06/17/2022 15:17 EDT 15 mg methocarbamol 500 mg Tab STARTER PACK 1 Package, oral, NOW X1, 1 dose, On 06/17/22 at 1645, STAT Given 06/17/2022 16:25 EDT 1 Package ondansetron (PF) (ZOFRAN) injection 4 mg 4 mg, intravenous, NOW X1, 1 dose, On 06/17/22 at 1515, STAT Given 06/17/2022 15:18 EDT 4 mg oxyCODONE 5 mg Tab STARTER PACK 1 Package, oral, Once (Without Time Specified), 1 dose, Starting on 06/17/22 at 1528, Until 06/17/22 at 1624, Routine Given 06/17/2022 16:24 EDT 1 Package documented in this encounter Active and Recently Administered Medications Times are shown in EDT. Scheduled Medication Order 06/15/2022 06/16/2022 06/17/2022 HYDROmorphone (PF) (DILAUDID) 0.5 mg/0.5 mL syringe 0.2 mg 0.2 mg, intravenous, NOW X1, 1 dose, On 06/17/22 at 1515, Routine 1614 (Not Given - Pr ovider: Feliberto Crystal RN - Reason: Change in condition) HYDROmorphone (PF) (DILAUDID) 0.5 mg/0.5 mL syringe 0.5 mg (COMPLETED) 0.5 mg, intravenous, NOW X1, 1 dose, On 06/17/22 at 1345, Routine 1330 (Given - Provid er: Marlon Suarez RN) ketOROLAC (TORADOL) injection 15 mg (COMPLETED) 15 mg, intravenous, NOW X1, 1 dose, On 06/17/22 at 1515, STAT 1517 (Given - Provid er: Feliberto Crystal RN) methocarbamol 500 mg Tab STARTER PACK (COMPLETED) 1 Package, oral, NOW X1, 1 dose, On 06/17/22 at 1645, STAT 1625 (Given - Provid er: Feliberto Crystal RN) ondansetron (PF) (ZOFRAN) injection 4 mg (COMPLETED) 4 mg, intravenous, NOW X1, 1 dose, On 06/17/22 at 1515, STAT 1518 (Given - Provid er: Feliberto Crystal RN) oxyCODONE 5 mg Tab STARTER PACK (COMPLETED) 1 Package, oral, Once (Without Time Specified), 1 dose, Starting on 06/17/22 at 1528, Until 06/17/22 at 1624, Routine 1624 (Given - Provid er: Feliberto Crystal RN) documented in this encounter Orders Medications Ordered That Sae ht Not Have Been Administered Count Last Ordered Date First Ordered Date HYDROmorphone (PF) (DILAUDID ) 0.5 mg/0.5 mL syringe 0.2 mg 1 06/17/2022 documented in this encounter Care Teams Coat Tailor Relationship Specialty Start Date End Date Elvira Brantley MD [address] [place] [id number] PCP - General 04/20/22 documented as of this encounter
--- OUTSIDE RECORDS SUMMARY | 2024-09-15 15:51 | XMS_ITS | Encounter Summary ---
Author Organization [facility] Address [address] [place] [address] Care Team Providers Care Milking Machine Mechanic Name Role Phone Alissa Arellano Primary Care Provider [phone] Brea Mendoza Primary Care Provider Elvira Brantley MD Primary Care Provider [phone] Reason for Visit * Reason Onset Date Comments Appointment Related 03/02/2022 When would y ou like her to return for HRT Encounter Details Date Type Department Care Team (Late st Contact Info) Description 03/02/2022 Telephone [facility] [address] [place] [address] Yeimi Castaneda, PAPER BALER [address] [facility], [address] [place] [address] Appointment Related (When would you like her to return for HRT ) Social History Tobacco Use Types Packs/Day [...] Telephone Encounter - Yeimi Castaneda NP - 03/02/2022 1541 EDT She was supposed to have a telemed visit today to review HRT and for refills. She will need refillsnext month so sometime between now and then would be good if she would like refills * Telephone Encounter - Dorota Taylor - 03/02/2022 1352 EDT When would you like her to return for HRT ? documented in this encounter Plan of Treatment Upcoming Encounters Date Type Department Care Team (Late st Contact Info) Description 09/24/2024 7:30 EST Rehab Therapy Visit [facility] [address] [place], [place] [address] Mirlande Keene, PT [address] [place] [address] 11/25/2024 9:00 EDT Office Visit [facility] Program - [address] [place], [place] [id number] Tess Rojas NP [address] [place] [address] documented as of this encounter Visit Diagnoses Not on filedocumented in this encounter Care Teams Milking Machine Mechanic Relationship Specialty Start Date End Date Alissa Arellano PA [address] [place] [address] PCP - General 11/27/12 03/11/22 Brea Mendoza FNP [address] [place] [address] [address] [place] [address] PCP - General Family Medicine - Primary Care 03/12/22 04/19/22 Elvira Brantley MD [address] [place] [address] PCP - General 04/20/22 documented as of this encounter
--- OUTSIDE RECORDS SUMMARY | 2024-09-15 15:52 | XMS_ITS | Encounter Summary ---
Author Organization [facility] Address [address] [place] [address] Care Team Providers Care Studio Coordinator Name Role Phone Alissa Arellano Primary Care Provider [phone] Reason for Visit * Reason Comments Gynecologic Exam AE Encounter Details Date Type Department Care Team (Latest Contact Info) Description 11/30/2020 10:20 EDT Office Visit [facility] OBGYN [address] [place] [address] Yeimi Castaneda, LUCAS [address] [facility], [address] [place] [address] Encounter for annual routine gynecological examination (Primary Dx); Vaginal Pap smear; Screening breast examination; Vasomotor symptoms due to menopause; Hormone replacement therapy; Screening for thyroid disorder Social History Tobacco Use Types Packs/Day Years [...] Exposure Response Date Recorded In the last month, have you been in contact with someone who was confirmed or suspected to have Coronavirus / COVID-19? No / Unsure 11/30/2020 10:12 EDT documented as of this encounter Last Filed Vital Signs Vital Sign Reading Time Taken Comments Blood Pressure 122/74 11/30/2020 1013 EDT Pulse - - Temperature - - Respiratory Rate 20 11/30/2020 1013 EDT Oxygen Saturation - - Inhaled Oxygen Concentration - - Weight 102.1 kg (225 lb) 11/30/2020 1013 EDT Height 177.8 cm (5' 10) 11/30/2020 1013 EDT Body Mass Index 32.28 11/30/2020 1013 EDT documented in this encounter Functional Status [...] Use one patch twice weekly. 24 Patch 11/30/2020 12/02/2020 documented in this encounter Progress Notes * Yeimi Castaneda, CASING TESTER - 11/30/2020 1020 EDT Subjective: Bria Jackman is a 55 y.o. female here for routine exam. Current Complaints: Had partial hysterectomy for endometriosis. 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 Has continued to have premenstrual symptoms although now no longer cyclical. Also getting hot flashes and mood changes/extreme irritation, weght gain of 15# since 07/2020. Interested in HRT-has read about it and is aware of risks. Personal Health Questionnaire Reviewed: yes Gynecologic History No LMP recorded. Patient has had a hysterectomy. Contraception: status post hysterectomy Last Pap: 02/2016 Results: normal-PAP/HPV both neg Last Mammogram: 09/2020 Results: Right CAT 1, Left CAT 0, 10/2020 Left diagnostic mammo and US CAT 1 Colonoscopy: 06/2018 Results: polyp-sessile adenoma-repeat in 5 years Obstetric History : 1 Para: 1 AB: 0 x 1 Past Medical History: Diagnosis Date ??? Abnormal Pap smear of cervix ??? Arthritis ??? Depression ??? Environmental allergies ??? Keratoconus, unspecified Family History Problem Relation Age of Onset ??? Macular Degeneration Mother ??? Atrial fibrillation Mother ??? Dementia Mother ??? COPD Mother ??? Bipolar Disorder Father ??? Kidney Failure Father ??? Bipolar Disorder Paternal Grandfather ??? Breast Cancer Paternal Grandmother ??? Endometrial Cancer Maternal Grandmother ??? Dementia Maternal Grandfather ??? Glaucoma Neg Hx ??? Retinal Detachment Neg Hx Current Outpatient Medications Medication Sig Dispense Refill ??? Carboxymethylcellulose Sodium (REFRESH) 1 % Drops, Liquid Gel Place 1 Drop into the right eye 4times daily. Reported on 09/18/2016 ??? ibuprofen (MOTRIN) 200 mg tablet Take 200 mg by mouth every 6 hours as needed for Pain. ??? MULTIVITAMIN ORAL Take by mouth. Reported on 07/19/2016 ??? sertraline (ZOLOFT) 50 mg tablet Take 75 mg by mouth daily. ??? valACYclovir (VALTREX) 500 mg tablet Take 500 mg by mouth as needed. Reported on 07/19/2016 No current facility-administered medications for this visit. Allergies Allergen Reactions ??? Penicillins ??? Percocet [Oxycodone-Acetaminophen] Other (See Comments) DROPS BLOOD PRESSURE ??? Sulfa (Sulfonamide Antibiotics) ??? Unable To Assess clams @[email or web address]@ See HPI for details Constitutional-negative for fatigue, malaise, positive weight gain of 15 # in the past 4-5 months EENT-negative Cardiovascular-negative, no history of blood clots Respiratory-negative Gastrointestinal-normal Bms usually but did have a couple of days of diarrhea recently, rare reflux Genitourinary-negative for pelvic pain, no unusual vaginal discharge, negative for urinary frequency/urgency, no dysuria, no dysparuenia Musculoskeletal-low back and hip pain Skin/breast-negative Neurological-negative for headaches/dizzy spells Psychiatric-negative for depression, negative for anxiety, positive for irritability that is intermittent Endocrine-negative for thyroid condition, negative for DM Hematologic/lymphatic-negative for unusual bleeding/bruising Allergic/Immunologic-negative Objective: BP 122/74 Resp 20 Ht 177.8 cm (70) Wt (!) 102.1 kg (225 lb) BMI 32.28 kg/m?? General: No acute distress, pleasant, cooperative HEENT: Normal Thyroid: No thyromegaly Lymph Nodes: No cervical, axillary, or femoral lymphadenopathy Breasts: No dominant mass, no axillary/supraclavicular adenopathy, no nipple inversion or retraction, no dimpling, discussed sensitivity and specificity of CBE and SBE, breast awareness reviewed Lungs: Clear to auscultation bilaterally, unlabored Heart: Regular rate and rhythm, no murmurs Abdomen: Soft, NT/ND, no masses felt, no hepatosplenomegaly Extremities: No cyanosis, no edema Neurologic: Alert and oriented x 3, gait normal Vulva: Normal external genitalia, no lesions, normal introitus : Normal urethral meatus, normal pelvic floor musculature Vagina: Vaginal mucosa healthy, pink, and without lesions Cervix: Cervix surgically absent Musculoskeletal: No abnormality noted, normal ROM of spine, no CVA tenderness Uterus: Uterus surgically absent Left Adnexa: No masses or tenderness Right Adnexa: No masses or tenderness Rectovaginal: Normal location of anus, no lesions, neg masses, normal tone Assessment: Annual Booking Clerk Exam Screening Breast Exam History of abnormal PAP tests and positive HPV, Has not had a PAP since hysterectomy Vasomotor symptoms and mood changes likely 2/2 menopause HRT Screening for thyroid disorder Plan: 1. Education Reviewed and Recommended: breast self awareness, risks and benefits of ERT/estrogen replacement therapy... Reviewed CV risks including DC/CVA/DVT/PE 2. Contraception: status post hysterectomy 3. Hormone Replacement Therapy: Vivelle patch 0.05mg ordered. Reviewed cleaning the skin with rubbing alcohol, apply patch to lower abdomen or upper buttocks, hold in place for 30-60 seconds, alternate from side to side when changing patches. (discussed alternative treatment option of adding another anti depressant (Brisdelle) for management of vasomotor symptoms-Bria prefers to try estrogen patch) 4. Thyroid cascade and E2 level ordered 5. Follow up: 2 months-check in to report on symptom management with Vivelle and to discuss whetherdose change is needed 6. Vaginal cancer screening/vaginal PAP done 7. Screening breast exam-current with mammogram Yeimi Castaneda APRN * Deanne Valverde RN - 11/30/2020 1020 EDT Chief Complaint Patient presents with ??? Gynecologic Exam AE No LMP recorded. Patient has had a hysterectomy. A shuttle threader was present at the time of exam. documented in this encounter Plan of Treatment Upcoming Encounters Date Type Department Care Team (Late st Contact Info) Description 09/24/2024 7:30 EST Rehab Therapy Visit [facility] [address] [place], [place] [id number] Mirlande Keene, PT [address] [place], [place] [address] 11/25/2024 9:00 EDT Office Visit [facility] Program - [address] [place] [address] Tess Rojas, LUCAS [address] [place] [address] Scheduled Orders Name Type Priority Associated Diagnoses Orde r Schedule PAP TEST Pathology Routine Vaginal Pap smear Ordered: 11/30/2020 documented as of this encounter Procedures Procedure Name Priority Date/Time Associated Diagnosis Comments [facility] - [facility] [place] Routine 11/30/2020 11:33 EDT Encounter for annual routine gynecological examination THYROID CASCADE Routine 11/30/2020 11:28 EDT Encounter for annual routine gynecological examination ESTRADIOL, ADULTS Routine 11/30/2020 11: 28 EDT Encounter for annual routine gynecological examination documented in this encounter Results * [facility]TOLOGY CONSULT - [facility] [place] (11/30/2020 11:33 EDT) [facility] CYTOLOGY CONSULT [facility] (See below) () 12/09/2020 7:37 EDT [facility] Comment: Disclaimers: 1)Reports generated via electronic interface contain original data; however they are lacking the format of the original report. Caution should be taken when reading/interpreting unformatted reports. 2) ??Please reference the paper report if the text (End of Report) is not displayed. PAP SPECIMENS A. Vagina , ThinPrep Imaging System with Manual Evaluation ELECTRICIAN JOURNEYMAN WIREMAN 1 SPECIMEN ADEQUACY Satisfactory for Evaluation - assessment of transformation zone component not applicable ( e.g. atrophy, vaginal sample, hysterectomy) ELECTRICIAN JOURNEYMAN WIREMAN 1 GENERAL CATEGORIZATION Negative for intraepithelial lesion or malignancy CYTOLOGY ATTESTATION . at 0658 CLINICAL HISTORY Clinical History, Signs, Symptoms, Chief Complaint, Pertaining to This Order: ??See below Prior Gynecologic Pathology?: Yes DRAWING TENDER Treatment History?: Yes HPV REFLEX The results for the HPV with Genotyping, PCR, ThinPrep are Negative for the HPV Risk Type 16, PCR, ??Negative for the HPV High Risk Type 18, PcR, and Negative for the HPV Other High Risk Types, PCR. Testing was performed on specimen ??[id number] and was resulted on 12/08/2020 1721 EDT by GUILLERMINA, [facility] RESULTS IN. Comment: The following Other High Risk HPV types were not detected: 31, 33, 35, 39, 45, 51, 52, 56, 58, 59, 66, and 68 Test Performed by: [place] [address] Railroad Purchasing Agent: Feliberto Uribe M.D. Ph.D.; CLIA# [id number] AP PERFORMING LAB [facility] SCANNED IMAGES End of Report Test performed or referred by The [address] [address] 11/30/2020 11:3 3 EDT 12/01/2020 9:43 EDT us Yeimi Castaneda PRINT COLOR MATCHER HEMATOLOGY & PF4 ORDERABLES F inal Result [facility] [address] [place] [address] * ESTRADIOL, ADULTS (11/30/2020 11:28 EDT) Estradiol 186 See Note pg/mL 12/01/2020 5:39 EDT [facility] Comment: NOTE: FEMALE REFERENCE RANGES: MENSTRUATING ? By cycle day relative to LH peak Follicular ?(-12 to -4 days) ??20-144 pg/mL Midcycle ?(-3 to +2 days) ?? 64-357 pg/mL Luteal ?(+4 t0 +12 days) ??56-214 pg/mL POSTMENOPAUSAL ?<32 pg/mL *Cross reactivity with Fulvestrant could lead to a falsely elevated estradiol result in patients treated with this drug. Test performed [place] [address] 11/30/2020 11:2 8 EDT 11/30/2020 11:28 EDT [facility] - 12/01/2020 5:39 EDT Does PT Have a Latex Allergy? NO Yeimi Castaneda NP CHEMISTRY & BLOOD GAS ORDERAB LES Final Result Performing Organization Address [facility] Co de Phone Number [facility] [address] [place] [address] * THYROID CASCADE (11/30/2020 11:28 EDT) TSH 2.18 0.46 - 4.68 uIU/mL 11/30/2020 13:32 EDT [facility] 11/30/2020 11:2 8 EDT 11/30/2020 11:28 EDT Narrative [facility] - 11/30/2020 13:32 EDT Does PT Have a Latex Allergy? NO Yeimi Castaneda NP CHEMISTRY & BLOOD GAS ORDERAB LES Final Result Performing Organization Address [facility] Co de Phone Number [facility] [address] [place] [address] documented in this encounter Visit Diagnoses Diagnosis Encounter for annual routine gynecological examination- Primary Vaginal Pap smear Special screening for malignant neoplasms, vagina Screening breast examination Breast screening, unspecified Vasomotor symptoms due to menopause Hormone replacement therapy Need for prophylactic hormone replacement therapy (postmenopausal) Screening for thyroid disorder documented in this encounter Discontinued Medications Medication Sig Discontinue Reason Start Date End Da te LACTOBACILLUS ACIDOPHILUS (ACIDOPHILUS ORAL) Take by mouth. Reported on 07/19/2016 Therapy completed 11/30/2020 LEVONORGESTREL (MIRENA INTRAUTERINE) by intrauterine route Therapy completed 12/01/19 21 nabumetone (RELAFEN) 500 mg tablet Take 500 mg by mouth 2 times daily as needed. Reported on 07/19/2016 Therapy completed 11/30/2020 documented as of this encounter Care Teams Studio Coordinator Relationship Specialty Start Date End Date Alissa Arellano PA [address] [place] [address] PCP - General 11/27/12 03/11/22 documented as of this encounter
--- OUTSIDE RECORDS SUMMARY | 2024-09-15 15:52 | XMS_ITS | Encounter Summary ---
Author Organization [facility] Address [address] [place] [address] Care Team Providers Care Photoengraver Apprentice Name Role Phone Alissa Arellano Primary Care Provider [phone] Encounter Details Date Type Department Care Team (Late st Contact Info) Description 03/20/2018 Historical Results Only [facility] Radiology Results [address] [place], [place] [address] Alissa Arellano PA [address] [place], [place] Social History Tobacco Use Types Packs/Day Years Used Date Smoking Tobacco: Never Smokeless Tobacco: Never Alcohol Use Standard Drinks/Week Comments Yes 0 (1 standard drink = 0.6 oz pur e alcohol) social Comments No Sex and Gender Information Value [...] EST Rehab Therapy Visit [facility] [address] [place], [place] [address] Mirlande Keene, PT [address] [place] [address] 11/25/2024 9:00 EDT Office Visit [facility] Total Joint Program - [address] [address] Tess Rojas, LUCAS [address] [place] [address] documented as of this encounter Visit Diagnoses Not on filedocumented in this encounter Care Teams Photoengraver Apprentice Relationship Specialty Start Date End Date Alissa Arellano PA [address] [place] [address] PCP - General 11/27/12 03/11/22 documented as of this encounter
--- OUTSIDE RECORDS SUMMARY | 2024-09-15 15:52 | XMS_ITS | Encounter Summary ---
Author Organization [facility] Address [address] [place] [address] Care Team Providers Care Credit Review Analyst Name Role Phone Alissa rAellano Primary Care Provider [phone] Encounter Details Date Type Department Care Team (Late st Contact Info) Description 03/21/2018 Historical Results Only [facility] - [facility] Radiology Results [address] [place], [place] [address] Alissa Arellano PA [address] [place], [place] Social History Tobacco Use Types Packs/Day [...] Rehab Therapy Visit [facility] [address] [place], [place] [address] Mirlande Keene, PT [address] [place] [address] 11/25/2024 9:00 EDT Office Visit [facility] Total [facility] Program - [facility] [address] [place] [address] Tess Rojas, LUCAS [address] [place] [address] documented as of this encounter Procedures Procedure Name Priority Date/Time Associated Diagnosis Comments MA BREAST SCREENING SHRUTI BILATERAL 03/21/2018 10:07 EDT documented in this encounter Results * MA BREAST SCREENING SHRUTI BILATERAL (03/21/2018 10:07 EDT) Anatomical Region Laterality Modality Breast Bilateral Other 03/21/2018 10:0 7 EDT Narrative 03/21/2018 10:08 EDT ? EXAM: MAMMOGRAM/MAMMO BILATERAL SCREEN W ??EX. D/ (1018) ? CLINICAL INFORMATION: ? Z12.31 SCREENING ? INDICATION: Z12.31 SCREENING SCREENING, 2016 ? TECHNIQUE: ??Full field digital whole breast 2D (C-view) and 3D CC and ? MLO views of both breasts were obtained. CAD technology was utilized. ? FINDINGS: ??The fibroglandular patterns of the breasts are normal. ? There has been no change when compared to previous mammograms and ? there is no mammographic evidence of cancer. The breast tissue is of ? heterogenous density, which limits the sensitivity of mammography for ? the detection of malignancy. ? FINAL ASSESSMENT BILATERAL BREAST: ??BI-RADS Category 1 - Negative. ? Routine mammographic follow-up is recommended. ? These results will be communicated to your patient via a lay letter ? from Radiology. ??If any additional imaging is needed we will contact ? your patient directly. ? REPORT SIGNED IN OTHER VENDOR SYSTEM 03/21/2018 ?Reported By: Jett Dos Santos MD ? CC: ? Transcribed Date/Time: 03/21/2018 (1008) ? Transportation Operations Manager: ? Printed Date/Time: 2019 (0858) ? PAGE 1 ? Signed Report ? Procedure Note Jett Dos Santos MD - 06/19/2019 EXAM: MAMMOGRAM/MAMMO BILATERAL SCREEN W EX. D/ (1018) CLINICAL INFORMATION: Z12.31 SCREENING INDICATION: Z12.31 SCREENING SCREENING, 2016 TECHNIQUE: Full field digital whole breast 2D (C-view) and 3D CCand MLO views of both breasts were obtained. CAD technology wasutilized. FINDINGS: The fibroglandular patterns of the breasts are normal. There has been no change when compared to previous mammograms and there is no mammographic evidence of cancer. The breast tissue isof heterogenous density, which limits the sensitivity of mammographyfor the detection of malignancy. FINAL ASSESSMENT BILATERAL BREAST: BI-RADS Category 1 - Negative. Routine mammographic follow-up is recommended. These results will be communicated to your patient via a lay letter from Radiology. If any additional imaging is needed we willcontact your patient directly. REPORT SIGNED IN OTHER VENDOR SYSTEM 03/21/2018 Reported By: Jett Dos Santos MD CC: Transcribed Date/Time: 03/21/2018 (1008) Transportation Operations Manager: Printed Date/Time: 2019 (0878) PAGE 1 Signed Report us Alissa KUHN IMG MAMMOGRAPHY ORDERABLES Fi nal Result documented in this encounter Visit Diagnoses Not on filedocumented in this encounter Care Teams Credit Review Analyst Relationship Specialty Start Date End Date Alissa Arellano PA [address] [place] [address] PCP - General 11/27/12 03/11/22 documented as of this encounter
--- OUTSIDE RECORDS SUMMARY | 2024-09-15 15:52 | XMS_ITS | Encounter Summary ---
Author Organization [facility] Address [address] [place] [address] Care Team Providers Care Spare Hand Name Role Phone Alissa Arellano Primary Care Provider [phone] Reason for Visit * Reason Onset Date Comments Requesting Sooner Appointment 05/30/2021 Encounter Details Date Type Department Care Team (Late st Contact Info) Description 05/30/2021 Telephone [facility] OBGYN [address] [place] [address] Annabelle Yao MD [address] [facility], [address] [place] [address] Requesting Sooner Appointment Social History Tobacco Use Types Packs/Day Years [...] Telephone Encounter - Fior Rodas RN - 05/30/2021 4446 EDT Vaginal soreness started w/intercourse approx. 5 days ago. No new partner. Did use some lavendar soap which is new to her. No vaginal bleeding. Briefly discussed vulvar hygiene, not using soap, just clear water, no scrubbing etc. Also discussed possible dryness but should be evaluated. Pt scheduledto see Sebastian Lucas CNM. Pt stated understanding and agrees w/plan. * Telephone Encounter - Deanne Wilson - 05/30/2021 1400 EDT Vaginal soreness, would like to be seen. documented in this encounter Plan of Treatment Upcoming Encounters Date Type Department Care Team (Late st Contact Info) Description 09/24/2024 7:30 EST Rehab Therapy Visit [facility] [address] [place] [address] Mirlande Keene, PT [address] [place] [address] 11/25/2024 9:00 EDT Office Visit [facility] Total Joint Program - [address] [place], [place] [id number] Tess Rojas NP [address] [place] [address] documented as of this encounter Visit Diagnoses Not on filedocumented in this encounter Care Teams Spare Hand Relationship Specialty Start Date End Date Alissa Arellano PA [address] [place] [address] PCP - General 11/27/12 03/11/22 documented as of this encounter
--- OUTSIDE RECORDS SUMMARY | 2024-09-15 15:52 | XMS_ITS | Encounter Summary ---
Author Organization [facility] Address [address] [place] [address] Care Team Providers Care Signal Integrity Engineer Name Role Phone Alissa Arellano Primary Care Provider [phone] Encounter Details Date Type Department Care Team (Late st Contact Info) Description 08/16/2017 Historical Results Only [facility] - [place] [address] [place], [place] [address] Negar Schwartz PA [address] [place] [address] Social History Tobacco Use Types Packs/Day Years [...] 09/24/2024 7:30 EST Rehab Therapy Visit [facility] [address] [place], [place] [phone] Mirlande Keene, PT [address] [place] [address] 11/25/2024 9:00 EDT Office Visit [facility] - [facility] [address] [facility] [place] [address] Tess Rojas, LUCAS [address] [facility] [place] [address] documented as of this encounter Procedures Procedure Name Priority Date/Time Associated Diagnosis Comments BACTERIAL CULTURE, URINE Routine 08/16/2017 16:40 EST POCT URINALYSIS Routine 08/16/2017 16:19 EST documented in this encounter Results * BACTERIAL CULTURE, URINE (08/16/2017 16:40 EST) [facility] 08/18/2017 9:40 EST [facility] CitrateConcentration 10,000-1 00,000 CFU/ML 08/18/2017 9:40 EST [facility] 08/16/2017 16:4 0 EST 08/16/2017 18:24 EST Comment:VOID Narrative [facility] - 08/18/2017 9:40 EST Does PT Have a Latex Allergy? NO us Negar [facility] MICROBIOLOGY - GENERAL ORDERA BLES Final Result [facility] * POCT URINALYSIS (08/16/2017 16:19 EST) Pathologist [facility] URINE APPEARANCE - [facility] Clear CLEAR 08/16/2017 16:20 [facility] URINE BILIRUBIN - DIPSTICK - [facility] Negative NEGATIVE 08/16/2017 16:20 [facility] URINE BLOOD - [facility] Trace NEGATIVE 08/16/2017 16:20 [facility] URINE COLOR - [facility] Yellow YELLOW 08/16/2017 16:20 [facility] URINE GLUCOSE - [facility]IP[place]ICK - [facility] Negative NEGATIVE 08/16/2017 16:20 [facility] URINE KETONE - [facility] Negative NEGATIVE 08/16/2017 16:20 [facility] URINE LEUK ESTERASE - [facility] Negative NEGATIVE 08/16/2017 16:20 [facility] URINE NITRITE - [facility] - [facility] Negative NEGATIVE 08/16/2017 16:20 [facility] URINE PH - [facility] 5.5 () 16:20 [facility] URINE PROTEIN - [place] - [facility] Negative NEGATIVE 08/16/2017 16:20 [facility] URINE SPECIFIC GRAVITY - [facility] <=1.005 () 08/16/2017 16:20 [facility] URINE UROBILINOGEN - DIPSTICK - [facility] 0.2 0.2 - 1.0 EU/DL 08/16/2017 16:20 [facility] 08/16/2017 16:1 9 EST 08/16/2017 16:19 EST Negar [facility] POINT OF CARE TEST ORDERABLES Final Result [facility] documented in this encounter Visit Diagnoses Not on filedocumented in this encounter Care Teams Signal Integrity Engineer Relationship Specialty Start Date End Date Alissa Arellano PA [address] [place] [address] PCP - General 11/27/12 03/11/22 documented as of this encounter
--- OUTSIDE RECORDS SUMMARY | 2024-09-15 15:52 | XMS_ITS | Encounter Summary ---
Author Organization [facility] Address [address] [place] [address] Care Team Providers Care Director Media Name Role Phone Alissa Arellano Primary Care Provider [phone] Encounter Details Date Type Department Care Team (Latest Contact Info) Description 03/20/2018 11:19 EDT - 03/20/2018 23:59 EDT Hospital Encounter [facility] [address] [place] [address] Unknown, Provider, MD Discharge Disposition: Home or Self Care Social [...] this encounter Medications at Time of Discharge MULTIVITAMIN ORAL Take by mouth. Reported on 07/19/2016 sertraline (ZOLOFT) 50 mg tablet Take 1.5 Tablets by mouth daily. Carboxymethylcell ulose Sodium 1 % drops, liquid gel Place 1 Drop into the right eye 4 times daily. Reported on 09/18/2016 3 LACTOBACILLUS ACIDOPHILUS (ACIDOPHILUS ORAL) Take by mouth. Reported on 07/19/2016 1 LEVONORGESTREL (MIRENA INTRAUTERINE) by intrauterine route 1 nabumetone (RELAFEN) 500 mg tablet Take 500 mg by mouth 2 times daily as needed. Reported on 07/19/2016 1 valACYclovir (VALTREX) 500 mg tablet Take 500 mg by mouth as needed. Reported on 07/19/2016 3 documented as of this encounter Discharge Disposition Disposition Code Departure Means Destination Home or Self Usp documented in this encounter Plan of Treatment Upcoming Encounters Date Type Department Care Team (Late st Contact Info) Description 09/24/2024 7:30 EST Rehab Therapy Visit [facility] [address] [place], [place] [phone] Mirlande Keene, PT [address] [place] [id number] 11/25/2024 9:00 EDT Office Visit [facility] Program - [address] [address] Tess Rojas NP [address] [place] [address] documented as of this encounter Visit Diagnoses Not on filedocumented in this encounter Care Teams Director Media Relationship Specialty Start Date End Date Alissa Arellano PA [address] [place] [address] PCP - General 11/27/12 03/11/22 documented as of this encounter
--- OUTSIDE RECORDS SUMMARY | 2024-09-15 15:52 | XMS_ITS | Encounter Summary ---
Author Organization [facility] Address [address] [place] [address] Care Team Providers Care [employer] Name Role Phone Alissa Arellano Primary Care Provider [phone] Reason for Visit * Reason Onset Date Comments Results 12/02/2020 Encounter Details Date Type Department Care Team (Late st Contact Info) Description 12/02/2020 Telephone [facility] [address] [place], [place] [phone] Yeimi Castaneda, LUCAS [address] [facility], [address] [place] [address] Results Social History Tobacco Use [...] 10:12 EDT documented as of this encounter Functional [...] Notes * Telephone Encounter - Yeimi Castaneda APRN - 12/02/2020 1724 EDT TC to [facility] calling with lab results. Thyroid screen was normal. Estrogen level was high-do NOT start estrogen patch as I do not believe the symptoms are post menopausal. Please CB tomorrow withany questions. Date and phone #l left documented in this encounter Plan of Treatment Upcoming Encounters Date Type Department Care Team (Late st Contact Info) Description 09/24/2024 7:30 EST Rehab Therapy Visit [facility] - [facility] [address] [place], [place] [phone] Mirlande Keene, PT [address] [place] [phone] 11/25/2024 9:00 EDT Office Visit [facility] Program - [address] [address] Tess Rojas, LUCAS [address] [place] [address] documented as of this encounter Visit Diagnoses Not on filedocumented in this encounter Discontinued Medications Medication Sig Discontinue Reason Start Date End Da te estradioL (VIVELLE) 0.05 mg/24 hr patch Use one patch twice weekly. Laboratory value 11/30/2020 12/02/2020 documented as of this encounter Care Teams [employer] Relationship Specialty Start Date End Date Alissa Arellano PA [address] [place] [address] PCP - General 11/27/12 03/11/22 documented as of this encounter
--- OUTSIDE RECORDS SUMMARY | 2024-09-15 15:52 | XMS_ITS | Encounter Summary ---
Author Organization [facility] Address [address] [place] [address] Care Team Providers Care Communication Studies Professor Name Role Phone Alissa Arellano Primary Care Provider [phone] Encounter Details Date Type Department Care Team (Late st Contact Info) Description 12/03/[address] [facility] - [facility] - Main [place] [address] [place], [place] [phone] Alissa Arellano PA [address] [place] [address] Social History Tobacco Use Types Packs/Day Years [...] 09/24/2024 7:30 EST Rehab Therapy Visit [facility] - [facility] [address] [place], [place] [phone] Mirlande Keene, PT [address] [place] [address] 11/25/2024 9:00 EDT Office Visit [facility] Total Joint Program - [facility] [address] [place] [address] Tess Rojas, LUCAS [address] [facility] [place] [address] documented as of this encounter Procedures Procedure Name Priority Date/Time Associated Diagnosis Comments POCT URINALYSIS Routine 12/03/2018 16:36 EDT BACTERIAL CULTURE, URINE Routine 12/03/2018 16:00 EDT documented in this encounter Results * POCT URINALYSIS (12/03/2018 16:36 EDT) URINE APPEARANCE - [facility] Clear CLEAR 12/03/2018 16:37 EDT [facility] URINE BILIRUBIN - DIPSTICK - [facility] Negative NEGATIVE 12/03/2018 16:37 EDT [facility] URINE BLOOD - [facility] Trace NEGATIVE 12/03/2018 16:37 EDT [facility] URINE COLOR - [facility] Yellow YELLOW 12/03/2018 16:37 [facility] URINE GLUCOSE - DIPSTICK - [facility] Negative NEGATIVE 12/03/2018 16:37 [facility] URINE KETONE - [facility] Negative NEGATIVE 12/03/2018 16:37 [facility] URINE LEUK ESTERASE - [facility] 1+ NEGATIVE 12/03/2018 16:37 [facility] URINE NITRITE - DIPSTICK - [facility] Negative NEGATIVE 12/03/2018 16:37 EDT [facility] URINE PH - [facility] 6.0 () 9 16:37 EDT [facility] URINE PROTEIN - DIPSTICK - [facility] Negative NEGATIVE 12/03/2018 16:37 EDT [facility] URINE SPECIFIC GRAVITY - [facility] 1.010 () 12/03/2018 16:37 EDT [facility] URINE UROBILINOGEN - DIPSTICK - [facility] 0.2 0.2 - 1.0 EU/DL 12/03/2018 16:37 EDT [facility] 12/03/2018 16:3 6 EDT 12/03/2018 16:36 EDT Alissa [facility] POINT OF CARE TEST ORDERABLES Final Result [facility] * BACTERIAL CULTURE, URINE (12/03/2018 16:00 EDT) ESCHERIACHIA COLI - [facility] ESCHERICHIA COLI 12/06/2018 7:20 EDT [facility] CitrateConcentration 10,000-100,00 0 CFU/ML 12/06/2018 7:20 EDT [facility] 12/03/2018 16:0 0 EDT 12/04/2018 12:50 EDT Comment:VOID Narrative [facility] - 12/06/2018 7:20 EDT Does PT Have a Latex Allergy? NO Organism Antibiotic Method Susceptibility Escherichia coli Ampicillin Sulbactam GRAM NEGAT JAMES SUSCEPTIBILITY - [facility] <=2: Susceptible Escherichia coli Ampicillin GRAM NEGATIVE SUSCEPTIBILITY - [facility] <=2: Susceptible Escherichia coli Amoxicillin Clavulan ic acid GRAM NEGATIVE SUSCEPTIBILITY - [facility] 4: Susceptible Escherichia coli Ceftriaxone GRAM NEGATIVE SUSCEPTIBILITY - [facility] <=1: Susceptible Escherichia coli Cefazolin GRAM NEGATIVE SUSCEPTIBILITY - [facility] <=4: Susceptible Escherichia coli Ciprofloxacin GRAM NEGATIVE SUSCEPTIBILITY - [facility] <=0.25: Susceptible Escherichia coli Cefepime GRAM NEGATIVE SUSCEPTIBILITY - [facility] <=1: Susceptible Escherichia coli Ertapenem GRAM NEGATIVE SUSCEPTIBILITY - [facility] <=0.5: Susceptible Escherichia coli Nitrofurantoin GRAM NEGATIVE SUSCEPTIBILITY - [facility] <=16: Susceptible Escherichia coli Gentamicin GRAM NEGATIVE SUSCEPTIBILITY - [facility] <=1: Susceptible Escherichia coli Levofloxacin GRAM NEGATIVE SUSCEPTIBILITY - [facility] <=0.12: Susceptible Escherichia coli Trimethoprim-Sulfame th oxazole GRAM NEGATIVE SUSCEPTIBILITY - [facility] <=20: Susceptible Escherichia coli Tobramycin GRAM NEGATIVE SUSCEPTIBILITY - [facility] <=1: Susceptible Comment:See Reason(s) for St udy Alissa [facility] MICROBIOLOGY - GENERAL PAMELLA CASTORENA Edited Result - Final [facility] documented in this encounter Visit Diagnoses Not on filedocumented in this encounter Care Teams Communication Studies Professor Relationship Specialty Start Date End Date Alissa Arellano PA [address] [place] [address] PCP - General 11/27/12 03/11/22 documented as of this encounter
--- OUTSIDE RECORDS SUMMARY | 2024-09-15 15:52 | XMS_ITS | Encounter Summary ---
Author Organization [facility] Address [address] [place] [address] Care Team Providers Care Tobacco Stemmer Machine Name Role Phone Alissa Arellano Primary Care Provider Reason for Visit * Reason Comments Back Pain right Encounter Details Date Type Department Care Team (Late st Contact Info) Description 10/16/2018 7:45 EST Office Visit [facility] Interventional Pain [address] [place] [address] Marko Crowley MD [address] [address] [place] [address] Spondylosis of lumbar region without myelopathy or radiculopathy (Primary Dx) Discharge Disposition: Auto Discharge Social History Tobacco Use Types Packs/Day Years [...] Sign Reading Time Taken Comments Blood Pressure 112/62 10/16/2018 0834 EST Pulse 66 10/16/2018 0834 EST Temperature 36.6 ??C (97.9 ??F) 10/16/2018 0743 EST Respiratory Rate - - Oxygen Saturation - - Inhaled Oxygen Concentration - - Weight - [...] 10:42 EST documented in this encounter Discharge Diagnoses Diagnosis M47.816 Spondylosis without myelopathy or radiculopathy, lumbar region-M47.816[ICD-10-CM] documented in this encounter Patient Instructions * Patient Instructions* Deya Forrest RN - 10/16/2018 7:45 EST [facility] [address] [address] Patient Instructions You have had your Radiofrequency Ablation. The purpose of this procedure is to relieve or reduce your pain. The following information should help you over the next few days/weeks regarding what you may expect. ??? Please take it easy for the rest of today. ??? DO NOT drive a car for the remainder of the day. ??? If you feel sore where the needle(s) entered for the block, please use ice on the area. You mayleave the ice on for up to 20 minutes at a time. Do not use heat, as this can increase swelling. ??? As long as your primary doctor has indicated no restrictions, you may take a mild pain medicine, such as acetaminophen (Tylenol), ibuprofen (Advil, Nuprin, Motrin IB, etc.) or aspirin, if needed. ??? Please keep track of how your pain feels over the next few weeks. On average patients start to notice relief at 3-4 weeks but this can take up to 8-10 weeks to know whether this procedure was helpful. ??? If the block causes numbness (asleep) feeling or weakness, that will wear off within several hours. ??? If the area that the needle(s) were inserted becomes hot, red, swollen, or increasingly tender,or if you develop a fever (100.5 or greater) or chills along with these symptoms, please call our office immediately. ??? If you develop increasingly severe neck/back pain, continued numbness or weakness of the arms/legs or changes in your bladder or bowel functions, please call our office at once. Instructions for follow-up: One of our nurses will be phoning you at 8 weeks, 6 months and 1 year to see if you are getting relief. We document this in your medical record. In order to have this procedure repeated and approved by your insurance, we have to supply them with your results (% & months of relief). If at any time this wears off, please call us. We will take you off the phone call schedule and determine with you if this procedure is worth repeating at any time after 6 months or if you should come in for a follow up to discuss options. If you have any questions about your block, please call Patient Education Topic: Method: Handout and Verbal Taught to: Patient Barriers: None Outcomes: independent and verbalized understanding DEYA FORREST RN documented in this encounter Discharge Disposition Disposition Code Departure Means Destination Auto Discharge documented in this encounter Progress Notes * Michelle Hernandez - 10/16/2018 6824 EST [facility] Rooming Note Does patient have a Preparation Plant Repairer? no Is patient NPO? (Solids since midnight & liquids for 4 hrs) no Blood Thinners: Is patient on Blood Thinners? no If stopped, who authorized stopping? Related comments: Infections: Any recent infections, fever of illnesses? no If on antibiotics, is it 7-10 days past the date of completion of antibiotics? no : (for females of child-bearing age) Is there a chance current ? no Do you have any type of implanted device? no Other: * Deya Forrest RN - 10/16/2018 5199 EST Thermal RFA parameters: Temp (Celcius): 80 Time (Seconds): 150 xxxxxxxxxxxxxxxxxx xxxxxxxxxxxxxxxxxxxx xxxxxxxxxxxxxxxxxxxx Location Sensory: 50 Hz Motor: 2.5 Hz Rt Sacral Ala 0.23 Negative xxxxxxxxxxxxxxxxxxx xxxxxxxxxxxxxxxxxxxxx xxxxxxxxxxxxxxxxxxxxx Rt L5 0.27 Negative xxxxxxxxxxxxxxxxxxx xxxxxxxxxxxxxxxxxxxxx xxxxxxxxxxxxxxxxxxxxx Rt L4 0.33 Negative xxxxxxxxxxxxxxxxxxx xxxxxxxxxxxxxxxxxxxxx xxxxxxxxxxxxxxxxxxxxx * Marko Crowley MD - 10/16/2018 0745 EST Patient Name: Bria Jackman : 1965 Date of Service: 10/16/2018 Requesting physician: Josette Arellano Crew Mess Attendant: Marko Crowley MD Telemarketer Supervisor: None Procedure: Therapeutic lumbar radiofrequency ablation at L4,5,ala on the right side Interval History: Patient returns to clinic for continued evaluation and treatment recommendations of the patient's pain. Bria Jackman primarily localizes the pain at her low back, with radiation to the right buttock. She describes the pain as throbbing, aching and cramping in character. Patient currently denies any progressive weakness, unexplained fever, trauma or unexplained weight loss. Today's pain score is 6 out of 10. Details of the current complaint are thoroughly described in the consultation notes from Loraine Ledezma's encounter on 04/29/15 including pain onset, location, course, workup, therapeutic attempts, and associated functional limitations. The patient reports no recent changes in the character, quality, or distribution of the pain. There are no recent onset of new associated symptoms such as changes in strength, sensation, or bladder control. All previous medical records including current medications, anticoagulation status, any signs of current infection, and new imaging were reviewed. Injection History: 10/16/2018: lumbar radiofrequency ablation at L4,5,ala on the right side: 09/18/2018: lumbar radiofrequency ablation at L4,5,ala on the left side: 08/10/2017: lumbar radiofrequency ablation at L4, L5, and SA on the right: approx 1 year of 90% relief with improved mobility 07/11/2017: lumbar radiofrequency ablation at L4,5,ala left: approx 1 year of 90% relief with improved mobility 07/19/2016: lumbar radiofrequency ablation at L4, 5, ala right: 10 months of 100% relief 06/28/2016: lumbar radiofrequency ablation at L4,5,ala left: 10 months of 100% relief 04/27/2016: medial branch blocks at L4,5,ala bilateral 11/17/15: b/l L4-5, L5-S1 facet injections 05/04/15: B/L L4-5, L5-S1 facet injections 100% relief for 7 hrs, almost complete relief of low backpain, and 80% relief of left hip pain for 4 months ?? Allergies: Allergies Allergen Reactions ??? Penicillins ??? Percocet [Oxycodone-Acetaminophen] Other (See Comments) DROPS BLOOD PRESSURE ??? Sulfa (Sulfonamide Antibiotics) ??? Unable To Assess clams Review of Systems: Negative for any fever, chills, nausea/vomiting, headaches, chest pain, palpitations, shortness of breath, bladder/bowel incontinence. No easy bruising, bleeding, anti-coagulation or known recent infections. Physical Exam: Vitals: BP 116/77 Pulse 76 Temp 36.6 ??C (97.9 ??F) (Tympanic) General: Patient is alert and oriented, no acute distress Lungs: symmetric chest rise, no evidence of labored breathing Skin: clear, warm, dry and intact and no rashes, bruises or petechiae noted Musculoskeletal: Gait: patient ambulates independently, steady gait no obvious scoliosis or abnormal curvature of the spine Assessment: 1. Spondylosis of lumbar region without myelopathy or radiculopathy Plan: Ms. Bria Jackman is a 53 y.o. female that presents to the pain clinic to undergo lumbar radiofrequency ablation in regards to her chronic back pain. All risks, benefits, and alternatives were thoroughly explained to Ms. Bria Jackman who verbally communicated understanding of the management plan. Proceed with radiofrequency ablation at L4,5,ala on the right side: Follow up: We will follow up with the patient in 6 weeks by phone to assess the response to the RF ablation that was done today. Procedure: The patient gave informed written consent to proceed with this procedure following a detailed discussion of the risks and benefits associated with lumbar radiofrequency ablation including but not limited to infection, bleeding, intrathecal injection, allergic reaction, further exacerbation of current symptoms, neurological injury, and lack of efficacy. The patient was then placed in prone position, the skin over the lumbosacral area was prepped with chlorhexadine, and the site was marked and draped with sterile towels. Strict sterile technique was maintained throughout the procedure. A timeout was performed with full staff present to identify the patient, verify the procedure being performed, and review allergies Flouroscopy was used to identify the appropriate lumbar anatomy. The skin and subcutaneous tissue were anesthetized with 2% lidocaine. A 10 cm RFA cannula with 10 mm active tip was inserted under fluoroscopic guidance to contact the junction of the superior articulating process and transverse process at the aforementioned levels. Once periostium was contacted, the RFA cannula were advance slightly anterior and cephalad to place the active tips parallel to the targeted nerves. Final needle position was confirmed with biplanar fluoroscopy. Sensory testing was performed at 50 Hz at each location. Motor testing was performed using 2 Hz and was negative for lower extremity muscle contraction at all levels up to 2.5 volts. The testing results are documented in the table below. After proper sensory and motor testing was completed, each site was anesthetized with one ml lidocaine 2%. Thermal radiofrequency ablation was then performed at 80 degrees Celsius for 150 seconds. After treatment was completed, 1 ml of 0.5% bupivacaine was injected at each site and the needles were withdrawn. 3 RFA cannula were used for this procedure. There was no paresthesia during needle placement and aspiration was negative at all times. The patient tolerated the procedure well and there were no apparent complications. Written and verbal discharge instructions were reviewed with the patient prior to discharge. RFA parameters: Please see additional documentation in this encounter. Marko Crowley MD documented in this encounter Plan of Treatment Upcoming Encounters Date Type Department Care Team (Late st Contact Info) Description 09/24/2024 7:30 EST Rehab Therapy Visit [facility] [address] [place], [place] [id number] Mirlande Keene, PT [address] [place] [address] 11/25/2024 9:00 EDT Office Visit [facility] - [address] [place] [address] Tess Rojas, LUCAS [address] [place] [address] documented as of this encounter Visit Diagnoses Diagnosis Spondylosis of lumbar region without myelopathy or radiculopathy- Primary Lumbosacral spondylosis without myelopathy documented in this encounter Administered Medications Inactive Administered Medications - up to 3 most recent administrations Medication Order MAR Action Action Date Dose Rate Site bupivacaine (PF) (MARCAINE) 0.5 % (5 mg/mL) injection 15 mg 15 mg (3 mL), keturah-neural, NOW X1, 1 dose, On Sun10/16/18 at 0845, Routine Given by Other 10/16/2018 8:26 EST 15 mg documented in this encounter Orders Medications Ordered That Sae ht Not Have Been Administered Count Last Ordered Date First Ordered Date bupivacaine (PF) (MARCAINE) 0.5 % (5 mg/mL) injection 15 mg 1 10/16/2018 documented in this encounter Care Teams Tobacco Stemmer Machine Relationship Specialty Start Date End Date Alissa Arellano PA [address] [place] [address] PCP - General 11/27/12 03/11/22 documented as of this encounter
--- OUTSIDE RECORDS SUMMARY | 2024-09-15 15:52 | XMS_ITS | Encounter Summary ---
Author Organization [facility] Address [address] [place] [address] Care Team Providers Care Technical Marketing Consultant Name Role Phone Alissa Arellano Primary Care Provider Reason for Visit * Reason Onset Date Comments Results 10/26/2017 Encounter Details Date Type Department Care Team (Late st Contact Info) Description 10/26/2017 Telephone [facility] Interventional Pain [address] [place], [place] [id number] Hung Dhillon, RN Results Social History Tobacco Use Types Packs/Day [...] encounter Miscellaneous Notes * Telephone Encounter - Hung Dhillon RN - 10/26/2017 0835 EDT RN spoke with pt and received RFA pain relief numbers. Refer to pt flowsheet. documented in this encounter Plan of Treatment Upcoming Encounters Date Type Department Care Team (Late st Contact Info) Description 09/24/2024 7:30 EST Rehab Therapy Visit [facility] [address] [place], [place] [phone] Mirlande Keene, PT [address] [place] [address] 11/25/2024 9:00 EDT [facility] - [address] [address] Tess Rojas, LUCAS [address] [place] [address] documented as of this encounter Visit Diagnoses Not on filedocumented in this encounter Care Teams Technical Marketing Consultant Relationship Specialty Start Date End Date Alissa Arellano PA [address] [place] [address] PCP - General 11/27/12 03/11/22 documented as of this encounter
--- OUTSIDE RECORDS SUMMARY | 2024-09-15 15:52 | XMS_ITS | Encounter Summary ---
Author Organization [facility] Address [address] [place] [address] Care Team Providers Care Production Editor Name Role Phone Alissa Arellano Primary Care Provider Reason for Visit * Reason Onset Date Comments Other 09/22/2019 Question If She Has to come in for pap after a hysterectomy Encounter Details Date Type Department Care Team (Late st Contact Info) Description 09/22/2019 Telephone [facility] [address] [place] [address] Bonnie Hanson MD [address] [place] [address] [address] [place] [address] Other (Question If She Has to come in for pap after a hysterectomy) Social History Tobacco Use Types Packs/Day Years [...] encounter Miscellaneous Notes * Telephone Encounter - Bonnie Hanson MD - 11/03/2019 1227 EDT Attempted to reach the pt to see if she has h/o abn paps in the past 20 years. Chart reviewed, papsall normal since 2008. * Telephone Encounter - Fior Rodas, JOIE - 09/22/2019 1737 EST SheebaBria had a hyst done in 2017. She is wondering if/when she should come back in for appt ?pap. Please send to nurses pool * Telephone Encounter - Ruba Melo - 09/22/2019 1624 EST Pt had a hysterectomy 3 years ago, she believes PS mentioned about have a pap in three years, pt iswondering if she does have to come in. documented in this encounter Plan of Treatment Upcoming Encounters Date Type Department Care Team (Late st Contact Info) Description 09/24/2024 7:30 EST Rehab Therapy Visit [facility] [place] [facility] [address] [place], [place] [phone] Mirlande Keene, PT [address] [place] [address] 11/25/2024 9:00 EDT Office Visit [facility] Program - [address] [place], [place] [phone] eTss Rojas, LUCAS [address] [place] [address] documented as of this encounter Visit Diagnoses Not on filedocumented in this encounter Care Teams Production Editor Relationship Specialty Start Date End Date Alissa Arellano PA [address] [place] [address] PCP - General 11/27/12 03/11/22 documented as of this encounter
--- OUTSIDE RECORDS SUMMARY | 2024-09-15 15:52 | XMS_ITS | Encounter Summary ---
Author Organization [facility] Address [address] [place] [address] Care Team Providers Care Rubber Washer Name Role Phone Alissa Arellano Primary Care Provider [phone] Brea Mendoza Primary Care Provider [phone] Elvira Brantley MD Primary Care Provider [phone] Encounter Details Date Type Department Care Team (Late st Contact Info) Description 10/19/2020 Results Only Imaging [facility] [place] [address] [place], [place] [address] Brea Mendoza FNP [address], [address] [place] [address] Social History Tobacco Use Types Packs/Day Years Used Date Smoking Tobacco: Never Smokeless Tobacco: Never Alcohol Use Standard Drinks/Week Comments Yes 0 (1 standard drink = 0.6 oz pur e alcohol) social Interpersonal Safety Answer Date Record ed Physically [...] of [facility] Rehabilitation Therapy [address] [place], [place] [phone] Mirlande Keene, PT [address] [place] [phone] 11/25/2024 9:00 EDT Office Visit [facility] Total Joint Program - [address] [address] Tess Rojas, LUCAS [address] [place] [address] documented as of this encounter Procedures Procedure Name Priority Date/Time Associated Diagnosis Comments MA BREAST DIAGNOSTIC UNILATERAL SHRUTI 10/19/2020 8:42 EST US BREAST LIMITED UNILATERAL 10/19/2020 8:42 EST documented in this encounter Results * MA BREAST DIAGNOSTIC UNILATERAL SHRUTI (10/19/2020 8:42 EST) Anatomical Region Laterality Modality Breast Mammography 10/19/2020 12:1 8 EST Narrative 10/19/2020 8:42 EST ? EXAM: MAMMOGRAM/MAMMO DX CALL BACK UNI W/ EX. D/ (0822) ? CLINICAL INFORMATION: ? LEFT BREAST, SUSP FINDINGS ON INITIAL ? MAMMO DX CALL BACK UNI W/SHRUTI, UNILAT BREAST CALL BACK LTD ? SIGNS AND SYMPTOMS/COMMENTS: ??LEFT BREAST, SUSP FINDINGS ON INITIAL ? COMPARISONS: Comparison has been made to prior examinations currently ? available. ? FINDINGS: ? DIAGNOSTIC LEFT BREAST MAMMOGRAPHY: Full field digital whole breast ? 2D (C-view) and 3D ML and spot compression MLO views of the left ? breast were obtained. CAD technology was utilized. ? There are scattered areas of fibroglandular density. The one view ? asymmetry described on the screening examination does not persist on ? today's acquired views. There is no suspicious mass, architectural ? distortion or suspicious microcalcification. ? DIAGNOSTIC LEFT BREAST ULTRASOUND: ??Whole breast ultrasound ? evaluation of the left breast, including the retroareolar region, all ? 4 quadrants and axilla was obtained. ? No suspicious sonographic abnormality was detected. ? LEFT BREAST IMPRESSION: Negative. No suspicious mammographic or ? sonographic finding. The abnormality described on the screening ? examination is attributed to tissue summation artifact. ? FINAL ASSESSMENT DIAGNOSTIC LEFT BREAST MAMMOGRAM/ULTRASOUND: BI-RADS ? Category 1: Negative ? RECOMMENDATION: Recommend continued annual bilateral screening ? mammography, next due in September 2021. ? The patient was told the results and recommendations following the ? study by the reimbursement spec. ? These results will be communicated to your patient via a lay letter ? from Radiology. If any additional imaging is needed we will contact ? your patient directly. ? Information on this document has changed ? REPORT SIGNED IN OTHER VENDOR SYSTEM 10/19/2020 ?Reported By: Jett Dos Santos MD ? CC: ? Transcribed Date/Time: 10/19/2020 (0842) ? Oil Furnace Installer: [employer] ? Printed Date/Time: 10/19/2020 (1610) ? PAGE 1 ? Signed Report ? Procedure Note Jett Dos Santos MD - 10/19/2020 EXAM: MAMMOGRAM/MAMMO DX CALL BACK UNI W/ EX. D/ (0822) CLINICAL INFORMATION: LEFT BREAST, SUSP FINDINGS ON INITIAL MAMMO DX CALL BACK UNI W/SHRUTI, UNILAT BREAST CALL BACK LTD SIGNS AND SYMPTOMS/COMMENTS: LEFT BREAST, SUSP FINDINGS ON INITIAL COMPARISONS: Comparison has been made to prior examinationscurrently available. FINDINGS: DIAGNOSTIC LEFT BREAST MAMMOGRAPHY: Full field digital whole breast 2D (C-view) and 3D ML and spot compression MLO views of the left breast were obtained. CAD technology was utilized. There are scattered areas of fibroglandular density. The one view asymmetry described on the screening examination does not persiston today's acquired views. There is no suspicious mass, architectural distortion or suspicious microcalcification. DIAGNOSTIC LEFT BREAST ULTRASOUND: Whole breast ultrasound evaluation of the left breast, including the retroareolar region,all 4 quadrants and axilla was obtained. No suspicious sonographic abnormality was detected. LEFT BREAST IMPRESSION: Negative. No suspicious mammographic or sonographic finding. The abnormality described on the screening examination is attributed to tissue summation artifact. FINAL ASSESSMENT DIAGNOSTIC LEFT BREAST MAMMOGRAM/ULTRASOUND:BI-RADS Category 1: Negative RECOMMENDATION: Recommend continued annual bilateral screening mammography, next due in September 2021. The patient was told the results and recommendations following the study by the reimbursement spec. These results will be communicated to your patient via a lay letter from Radiology. If any additional imaging is needed we will contact your patient directly. Information on this document has changed REPORT SIGNED IN OTHER VENDOR SYSTEM 10/19/2020 Reported By: Jett Dos Santos MD CC: Transcribed Date/Time: 10/19/2020 (0842) Oil Furnace Installer: Printed Date/Time: 10/19/2020 (3475) PAGE 1 Signed Report us Brea Mendoza SAMPLE WORKER IMG MAMMOGRAPHY ORDERABLES E dited Result - Final * US BREAST LIMITED UNILATERAL (10/19/2020 8:42 EST) Anatomical Region Laterality Modality Breast Other 10/19/2020 12:1 8 EST Narrative 10/19/2020 8:42 EST ? EXAM: ULTRASOUND/UNILAT BREAST CALL BACK ??EX. D/ (0837) ? CLINICAL INFORMATION: ? LEFT BREAST, CYSTIC VS SOLID ? MAMMO DX CALL BACK UNI W/SHRUTI, UNILAT BREAST CALL BACK LTD ? SIGNS AND SYMPTOMS/COMMENTS: ??LEFT BREAST, SUSP FINDINGS ON INITIAL ? COMPARISONS: Comparison has been made to prior examinations currently ? available. ? FINDINGS: ? DIAGNOSTIC LEFT BREAST MAMMOGRAPHY: Full field digital whole breast ? 2D (C-view) and 3D ML and spot compression MLO views of the left ? breast were obtained. CAD technology was utilized. ? There are scattered areas of fibroglandular density. The one view ? asymmetry described on the screening examination does not persist on ? today's acquired views. There is no suspicious mass, architectural ? distortion or suspicious microcalcification. ? DIAGNOSTIC LEFT BREAST ULTRASOUND: ??Whole breast ultrasound ? evaluation of the left breast, including the retroareolar region, all ? 4 quadrants and axilla was obtained. ? No suspicious sonographic abnormality was detected. ? LEFT BREAST IMPRESSION: Negative. No suspicious mammographic or ? sonographic finding. The abnormality described on the screening ? examination is attributed to tissue summation artifact. ? FINAL ASSESSMENT DIAGNOSTIC LEFT BREAST MAMMOGRAM/ULTRASOUND: BI-RADS ? Category 1: Negative ? RECOMMENDATION: Recommend continued annual bilateral screening ? mammography, next due in September 2021. ? The patient was told the results and recommendations following the ? study by the reimbursement spec. ? These results will be communicated to your patient via a lay letter ? from Radiology. If any additional imaging is needed we will contact ? your patient directly. ? Information on this document has changed ? REPORT SIGNED IN OTHER VENDOR SYSTEM 10/19/2020 ?Reported By: Jett Dos Santos MD ? CC: ? Transcribed Date/Time: 10/19/2020 (0842) ? Oil Furnace Installer: ? Printed Date/Time: 10/19/2020 (1610) ? PAGE 1 ? Signed Report ? Procedure Note Jett Dos Santos MD - 10/19/2020 EXAM: ULTRASOUND/UNILAT BREAST CALL BACK EX. D/ (0837) CLINICAL INFORMATION: LEFT BREAST, CYSTIC VS SOLID MAMMO DX CALL BACK UNI W/SHRUTI, UNILAT BREAST CALL BACK LTD SIGNS AND SYMPTOMS/COMMENTS: LEFT BREAST, SUSP FINDINGS ON INITIAL COMPARISONS: Comparison has been made to prior examinationscurrently available. FINDINGS: DIAGNOSTIC LEFT BREAST MAMMOGRAPHY: Full field digital whole breast 2D (C-view) and 3D ML and spot compression MLO views of the left breast were obtained. CAD technology was utilized. There are scattered areas of fibroglandular density. The one view asymmetry described on the screening examination does not persiston today's acquired views. There is no suspicious mass, architectural distortion or suspicious microcalcification. DIAGNOSTIC LEFT BREAST ULTRASOUND: Whole breast ultrasound evaluation of the left breast, including the retroareolar region,all 4 quadrants and axilla was obtained. No suspicious sonographic abnormality was detected. LEFT BREAST IMPRESSION: Negative. No suspicious mammographic or sonographic finding. The abnormality described on the screening examination is attributed to tissue summation artifact. FINAL ASSESSMENT DIAGNOSTIC LEFT BREAST MAMMOGRAM/ULTRASOUND:BI-RADS Category 1: Negative RECOMMENDATION: Recommend continued annual bilateral screening mammography, next due in September 2021. The patient was told the results and recommendations following the study by the reimbursement spec. These results will be communicated to your patient via a lay letter from Radiology. If any additional imaging is needed we will contact your patient directly. Information on this document has changed REPORT SIGNED IN OTHER VENDOR SYSTEM 10/19/2020 Reported By: Jett Dos Santos MD CC: Transcribed Date/Time: 10/19/2020 (5395) Oil Furnace Installer: Printed Date/Time: 10/19/2020 (5944) PAGE 1 Signed Report us Brea DE LA [facility]RE IMG US ORDERABLES Edited Res ult - Final documented in this encounter Visit Diagnoses Not on filedocumented in this encounter Care Teams Rubber Washer Relationship Specialty Start Date End Date Alissa Arellano PA [address] [place] [address] PCP - General 11/27/12 03/11/22 Brea Mendoza FNP [address] [place] [address], [address] [place] [address] PCP - General Family Medicine - Primary Care 03/12/22 04/19/22 Elvira Brantley MD [address] [place] [address] PCP - General 04/20/22 documented as of this encounter
--- OUTSIDE RECORDS SUMMARY | 2024-09-15 15:52 | XMS_ITS | Encounter Summary ---
Author Organization [facility] Address [address] [place] [address] Care Team Providers Care Package Drier Name Role Phone Alissa Arellano Primary Care Provider [phone] Encounter Details Date Type Department Care Team (Late st Contact Info) Description 10/14/2018 Historical Results Only [facility] - [facility] Lab - Main [place] [address] [place], [place] [id number] Demetria Bonds PA [address] [place] [address] Social History Tobacco Use Types [...] EST Rehab Therapy Visit [facility] Rehabilitation Therapy [address] [place], [place] [phone] Mirlande Keene, PT [address] [place], [place] [id number] 11/25/2024 9:00 EDT Office Visit [facility] Total Joint Program - [facility] [address] [place] [address] Tess Rojas, LUCAS [address] [place] [address] documented as of this encounter Procedures Procedure Name Priority Date/Time Associated Diagnosis Comments POCT URINALYSIS Routine 10/14/2018 14:43 EST documented in this encounter Results * POCT URINALYSIS (10/14/2018 14:43 EST) URINE APPEARANCE - [facility] Clear CLEAR 10/14/2018 14:44 [facility] URINE BILIRUBIN - D[facility] - [facility] Negative NEGATIVE 10/14/2018 14:44 [facility] URINE BLOOD - [facility] Trace NEGATIVE 10/14/2018 14:44 [facility] URINE COLOR - [facility] Yellow YELLOW 10/14/2018 14:44 [facility] URINE GLUCOSE - [facility] - [facility] Negative NEGATIVE 10/14/2018 14:44 [facility] URINE KETONE - [facility] Negative NEGATIVE 10/14/2018 14:44 [facility] URINE LEUK ESTERASE - [facility] Negative NEGATIVE 10/14/2018 14:44 [facility] URINE NITRITE - [facility] - [facility] Negative NEGATIVE 10/14/2018 14:44 [facility] URINE PH - [facility] 5.5 () 9 14:44 [facility] URINE PROTEIN - [facility] - [facility] Negative NEGATIVE 10/14/2018 14:44 EST [facility] URINE SPECIFIC GRAVITY - [facility] 1.010 () 10/14/2018 14:44 EST [facility] URINE UROBILINOGEN - [facility] - [facility] 0.2 0.2 - 1.0 EU/DL 10/14/2018 14:44 EST [facility] 10/14/2018 14:4 3 EST 10/14/2018 14:43 EST Demetria KUHN POINT OF CARE TEST ORDERABLES Final Result [facility] documented in this encounter Visit Diagnoses Not on filedocumented in this encounter Care Teams Package Drier Relationship Specialty Start Date End Date Alissa Arellano PA [address] [place] [address] PCP - General 11/27/12 03/11/22 documented as of this encounter
--- OUTSIDE RECORDS SUMMARY | 2024-09-15 15:52 | XMS_ITS | Encounter Summary ---
Author Organization [facility] Address [address] [place] [address] Care Team Providers Care Traffic Supervisor Name Role Phone Alissa Arellano Primary Care Provider [phone] Reason for Visit * Reason Comments Vaginitis vulvar soreness Encounter Details Date Type Department Care Team (Late st Contact Info) Description 06/01/2021 16:[address] [facility] OBG[facility] [address] [place], [place] [id number] Luma Lucas, SALIMA CN [address] [facility], [address] [place] [address] Bacterial vaginitis (Primary Dx); Shefali albicans infection Social History Tobacco Use Types Packs/Day [...] have Coronavirus / COVID-19? No / Unsure 06/01/2021 16:02 EDT documented as of this encounter Last Filed Vital Signs Vital Sign Reading Time Taken Comments Blood Pressure 108/72 06/01/2021 1602 EDT Pulse - - Temperature - - Respiratory Rate 16 06/01/2021 1602 EDT Oxygen Saturation - - Inhaled Oxygen Concentration - - Weight 103.4 kg (228 lb) 06/01/2021 1602 EDT Height 182.9 cm (6') 06/01/2021 1602 EDT Body Mass Index 30.92 06/01/2021 1602 EDT documented in this encounter Functional Status [...] Refills Last Filled Start Date End Date fluconazole (DIFLUCAN) 150 mg tablet Take 1 Tablet by mouth once for 1 dose. May repeat in 72 hours after first dose if symptoms persist 1 Tablet 1 06/01/2021 2 metroNIDAZOLE (FLAGYL) 500 mg tablet Take 1 Tablet by mouth 2 times daily for 7 days. 14 Tablet 06/01/2021 1 documented in this encounter Progress Notes * Luma Lucas CNM - 06/01/2021 1600 EDT Chief Complaint Patient presents with ??? Vaginitis vulvar soreness No LMP recorded. Patient has had a hysterectomy. Last pap: 11/30/20 pap wnl/hpv neg Pap history hx of abnormal paps GC/CT: 2016 neg/neg A geospatial extractor analysis is present for pelvic, breast or rectal exam today. Chief Complaint Patient presents with ??? Vaginitis vulvar soreness Subjective: Bria Jackman is a 56 y.o. female here for evaluation of vaginal soreness HPI: Last pap: Last GC/CL: Current Outpatient Medications on File Prior to Visit Medication Sig Dispense Refill ??? Carboxymethylcellulose Sodium [...] Reported on 07/19/2016 No current facility-administered medications on file prior to visit. Allergies Allergen Reactions ??? Oxycodone ??? Percocet [Oxycodone-Acetaminophen] Other (See Comments) DROPS BLOOD PRESSURE ??? Unable To Assess clams ??? Penicillins Rash ??? Sulfa (Sulfonamide Antibiotics) Rash OB History 1 Para 1 Term 1 AB Living 1 SAB TAB Ectopic Multiple Live Births 1 Objective: BP 108/72 (BP Cuff Location: Left arm, BP Patient Position: Sitting, BP Cuff Sizes: Adult, large) Resp 16 Ht 182.9 cm (72) Wt (!) 103.4 kg (228 lb) BMI 30.92 kg/m?? Appears well, NAD Bright affect Unlabored breathing ABD SND, no HSM, NT POWER CHECKER: normal outer genitalia - slight redness - no HSV lesions noted. Water discharge noted. Clumpy white discharge on speculum exam. . Speculum exam with normal appearing CX, s + Clue cells and hyphea on wet mount + whiff test Assessment: 1. Bacterial vaginitis 2. Shefali albicans infection Plan: Declined STD screening Discussed treatment with Flagyl and Diflucin Will call in one week if symptoms persist or get worse Follow up PRN Call/see sooner PRN documented in this encounter Plan of Treatment Upcoming Encounters Date Type Department Care Team (Late st Contact Info) Description 09/24/2024 7:30 EST Rehab Therapy Visit [facility] Rehabilitation Therapy [address] [place], [place] [phone] Mirlande Keene, PT [address] [place], [place] [phone] 11/25/2024 9:00 EDT Office Visit [facility] Total Joint Program - [address] [place] [address] Tess Rojas, LUCAS [address] [place] [address] documented as of this encounter Visit Diagnoses Diagnosis Bacterial vaginitis- Primary Vaginitis and vulvovaginitis, unspecified Shefali albicans infection Candidiasis of unspecified site documented in this encounter Care Teams Traffic Supervisor Relationship Specialty Start Date End Date Alissa Arellano PA [address] [place] [address] PCP - General 11/27/12 03/11/22 documented as of this encounter
--- OUTSIDE RECORDS SUMMARY | 2024-09-15 15:52 | XMS_ITS | Encounter Summary ---
Author Organization [facility] Address [address] [place] [address] Care Team Providers Care Radiation Protection Technician Name Role Phone Alissa Arellano Primary Care Provider [phone] Encounter Details Date Type Department Care Team (Latest Contact Info) Description 06/01/2021 Travel Social History Tobacco Use Types Packs/Day [...] 16:02 EDT documented as of this encounter Functional [...] Visit [facility] Rehabilitation Therapy [address] [place] [address] Mirlande Keene, PT [address] [place] [address] 11/25/2024 9:00 EDT Office Visit [facility] Total Joint Program - [address] [place] [address] Tess Rojas, LUCAS [address] [place] [address] documented as of this encounter Visit Diagnoses Not on filedocumented in this encounter Care Teams Radiation Protection Technician Relationship Specialty Start Date End Date Alissa Arellano PA [address] [place] [address] PCP - General 11/27/12 03/11/22 documented as of this encounter
--- OUTSIDE RECORDS SUMMARY | 2024-09-15 15:52 | XMS_ITS | Encounter Summary ---
Author Organization [facility] Address [address] [place] [address] Care Team Providers Care Publicity Consultant Name Role Phone Alissa Arellano Primary Care Provider Reason for Visit * Reason Onset Date Comments Results 08/16/2018 Encounter Details Date Type Department Care Team (Late st Contact Info) Description 08/16/2018 Telephone [facility] Interventional Pain [address] [place], [place] [id number] Bree Rust, RN Results Social History Tobacco Use Types [...] 08/10/2017 10:42 EST documented in this encounter Procedure Notes * Bryanna Rust, RN - 08/16/2018 1538 EST Opened in error documented in this encounter Plan of Treatment Upcoming Encounters Date Type Department Care Team (Late st Contact Info) Description 09/24/2024 7:30 EST Rehab Therapy Visit [facility] Rehabilitation Therapy [address] [place], [place] [phone] Mirlande Keene, PT [address] [place] [phone] 11/25/2024 9:00 EDT Office Visit [facility] Total Joint Program - [address] [address] Tess Rojas NP [address] [place] [address] documented as of this encounter Visit Diagnoses Not on filedocumented in this encounter Care Teams Publicity Consultant Relationship Specialty Start Date End Date Alissa Arellano PA [address] [place] [address] PCP - General 11/27/12 03/11/22 documented as of this encounter
--- OUTSIDE RECORDS SUMMARY | 2024-09-15 15:52 | XMS_ITS | Encounter Summary ---
Author Organization [facility] Address [address] [place] [address] Care Team Providers Care Stenotypist Name Role Phone Alissa Arellano Primary Care Provider [phone] Reason for Visit * Reason Onset Date Comments Appointment Related 07/22/2018 Encounter Details Date Type Department Care Team (Late st Contact Info) Description 07/22/2018 Telephone [facility] Interventional Pain [address] [place] [address] Marko Crowley MD [address] [place] [address] [place] [address] Appointment Related Social History Tobacco Use Types [...] encounter Miscellaneous Notes * Telephone Encounter - Yin Moore - 07/23/2018 0903 EST 1st call. LMOM. * Telephone Encounter - Allison Steen RN - 07/22/2018 1456 EST [facility] Injection History: 08/10/2017: lumbar radiofrequency ablation at L4, L5, and SA on the right 90% x 11 months 07/11/2017: lumbar radiofrequency ablation at L4,5,ala left: 07/19/2016: lumbar radiofrequency ablation at L4, 5, [...] of left hip pain for 4 months * Telephone Encounter - Yin Moore - 07/22/2018 1006 EST Patient would like to schedule an appointment for LRDA. Patient had last LRFA on 08/10/17. Patient got 90% relief that lasted 11 months. documented in this encounter Plan of Treatment Upcoming Encounters Date Type Department Care Team (Late st Contact Info) Description 09/24/2024 7:30 EST Rehab Therapy Visit [facility] Rehabilitation Therapy [address] [place] [address] Mirlande Keene, PT [address] [place] [address] 11/25/2024 9:00 EDT Office Visit [facility] Total Joint Program - [address] [place], [place] [phone] Tess Rojas, LUCAS [address] [place] [address] documented as of this encounter Visit Diagnoses Not on filedocumented in this encounter Care Teams Stenotypist Relationship Specialty Start Date End Date Alissa Arellano PA [address] [place] [address] PCP - General 11/27/12 03/11/22 documented as of this encounter
--- OUTSIDE RECORDS SUMMARY | 2024-09-15 15:52 | XMS_ITS | Encounter Summary ---
Author Organization [facility] Address [address] [place] [address] Care Team Providers Care Fine Arts Instructor Name Role Phone Alissa Arellano Primary Care Provider [phone] Reason for Referral * Radiology Services (Routine) - Closed Specialty Diagnoses / Procedures Referred By Jefferson ramires Referred To Contact Diagnoses Neck pain Procedures XR CERVICAL SPINE 4-5 VIEWS Loraine Ledezma PA-C Phone: tel: fax: Referral ID Status Reason Start Date Expiration Date Visits Re quested Visits Authorized [id number] Closed 11/25/2020 1 1 Reason for Visit * Reason Onset Date Comments Neck Pain 11/25/2020 Encounter Details Date Type Department Care Team (Late st Contact Info) Description 11/25/2020 Orders Only [facility] Spine Program - [address] [place] [address] Loraine Ledezma PA-C [address] [facility] [place] [address] Neck pain (Primary Dx) Social History Tobacco Use Types [...] Rehab Therapy Visit [facility] [address] [place], [place] [address] Mirlande Keene, PT [address] [place] [address] 11/25/2024 9:00 EDT Office Visit [facility] Total Joint Program - [address] [place] [address] Tess Rojas, LUCAS [address] [place] [address] documented as of this encounter Results * XR CERVICAL SPINE 4-5 VIEWS (11/25/2020 16:05 EDT) Anatomical Region Laterality Modality Left Computed Radiogr aphy 11/26/2020 9:35 EDT Impressions 11/26/2020 9:35 EDT Degenerative changes without significant malalignment or dynamic instability. Narrative 11/26/2020 9:35 EDT CERVICAL SPINE, 4 VIEWS HISTORY: Neck pain. TECHNIQUE: AP, lateral, flexion, extension views of the cervical spine. COMPARISON: None. FINDINGS: Rightward curvature of the cervical and upper thoracic spine may in part be positional. Lordosis is maintained, without significant spondylolisthesis. There is no significant change in sagittal alignment between flexion and extension. No significant vertebral body height loss. C5-C6 and C6-C7 predominant degenerative disc disease with intervertebral disc height loss and bony proliferative changes. Mild scattered facet arthropathy and scattered uncovertebral hypertrophy noted. Included extraspinal soft tissues are unremarkable. Procedure Note Sarwat Dumont MD - 11/26/2020 CERVICAL SPINE, 4 VIEWS HISTORY: Neck pain. TECHNIQUE: AP, lateral, flexion, extension views of the cervical spine. COMPARISON: None. FINDINGS: Rightward curvature of the cervical and upper thoracic spine may in partbe positional. Lordosis is maintained, without significantspondylolisthesis. There is no significant change in sagittal alignmentbetween flexion and extension. No significant vertebral body height loss. C5-C6 and C6-C7 predominant degenerative disc disease with intervertebraldisc height loss and bony proliferative changes. Mild scattered facetarthropathy and scattered uncovertebral hypertrophy noted. Included extraspinal soft tissues are unremarkable. IMPRESSION Degenerative changes without significant malalignment or dynamicinstability. us Loraine Ledezma PA-C [facility] ORDERABLES Final Result documented in this encounter Visit Diagnoses Diagnosis Neck pain- Primary Cervicalgia Neck pain Cervicalgia documented in this encounter Care Teams Fine Arts Instructor Relationship Specialty Start Date End Date Alissa Arellano PA [address] [place] [address] PCP - General 11/27/12 03/11/22 documented as of this encounter
--- OUTSIDE RECORDS SUMMARY | 2024-09-15 15:52 | XMS_ITS | Encounter Summary ---
Author Organization [facility] Address [address] [place] [address] Care Team Providers Care Electrical Engineering Manager Name Role Phone Alissa Arellano Primary Care Provider Reason for Visit * Reason Comments Back Pain left Pain Encounter Details Date Type Department Care Team (Late st Contact Info) Description 09/18/2018 7:45 EST Office Visit [facility] Interventional Pain [address] [place] [address] Marko Crowley MD [address] [place] [address] [place] [address] Spondylosis of lumbar region without [...] Sign Reading Time Taken Comments Blood Pressure 116/69 09/18/2018 0838 EST Pulse 62 09/18/2018 0838 EST Temperature 37.1 ??C (98.7 ??F) 09/18/2018 0745 EST Respiratory Rate - - Oxygen Saturation [...] this encounter Patient Instructions * Patient Instructions* Hung Dhillon RN - 09/18/2018 7:45 EST [facility] [address] [address] Patient Instructions You have had your Radiofrequency [...] Barriers: None Outcomes: independent and verbalized understanding Hung Dhillon RN documented in this encounter Discharge Disposition Disposition Code Departure Means Destination Auto Discharge documented in this encounter Progress Notes * Michelle Hernandez - 09/18/2018 0745 EST [facility] Rooming Note Does patient have a Drapery And Upholstery Estimator? yes Is patient NPO? (Solids since midnight & liquids for 4 hrs) no Blood Thinners: Is patient on Blood Thinners? no If yes, taking? If stopped, who authorized stopping? Related comments: Infections: Any recent infections, fever of illnesses? no If on antibiotics, is it 7-10 days past the date of completion of antibiotics? no : (for females of child-bearing age) Is there a chance current ? no Do you have any type of implanted device? no Other: Clam allergy * Hung Dhillon RN - 09/18/2018 0745 EST Thermal RFA parameters: Temp (Celcius): 80 Time (Seconds): 150 xxxxxxxxxxxxxxxxxx xxxxxxxxxxxxxxxxxxxx xxxxxxxxxxxxxxxxxxxx Location Sensory: 50 Hz Motor: 2 Hz Lt Sacral Ala .37 Negative xxxxxxxxxxxxxxxxxxx xxxxxxxxxxxxxxxxxxxxx xxxxxxxxxxxxxxxxxxxxx Lt L5 .47 Negative xxxxxxxxxxxxxxxxxxx xxxxxxxxxxxxxxxxxxxxx xxxxxxxxxxxxxxxxxxxxx Lt L4 .38 Negative xxxxxxxxxxxxxxxxxxx xxxxxxxxxxxxxxxxxxxxx xxxxxxxxxxxxxxxxxxxxx * Marko Crowley MD - 09/18/2018 0745 EST Patient Name: Bria Jackman : 1965 Date of Service: 09/18/2018 Requesting physician: Josette Arellano Ocular Care Technologist: Marko Crowley MD Liaison Engineer: None Procedure: Therapeutic lumbar radiofrequency ablation at L4,5,ala on the left side Interval History: Patient returns to clinic for continued evaluation and treatment recommendations of the patient's pain. Bria Jackman primarily localizes the pain at her low back, with radiation to the bilateral buttocks. She describes the pain as throbbing and aching in character. Patient currently denies any progressive weakness, unexplained fever, trauma or unexplained weight loss. Today's pain score is 7 out of 10. Details of the current [...] and new imaging were reviewed. Injection History: 09/18/2018: lumbar radiofrequency ablation at L4,5,ala on [...] of left hip pain for 4 months Allergies: Allergies Allergen Reactions ??? Penicillins ??? Percocet [Oxycodone-Acetaminophen] Other (See Comments) DROPS BLOOD PRESSURE ??? Sulfa (Sulfonamide Antibiotics) ??? Unable To Assess clams Review of Systems: Negative for any fever, chills, nausea/vomiting, headaches, chest pain, palpitations, shortness of breath, bladder/bowel incontinence. No easy bruising, bleeding, anti-coagulation or known recent infections. Physical Exam: Vitals: BP 116/69 Pulse 62 Temp 37.1 ??C (98.7 ??F) (Tympanic) General: Patient is alert and [...] with radiofrequency ablation at L4,5,ala on the left side: Follow up: We will follow up [...] Rehab Therapy Visit [facility] [address] [place], [place] [address] Mirlande Keene, PT [address] [place], [place] [id number] 11/25/2024 9:00 EDT Office Visit [facility] Total Joint Program - [address] [facility] [address] Tess Rojas, LUCAS [address] [place] [address] documented as of this encounter [...] mL), keturah-neural, NOW X1, 1 dose, On Sun09/18/18 at 0830, Routine Given by Other 09/18/2018 8:14 EST 15 mg documented in this encounter Orders Medications Ordered That Sae ht Not Have Been Administered Count Last Ordered Date First Ordered Date bupivacaine (PF) (MARCAINE) 0.5 % (5 mg/mL) injection 15 mg 1 09/18/2018 documented in this encounter Care Teams Electrical Engineering Manager Relationship Specialty Start Date End Date Alissa Arellano PA [address] [place] [address] PCP - General 11/27/12 03/11/22 documented as of this encounter
--- OUTSIDE RECORDS SUMMARY | 2024-09-15 15:52 | XMS_ITS | Encounter Summary ---
Author Organization [facility] Address [address] [place] [address] Care Team Providers Care Wire Insulator Name Role Phone Alissa Arellano Primary Care Provider [phone] Encounter Details Date Type Department Care Team (Late st Contact Info) Description 03/07/2018 Historical Results Only [facility] - [facility] Lab - Main [place] [address] [place], [place] [address] Alissa Arellano PA [address] [place] [address] Social History Tobacco Use Types Packs/Day Years [...] Description 09/24/2024 7:30 EST Rehab Therapy Visit [facility] [address] [place], [place] [phone] Mirlande Keene, PT [address] [place], [place] [address] 11/25/2024 9:00 EDT Office Visit [facility] Total Joint Program - [facility] [address] [place] [address] Tess Rojas, DIRECTOR FACILITIES MAINTENANCE [address] [place] [address] documented as of this encounter Procedures Procedure Name Priority Date/Time Associated Diagnosis Comments VITAMIN D 25 POC - [facility] Routine 03/07/2018 14:02 EDT LIPID PANEL POC - [facility] Routine 8 14:02 EDT COMPREHENSIVE METABOLIC POC - [facility] Routine 03/07/2018 14:02 EDT CBC W/PLT & DIFF,POINT OF CARE - [facility] Routine 03/07/2018 14:02 EDT POCT CHOLESTEROL LDL ([facility]) Routine 03/07/2018 14:02 EDT documented in this encounter Results * VITAMIN D 25 POC - [facility] (03/07/2018 14:02 EDT) VIT D, 25 HYDROXY - CV 36 30 - 100 NG/ML 03/07/2018 14:04 EDT [facility] 03/07/2018 14:0 2 EDT 03/07/2018 14:02 EDT us Alissa Arellano PA CHEMISTRY & BLOOD GAS ORDERAB LES Final Result [facility] * LIPID PANEL POC - [facility] (03/07/2018 14:02 EDT) Triglyceride 127 0.00 - 150.00 MG/DL 03/07/2018 14:04 EDT [facility] Cholesterol 168 0.00 - 200.00 MG/DL 03/07/2018 14:04 EDT [facility] HDL 51 40.00 - 60.00 MG/DL 03/07/2018 14:04 EDT [facility] 03/07/2018 14:0 2 EDT 03/07/2018 14:02 EDT us Alissa Arellano PA CHEMISTRY & BLOOD GAS ORDERAB LES Final Result Performing Organization Address City/[facility]/ZIP Co de Phone Number [facility] * POCT CHOLESTEROL LDL ([facility]) (03/07/2018 14:02 EDT) LDL CHOLESTEROL - [facility] 92 60 - 100 MG/DL 03/07/2018 14:04 EDT [facility] 03/07/2018 14:0 2 EDT 03/07/2018 14:02 EDT us Alissa Arellano PA POINT OF CARE TEST ORDERABLES Final Result [facility] * COMPREHENSIVE METABOLIC POC - [facility] (03/07/2018 14:02 EDT) Albumin % 4.2 3.50 - 5.00 G/DL 03/07/2018 14:04 EDT [facility] ALKALINE PHOSPHATASE - [facility] 65 38.00 - 126.00 U/L 03/07/2018 14:04 EDT [facility] BILIRUBIN TOTAL 0.4 0.20 - 1.30 MG/DL 03/07/2018 14:04 [facility] BUN - [facility] 16 7.00 - 20.00 MG/DL 03/07/2018 14:04 [facility] CALCIUM - [facility] 9.4 8.50 - 10.50 MG/DL 03/07/2018 14:04 [facility] Chloride 105 98.00 - 107.00 MMOL/L 03/07/2018 14:04 [facility] CO2 Total 27 22.00 - 30.00 MMOL/L 03/07/2018 14:04 [facility] CREATININE 0.7 0.70 - 1.50 MG/DL 03/07/2018 14:04 [facility] Anion Gap 8 7 - 17 MMOL/L 03/07/2018 14:04 [facility] GLUCOSE - [facility] 90 70.00 - 100.00 MG/DL 03/07/2018 14:04 [facility] Potassium 4.4 3.50 - 5.10 MMOL/L 03/07/2018 14:04 [facility] Sodium 140 137.00 - 145.00 MMOL/L 03/07/2018 14:04 [facility] TOTAL PROTEIN - [facility] 7.6 6.30 - 8.20 G/DL 03/07/2018 14:04 [facility] SGOT/AST - [facility] 23 15.00 - 46.00 U/L 03/07/2018 14:04 [facility] SGPT/ALT - [facility] 16 13.00 - 69.00 U/L 03/07/2018 14:04 [facility] 03/07/2018 14:0 2 EDT 03/07/2018 14:02 EDT us Alissa KUHN CHEMISTRY & BLOOD GAS ORDERAB LES Final Result [facility] * (ABNORMAL) CBC W/PLT & DIFF,POINT OF CARE - [facility] (03/07/2018 14:02 EDT) Gran # 2.5 1.4 - 6.5 X10E3/UL 03/07/2018 14:04 [facility] GRAN % - [facility] 50.3 42.2 - 75.2 % 03/07/2018 14:04 [facility] HEMATOCRIT - [facility] 40.3 35.0 - 60.0 % 03/07/2018 14:04 [facility] HEMOGLOBIN - [facility] 13.7 11.0 - 18.0 G/DL 03/07/2018 14:04 [facility] LYMPH # - [facility] 2.1 1.2 - 3.4 X10E3/UL 03/07/2018 14:04 [facility] LYMPH% - [facility] 42.9 20.5 - 51.1 % 03/07/2018 14:04 [facility] MEAN CORPUSCULAR HGB - [facility] 33.2(H) 27.0 - 31.0 PG 03/07/2018 14:04 [facility] MEAN CORPUSCULAR HGB CONC - [facility] 34.0 33.0 - 37.0 G/DL 03/07/2018 14:04 [facility] MEAN CELL VOLUME - [facility] 97.8 80.0 - 99.9 FL 03/07/2018 14:04 [facility] MONO # - [facility] 0.3 0.1 - 0.6 X10E3/UL 03/07/2018 14:04 [facility] MONO% - [facility] 6.8 1.7 - 9.3 % 03/07/2018 14:04 [facility] MEAN PLATELET VOLUME - [facility] 8.1 7.8 - 11.0 FL 03/07/2018 14:04 [facility] PLATELET COUNT 224 150 - 450 X10E3/UL 03/07/2018 14:04 [facility] RED BLOOD COUNT - [facility] 4.13 4.00 - 6.00 X10E6/UL 03/07/2018 14:04 [facility] RED CELL DISTRI WIDTH - [facility] 13.2 11.6 - 13.7 % 03/07/2018 14:04 EDT [facility] WHITE BLOOD COUNT - [facility] 4.9 4.5 - 10.5 X10E3/UL 03/07/2018 14:04 EDT [facility] 03/07/2018 14:0 2 EDT 03/07/2018 14:02 EDT us Alissa KUHN CHEMISTRY & BLOOD GAS ORDERAB LES Final Result [facility] documented in this encounter Visit Diagnoses Not on filedocumented in this encounter Care Teams Wire Insulator Relationship Specialty Start Date End Date Alissa Arellano PA [address] [place] [address] PCP - General 11/27/12 03/11/22 documented as of this encounter
--- OUTSIDE RECORDS SUMMARY | 2024-09-15 15:52 | XMS_ITS | Encounter Summary ---
Author Organization [facility] Address [address] [place] [address] Care Team Providers Care Maxillofacial Surgeon Name Role Phone Alissa Arellano Primary Care Provider [phone] Encounter Details Date Type Department Care Team (Late st Contact Info) Description 07/10/2018 Historical Results Only [facility] - [facility] Lab - Main [place] [address] [place] [address] Dilip Aguirre MD [facility] [address] [place] [address] Social History Tobacco Use Types Packs/Day Years [...] Description 09/24/2024 7:30 EST Rehab Therapy Visit [facility] - [facility] [place] [address] [place] [address] Mirlande Keene, PT [address] [place] [address] 11/25/2024 9:00 EDT Office Visit [facility] [address] [place] [address] Tess Rojas, CHIEF OPERATOR [address] [place] [address] documented as of this encounter Procedures Procedure Name Priority Date/Time Associated Diagnosis Comments SURGICAL PATHOLOGY Routine 07/10/2018 11 :26 EST documented in this encounter Results * SURGICAL PATHOLOGY (07/10/2018 11:26 EST) 07/10/2018 11:2 6 EST 07/10/2018 11:26 EST Narrative [facility] - 07/11/2018 11:44 EST ----- ------- Name: BESSIE VAUGHN ?: [birth year] ?Age/Sex: 54/F ?Unit#: [id number] ? Loc: END ? Status: DEP CLI ?? Reg Date: 07/10/18 ? Pt.Phone Number: ? ----- ------- Specimen: [id number] ? STATUS: SOUT ?Spec Date:07/10/18 ? Physician Copies: ?Dilip Aguirre MD ? Tissues: A ?? Endoscopy specimen (PROXIMAL ASCENDING COLON) ?Amanda Edwards APRN CPT: 61178 ?? Units: ??1 ?FINAL DIAGNOSIS ? ASCENDING COLON, PROXIMAL, POLYP, BIOPSY; ? - Sessile serrate adenoma. ? GROSS DESCRIPTION ? Received in formalin labeled with the patients name and proximal ascending ? polyp is a single ??mucosal tissue fragments measuring 0.6 cm, e. s. 1 NM ?? PREOP DX/CLINICAL HISTORY ?SCREENING Signed ____(signature on file)____ Silvia Hudson M.D. 07/11/18 ? By the signature above, the attending physician certifies that he/she has personally conducted a gross and/or microscopic examination of the described specimens and rendered or confirmed the above diagnosis. Test Performed by [facility], [address] [facility] [address] Surgical Garment Assembler: Wendy Bundy MD PHD ----- ------- us Dilip Aguirre MD PATHOLOGY ORDERABLES Final Resul t [facility] documented in this encounter Visit Diagnoses Not on filedocumented in this encounter Care Teams Maxillofacial Surgeon Relationship Specialty Start Date End Date Alissa Arellano PA [address] [place] [address] PCP - General 11/27/12 03/11/22 documented as of this encounter
--- OUTSIDE RECORDS SUMMARY | 2024-09-15 15:52 | XMS_ITS | Encounter Summary ---
Author Organization [facility] Address [address] [place] [address] Care Team Providers Care Sem Manager Name Role Phone Alissa Arellano Primary Care Provider Brea Mendoza Primary Care Provider [phone] Elvira Brantley MD Primary Care Provider [phone] Encounter Details Date Type Department Care Team (Late st Contact Info) Description 12/01/[address] [facility] Pathology & Laboratory Medicine - [address] [address] Yeimi Castaneda, MICROSCOPIST [address] [place] [address], [address] [place] [address] Encounter for screening for malignant neoplasm of vagina Social History Tobacco Use Types Packs/Day Years [...] Rehab Therapy Visit [facility] [address] [place], [place] [address] Mirlande Keene, PT [address] [place], [place] [address] 11/25/2024 9:[address] [facility] Total Joint Program - [address] [address] Tess Rojas NP [address] [place] [address] documented as of this encounter Procedures Procedure Name Priority Date/Time Associated Diagnosis Comments PAP TEST Today 11/30/2020 11:33 EDT HPV DNA DETECTION WITH GENOTYPING, PCR, THINPREP Today 11/30/2020 11:33 EDT documented in this encounter Results * HPV DNA DETECTION WITH GENOTYPING, PCR, THINPREP (11/30/2020 11:33 EDT) Specimen Source vagina 16:18 EDT Ex[facility] HPV Risk Type 16, PCR Negative Negative 12/08/2020 16:18 EDT [facility] [email or web address] HPV High Risk Type 18, PcR Negative Negative 12/08/2020 16:18 EDT [facility] [email or web address] HPV Other High Risk Types, PCR Negative Negative 12/08/2020 16:18 EDT [facility] [email or web address] Comment: The following Other High Risk HPV types were not detected: 31, 33, 35, 39, 45, 51, 52, 56, 58, 59, 66, and 68 Test Performed by: [address] [address] Premium Service Representative: Feliberto Uribe M.D. Ph.D.; CLIA# [id number] Papanicolaou smear specimen (specimen) ENTIRE VAGINA / Unknown 11/30/2020 11:33 EDT 12/06/2020 10:27 EDT us Yeimi Castaneda NP MICROBIOLOGY - GENERAL ORDERA BLES Final Result [address] [address] * PAP TEST (11/30/2020 11:33 EDT) Specimens A. Vagina , ThinPrep Imaging System with Manual Evaluation 12/09/2020 6:[address] [facility] Specimen Adequacy Satisfactory for Evaluation - assessment of transformation zone component not applicable ( e.g. atrophy, vaginal sample, hysterectomy) 12/09/2020 6:[address] [facility] General Categorization Negative for intraepithelial lesion or malignancy 12/09/2020 6:[address] [facility] Attestation . 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 Testing was performed on specimen [id number] and was resulted on 12/08/2020 1721 EDT by L[facility]. Comment: The following Other High Risk HPV types were not detected: 31, 33, 35, 39, 45, 51, 52, 56, 58, 59, 66, and 68 Test Performed by: [facility] [address] [place] [address] Premium Service Representative: Felibreto Uribe M.D. Ph.D.; CLIA# [id number] 12/09/2020 6:[address] [facility] Performing Lab [facility] 12/09/2020 6:[address] [facility] Scanned Images 12/09/2020 6:[address] [facility] Papanicolaou smear specimen (specimen) ENTIRE VAGINA / Unknown 11/30/2020 11:33 EDT 12/02/2020 9:37 EDT us Yeimi Castaneda MICROSCOPIST PATHOLOGY ORDERABLES Final Re sult [facility] [address] [place] [address] documented in this encounter Visit Diagnoses Diagnosis Encounter for screening for malignant neoplasm of vagina Special screening for malignant neoplasms, vagina documented in this encounter Care Teams Sem Manager Relationship Specialty Start Date End Date Alissa Arellano PA [address] [place] [address] PCP - General 11/27/12 03/11/22 Brea Mendoza FNP [address] [place] [address], [address] [place] [address] PCP - General Family Medicine - Primary Care 03/12/22 04/19/22 Elvira Brantley MD [address] [place] [address] PCP - General 04/20/22 documented as of this encounter
--- OUTSIDE RECORDS SUMMARY | 2024-09-15 15:52 | XMS_ITS | Encounter Summary ---
Author Organization [facility] Address [address] [place] [address] Care Team Providers Care Cnc Milling Machine Operator Name Role Phone Alissa Arellano Primary Care Provider Brea Mendoza Primary Care Provider Elvira Brantley MD Primary Care Provider [phone] Encounter Details Date Type Department Care Team (Late st Contact Info) Description 11/30/2020 Lab Requisition [facility] Pathology & Laboratory Medicine - [address] [address] Outr Resulting Lab, Provider Social History Tobacco Use Types Packs/Day Years [...] EST Rehab Therapy Visit [facility] [address] [place], [place] [phone] Keene Mirlande, PT [address] [place], [place] [id number] 11/25/2024 9:00 EDT Office Visit [facility] Total Joint Program - [facility] [address] [place] [address] Tess Rojas NP [address] [place] [address] documented as of this encounter Procedures Procedure Name Priority Date/Time Associated Diagnosis Comments ESTRADIOL, ADULTS Routine 11/30/2020 11: 28 EDT documented in this encounter Results * ESTRADIOL, ADULTS (11/30/2020 11:28 EDT) Estradiol 186 See Note pg/mL 11/30/2020 22:13 EDT [facility] Comment: NOTE: FEMALE REFERENCE [...] this drug. Blood VENOUS BLOOD / Unknown 11/30/2020 11:28 EDT 11/30/2020 21:28 EDT us Provider Outr Resulting Lab CHEMISTRY & BLOOD GA S ORDERABLES Final Result [facility] [address] [place] [address] documented in this encounter Visit Diagnoses Not on filedocumented in this encounter Care Teams Cnc Milling Machine Operator Relationship Specialty Start Date End Date Alissa Arellano PA [address] [place], [place] PCP - General 11/27/12 03/11/22 Brea Mendoza FNP [address] [place] [address], [address] [place] [address] PCP - General Family Medicine - Primary Care 03/12/22 04/19/22 Elvira Brantley MD [address] [place], [place] [address] PCP - General 04/20/22 documented as of this encounter
--- OUTSIDE RECORDS SUMMARY | 2024-09-15 15:52 | XMS_ITS | Encounter Summary ---
Author Organization [facility] Address [address] [place] [address] Care Team Providers Care Operations Associate Name Role Phone Alissa Arellano Primary Care Provider Brea Mendoza Primary Care Provider Elvira Brantley MD Primary Care Provider [phone] Encounter Details Date Type Department Care Team (Late st Contact Info) Description 10/08/2020 Results Only Imaging [facility] [place] [address] [place], [place] [address] Brea Mendoza FNP [address], [address] [place] [address] Social History Tobacco Use Types [...] Visit [facility] Rehabilitation Therapy [address] [place], [place] [phone] Mirlande Keene, PT [address] [place] [id number] 11/25/2024 9:00 EDT Office Visit [facility] Total Joint Program - [address] [address] Tess Rojas, LUCAS [address] [place] [address] documented as of this encounter Procedures Procedure Name Priority Date/Time Associated Diagnosis Comments MA BREAST SCREENING SHRUTI BILATERAL 10/08/2020 15:44 EST documented in this encounter Results * MA BREAST SCREENING SHRUTI BILATERAL (10/08/2020 15:44 EST) Anatomical Region Laterality Modality Breast Bilateral Mammography 10/08/2020 15:4 4 EST Narrative 10/08/2020 15:44 EST ? EXAM: MAMMOGRAM/MAMMO BILATERAL SCREEN W ??EX. D/ (0801) ? CLINICAL INFORMATION: ? Z12.39 SCREENING ? INDICATION: Screening mammogram. ? COMPARISON: Comparison is made to prior images. ? TECHNIQUE: ??Full field digital whole breast 2D (C-view) and 3D CC and ? MLO views of both breasts were obtained. CAD technology was utilized. ? Right breast: There are scattered areas of fibroglandular density. No ? dominant mass or suspicious microcalcification is seen. ? Left breast: There are scattered areas of fibroglandular density. ? There is a one view asymmetry with questionable architectural ? distortion within the central aspect of the left breast seen only on ? the MLO view for which additional imaging is recommended. No ? suspicious microcalcification. ? IMPRESSION: ? Right breast: ??Category 1. ? Left breast: Category 0. ? FINAL ASSESSMENT: ??RIGHT BREAST - Category 1 - Negative. ? FINAL ASSESSMENT: ??LEFT BREAST - Category 0 - Incomplete; additional ? imaging evaluation needed. ? These results will be communicated to your patient via a lay letter ? from Radiology. ??If any additional imaging is needed we will contact ? your patient directly. ? REPORT SIGNED IN OTHER VENDOR SYSTEM 10/08/2020 ?Reported By: Matti Martinez MD ? CC: ? Transcribed Date/Time: 10/08/2020 (1544) ? Telephone Sales Representative: ? Printed Date/Time: 10/08/2020 (2579) ? PAGE 1 ? Signed Report ? Procedure Note Matti Martinez MD - 10/08/2020 EXAM: MAMMOGRAM/MAMMO BILATERAL SCREEN W EX. D/ (0801) CLINICAL INFORMATION: Z12.39 SCREENING INDICATION: Screening mammogram. COMPARISON: Comparison is made to prior images. TECHNIQUE: Full field digital whole breast 2D (C-view) and 3D CCand MLO views of both breasts were obtained. CAD technology wasutilized. Right breast: There are scattered areas of fibroglandular density.No dominant mass or suspicious microcalcification is seen. Left breast: There are scattered areas of fibroglandular density. There is a one view asymmetry with questionable architectural distortion within the central aspect of the left breast seen onlyon the MLO view for which additional imaging is recommended. No suspicious microcalcification. IMPRESSION: Right breast: Category 1. Left breast: Category 0. FINAL ASSESSMENT: RIGHT BREAST - Category 1 - Negative. FINAL ASSESSMENT: LEFT BREAST - Category 0 - Incomplete;additional imaging evaluation needed. These results will be communicated to your patient via a lay letter from Radiology. If any additional imaging is needed we willcontact your patient directly. REPORT SIGNED IN OTHER VENDOR SYSTEM 10/08/2020 Reported By: Matti Martinez MD CC: Transcribed Date/Time: 10/08/2020 (3175) Telephone Sales Representative: Printed Date/Time: 10/08/2020 (1566) PAGE 1 Signed Report Brea [facility] IMG MAMMOGRAPHY ORDERABLES F inal Result documented in this encounter Visit Diagnoses Not on filedocumented in this encounter Care Teams Operations Associate Relationship Specialty Start Date End Date Alissa Arellano PA [address] [place] [address] PCP - General 11/27/12 03/11/22 Brea Mendoza FNP [facility] [address] [place] [address] PCP - General Family Medicine - Primary Care 03/12/22 04/19/22 Elvira Brantley MD [address] [place] [address] PCP - General 04/20/22 documented as of this encounter
--- OUTSIDE RECORDS SUMMARY | 2024-09-15 15:52 | XMS_ITS | Encounter Summary ---
Author Organization [facility] Address [address] [place] [address] Care Team Providers Care Information Management Manager Name Role Phone Alissa Arellano Primary Care Provider [phone] Brea Mendoza Primary Care Provider Elvira Brantley MD Primary Care Provider [phone] Reason for Visit * Reason Onset Date Comments Appointment Related 09/01/2019 Encounter Details Date Type Department Care Team (Late st Contact Info) Description 09/01/2019 Telephone [facility] Interventional Pain [address] [place] [address] Marko Crowley MD [address] [place] [address] [place] [address] Appointment Related Social History Tobacco [...] * Telephone Encounter - Yin Moore - 09/05/2019 1242 EST Left voice message for patient to call back to schedule an appointment. Recall in place. * Telephone Encounter - Allison Carrasco - 09/04/2019 1625 EST As per the [facility] web-site Services, Equipment, and Supplies Requiring Prior Approval Requested services: Do NOT require pre-certification. Based on Medical Necessity and as long as it is not Experimental, Investigational or Cosmetic in nature. Pt is already scheduled for:RFA one side at a time @ L4/ & L5-ALA Epic did not show active coverage. Called BC/BS. Spoke to Geo @ 4:16 pm 09/04/19. Pt has active coverage. Call Ref # [id number] As long as patient does not change insurance, no further action is due at this time. * Telephone Encounter - Allison Steen RN - 09/02/2019 1303 EST Forward to schedule repeat RFA at L4, L5, ALA Injection History: 10/16/2018: lumbar radiofrequency ablation at L4,5,ala on the right side: 85-90% x 9 months 09/18/2018: lumbar radiofrequency ablation at L4,5,ala on the left side:?? 08/10/2017: lumbar radiofrequency ablation at L4, L5, and SA on the right: approx 1 year of 90% relief with improved mobility 07/11/2017: lumbar radiofrequency ablation at L4,5,ala left:??approx 1 year of 90% relief with improved [...] * Telephone Encounter - Yin Moore - 09/01/2019 1402 EST Reason For Encounter/Call: RFA Call Details (Specific Reasons/Concerns/Details): Patient would like to schedule an RFA. Patient had last RFA on 10/16/18. Patient got 85-90% relief for nine months. It is the same pain as before. Last Visit with Our [facility]: 10/16/18 Next Visit (Return Date/Time/Provider) TBD Prior Authorization in Place - Specify (Yes or No): no Call Patient Back - Specify (Yes or No): To schedule. Yin Moore 09/01/2019 14:07 documented in this encounter Plan of Treatment Upcoming Encounters Date Type Department Care Team (Late st Contact Info) Description 09/24/2024 7:30 EST Rehab Therapy Visit [facility] [place] [facility] [address] [place] [address] Mirlande Keene, PT [address] [place] [address] 11/25/2024 9:00 EDT Office Visit [facility] Total Joint Program - [address] [place], [place] [phone] Tess Rojas, LUCAS [address] [place] [address] documented as of this encounter Visit Diagnoses Not on filedocumented in this encounter Care Teams Information Management Manager Relationship Specialty Start Date End Date Alissa Arellano PA [address] [place] [address] PCP - General 11/27/12 03/11/22 Brea Mendoza FNP [address] [place] [address], [facility] [address] [place] [address] PCP - General Family Medicine - Primary Care 03/12/22 04/19/22 Elvira Brantley MD [address] [place] [address] PCP - General 04/20/22 documented as of this encounter
--- OUTSIDE RECORDS SUMMARY | 2024-09-15 15:52 | XMS_ITS | Encounter Summary ---
Author Organization [facility] Address [address] [place] [address] Care Team Providers Care Route Agent Name Role Phone Alissa Arellano Primary Care Provider [phone] Reason for Referral * Radiology Services (Routine/Next Available) - Authorization Not Required Specialty Diagnoses / Procedures Referred By Jefferson ramires Referred To Contact Diagnoses Encounter for screening mammogram for malignant neoplasm of breast Procedures MA BREAST SCREENING SHRUTI BILATERAL Brea Mendoza FNP Phone: tel: fax: [facility] Referral ID Status Reason Start Date Expiration Date Visits Requested Visits Authorized [id number] Authorization Not Required 09/19/2021 1 1 Reason for Visit * Radiology Services (Routine/Next Available) - Authorization Not Required Specialty Diagnoses / Procedures Referred By Jefferson ramires Referred To Contact Diagnoses Encounter for screening mammogram for malignant neoplasm of breast Procedures MA BREAST SCREENING SHRUTI BILATERAL Brea Mendoza FNP Phone: tel: fax: [facility] Referral ID Status Reason Start Date Expiration Date Visits Requested Visits Authorized [id number] Authorization Not Required 09/19/2021 1 1 Encounter Details Date Type Department Care Team (Latest Contact Info) Description 11/28/2021 8:00 EDT - 11/28/2021 23:59 EDT Hospital Encounter [facility] Mammography [address] [place] [address] Encounter for screening mammogram for malignant neoplasm [...] - - Weight 102.1 kg (225 lb) 11/28/2021 08 EDT Height 182.9 cm (6') 11/28/2021812 EDT Body Mass Index 30.52 11/28/2021812 EDT documented in this encounter Functional Status [...] 4 times daily. Reported on 09/18/2016 09/06/2022 fluconazole (DIFLUCAN) 150 mg tablet Take 1 Tablet by mouth once for 1 dose. May repeat in 72 hours after first dose if symptoms persist 1 Tablet 1 06/01/2021 12/23/2021 valACYclovir (VALTREX) 500 mg tablet Take 500 mg by mouth as needed. Reported on 07/19/2016 10/12/2022 documented as of this encounter Discharge Disposition Disposition Code Departure Means Destination Home or Self Care documented in this encounter Plan of Treatment Upcoming Encounters Date Type Department Care Team (Late st Contact Info) Description 09/24/2024 7:30 EST Rehab Therapy Visit [facility] [place] [facility] [address] [place], [place] [address] Mirlande Keene, PT [address] [place] [address] 11/25/2024 9:00 EDT Office Visit [facility] Total [facility] Program - [facility] [address] [facility] [place], [place] [phone] Tess Rojas, LUCAS [address] [place] [address] documented as of this encounter Procedures Procedure Name Priority Date/Time Associated Diagnosis Comments MA BREAST SCREENING SHRUTI BILATERAL Routine 11/28/2021 8:22 EDT Encounter for screening mammogram for malignant neoplasm of breast documented in this encounter Results * MA BREAST SCREENING SHRUTI BILATERAL (11/28/2021 8:22 EDT) Anatomical Region Laterality Modality Breast Bilateral Mammography 11/28/2021 14:5 6 EDT Impressions 11/28/2021 14:56 EDT Negative, no evidence of malignancy. RECOMMENDATION: Routine screening mammography is recommended. OVERALL ASSESSMENT: BI-RADS 1: Negative These results will be communicated to your patient via a lay letter from Radiology. If any additional imaging is needed we will contact your patient directly. Narrative 11/28/2021 14:56 EDT MA BREAST SCREENING SHRUTI BILATERAL ??11/28/2021 8:10 AM History: SCREENING Comparison: ??Comparison has been made to previous images. Technique: Routine 3D tomosynthesis with synthesized 2D views with CAD Bilateral Breast Composition: There are scattered areas of fibroglandular density. Bilateral Breast Findings: ??No significant masses, calcifications or other abnormalities are seen. Procedure Note Joshua Quiroz MD - 11/28/2021 MA BREAST SCREENING SHRUTI BILATERAL 11/28/2021 8:10 AM History: SCREENING Comparison: Comparison has been made to previous images. Technique: Routine 3D tomosynthesis with synthesized 2D views with CAD Bilateral Breast Composition: There are scattered areas of fibroglandulardensity. Bilateral Breast Findings: No significant masses, calcifications or otherabnormalities are seen. IMPRESSION Negative, no evidence of malignancy. RECOMMENDATION: Routine screening mammography is recommended. OVERALL ASSESSMENT: BI-RADS 1: Negative These results will be communicated to your patient via a lay letter fromRadiology. If any additional imaging is needed we will contact yourpatient directly. Brea Mendoza HEAVY DUTY DIESEL MECHANIC IMG MAMMOGRAPHY ORDERABLES F inal Result documented in this encounter Visit Diagnoses Diagnosis Encounter for screening mammogram for malignant neoplasm of breast Other screening mammogram documented in this encounter Care Teams Route Agent Relationship Specialty Start Date End Date Alissa Arellano PA [address] [place] [address] PCP - General 11/27/12 03/11/22 documented as of this encounter
--- OUTSIDE RECORDS SUMMARY | 2024-09-15 15:52 | XMS_ITS | Encounter Summary ---
Author Organization [facility] Address [address] [place] [address] Care Team Providers Care Director Account Management Name Role Phone Alissa Arellano Primary Care Provider [phone] Encounter Details Date Type Department Care Team (Late st Contact Info) Description 06/24/2018 Historical Results Only [facility] Lab - Main [address] [id number] Amanda Edwards, LUCAS [address] [place] [address] Social History Tobacco Use Types Packs/Day Years [...] Description 09/24/2024 7:30 EST Rehab Therapy Visit [facility] [address] [place] [address] Mirlande Keene, PT [address] [place] [address] 11/25/2024 9:00 EDT Office Visit [facility] Total Joint Program - [facility] [address] [facility] [place] [address] Tess Rojas, LUCAS [address] [place] [address] documented as of this encounter Procedures Procedure Name Priority Date/Time Associated Diagnosis Comments PHARYNGITIS SCREEN - CV Routine 06/24/2018 14:00 EST GRP A STREP POC - CV Routine 06/24/2018 13:55 EST documented in this encounter Results * PHARYNGITIS SCREEN - CV (06/24/2018 14:00 EST) PHARYNGITIS SCREEN - [facility] 06/26/2018 12:21 EST [facility] PHARYNGITIS SCREEN - [facility] NO GROUP A STREP ISOLATED 06/26/2018 12:21 EST [facility] 06/24/2018 14:0 0 EST 06/24/2018 17:39 EST Narrative [facility] - 06/26/2018 12:21 EST Does PT Have a Latex Allergy? NO us Amanda Edwards NP CHEMISTRY & BLOOD GAS ORDERABLES Final Result [facility] * GRP A STREP POC - CV (06/24/2018 13:55 EST) GRP A STREP POC - [facility] NEGATIVE NEGATIVE 06/24/2018 13:56 EST [facility] 06/24/2018 13:5 5 EST 06/24/2018 13:55 EST us Amanda Edwards REAMING MACHINE OPERATOR CHEMISTRY & BLOOD GAS ORDERABLES Final Result [facility] documented in this encounter Visit Diagnoses Not on filedocumented in this encounter Care Teams Director Account Management Relationship Specialty Start Date End Date Alissa Arellano PA [address] [place] [address] PCP - General 11/27/12 03/11/22 documented as of this encounter
--- OUTSIDE RECORDS SUMMARY | 2024-09-15 15:52 | XMS_ITS | Encounter Summary ---
Author Organization [facility] Address [address] [place] [address] Care Team Providers Care Enrollment Representative Name Role Phone Alissa Arellano Primary Care Provider [phone] Reason for Referral * Radiology Services (Routine) - Closed Specialty Diagnoses / Procedures Referred By Jefferson ramires Referred To Contact Diagnoses Neck pain Procedures XR CERVICAL SPINE 4-5 VIEWS Loraine Ledezma PA-C Phone: tel: fax: Referral ID Status Reason Start Date Expiration Date Visits Re quested Visits Authorized [id number] Closed 11/25/2020 1 1 Reason for Visit * Radiology Services (Routine) - Closed Specialty Diagnoses / Procedures Referred By Jefferson ramires Referred To Contact Diagnoses Neck pain Procedures XR CERVICAL SPINE 4-5 VIEWS Loraine Ledezma PA-C Phone: tel: fax: Referral ID Status Reason Start Date Expiration Date Visits Re quested Visits Authorized [id number] Closed 11/25/2020 1 1 Encounter Details Date Type Department Care Team (Latest Contact Info) Description 11/25/2020 15:50 EDT - 11/25/2020 23:59 EDT Hospital Encounter [address] [facility] [address] [place] [address] Neck pain Discharge Disposition: Home or Self Care Social [...] Description 09/24/2024 7:30 EST Rehab Therapy Visit [facility] [address] [place] [address] Keene Mirlande, PT [address] [place], [place] [address] 11/25/2024 9:00 EDT Office Visit [facility] Total Joint Program - [address] [place] [address] Tess Rojas NP [address] [place] [address] documented as of this encounter Procedures Procedure Name Priority Date/Time Associated Diagnosis Comments XR CERVICAL SPINE 4-5 VIEWS Routine 11/25/2020 16:05 EDT Neck pain documented in this encounter Results * XR CERVICAL SPINE [...] Degenerative changes without significant malalignment or dynamicinstability. Loraine Ledezma PA-C IMG DIAGNOSTIC IMAGING ORDERABLES Final Result documented in this encounter Visit Diagnoses Diagnosis Neck pain Cervicalgia documented in this encounter Care Teams Enrollment Representative Relationship Specialty Start Date End Date Alissa Arellano PA [address] [place] [address] PCP - General 11/27/12 03/11/22 documented as of this encounter
--- OUTSIDE RECORDS SUMMARY | 2024-09-15 15:52 | XMS_ITS | Encounter Summary ---
Author Organization [facility] Address [address] [place] [address] Care Team Providers Care Records Management Clerk Name Role Phone Alissa Arellano Primary Care Provider [phone] Reason for Visit * Reason Comments Pain * Consult (Routine) - Closed Specialty Diagnoses / Procedures Referred By Jefferson ramires Referred To Contact Orthopedic Surgery Diagnoses Radiculopathy, cervical region Brea Mendoza FNP Phone: tel: fax: [facility] [place] [address] Phone: tel: fax: Referral ID Status Reason Start Date Expiration Date Visits Re quested Visits Authorized [id number] Closed 1 1 Encounter Details Date Type Department Care Team (Late st Contact Info) Description 11/25/2020 15:00 EDT Office Visit [facility] - [place] [address] Loraine Ledezma PA-C [address] [facility] [place] [address] Neck pain on right side (Primary Dx) Social History Tobacco Use Types [...] - - Weight 102.1 kg (225 lb) 11/25/2020 1505 EDT Height 182.9 cm (6') 11/25/2020 1505 EDT Body Mass Index 30.52 11/25/2020 1505 EDT documented in this encounter Functional Status [...] documented in this encounter Progress Notes * Loraine Ledezma PA-C - 11/25/2020 1500 EDT Ms. Jackman is a 55 y.o. pleasant female who presents to the clinic today, 11/25/2020, with 1. 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 2. Resolved RUE pain affecting: A. ARM: Posterior aspect. B. FOREARM: Posterior/medial aspect. C. HAND: Numbness and tingling affecting the dorsal aspect of hand including the last 3 fingers. ONSET: This is a chronic issue that has been present since 2014, in an intermittent fashion. Recentflareup in 09/07/2020, required immediate attention to the ED. Has improved by 85% since flareup. Remaining symptoms wax and wane, but they are present everyday. ALLEVIATING FACTORS: Stretching. AGGRAVATING FACTORS: Sitting. PAIN: /10. CONSERVATIVE TX: 1. Physical Therapy: Yes, very helpful. 2. CHIRO: No. 3. Steroid injections: NONE. 4. Medications: None. SOCIAL: 1. SMOKING: Never. 2. 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 3. Patient lives with her boyfriend. Review of Systems Constitutional: Positive for activity change. Negative for unexpected weight change. Eyes: Negative for visual disturbance. Respiratory: Negative for chest tightness. Gastrointestinal: Negative for constipation. Genitourinary: Negative for difficulty urinating. Musculoskeletal: Positive for neck pain. Positive for low back pain. Skin: Negative for rash. Neurological: negative for numbness. Psychiatric/Behavioral: Negative for agitation and behavioral problems. Physical Exam Constitutional: Patient is oriented to person, place, and time, and appears well-developed and well-nourished. Eyes: EOM are normal. Pupils are equal, round, and reactive to light. Cardiovascular: Normal rate. Pulmonary/Chest: Effort normal and breath sounds normal. Neurological: Patient is alert and oriented to person, place, and time. Skin: Skin is warm and dry. No rash noted. Psychiatric: Patient has a normal mood and affect, and behavior is normal. Family and Social History: Reviewed. Neck Exam from initial visit in 11/25/2020: RASHES AND NISHA: NEG. FROM: TENDERNESS ON PALPATION: NEG. STRENGTH: 5/5. REFLEXES: 2/4. SENSATION:Intact. SPURLING'S: NEG. QUINTANA: NEG. RADIAL PULSE: 2/2. TINNEL: NEG. PHALEN: NEG. ULNAR COMPRESSION: NEG. Today, 11/25/2020, I ordered plain radiographs and I independently reviewed the following radiographs: Cervical Plain radiographs (AP/Lat/Flex/Ex): 1. Loss of cervical lordosis 2. Facet arthropathy of the cervical spine 3. Disc height reduction at C5-C6/C6-C7 consistent with degenerative disc disease 4. No fractures identified Assessment: 55 y.o. female with 1. 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 2. Resolved right UE pain along the C7 dermatome most likely radicular in nature. No MRI available. 3. 85% improvement since flare up in August 2020. She has agreed to the following plan. Plan: 1. Patient does not think MRI or steroid injections are necessary for the time being. 2. Continue activity as tolerated. 3. Continue with in-home exercise program. 4. Return to clinic PRN - if symptoms of RUE return, order MRI. CC: Dr. Adan Hodges was the attending physician available in the clinic today if needed. A consultation was not required. documented in this encounter Plan of Treatment Upcoming Encounters Date Type Department Care Team (Late st Contact Info) Description 09/24/2024 7:30 EST Rehab Therapy Visit [facility] [address] [place], [place] [phone] Mirlande Keene, PT [address] [place] [phone] 11/25/2024 9:00 EDT Office Visit [facility] - [address] [address] Tess Rojas, LUCAS [address] [place] [address] documented as of this encounter Visit Diagnoses Diagnosis Neck pain on right side- Primary Cervicalgia documented in this encounter Historical Medications * This list may reflect changes made after this encounter. ibuprofen (MOTRIN) 200 mg tablet Take 3 Tablets by mouth as needed for Pain. added in this encounter Care Teams Records Management Clerk Relationship Specialty Start Date End Date Alissa Arellano PA [address] [place] [address] PCP - General 11/27/12 03/11/22 documented as of this encounter
--- OUTSIDE RECORDS SUMMARY | 2024-09-15 15:52 | XMS_ITS | Encounter Summary ---
Author Organization [facility] Address [address] [place] [address] Care Team Providers Care Research Spec Name Role Phone Alissa Arellano Primary Care Provider [phone] Reason for Visit * Reason Onset Date Comments Results 12/10/2020 Encounter Details Date Type Department Care Team (Late st Contact Info) Description 12/10/2020 Telephone [facility] [address] [place], [place] [phone] Yeimi Castaneda, LUCAS [address] [facility], [address] [place] [address] Results Social History Tobacco Use [...] encounter Miscellaneous Notes * Telephone Encounter - Deanne Valverde RN - 12/14/2020 0900 EDT Letter compiled, signed and sent * Telephone Encounter - Yeimi Castaneda APRN - 12/10/2020 1755 EDT Please send Bria a letter stating her PAP and HPV test results were both negative/normal. Next PAP/HPV due in 5 years. Thanks documented in this encounter Plan of Treatment Upcoming Encounters Date Type Department Care Team (Late st Contact Info) Description 09/24/2024 7:30 EST Rehab Therapy Visit [facility] [address] [place] [address] Mirlande Keene, PT [address] [place] [address] 11/25/2024 9:00 EDT Office Visit [facility] Program - [address] [phone] Tess Rojas NP [address] [place] [phone] documented as of this encounter Visit Diagnoses Not on filedocumented in this encounter Care Teams Research Spec Relationship Specialty Start Date End Date Alissa Arellano PA [address] [place] [address] PCP - General 11/27/12 03/11/22 documented as of this encounter
--- OUTSIDE RECORDS SUMMARY | 2024-09-15 15:52 | XMS_ITS | Encounter Summary ---
Author Organization [facility] Address [address] [place] [address] Care Team Providers Care Software Test Specialist Name Role Phone Alissa Arellano Primary Care Provider [phone] Encounter Details Date Type Department Care Team (Latest Contact Info) Description 07/10/2018 9:02 EST - 07/10/2018 23:59 EST Hospital Encounter [facility] [address] [place] [address] Unknown, Provider, MD Discharge Disposition: Home or [...] Code Departure Means Destination Home or Self Senior Living documented in this encounter Plan of Treatment Upcoming Encounters Date Type Department Care Team (Late st Contact Info) Description 09/24/2024 7:30 EST Rehab Therapy Visit [facility] [address] [place], [place] [phone] Mirlande Keene, PT [address] [place] [address] 11/25/2024 9:00 EDT Office Visit [facility] Program - [address] [address] Tess Rojas, LUCAS [address] [place] [address] documented as of this encounter Visit Diagnoses Not on filedocumented in this encounter Care Teams Software Test Specialist Relationship Specialty Start Date End Date Alissa Arellano PA [address] [place] [address] PCP - General 11/27/12 03/11/22 documented as of this encounter
--- OUTSIDE RECORDS SUMMARY | 2024-09-15 15:52 | XMS_ITS | Encounter Summary ---
Author Organization [facility] Address [address] [place] [address] Care Team Providers Care Synthetic Cloth Binding Cutter Name Role Phone Alissa Arellano Primary Care Provider [phone] Reason for Visit * Reason Onset Date Comments Results 08/24/2017 Encounter Details Date Type Department Care Team (Late st Contact Info) Description 08/24/2017 Telephone [facility] Interventional Pain [address] [place] [address] Bob Siddiqui MD [address] [place], [place] [phone] Results Social History Tobacco Use Types Packs/Day [...] encounter Miscellaneous Notes * Telephone Encounter - Allison Steen RN - 08/27/2017 1638 EST Call to pt who is feeling better today. She was reminded that she is just 2 weeks out and full benefit of RFA can take several weeks. Pt has no further concerns. * Telephone Encounter - Yin Moore. - 08/24/2017 1519 EST Patient had an RFA on 08/10/17. Patient reports it is taking more time to recover. The area is verytender. Patient wants to know if this is because it was a fellow that did the procedure. Please call patient. documented in this encounter Plan of Treatment Upcoming Encounters Date Type Department Care Team (Late st Contact Info) Description 09/24/2024 7:30 EST Rehab Therapy Visit [facility] Rehabilitation Therapy [address] [place], [place] [address] Mirlande Keene, PT [address] [place] [address] 11/25/2024 9:00 EDT Office Visit [facility] Program - [address] [phone] Tess Rojas NP [address] [place] [phone] documented as of this encounter Visit Diagnoses Not on filedocumented in this encounter Care Teams Synthetic Cloth Binding Cutter Relationship Specialty Start Date End Date Alissa Arellano PA [address] [place] [address] PCP - General 11/27/12 03/11/22 documented as of this encounter
--- OUTSIDE RECORDS SUMMARY | 2024-09-15 15:52 | XMS_ITS | Encounter Summary ---
Author Organization [facility] Address [address] [place] [address] Care Team Providers Care Dining Car Conductor Name Role Phone Alissa Arellano Primary Care Provider [phone] Encounter Details Date Type Department Care Team (Latest Contact Info) Description 11/30/2020 Travel Social History Tobacco Use Types Packs/Day [...] Therapy Visit [facility] Rehabilitation Therapy [address] [place] [address] Mirlande Keene, PT [address] [place] [phone] 11/25/2024 9:00 EDT Office Visit [facility] Total [facility] Program - [address] [place] [address] Tess Rojas, LUCAS [address] [place] [address] documented as of this encounter Visit Diagnoses Not on filedocumented in this encounter Care Teams Dining Car Conductor Relationship Specialty Start Date End Date Alissa Arellano PA [address] [place] [address] PCP - General 11/27/12 03/11/22 documented as of this encounter
--- OUTSIDE RECORDS SUMMARY | 2024-09-15 15:53 | XMS_ITS | Encounter Summary ---
Author Organization [facility] Address [address] [place] [address] Care Team Providers Care Medical Education Specialist Name Role Phone Alissa Arellano Primary Care Provider [phone] Reason for Visit * Reason Comments Back Pain RFA L4, 5, ala right 07/19/16 f/u Encounter Details Date Type Department Care Team (Late st Contact Info) Description 09/18/2016 8:15 EST Office Visit [facility] - [facility] [address] [facility] [place] [address] Loraine Ledezma PA-C [address] [facility] [place] [address] Facet arthropathy, lumbar (Primary Dx) Social History Tobacco Use Types [...] shopping? Answer Date of Assessment Author No 07/19/2016 8:50 EST documented as of this encounter Mental Status * Because of a physical, mental, or emotional condition, does this person have serious difficulty concentrating, remembering, or making decisions? Answer Entry Date Author No 07/19/2016 8:50 EST documented in this encounter Progress Notes * Loraine Ledezma PA - 09/18/2016 0815 EST Bria Jackman is being seen as a consultation from Dr. Arellano. Chief Complaint Patient presents with ??? Back Pain RFA L4, 5, ala right 07/19/16 f/u The encounter diagnosis was Facet arthropathy, lumbar. HPI Ms. Jackman is a 51 y.o. pleasant female who returns to the clinic today, 09/18/2016, for FU post RFA Rt and Lft (07/19/2016 & 06/28/16). The patient reports 100% ongoing relief of symptoms after the RFA. She is ecstatic with the outcome. In 03/01/2016, Ms. Jackman had a FU visit post L4-L5/L5-S1 B/L facet injections (11/17/2015). The patient reports 90% relief of symptoms after the injections that lasted for 6 weeks. She is now back to pre-injection status. She thinks that the recent facet injections did not last as much as the previousones because she has started lifting her 55-lbs dog and had a 5-hour ride to [place] which exacerbated her symptoms further. ?? In 05/26/2015, Ms. Jackman had a FU visit post L4-L5/L5-S1 B/L facet injections (04/29/2015). The patient reports 80% relief of LBP after the injections and about 60% relief of left hip symptoms. She would like to FU with total joint to have a separate evaluation of her hip. ?? In 04/29/2015, Ms. Jackman had a FU visit post MRI (03/28/2015). The patient reports no significant improvement since her last visit. ?? Ms. Jackman presented to the clinic for the fist time in 04/05/2015, with 70% LBP, worse on the left, and 30% LLE pain affecting the anterior aspect of her thigh stopping just above the knee. The patient reports long standing h/o intermittent LBP; however, LLE symptoms started about a month ago. She reports h/o left hip arthroscopy and labral tear. Symptoms wax and wane, but they are present everyday. She has not tried PT, CHIRO or injections. Application of heat alleviates her symptoms the most. Sitting and arching her back aggravate her symptoms. She rates her pain as 4/10. HPI Patient Active Problem List Diagnosis ??? Low back pain radiating to left leg ??? Facet arthropathy, lumbar ??? Arthralgia of left hip ??? Bilateral knee pain Past Medical History: Diagnosis Date ??? Arthritis ??? Depression ??? Environmental allergies ??? Keratoconus, unspecified Past Surgical History: Procedure Laterality Date ??? HIP ARTHROSCOPY Left 2005 ??? KNEE ARTHROSCOPY Bilateral ??? TUBAL LIGATION Social History Substance Use Topics ??? Smoking status: Never Smoker ??? Smokeless tobacco: Never Used ??? Alcohol use Yes Comment: social Family History Problem Relation Age of Onset ??? Macular Degeneration Mother ??? Glaucoma Neg Hx ??? Retinal Detachment Neg Hx Current Outpatient Prescriptions Medication Sig Dispense Refill ??? Artificial Tear, Hypromellose, (GENTEAL SEVERE) 0.3 % Gel Place 0.5 cm into the right eye at bedtime. Reported on 09/18/2016 ??? Carboxymethylcellulose Sodium (REFRESH) 1 % Drops, Liquid Gel Place 1 Drop into the right eye 4times daily. Reported on 09/18/2016 ??? doxycycline (ADOXA) 100 mg tablet Take 100 mg by mouth. Reported on 09/18/2016 ??? fluorometholone (FML) 0.1 % ophthalmic suspension Place 1 Drop into the right eye 4 times daily. (Patient not taking: Reported on 04/27/2016) 1 Bottle 1 ??? LACTOBACILLUS ACIDOPHILUS (ACIDOPHILUS ORAL) Take by mouth. Reported on 07/19/2016 ??? LEVONORGESTREL (MIRENA INTRAUTERINE) by intrauterine route ??? methylPREDNISolone (MEDROL DOSEPACK) 4 mg tablet follow package directions (Patient not taking:Reported on 04/27/2016) 1 Pack 0 ??? MULTIVITAMIN ORAL Take by mouth. Reported on 07/19/2016 ??? nabumetone (RELAFEN) 500 mg tablet Take 500 mg by mouth 2 times daily as needed. Reported on 07/19/2016 ??? sertraline (ZOLOFT) 50 mg tablet Take 75 mg by mouth daily. ??? trimethoprim-polymyxin B (POLYTRIM) ophthalmic solution Place 1 Drop into the right eye 2 timesdaily. (Patient not taking: Reported on 07/19/2016) 1 Bottle 0 ??? valACYclovir (VALTREX) 500 mg tablet Take 500 mg by mouth as needed. Reported on 07/19/2016 No current facility-administered medications for this visit. Allergies Allergen Reactions ??? Penicillins ??? Percocet [Oxycodone-Acetaminophen] Other (See Comments) DROPS BLOOD PRESSURE ??? Sulfa (Sulfonamide Antibiotics) ??? Unable To Assess clams Review of Systems Physical Exam Ortho Exam Neurologic Exam Today, 09/18/2016, I independently reviewed the following: MRI from prior work up in April 2015: Degenerative disc and facet changes w/o any significant central spinal canal or neuroforaminal narrowing ?? Plain radiographs (AP/Lat/Flex/Ex): 1. Five (5) non-rib bearing lumbar vertebrae 2. Mild facet arthropathy of the lower lumbar spine 3. Disc height reduction at L5-S1 conistent with degenerative disc disease 4. No fractures or pars defects noted ?? Assessment 50 y.o. female with 1. LBP most likely secondary to facet arthropathy. 2. Recent RFA provided 100% ongoing relief of symptoms. She has agreed to the following plan. No orders of the defined types were placed in this encounter. Plan: 1. Continue activity as tolerated. 2. Return to clinic PRN. CC: Dr. Adan Okeefe was the attending physician available in the clinic today if needed. A consultation was not required. documented in this encounter Plan of Treatment Upcoming Encounters Date Type Department Care Team (Late st Contact Info) Description 09/24/2024 7:30 EST Rehab Therapy Visit [facility] Rehabilitation Therapy [address] [place] [address] Mirlande Keene, PT [address] [place] [address] 11/25/2024 9:00 EDT Office Visit [facility] - [address] [facility] [place] [address] Tess Rojas NP [address] [place] [address] documented as of this encounter Visit Diagnoses Diagnosis Facet arthropathy, lumbar- Primary Lumbosacral spondylosis without myelopathy documented in this encounter Care Teams Medical Education Specialist Relationship Specialty Start Date End Date Alissa Arellano PA [address] [place] [address] PCP - General 11/27/12 03/11/22 documented as of this encounter
--- OUTSIDE RECORDS SUMMARY | 2024-09-15 15:53 | XMS_ITS | Encounter Summary ---
Author Organization [facility] Address [address] [place] [address] Care Team Providers Care Insurance Executive Name Role Phone Alissa Arellano Primary Care Provider [phone] Reason for Visit * Reason Comments Pain low back Encounter Details Date Type Department Care Team (Late st Contact Info) Description 07/11/2017 13:30 EST Office Visit [facility] Interventional Pain [address] [place] [address] Marko Crowley MD [address] [place] [address] [place] [address] Spondylosis without myelopathy or radiculopathy, lumbosacral region (Primary Dx) Discharge Disposition: Auto Discharge Social [...] Sign Reading Time Taken Comments Blood Pressure 120/72 07/11/2017 1414 EST Pulse 64 07/11/2017 1414 EST Temperature 37.2 ??C (99 ??F) 07/11/2017 1322 EST Respiratory Rate 16 07/11/2017 1322 EST Oxygen Saturation - - Inhaled Oxygen Concentration - - Weight 99.8 kg (220 lb) 07/11/2017 1322 EST per pt Height 182.9 cm (6') 07/11/2017 1322 EST Body Mass Index 29.84 07/11/2017 1322 EST documented in this encounter Functional Status * Because of a physical, mental, or emotional condition, does this person have difficulty doing errands alone such as visiting a doctor's office or shopping? Answer Date of Assessment Author No 07/11/2017 13:23 EST documented as of this encounter Mental Status * Because of a physical, mental, or emotional condition, does this person have serious difficulty concentrating, remembering, or making decisions? Answer Entry Date Author No 07/11/2017 13:23 EST documented in this encounter Discharge Diagnoses Diagnosis M47.817 Spondylosis without myelopathy or radiculopathy, lumbosacral region-M47.817[ICD-10-CM] documented in this encounter Patient Instructions * Patient Instructions* Allison Steen RN - 07/11/2017 13:30 EST [facility] [address] [address] Patient Instructions You have had your Radiofrequency [...] immediately. ??? If you develop increasingly severe back pain, continued numbness or weakness of the legs or changes in your bladder or bowel [...] for a follow up to discuss options. Patient Education Topic: Method: Handout and Verbal Taught to: Patient Barriers: None Outcomes: independent and verbalized understanding Signature: Allison Rivas RN documented in this encounter Discharge Disposition Disposition Code Departure Means Destination Auto Discharge documented in this encounter Progress Notes * Michelle Hernandez - 07/11/2017 1330 EST [facility] Rooming Note Does patient have a Armature And Rotor Winder? yes Is patient NPO? (Solids since midnight [...] Is there a chance current ? no Other: * Marko Crowley MD - 07/11/2017 1330 EST Patient Name: Bria Jackman : 1965 Date of Service: 07/11/2017 Requesting physician: Alissa Arellano Advanced Quality Engineer: Marko Crowley MD Construction Project Administrator: None Procedure: Therapeutic lumbar radiofrequency ablation at L4,5,ala on the left side Interval History: Patient returns to clinic for continued evaluation and treatment recommendations of the patient's pain. Bria Jackman primarily localizes the pain at her low back, with bilateral radiation to the buttocks. She describes the pain as throbbing and aching in character. Patient currently denies any progressive weakness, unexplained fever, trauma or unexplained weight loss. Today's pain score is 6 out of 10. The patient reports no recent changes in the character, quality, or distribution of the pain. There are no recent onset of new associated symptoms such as changes in strength, sensation, or bladder control. All previous medical records including current medications, anticoagulation status, anysigns of current infection, and new imaging were reviewed. Injection History: 07/11/2017: lumbar radiofrequency ablation at L4,5,ala left: [...] known recent infections. Physical Exam: Vitals: BP 119/67 (BP Cuff Location: Right arm, Patient Position: Sitting, BP Cuff Sizes: Adult, long) Pulse 68 Temp 37.2 ??C (99 ??F) (Tympanic) Resp 16 Ht 182.9 cm (72) Wt 99.8 kg (220 lb) Comment: per pt BMI 29.84 kg/m2 General: Patient is alert and oriented, no acute distress Lungs: symmetric chest rise, no evidence of labored breathing Skin: clear, warm, dry and intact and no rashes, bruises or petechiae noted Musculoskeletal: Gait: patient ambulates independently, steady gait no obvious scoliosis or abnormal curvature of the spine Assessment: 1. Spondylosis without myelopathy or radiculopathy, lumbosacral region Plan: Ms. Bria Jackman is a 52 y.o. female that presents to the pain clinic to undergo lumbar radiofrequency ablation in regards to her chronic back pain. All risks, benefits, and alternatives were thoroughly explained to Ms. Bria Jackman who verbally communicated understanding of the management plan. Proceed with radiofrequency ablation at L4,5,ala on the left side: Follow up: Pt will follow up on 08/10 for RFA of the right side Procedure: The patient gave informed written consent [...] documentation in this encounter. Marko Crowley MD * Allison Steen RN - 07/11/2017 0634 EST Thermal RFA parameters: Temp (Celcius): 80 Time (Seconds): 150 xxxxxxxxxxxxxxxxxx xxxxxxxxxxxxxxxxxxxx xxxxxxxxxxxxxxxxxxxx Location Sensory: 50 Hz Motor: 2 Hz Lt Sacral Ala 0.28 Negative xxxxxxxxxxxxxxxxxxx xxxxxxxxxxxxxxxxxxxxx xxxxxxxxxxxxxxxxxxxxx Lt L5 0.28 Negative xxxxxxxxxxxxxxxxxxx xxxxxxxxxxxxxxxxxxxxx xxxxxxxxxxxxxxxxxxxxx Lt L4 0.18 Negative xxxxxxxxxxxxxxxxxxx xxxxxxxxxxxxxxxxxxxxx xxxxxxxxxxxxxxxxxxxxx documented in this encounter Plan of Treatment Upcoming Encounters Date Type Department Care Team (Late st Contact Info) Description 09/24/2024 7:30 EST Rehab Therapy Visit [facility] Rehabilitation Therapy [address] [place] [address] Mirlande Keene, PT [address] [place] [address] 11/25/2024 9:00 EDT Office Visit [facility] Total Joint Program - [address] [facility] [place] [address] Tess Rojas NP [address] [place] [address] documented as of this encounter Visit Diagnoses Diagnosis Spondylosis without myelopathy or radiculopathy, lumbosacral region- Primary documented in this encounter Administered Medications Inactive Administered Medications - up to 3 most recent administrations Medication Order MAR Action Action Date Dose Rate Site bupivacaine (PF) (MARCAINE) 0.5 % (5 mg/mL) injection 15 mg 15 mg (3 mL), keturah-neural, NOW X1, 1 dose, On Sun07/11/17 at 1415, Routine Given by Other 07/11/2017 14:07 EST 15 mg documented in this encounter Discontinued Medications Medication Sig Discontinue Reason Start Date End Da te Artificial Tear, Hypromellose, (GENTEAL SEVERE) 0.3 % Gel Place 0.5 cm into the right eye at bedtime. Reported on 09/18/2016 Patient Stopped Taking 07/11/2017 doxycycline (ADOXA) 100 mg tablet Take 100 mg by mouth. Reported on 09/18/2016 Therapy completed 07/11/2017 fluorometholone (FML) 0.1 % ophthalmic suspension Place 1 Drop into the right eye 4 times daily. Therapy completed 12/06/2012 07/11/2017 methylPREDNISolone (MEDROL DOSEPACK) 4 mg tablet follow package directions Therapy completed 03/01/2016 07/11/2017 trimethoprim-polymyxi n B (POLYTRIM) ophthalmic solution Place 1 Drop into the right eye 2 times daily. Therapy completed 12/30/2012 07/11/2017 documented as of this encounter Orders Medications Ordered That Sae ht Not Have Been Administered Count Last Ordered Date First Ordered Date bupivacaine (PF) (MARCAINE) 0.5 % (5 mg/mL) injection 15 mg 1 07/11/2017 documented in this encounter Care Teams Insurance Executive Relationship Specialty Start Date End Date Alisas Arellano PA [address] [place] [address] PCP - General 11/27/12 03/11/22 documented as of this encounter
--- OUTSIDE RECORDS SUMMARY | 2024-09-15 15:53 | XMS_ITS | Encounter Summary ---
Author Organization [facility] Address [address] [place] [address] Care Team Providers Care Adobe Layer Helper Name Role Phone Alissa Arellano Primary Care Provider [phone] Encounter Details Date Type Department Care Team (Late st Contact Info) Description 10/18/2016 Historical Results Only [facility] - [facility] [place] Main [address] [id number] Bonnie Hanson MD [address] [facility] [address] [place] [address] Social History Tobacco Use Types Packs/Day Years [...] 07/19/2016 8:50 EST documented in this encounter Plan of Treatment Upcoming Encounters Date Type Department Care Team (Late st Contact Info) Description 09/24/2024 7:30 EST Rehab Therapy Visit [facility] - [facility] Rehabilitation Therapy [address] [place], [place] [address] Jassi Mirlande, PT [address] [place], [place] [address] 11/25/2024 9:00 EDT Office Visit [facility] Total [facility] Program - [facility] [address] [facility] [place] [address] Tess Rojas, LUCAS [address] [place] [address] documented as of this encounter Procedures Procedure Name Priority Date/Time Associated Diagnosis Comments HEMOGLOBIN AND HEMATOCRIT [place] [facility] Routine 10/18/2016 14:40 EST HEMOGLOBIN AND HEMATOCRIT [place] [facility] Routine 10/18/2016 6:45 EST CREATININE Routine 10/18/2016 6:45 EST documented in this encounter Results * (ABNORMAL) HEMOGLOBIN AND HEMATOCRIT - [facility] (10/18/2016 14:40 EST) HEMATOCRIT - [facility] 31.8(L) 34.0 - 47.0 % 10/18/2016 14:[address] [facility] HEMOGLOBIN - [facility] 10.5(L) 11.2 - 15.7 g/dl 10/18/2016 14:[address] [facility] 10/18/2016 14:4 0 EST 10/18/2016 14:[address] [facility] - 10/18/2016 14:53 EST COMMENTS: PLEASE COME TO WACU TO DRAW Does PT Have a Latex Allergy? NO us Bonnie Hanson MD CHEMISTRY & BLOOD GAS ORDERABL ES Final Result [facility] * CREATININE (10/18/2016 6:45 EST) Pathologist [facility] CREATININE 0.89 0.5 - 1.3 mg/dL 10/18/2016 7:39 [facility] eGFR >60 10/18/2016 7:39 [facility] Comment: Chronic renal impairment is defined as GFR <60 Multiply result by 1.210 for patients. eGFR calculated using the IDMS-traceable MDRD Study Equation. ??(effective 06/15/2014) 10/18/2016 6:45 EST 10/18/2016 7:13 EST us Bonnie Hanson MD CHEMISTRY & BLOOD GAS ORDERABL ES Final Result Performing Organization Address [facility] Co de Phone Number [facility] * (ABNORMAL) HEMOGLOBIN AND HEMATOCRIT - [facility] (10/18/2016 6:45 EST) Pathologist [facility] HEMATOCRIT - [facility] 31.4(L) 34.0 - 47.0 % 10/18/2016 7:56 [facility] Comment: Result called to ??CAROLYN JEFFERYLOBOK 10/18/16 0756: Result called by MIRYAM HEMOGLOBIN - [facility] 10.4(L) 11.2 - 15.7 g/dl 10/18/2016 7:56 [facility] Comment: Result called to CAROLYN BOWENSOCZEK 10/18/16 0755: Result called by MIRYAM 10/18/2016 6:45 EST 10/18/2016 7:13 EST us Bonnie Hanson MD CHEMISTRY & BLOOD GAS ORDERABL ES Final Result [facility] documented in this encounter Visit Diagnoses Not on filedocumented in this encounter Care Teams Adobe Layer Helper Relationship Specialty Start Date End Date Alissa Arellano PA [address] [place] [address] PCP - General 11/27/12 03/11/22 documented as of this encounter
--- OUTSIDE RECORDS SUMMARY | 2024-09-15 15:53 | XMS_ITS | Encounter Summary ---
Author Organization [facility] Address [address] [place] [address] Care Team Providers Care Glove Wrapper Name Role Phone Alissa Arellano Primary Care Provider [phone] Reason for Visit * Reason Onset Date Comments Results 12/11/2016 Encounter Details Date Type Department Care Team (Late st Contact Info) Description 12/11/2016 Telephone [facility] - [facility] Interventional Pain [address] [place], [place] [phone] Demi Bañuelos MD [address] [place] [phone] Results Social History Tobacco Use Types Packs/Day [...] 07/19/2016 8:50 EST documented in this encounter Miscellaneous Notes * Telephone Encounter - Leandro Oliver RN - 12/11/2016 1045 EDT Recorded in Doc Flow sheets * Telephone Encounter - Radha Rivers - 12/11/2016 1039 EDT Pt has had 90% relief from two RFA. documented in this encounter Plan of Treatment Upcoming Encounters Date Type Department Care Team (Late st Contact Info) Description 09/24/2024 7:30 EST Rehab Therapy Visit [facility] - [facility] Rehabilitation Therapy [address] [place], [place] [phone] Mirlande Keene, PT [address] [place] [address] 11/25/2024 9:00 EDT Office Visit [facility] Total Joint Program - [address] [phone] Tess Rojas, LUCAS [address] [place] [address] documented as of this encounter Visit Diagnoses Not on filedocumented in this encounter Care Teams Glove Wrapper Relationship Specialty Start Date End Date Alissa Arellano PA [address] [place] [address] PCP - General 11/27/12 03/11/22 documented as of this encounter
--- OUTSIDE RECORDS SUMMARY | 2024-09-15 15:53 | XMS_ITS | Encounter Summary ---
Author Organization [facility] Address [address] [place] [address] Care Team Providers Care Cabinet Abrasive Sandblaster Name Role Phone Alissa Arellano Primary Care Provider [phone] Reason for Visit * Reason Onset Date Comments Injections 03/19/2017 Encounter Details Date Type Department Care Team (Late st Contact Info) Description 03/19/2017 Telephone [facility] Program - [address] [place] [address] Loraine Ledezma PA-C [address] [facility] [place] [address] Injections Social History Tobacco Use Types Packs/Day Years [...] encounter Miscellaneous Notes * Telephone Encounter - Allyson Campos - 03/19/2017 1300 EDT Patient called and left message. She wants to repeat RFA procedure that worked in 2016. She wants to know if she is required to come back here first. Called he back and got her vmail. Stated it is not necessary for her to return to Spine clinic, andprovided her number for CPM to call and get a repeat RFA set up. documented in this encounter Plan of Treatment Upcoming Encounters Date Type Department Care Team (Late st Contact Info) Description 09/24/2024 7:30 EST Rehab Therapy Visit [facility] Rehabilitation Therapy [address] [place], [place] [address] Mirlande Keene, PT [address] [place] [address] 11/25/2024 9:00 EDT Office Visit [facility] Total Joint Program - [address] [place] [address] Tess Rojas NP [address] [place] [address] documented as of this encounter Visit Diagnoses Not on filedocumented in this encounter Care Teams Cabinet Abrasive Sandblaster Relationship Specialty Start Date End Date Alissa Arellano PA [address] [place] [address] PCP - General 11/27/12 03/11/22 documented as of this encounter
--- OUTSIDE RECORDS SUMMARY | 2024-09-15 15:53 | XMS_ITS | Encounter Summary ---
Author Organization [facility] Address [address] [place] [address] Care Team Providers Care Sheet Metal Shop Helper Name Role Phone Alissa Arellano Primary Care Provider [phone] Encounter Details Date Type Department Care Team (Late st Contact Info) Description 10/16/2016 Historical Results Only [facility] - [facility] Lab - Main [address] [phone] Bonnie Hanson MD [address] [facility] [address] [place] [address] Social History Tobacco Use Types Packs/Day Years [...] Description 09/24/2024 7:30 EST Rehab Therapy Visit [facility] - [facility] Rehabilitation Therapy [address] [place] [facility], [place] [address] Mirlande Keene, PT [address] [place], [place] [address] 11/25/2024 9:00 EDT Office Visit [facility] Total Joint Program - [facility] [address] [facility] [place] [address] Tess Rojas, LUCAS [address] [place] [address] documented as of this encounter Procedures Procedure Name Priority Date/Time Associated Diagnosis Comments TYPE AND SCREEN Routine 10/16/2016 7:26 EST CREATININE Routine 10/16/2016 7:26 EST COMPLETE BLOOD COUNT WITH DIFFERENTIAL (AUTO) Routine 10/16/2016 7:25 EST documented in this encounter Results * CREATININE (10/16/2016 7:26 EST) CREATININE 0.78 0.5 - 1.3 mg/dL 10/16/2016 9:16 EST [facility] eGFR >60 10/16/2016 9:16 EST [facility] Comment: Chronic renal impairment is defined as GFR <60 Multiply result by 1.210 for patients. eGFR calculated using the IDMS-traceable MDRD Study Equation. ??(effective 06/15/2014) 10/16/2016 7:26 EST 10/16/2016 7:26 EST Narrative [facility] - 10/16/2016 9:16 EST Does PT Have a Latex Allergy? NO us Bonnie Hanson MD CHEMISTRY & BLOOD GAS ORDERABL ES Final Result [facility] * TYPE AND SCREEN (10/16/2016 7:26 EST) BLOOD TYPE - [facility] O Positive [facility] Antibody Screen NEGATIVE [facility] Specimen Expires: 11/06/16 [id number] [facility] 10/16/2016 7:26 EST 10/16/2016 7:26 EST Narrative [facility] - 10/16/2016 7:10 EST Does PT Have a Latex Allergy? NO IS THIS A PREOPERATIVE PATIENT? Y IF YES, DATE OF SURGERY: 10/17/16 us Bonnie Hanson MD BLOOD BANK TESTS Final Result [facility] * COMPLETE BLOOD COUNT WITH DIFFERENTIAL (AUTO) (10/16/2016 7:25 EST) Pathologist [facility] ABSOLUTE NEUTROPHIL COUN - [facility] 2.96 1.7 - 7.0 10e3/ul 10/16/2016 8:31 [facility] BASO # - [facility] 0.02 0.0 - 0.3 10e3/uL 10/16/2016 8:31 [facility] BASO % - [facility] 0 0 - 2 % 10/16/2016 8:31 [facility] EOS # - [facility] 0.21 0.05 - 0.5 10e3/uL 10/16/2016 8:31 [facility] EOS % - [facility] 4 0 - 5 % 10/16/2016 8:31 [facility] GRAN % - [facility] 54 40 - 80 % 10/16/2016 8:31 [facility] HEMATOCRIT - [facility] 42.3 34.0 - 47.0 % 10/16/2016 8:31 [facility] HEMOGLOBIN - [facility] 14.0 11.2 - 15.7 g/dl 10/16/2016 8:31 [facility] IG# - [facility] 0.01 0 - 0.07 10e3/uL 10/16/2016 8:31 [facility] IG% - [facility] 0.2 0 - 0.9 % 10/16/2016 8:31 [facility] LYMPH # - [facility] 1.85 0.9 - 2.9 10e3/uL 10/16/2016 8:31 [facility] LYMPH% - [facility] 34 20 - 40 % 10/16/2016 8:31 [facility] MEAN CORPUSCULAR HGB - [facility] 33.0 26 - 34 pg 10/16/2016 8:31 [facility] MEAN CORPUSCULAR HGB CONC - [facility] 33.1 31 - 36 g/dL 10/16/2016 8:31 [facility] MEAN CELL VOLUME - [facility] 99.8 77 - 100 fl 10/16/2016 8:31 [facility] MONO # - [facility] 0.41 0.3 - 0.9 10e3/uL 10/16/2016 8:31 [facility] MONO% - [facility] 8 0 - 12 % 10/16/2016 8:31 [facility] PLATELET COUNT 261 150 - 400 10e3/ul 10/16/2016 8:31 [facility] RED BLOOD COUNT - [facility] 4.24 3.8 - 5.2 10e6/ul 10/16/2016 8:31 [facility] RED CELL DISTRI WIDTH - [facility] 13.0 11.8 - 15.6 % 10/16/2016 8:31 [facility] WHITE BLOOD COUNT - [facility] 5.5 3.5 - 10.5 10e3/ul 10/16/2016 8:31 [facility] 10/16/2016 7:25 EST 10/16/2016 7:25 [facility] Narrative [facility] - 10/16/2016 8:31 EST Does PT Have a Latex Allergy? NO us Bonnie Hanson MD HEMATOLOGY & PF4 ORDERABLES Fi nal Result [facility] documented in this encounter Visit Diagnoses Not on filedocumented in this encounter Care Teams Sheet Metal Shop Helper Relationship Specialty Start Date End Date Alissa Arellano PA [address] [place] [address] PCP - General 11/27/12 03/11/22 documented as of this encounter
--- OUTSIDE RECORDS SUMMARY | 2024-09-15 15:53 | XMS_ITS | Encounter Summary ---
Author Organization [facility] Address [address] [place] [address] Care Team Providers Care Manager Telemetry Name Role Phone Alissa Arellano Primary Care Provider [phone] Reason for Visit * Reason Onset Date Comments Appointment Related 03/20/2017 Encounter Details Date Type Department Care Team (Late st Contact Info) Description 03/20/2017 Telephone [facility] Interventional Pain [address] [place], [place] [phone] Demi Bañuelos MD [address] [place] [phone] Appointment Related Social History Tobacco Use Types [...] encounter Miscellaneous Notes * Telephone Encounter - Carroll Moreno - 03/20/2017 1618 EDT Pt has BC/BS [place]. PA is not required for repeat LRFAs. Please schedule in 2 appointments at this time. * Telephone Encounter - Lilliam Yeung RN - 03/20/2017 1349 EDT Injection History: 07/19/2016: lumbar radiofrequency ablation at L4, 5, ala right 06/28/2016: lumbar radiofrequency ablation at L4,5,ala left 04/27/2016: medial branch blocks at L4,5,ala bilateral 11/17/15: b/l L4-5, L5-S1 facet injections 05/04/15: B/L L4-5, L5-S1 facet injections 100% relief for 7 hrs, almost complete relief of low backpain, and 80% relief of left hip pain for 4 months ?? Date and type of procedure: 07/19/2016: lumbar radiofrequency ablation at L4, 5, ala right Provider: Dr. Bañuelos Hours of relief: 8 months % of relief: 100% Next appointment: Forwarded to PA to obtain prior auth for lumbar radiofrequency ablation at L4, 5, ala right and left in 2 separate appointments * Telephone Encounter - Yin Moore - 03/20/2017 1249 EDT Patient would like to schedule a radio frequency ablation. Patient's last appointment was on 07/19/17. Patient got 100% that lasted approximately eight months. documented in this encounter Plan of Treatment Upcoming Encounters Date Type Department Care Team (Late st Contact Info) Description 09/24/2024 7:30 EST Rehab Therapy Visit [facility] Rehabilitation Therapy [address] [place] [address] Mirlande Keene, PT [address] [place], [place] [address] 11/25/2024 9:00 EDT Office Visit [facility] Total Joint Program - [address] [place] [address] Tess Rojas, LUCAS [address] [place] [address] documented as of this encounter Visit Diagnoses Not on filedocumented in this encounter Care Teams Manager Telemetry Relationship Specialty Start Date End Date Alissa Arellano PA [address] [place] [address] PCP - General 11/27/12 03/11/22 documented as of this encounter
--- OUTSIDE RECORDS SUMMARY | 2024-09-15 15:53 | XMS_ITS | Encounter Summary ---
Author Organization [facility] Address [address] [place] [address] Care Team Providers Care Travel Sales Consultant Name Role Phone Alissa Arellano Primary Care Provider [phone] Reason for Visit * Reason Comments Back Pain right lower back Encounter Details Date Type Department Care Team (Late st Contact Info) Description 08/10/2017 10:45 EST Office Visit [facility] Interventional Pain [address] [place], [place] [phone] Marko Crowley MD [address] [place] [address] [place] [address] Bob Siddiqui MD [address] [place] [address] Spondylosis of lumbar region without myelopathy or radiculopathy (Primary Dx); Facet arthropathy, lumbar ([facility]) Discharge Disposition: Auto Discharge Social History Tobacco [...] Sign Reading Time Taken Comments Blood Pressure 113/74 08/10/2017 1146 EST Pulse 67 08/10/2017 1146 EST Temperature 36.7 ??C (98.1 ??F) 08/10/2017 1042 EST Respiratory Rate 18 08/10/2017 1042 EST Oxygen Saturation - - Inhaled Oxygen Concentration - - Weight 99.8 kg (220 lb) 08/10/2017 1042 EST Height 182.9 cm (6') 08/10/2017 1042 EST Body Mass Index 29.84 08/10/2017 1042 EST documented in this encounter Functional Status [...] Spondylosis without myelopathy or radiculopathy, lumbar region-M47.816[ICD-10-CM] M12.88 Other specific arthropathies, not elsewhere classified, vertebrae-M12.88[ICD-10-CM] documented in this encounter Patient Instructions * Patient Instructions* Hung Dhillon RN - 08/10/2017 10:45 EST [facility] [address] [address] Patient Instructions You have had your Right Lumbosacral Radiofrequency Ablation. The purpose of this procedure [...] documented in this encounter Progress Notes * Destinee Anne - 08/10/2017 1045 EST [facility] Rooming Note Does patient have a [place] Boss? yes Is patient NPO? (Solids since midnight & liquids for 4 hrs) NA Blood Thinners: Is patient on Blood Thinners? no If yes, taking? If stopped, who authorized stopping? Related comments: Infections: Any recent infections, fever of illnesses? no If on antibiotics, is it 7-10 days past the date of completion of antibiotics? no : (for females of child-bearing age) Is there a chance current ? Other: * Bob Siddiqui MD - 08/10/2017 1045 EST Patient Name: Bria Jackman : 1965 Date of Service: 08/10/2017 Concrete Buster Operator: Dr. Crowley Chicken Raiser: Bob Siddiqui MD Procedure: Therapeutic lumbar radiofrequency ablation at L4, L5, and SA on the right Interval History: Patient presents for continued evaluation and treatment recommendations of the patient's low back. Bria Jackman primarily localizes the pain at her low back on the right, without radiation. Patient currently denies any progressive weakness, unexplained fever, trauma or unexplained weight loss. Patient has undergone RFA in the past which provided significant long lasting relief. Today's pain score is 4 out of 10. The patient reports no recent changes in the character, quality, or distribution of the pain. Thereare no recent onset of new associated symptoms such as changes in strength, sensation, or bladder control. All previous medical records including current medications, anticoagulation status, any signs of current infection, and new imaging were reviewed. Injection History: 08/10/2017: lumbar radiofrequency ablation at L4, L5, and SA on the right 07/11/2017: lumbar radiofrequency ablation at L4,5,ala left: [...] known recent infections. Physical Exam: Vitals: BP 111/71 (BP Cuff Location: Left arm, Patient Position: Sitting, BP Cuff Sizes: Adult, regular) Pulse 73 Temp 36.7 ??C (98.1 ??F) (Tympanic) Resp 18 Ht 182.9 cm (72) Wt 99.8 kg (220 lb) BMI 29.84 kg/m2 Psych: Patient is alert and oriented, no acute distress Eyes: EOMI, no nystagmus, no strabismus Lungs: symmetric chest rise, no evidence of labored breathing Skin/Heme/Lymph: clear, warm, dry and intact and no rashes, bruises or petechiae noted Alberto: gross sensory exam within normal limits, intact sensation to light touch on BLEs Musculoskeletal: Gait: patient ambulates independently, steady gait Lumbar Spine: tenderness elicited upon palpation of the spinous processes and paraspinal regions Assessment: 1. Spondylosis of lumbar region without myelopathy or radiculopathy 2. Facet arthropathy, lumbar Plan: Ms. Bria Jackman is a 52 y.o. female that presents to the pain clinic to undergo lumbar radiofrequency ablation in regards to her chronic back pain. All risks, benefits, and alternatives were thoroughly explained to Ms. Bria Jackman who verbally communicated understanding of the management plan. Proceed with radiofrequency ablation at L4, L5, and SA on the right Follow up: We will follow up with [...] Please see additional documentation in this encounter. Pain Score (from Vitals) 08/10/2017 08/10/2017 Initial score 4 - Final score - 4 Location - BACK Comment - pre Bob Siddiqui MD Attending attestation: The patient was seen and discussed with the resident/fellow. I agree with the findings and plan of care documented in the resident's/fellow's note. In addition, I was present and participating during the entire procedure. Marko Crowley MD * Hung Dhillon RN - 08/10/2017 1045 EST Thermal RFA parameters: Temp (Celcius): 80 Time (Seconds): 150 xxxxxxxxxxxxxxxxxx xxxxxxxxxxxxxxxxxxxx xxxxxxxxxxxxxxxxxxxx Location Sensory: 50 Hz Motor: 2 Hz Rt Sacral Ala .40 Negative xxxxxxxxxxxxxxxxxxx xxxxxxxxxxxxxxxxxxxxx xxxxxxxxxxxxxxxxxxxxx Rt L5 .28 Negative xxxxxxxxxxxxxxxxxxx xxxxxxxxxxxxxxxxxxxxx xxxxxxxxxxxxxxxxxxxxx Rt L4 .28 Negative xxxxxxxxxxxxxxxxxxx xxxxxxxxxxxxxxxxxxxxx xxxxxxxxxxxxxxxxxxxxx documented in this encounter Plan of Treatment Upcoming Encounters Date Type Department Care Team (Late st Contact Info) Description 09/24/2024 7:30 EST Rehab Therapy Visit [facility] Therapy [address] [place] [address] Mirlande Keene, PT [address] [place] [phone] 11/25/2024 9:00 EDT Office Visit [facility] Total Joint Program - [address] [place] [address] Tess Rojas, LUCAS [address] [place] [address] documented as of this encounter Visit Diagnoses Diagnosis Spondylosis of lumbar region without myelopathy or radiculopathy- Primary Lumbosacral spondylosis without myelopathy Facet arthropathy, lumbar Lumbosacral spondylosis without myelopathy documented in this encounter Administered Medications Inactive Administered Medications - up to 3 most recent administrations Medication Order MAR Action Action Date Dose Rate Site bupivacaine (PF) (MARCAINE) 0.5 % (5 mg/mL) injection 15 mg 15 mg (3 mL), keturah-neural, NOW X1, 1 dose, On Sun08/10/17 at 1130, Routine Given by Other 08/10/2017 11:10 EST 15 mg documented in this encounter Orders Medications Ordered That Sae ht Not Have Been Administered Count Last Ordered Date First Ordered Date bupivacaine (PF) (MARCAINE) 0.5 % (5 mg/mL) injection 15 mg 1 08/10/2017 documented in this encounter Care Teams Travel Sales Consultant Relationship Specialty Start Date End Date Alissa Arellano PA [address] [place] [address] PCP - General 11/27/12 03/11/22 documented as of this encounter
--- OUTSIDE RECORDS SUMMARY | 2024-09-15 15:53 | XMS_ITS | Encounter Summary ---
Author Organization [facility] Address [address] [place] [address] Care Team Providers Care Utility Bill Complaints Investigator Name Role Phone Alissa Arellano Primary Care Provider Encounter Details Date Type Department Care Team (Late st Contact Info) Description 07/13/2016 Historical Results Only [facility] Radiology Results [address] [place], [place] [id number] Hari Haley MD Social History Tobacco Use Types Packs/Day Years [...] shopping? Answer Date of Assessment Author No 06/28/2016 13:03 EST documented as of this encounter Mental Status * Because of a physical, mental, or emotional condition, does this person have serious difficulty concentrating, remembering, or making decisions? Answer Entry Date Author No 06/28/2016 13:03 EST documented in this encounter Plan of Treatment Upcoming Encounters Date Type Department Care Team (Late st Contact Info) Description 09/24/2024 7:30 EST Rehab Therapy Visit [facility] Therapy [address] [place], [place] [phone] Mirlande Keene, PT [address] [place], [place] [address] 11/25/2024 9:00 EDT Office Visit [facility] Total Joint Program - [address] [address] Tess Rojas, LUCAS [address] [place] [address] documented as of this encounter Visit Diagnoses Not on filedocumented in this encounter Care Teams Utility Bill Complaints Investigator Relationship Specialty Start Date End Date Alissa Arellano PA [address] [place] [address] PCP - General 11/27/12 03/11/22 documented as of this encounter
--- OUTSIDE RECORDS SUMMARY | 2024-09-15 15:53 | XMS_ITS | Encounter Summary ---
Author Organization [facility] Address [address] [place] [address] Care Team Providers Care Counter Control Operator Name Role Phone Alissa Arellano Primary Care Provider [phone] Encounter Details Date Type Department Care Team (Late st Contact Info) Description 06/24/2016 Historical Results Only [facility] Lab - Main [place] [address] [place], [place] [phone] Demetria Bonds PA [address] [place] [address] Social History Tobacco Use Types Packs/Day Years Used Date Smoking Tobacco: Never Alcohol Use Standard Drinks/Week Comments [...] shopping? Answer Date of Assessment Author No 04/27/2016 9:01 EDT documented as of this encounter Mental Status * Because of a physical, mental, or emotional condition, does this person have serious difficulty concentrating, remembering, or making decisions? Answer Entry Date Author No 04/27/2016 9:01 EDT documented in this encounter Plan of Treatment Upcoming Encounters Date Type Department Care Team (Late st Contact Info) Description 09/24/2024 7:30 EST Rehab Therapy Visit [facility] Rehabilitation Therapy [address] [place], [place] [phone] Mirlande Keene, PT [address] [place] [address] 11/25/2024 9:00 EDT Office Visit [facility] Total Joint Program - [address] [place] [address] Tess Rojas, LUCAS [address] [place] [address] documented as of this encounter Procedures Procedure Name Priority Date/Time Associated Diagnosis Comments GC/CHLAMYDIA PCR - [facility] Routine 06/24/2016 12:00 EST documented in this encounter Results * GC/CHLAMYDIA PCR - [facility] (06/24/2016 12:00 EST) CHLAMYDIA PCR - [facility] NOT DETECTED 06/26/2016 17:56 EST [facility] GONORRHEA PCR - [facility] NOT DETECTED 06/26/2016 17:56 EST [facility] SOURCE CERVIX 06/26/2016 17:56 EST [facility] 06/24/2016 12:0 0 EST 06/26/2016 13:51 EST Narrative [facility] - 06/26/2016 17:56 EST Does PT Have a Latex Allergy? NO us Demetria KUHN CHEMISTRY & BLOOD GAS ORDERAB LES Final Result [facility] documented in this encounter Visit Diagnoses Not on filedocumented in this encounter Care Teams Counter Control Operator Relationship Specialty Start Date End Date Alissa Arellano PA [address] [place] [address] PCP - General 11/27/12 03/11/22 documented as of this encounter
--- OUTSIDE RECORDS SUMMARY | 2024-09-15 15:53 | XMS_ITS | Encounter Summary ---
Author Organization [facility] Address [address] [place] [address] Care Team Providers Care Real Property Appraiser Name Role Phone Alissa Arellano Primary Care Provider [phone] Encounter Details Date Type Department Care Team (Latest Contact Info) Description 10/17/2016 13:51 EST - 10/17/2016 23:59 EST Hospital Encounter [facility] [address] [place] [address] Unknown, Provider, MD Discharge Disposition: Home or [...] 07/19/2016 8:50 EST documented in this encounter Medications at Time of Discharge MULTIVITAMIN ORAL Take by mouth. Reported on 07/19/2016 sertraline (ZOLOFT) 50 mg tablet Take 1.5 Tablets by mouth daily. Artificial Tear, Hypromellose, (GENTEAL SEVERE) 0.3 % Gel Place 0.5 cm into the right eye at bedtime. Reported on 09/18/2016 7 Carboxymethylcell ulose Sodium 1 % drops, liquid gel Place 1 Drop into the right eye 4 times daily. Reported on 09/18/2016 3 doxycycline (ADOXA) 100 mg tablet Take 100 mg by mouth. Reported on 09/18/2016 7 fluorometholone (FML) 0.1 % ophthalmic suspension Place 1 Drop into the right eye 4 times daily. 1 Bottle 1 12/06/2012 7 LACTOBACILLUS ACIDOPHILUS (ACIDOPHILUS ORAL) Take by mouth. Reported on 07/19/2016 1 LEVONORGESTREL (MIRENA INTRAUTERINE) by intrauterine route 1 methylPREDNISolon e (MEDROL DOSEPACK) 4 mg tablet follow package directions 1 Pack 0 03/01/2016 7 nabumetone (RELAFEN) 500 mg tablet Take 500 mg by mouth 2 times daily as needed. Reported on 07/19/2016 1 trimethoprim-poly myxin B (POLYTRIM) ophthalmic solution Place 1 Drop into the right eye 2 times daily. 1 Bottle 0 12/30/2012 7 valACYclovir (VALTREX) 500 mg tablet Take 500 mg by mouth as needed. Reported on 07/19/2016 3 documented as of this encounter Discharge Disposition Disposition Code Departure Means Destination Home or Self Nursing Home documented in this encounter Plan of Treatment Upcoming Encounters Date Type Department Care Team (Late st Contact Info) Description 09/24/2024 7:30 EST Rehab Therapy Visit [facility] Rehabilitation Therapy [address] [place], [place] [address] Mirlande Keene, PT [address] [place], [place] [address] 11/25/2024 9:00 EDT Office Visit [facility] Total Joint Program - [address] [place] [address] Tess Rojas NP [address] [place] [address] documented as of this encounter Visit Diagnoses Not on filedocumented in this encounter Care Teams Real Property Appraiser Relationship Specialty Start Date End Date Alissa Arellano PA [address] [place] [address] PCP - General 11/27/12 03/11/22 documented as of this encounter
--- OUTSIDE RECORDS SUMMARY | 2024-09-15 15:53 | XMS_ITS | Encounter Summary ---
Author Organization [facility] Address [address] [place] [address] Care Team Providers Care Roll Tender Name Role Phone Alissa Arellano Primary Care Provider [phone] Encounter Details Date Type Department Care Team (Late st Contact Info) Description 10/06/2016 Historical Results Only [facility] Lab - Main [address] [phone] Bonnie Hanson MD [address] [facility] [address] [place] [address] Social History Tobacco Use Types Packs/Day Years [...] Visit [facility] Rehabilitation Therapy [address] [place], [place] [phone] Mirlande Keene, PT [address] [place] [address] 11/25/2024 9:00 EDT Office Visit [facility] Total Joint Program - [facility] [address] [place] [place] [address] Tess Rojas, LUCAS [address] [facility] [place] [address] documented as of this encounter Procedures Procedure Name Priority Date/Time Associated Diagnosis Comments SURGICAL PATHOLOGY Routine 10/06/2016 documented in this encounter Results * SURGICAL PATHOLOGY (10/06/2016) 10/06/2016 10/06/2016 17: 02 EST Narrative [facility] - 10/09/2016 12:11 EST PREOP AUB Procedure: ENDOMETRIAL BX Tissue Removed ENDOMETRIAL TISSUE LMP: Prev.Abn Pap: 10/05/16 ----- ------- Name: BESSIE VAUGHN ?: [birth year] ?Age/Sex: 53/F ?Unit#: [id number] ? Loc: AGO ? Status: REG POV ?? Reg Date: 10/06/16 ? Pt.Phone Number: ? ----- ------- Specimen: [id number] ?STATUS: SOUT ?Spec Date:10/06/16 ? Physician Copies: ?Bonnie Hanson ? Tissues: A ?? Endometrium, biopsy ?Demetria Bonds CPT: 69781 ?? Units: ??1 ?FINAL DIAGNOSIS ? ENDOMETRIUM, BIOPSY; ? - Inactive endometrium with decidualized stroma and partial breakdown. ? - Stromal inflammatory cells including plasma cells, consistent with chronic ? endometritis. ? GROSS DESCRIPTION ? Received in formalin labeled with the patient's name designated Endomet ? tissue is a 2.0 x 1.5 x 0.2 cm aggregate of reddish-tran tissue fragments, ? filtered and entirely submitted in 1 cassette. es 1 MW ?? PREOP DX/CLINICAL HISTORY ?Abnormal uterine bleeding Signed ____(signature on file)____ Wendy Bundy M.D. 10/09/16 By the signature above, the attending physician certifies that he/she has personally conducted a gross and/or microscopic examination of the described specimens and rendered or confirmed the above diagnosis. Test Performed by [facility], [address] [place] [id number] Hand Cloth Examiner: Wendy Bundy MD PHD ----- ------- us Bonnie Hanson MD PATHOLOGY ORDERABLES Final Res ult [facility] documented in this encounter Visit Diagnoses Not on filedocumented in this encounter Care Teams Roll Tender Relationship Specialty Start Date End Date Alissa Arellano PA [address] [place] [address] PCP - General 11/27/12 03/11/22 documented as of this encounter
--- OUTSIDE RECORDS SUMMARY | 2024-09-15 15:53 | XMS_ITS | Encounter Summary ---
Author Organization [facility] Address [address] [place] [address] Care Team Providers Care Quality Measurement Specialist Name Role Phone Alissa Arellano Primary Care Provider [phone] Encounter Details Date Type Department Care Team (Late st Contact Info) Description 07/14/2016 Historical Results Only [facility] Radiology Results [address] [place], [place] [phone] Hari Haley MD Social History Tobacco Use [...] Rehab Therapy Visit [facility] Therapy [address] [place], [place] [address] Mirlande Keene, PT [address] [place] [address] 11/25/2024 9:00 EDT Office Visit [facility] Total Joint Program - [facility] [address] [facility] [address] [place], [place] [phone] Tess Rojas, LUCAS [address] [place] [address] documented as of this encounter Procedures Procedure Name Priority Date/Time Associated Diagnosis Comments US PELVIS TRANSVAGINAL COMPLETE 07/14/2016 7:33 EST documented in this encounter Results * US PELVIS TRANSVAGINAL (07/14/2016 7:33 EST) Anatomical Region Laterality Modality Pelvis Other 07/14/2016 7:33 EST Narrative 07/14/2016 7:41 EST ? EXAM: ULTRASOUND/TRANSVAGINAL W/ PELVIC L EX. D/ (1638) ? CLINICAL INFORMATION: ? CHECK FIBROID ? D25.9 LEIOMYOMO OF UTERUS ? INDICATION: CHECK FIBROID: D25.9 LEIOMYOMO OF UTERUS US PER RE TO ? CHECK FIBROIDS ? TECHNIQUE: Transvaginal pelvic ultrasound. Arterial and venous ? spectral waveforms along with color imaging of the ovaries. ? COMPARISON: 11/22/2015 ? FINDINGS: ? Uterus: ? Orientation: Retroflexed ? Size: 9.8 x 7.4 x 7.6 cm ? Findings: Multiple heterogeneous fibroids are again identified. The ? largest in the left posterior lower uterine segment measures 7.5 cm ? compared to 6.3 cm in November 2015. The next largest in the right ? uterine body measures 2.6 cm, compared to 3.1 cm in November 2015. An ? IUD is in expected position within the endometrial canal. ? Cervix: Normal. ? Endometrium: ? Echotexture: Homogeneous. ? Thickness: 8.2 mm. ? An IUD appears properly positioned in the endometrial canal. ? Ovaries: ? Right ovary: ? Size: 2.9 x 2.2 x 1.5 cm. ? Doppler flow: Color Doppler flow is present. ? Findings: There is an irregular, hypoechoic heterogeneous cyst within ? the right ovary which measures 1.5 x 0.7 x 0.7 cm ? Left ovary: Not visualized. ? Cul-de-sac: No free fluid. ? IMPRESSION: ? 1. ??Multiple uterine fibroids. The largest measures up to 7.5 cm and ? has slightly increased in size compared to November 2015. ? 2. IUD in expected position. ? PAGE 1 ? Signed Report ? (CONTINUED) ? 3. 1.5 cm complex cystic lesion in the right ovary likely reflects a ? hemorrhagic cyst. ? REPORT SIGNED IN OTHER VENDOR SYSTEM 07/14/2016 ?Reported By: Jett Dos Santos MD ? CC: ? Transcribed Date/Time: 07/14/2016 (0741) ? Rooming House Keeper: ? Printed Date/Time: 01/24/2019 (2111) ? PAGE 2 ? Signed Report ? Procedure Note Jett Dos Santos E - 06/18/2019 EXAM: ULTRASOUND/TRANSVAGINAL W/ PELVIC L EX. D/ (1638) CLINICAL INFORMATION: CHECK FIBROID D25.9 LEIOMYOMO OF UTERUS INDICATION: CHECK FIBROID: D25.9 LEIOMYOMO OF UTERUS US PER RE TO CHECK FIBROIDS TECHNIQUE: Transvaginal pelvic ultrasound. Arterial and venous spectral waveforms along with color imaging of the ovaries. COMPARISON: 11/22/2015 FINDINGS: Uterus: Orientation: Retroflexed Size: 9.8 x 7.4 x 7.6 cm Findings: Multiple heterogeneous fibroids are again identified. The largest in the left posterior lower uterine segment measures 7.5 cm compared to 6.3 cm in November 2015. The next largest in the right uterine body measures 2.6 cm, compared to 3.1 cm in November 2015. An IUD is in expected position within the endometrial canal. Cervix: Normal. Endometrium: Echotexture: Homogeneous. Thickness: 8.2 mm. An IUD appears properly positioned in the endometrial canal. Ovaries: Right ovary: Size: 2.9 x 2.2 x 1.5 cm. Doppler flow: Color Doppler flow is present. Findings: There is an irregular, hypoechoic heterogeneous cystwithin the right ovary which measures 1.5 x 0.7 x 0.7 cm Left ovary: Not visualized. Cul-de-sac: No free fluid. IMPRESSION: 1. Multiple uterine fibroids. The largest measures up to 7.5 cmand has slightly increased in size compared to November 2015. 2. IUD in expected position. PAGE 1 Signed Report (CONTINUED) 3. 1.5 cm complex cystic lesion in the right ovary likely reflectsa hemorrhagic cyst. REPORT SIGNED IN OTHER VENDOR SYSTEM 07/14/2016 Reported By: Jett Dos Santos MD CC: Transcribed Date/Time: 07/14/2016 (4365) Rooming House Keeper: Printed Date/Time: 01/24/2019 (2917) PAGE 2 Signed Report us Hari Haley MD IMG OB ORDERABLES Final Resu lt documented in this encounter Visit Diagnoses Not on filedocumented in this encounter Care Teams Quality Measurement Specialist Relationship Specialty Start Date End Date Alissa Arellano PA [address] [place] [address] PCP - General 11/27/12 03/11/22 documented as of this encounter
--- OUTSIDE RECORDS SUMMARY | 2024-09-15 15:53 | XMS_ITS | Encounter Summary ---
Author Organization [facility] Address [address] [place] [address] Care Team Providers Care Client Support Representative Name Role Phone Alissa Arellano Primary Care Provider Reason for Visit * Reason Comments Pain lower back Encounter Details Date Type Department Care Team (Late st Contact Info) Description 06/28/2016 13:00 EST Office Visit [facility] Interventional Pain [address] [place], [place] [id number] Demi Bañuelos MD [address] [place] [phone] Marko Crowley MD [address] [place] [address] [place] [address] Spondylosis without myelopathy or radiculopathy, [...] Sign Reading Time Taken Comments Blood Pressure 128/77 06/28/2016 1345 EST Pulse 61 06/28/2016 1345 EST Temperature 36.5 ??C (97.7 ??F) 06/28/2016 1306 EST Respiratory Rate 16 06/28/2016 1306 EST Oxygen Saturation - - Inhaled Oxygen Concentration - - Weight 96.6 kg (213 lb) 06/28/2016 1306 EST per pt Height 182.9 cm (6') 06/28/2016 1306 EST per pt Body Mass Index 28.89 06/28/2016 1306 EST documented in this encounter Functional Status [...] 06/28/2016 13:03 EST documented in this encounter Discharge Diagnoses Diagnosis M47.817 Spondylosis without myelopathy or radiculopathy, lumbosacral region-M47.817[ICD-10-CM] documented in this encounter Patient Instructions * Patient Instructions* Rhonda Vitale RN - 06/28/2016 13:00 EST [facility] [address] [address] Patient Instructions You have had your Radiofrequency Ablation. The purpose of this procedure is to send an electrical stimulation to areas of your neck/back which may help relieve your pain. The following information should help [...] time. Do not use heat, as this may cause swelling. ??? As long as your primary doctor has indicated no restrictions, you may take a mild pain medicine, such as acetaminophen (Tylenol), ibuprofen (Advil, Nuprin, Motrin IB, etc.) or aspirin, if needed. ??? Please keep track of how your pain feels over the next few weeks. It may take up to 3-4 weeks to know whether this procedure was [...] or bowel functions, please call our office immediately. Instructions for follow-up: If you have any questions about your block, please call Patient Education Topic: Method: Handout and Verbal Taught to: Patient Barriers: None Outcomes: independent Rhonda Cruz RN documented in this encounter Discharge Disposition Disposition Code Departure Means Destination Auto Discharge documented in this encounter Progress Notes * Destinee Anne - 06/28/2016 1300 EST [facility] Rooming Note Does patient have a Bindery Leadperson? yes Is patient NPO? (Solids since midnight [...] a chance current ? no Other: * Demi Bañuelos MD - 06/28/2016 1300 EST Patient Name: Bria Jackman : 1965 Date of Service: 06/28/2016 Requesting physician: Alissa Arellano Tripoler: Demi Bañuelos MD Manager Of Selection And Assessment: None Procedure: Therapeutic lumbar radiofrequency ablation at L4,5,ala left Interval History: Patient presents at the request of Alissa Arellano for continued evaluation and treatment recommendations of the patient's pain. Bria Jackman primarily localizes the pain at her lower back, with bilateral radiation to the buttocks. She describes the pain as dull and throbbing in character. Patient currently denies any progressive weakness, unexplained fever, trauma or unexplained weight loss. Patient has undergone diagnostic injections that was positive. Today's pain score is 4 out of 10. The patient reports no recent changes in the character, quality, or distribution of the pain. There are no recent onset of new associated symptoms such as changes in strength, sensation, or bladder control. All previous medical records including current medications, anticoagulation status, any signs of current infection, and new i maging were reviewed. Injection History: 06/28/2016: lumbar radiofrequency ablation at L4,5,ala left [...] or known recent infections. Physical Exam: Vitals: Visit Vitals ??? BP 124/75 (BP Cuff Location: Left arm, Patient Position: Sitting, BP Cuff Sizes: Adult, regular) ??? Pulse 64 ??? Temp 36.5 ??C (97.7 ??F) (Tympanic) ??? Resp 16 ??? Ht 182.9 cm (72) Comment: per pt ??? Wt 96.6 kg (213 lb) Comment: per pt ??? BMI 28.89 kg/m2 General: Patient is alert and oriented, no acute distress Lungs: symmetric chest rise, no evidence of labored breathing Skin: clear, warm, dry and intact and no rashes, bruises or petechiae noted Musculoskeletal: Gait: patient ambulates independently , steady gait no obvious scoliosis or abnormal curvature of the spine Lumbar Spine: tenderness elicited upon palation , pain elicited upon facet loading Lower Extremity: strength 5/5, sensory bilaterally equal to light tough, negative straight leg test Assessment: 1. Spondylosis without myelopathy or radiculopathy, lumbosacral region Plan: Ms. Bria Jackman is a 51 y.o. female that presents to the pain clinic to undergo lumbar radiofrequency ablation in regards to her chronic back pain. All risks, benefits, and alternatives were thoroughly explained to Ms. Bria Jackman who verbally communicated understanding of the management plan. Proceed with radiofrequency ablation at L4,5,ala left Follow up: We will follow up with [...] Please see additional documentation in this encounter. * Rhonda Vitale RN - 06/28/2016 1300 EST Thermal RFA parameters: Temp (Celcius): 80 Time (Seconds): 150 xxxxxxxxxxxxxxxxxx xxxxxxxxxxxxxxxxxxxx xxxxxxxxxxxxxxxxxxxx Location Sensory: 50 Hz Motor: 2 Hz Lt Sacral Ala .29 Negative xxxxxxxxxxxxxxxxxxx xxxxxxxxxxxxxxxxxxxxx xxxxxxxxxxxxxxxxxxxxx Lt L5 .13 Negative xxxxxxxxxxxxxxxxxxx xxxxxxxxxxxxxxxxxxxxx xxxxxxxxxxxxxxxxxxxxx Lt L4 .12 Negative xxxxxxxxxxxxxxxxxxx xxxxxxxxxxxxxxxxxxxxx xxxxxxxxxxxxxxxxxxxxx documented in this encounter Plan of Treatment Upcoming Encounters Date Type Department Care Team (Late st Contact Info) Description 09/24/2024 7:30 EST Rehab Therapy Visit [facility] [address] [place], [place] [phone] Mirlande Keene, PT [address] [place] [id number] 11/25/2024 9:00 EDT Office Visit [facility] Total Joint Program - [address] [place], [place] [phone] Tess Rojas, LUCAS [address] [place] [phone] documented as of this encounter Visit Diagnoses Diagnosis Spondylosis without myelopathy or radiculopathy, lumbosacral region- Primary documented in this encounter Administered Medications Inactive Administered Medications - up to 3 most recent administrations Medication Order MAR Action Action Date Dose Rate Site bupivacaine (PF) (MARCAINE) 0.5 % (5 mg/mL) injection 15 mg 15 mg (3 mL), keturah-neural, NOW X1, 1 dose, On Sun06/28/16 at 1400, Routine Given by Other 06/28/2016 13:36 EST 15 mg documented in this encounter Orders Medications Ordered That Sae ht Not Have Been Administered Count Last Ordered Date First Ordered Date bupivacaine (PF) (MARCAINE) 0.5 % (5 mg/mL) injection 15 mg 1 06/28/2016 documented in this encounter Care Teams Client Support Representative Relationship Specialty Start Date End Date Alissa Arellano PA [address] [place] [address] PCP - General 11/27/12 03/11/22 documented as of this encounter
--- OUTSIDE RECORDS SUMMARY | 2024-09-15 15:53 | XMS_ITS | Encounter Summary ---
Author Organization [facility] Address [address] [place] [address] Care Team Providers Care Fructose Loader Name Role Phone Alissa Arellano Primary Care Provider Encounter Details Date Type Department Care Team (Latest Contact Info) Description 07/13/2016 13:25 EST - 07/13/2016 23:59 EST Hospital Encounter [facility] [address] [place] [address] Unknown, Provider, MD Discharge Disposition: Home or [...] 06/28/2016 13:03 EST documented in this encounter Medications at [...] Code Departure Means Destination Home or Self Alf documented in this encounter Plan of Treatment Upcoming Encounters Date Type Department Care Team (Late st Contact Info) Description 09/24/2024 7:30 EST Rehab Therapy Visit [facility] Rehabilitation Therapy [address] [place], [place] [phone] Mirlande Keene, PT [address] [place], [place] [address] 11/25/2024 9:00 EDT Office Visit [facility] Total [facility] Program - [address] [place] [address] Tess Rojas NP [address] [place] [address] documented as of this encounter Visit Diagnoses Not on filedocumented in this encounter Care Teams Fructose Loader Relationship Specialty Start Date End Date Alissa Arellano PA [address] [place] [address] PCP - General 11/27/12 03/11/22 documented as of this encounter
--- OUTSIDE RECORDS SUMMARY | 2024-09-15 15:53 | XMS_ITS | Encounter Summary ---
Author Organization [facility] Address [address] [place] [address] Care Team Providers Care Marine Service Station Attendant Name Role Phone Alissa Arellano Primary Care Provider [phone] Reason for Visit * Reason Comments Back Pain low back pain Encounter Details Date Type Department Care Team (Late st Contact Info) Description 07/19/2016 9:15 EST Office Visit [facility] Interventional Pain [address] [place], [place] [phone] Unknown, Provider, Demi Garnett MD [address] [place] [phone] Spondylosis without myelopathy or radiculopathy, lumbosacral region [...] Sign Reading Time Taken Comments Blood Pressure 121/74 07/19/2016 0952 EST Pulse 67 07/19/2016 0952 EST Temperature 36.4 ??C (97.5 ??F) 07/19/2016 0850 EST Respiratory Rate 16 07/19/2016 0952 EST Oxygen Saturation - - Inhaled Oxygen Concentration - - Weight 95.3 kg (210 lb) 07/19/2016 0850 EST Height 182.9 cm (6') 07/19/2016 0850 EST Body Mass Index 28.48 07/19/2016 0850 EST documented in this encounter Functional Status [...] 07/19/2016 8:50 EST documented in this encounter Discharge Diagnoses Diagnosis M47.817 Spondylosis without myelopathy or radiculopathy, lumbosacral region-M47.817[ICD-10-CM] documented in this encounter Patient Instructions * Patient Instructions* Comfort Naranjo RN - 07/19/2016 9:15 EST [facility] [place] [address] Patient Instructions You have had your Radiofrequency [...] for a follow up to discuss options. Radiofrequency Ablation Patient Education Method: Handout Demonstration Verbal Other: Taught to: Patient : Barriers: None Desire/motivation to learn Other: Outcomes: Independent Verbalized Understanding Return Demonstration If you have any questions about your block, please call COMFORT NARANJO RN documented in this encounter Discharge Disposition Disposition Code Departure Means Destination Auto Discharge documented in this encounter Progress Notes * Pedro Maciel - 07/19/2016 0936 EST [facility] Rooming Note Does patient have a Blow Down Helper? Yes Is patient NPO? (Solids since midnight & liquids for 4 hrs) Na Blood Thinners: Is patient on Blood Thinners? No If yes, taking? If stopped, who authorized stopping? Related comments: Infections: Any recent infections, fever of illnesses? No If on antibiotics, is it 7-10 days past the date of completion of antibiotics? No : (for females of child-bearing age) Is there a chance current ? No Other: * Demi Bañuelos MD - 07/19/2016 0915 EST Patient Name: Bria Jackman : 1965 Date of Service: 07/19/2016 Requesting physician: Alissa Arellano Welder Gun: Demi Bañuelos MD Golf Course Patroller: None Procedure: Therapeutic lumbar radiofrequency ablation at L4, 5, ala right Interval History: Patient presents at the request [...] that was positive. Today's pain score is 3 out of 10. The patient reports no recent changes in the character, quality, or distribution of the pain. There are no recent onset of new associated symptoms such as changes in strength, sensation, or bladder control. All previous medical records including current medications, anticoagulation status, any signs of current infection, and new i maging were reviewed. Injection History: 07/19/2016: lumbar radiofrequency ablation at [...] Physical Exam: Vitals: Visit Vitals ??? BP 101/79 (BP Cuff Location: Left arm, Patient Position: Sitting, BP Cuff Sizes: Adult, long) ??? Pulse 64 ??? Temp 36.4 ??C (97.5 ??F) (Tympanic) ??? Resp 16 ??? Ht 182.9 cm (72) ??? Wt 95.3 kg (210 lb) ??? BMI 28.48 kg/m2 General: Patient is alert and oriented, [...] plan. Proceed with radiofrequency ablation at L4, 5, ala right Follow up: We will follow up [...] see additional documentation in this encounter. * Comfort Naranjo RN - 07/19/2016 0915 EST Thermal RFA parameters: Temp (Celcius): 80 Time (Seconds): 150 xxxxxxxxxxxxxxxxxx xxxxxxxxxxxxxxxxxxxx xxxxxxxxxxxxxxxxxxxx Location Sensory: 50 Hz Motor: 3 Hz Rt Sacral Ala .27 Negative xxxxxxxxxxxxxxxxxxx xxxxxxxxxxxxxxxxxxxxx xxxxxxxxxxxxxxxxxxxxx Rt L5 .21 Negative xxxxxxxxxxxxxxxxxxx xxxxxxxxxxxxxxxxxxxxx xxxxxxxxxxxxxxxxxxxxx Rt L5 .28 Negative xxxxxxxxxxxxxxxxxxx xxxxxxxxxxxxxxxxxxxxx xxxxxxxxxxxxxxxxxxxxx documented in this encounter Plan of Treatment Upcoming Encounters Date Type Department Care Team (Late st Contact Info) Description 09/24/2024 7:30 EST Rehab Therapy Visit [facility] [address] [place], [place] [phone] Mirlande Keene, PT [address] [place], [place] [address] 11/25/2024 9:00 EDT Office Visit [facility] Total Joint Program - [facility] [address] [place] [address] Tess Rojas, LUCAS [address] [place] [address] documented as of this encounter Visit Diagnoses Diagnosis Spondylosis without myelopathy or radiculopathy, lumbosacral region- Primary documented in this encounter Administered Medications Inactive Administered Medications - up to 3 most recent administrations Medication Order MAR Action Action Date Dose Rate Site bupivacaine (PF) (MARCAINE) 0.5 % (5 mg/mL) injection 15 mg 15 mg (3 mL), keturah-neural, NOW X1, 1 dose, On Sun07/19/16 at 1015, Routine Given by Other 07/19/2016 9:56 EST 15 mg documented in this encounter Orders Medications Ordered That Sae ht Not Have Been Administered Count Last Ordered Date First Ordered Date bupivacaine (PF) (MARCAINE) 0.5 % (5 mg/mL) injection 15 mg 1 07/19/2016 documented in this encounter Care Teams Marine Service Station Attendant Relationship Specialty Start Date End Date Alissa Arellano PA [address] [place] [address] PCP - General 11/27/12 03/11/22 documented as of this encounter
--- OUTSIDE RECORDS SUMMARY | 2024-09-15 15:53 | XMS_ITS | Encounter Summary ---
Author Organization [facility] Address [address] [place] [address] Care Team Providers Care Cook Fruit Name Role Phone Alissa Arellano Primary Care Provider [phone] Encounter Details Date Type Department Care Team (Late st Contact Info) Description 10/17/2016 Historical Results Only [facility] Radiology Results [address] [place], [place] [phone] Joshua Vila MD [address] [place] [phone] Social History Tobacco Use Types Packs/Day Years [...] Description 09/24/2024 7:30 EST Rehab Therapy Visit [facility] [address] [place] [address] Mirlande Keene, PT [address] [place] [address] 11/25/2024 9:00 EDT Office Visit [facility] Program - [facility] [address] [place] [address] Tess Rojas, LUCAS [address] [place] [address] documented as of this encounter Procedures Procedure Name Priority Date/Time Associated Diagnosis Comments SURGICAL PATHOLOGY Routine 10/17/2016 14 :24 EST FL C-ARM URETEROSCOPY 10/17/2016 10:18 EST documented in this encounter Results * SURGICAL PATHOLOGY (10/17/2016 14:24 EST) 10/17/2016 14:2 4 EST 10/17/2016 14:24 EST Narrative [facility] - 10/23/2016 10:44 EDT ----- ------- Name: BESSIE VAUGHN ?: [birth year] ?Age/Sex: 53/F ?Unit#: [id number] ? Loc: OBS ? Status: DIS IN ? Reg Date: 10/17/16 ? Pt.Phone Number: ? ----- ------- Specimen: [id number] ?STATUS: SOUT ?Spec Date:10/17/16 ? Physician Copies: ?Bonnie Hanson ? Tissues: A ?? Uterus other than neoplastic (UTERUS, CERVIX, BILATERAL FA) ??Demetria Bonds CPT: 06885 ?? Units: ??1 ?FINAL DIAGNOSIS ? UTERUS (408 GRAMS), CERVIX, AND FALLOPIAN TUBES, HYSTERECTOMY AND BILATERAL ? SALPINGECTOMY: ?1. Endometrium; ? - Inactive endometrium with pseudodecidualized stroma suggestive of exogenous ? hormonal effect. ?2. Myometrium; ? - Leiomyomata, intramural, largest 7.0 cm in maximum dimension. ?3. Serosa; ? - Serosal endometrial rest, consistent with focal endometriosis. ?3. Cervix; ? - Squamous metaplasia with acute and chronic inflammation. ?4. ??Fallopian tubes, right and left; ? - Bilateral acute serositis. ? - Bilateral benign paratubal cysts. ? GROSS DESCRIPTION ? Received in formalin, labeled with proper patient name Bessie Vaughn and ? Uterus, cervix, bilateral tubes, is an intact uterus that measures 10.0 cm ? from cervix to fundus x 11.5 cm medial to lateral and 7.5 cm from anterior to ? posterior. ??The uterus appears grossly distorted by multiple intramural ? nodules. ??The serosa is tran-brown. ??The uterus weighs 408 grams. ??Separately ? received are two fallopian tubes, one measuring 3.6 cm in length x 1.2 cm in ? diameter; the other tube measures 3.5 cm in length x 0.8 cm in diameter. ? Additionally received is a portion of cervix that measures 4.5 x 4.5 cm and is ? excised to a depth of 1.5 cm. ??The exocervix is tran-brown and smooth, and the ? endocervix is tran-brown and unremarkable. ??Sectioning of the uterus discloses ? the presence of multiple intramural nodules ranging from 0.5 x 0.5 x 0.5 cm to ? 4.5 x 4.5 x 7.0 cm. ??The endometrium is tran-pink and measures 0.2 cm in ? thickness. ??The myometrium is tran-pink and ranges in thickness from 0.6 cm to ? 0.8 cm. ??One aspect of the endometrium is distorted by the largest intramural ? nodule. ??Sectioning of the largest whorled nodule shows a tran-white cut surface ? without any areas of gross hemorrhage. ??Orange Grower sections of the whorled ? nodules are submitted for microscopic examination. ??The serosa of the fallopian ----- ------- Patient: BESSIE VAUGHN ?#[id number] ? (Continued) ----- ------- Specimen: [id number] ?Received: 10/17/16 ?(Continued) ? GROSS DESCRIPTION ?(Continued) ? tube is blue-astudillo and smooth with one paratubal cyst on each tube, each ? measuring 0.5 x 0.2 x 0.2 cm. ??Orange Grower sections submitted as follows: ? 1: ?Orange Grower sections of cervix, one aspect. ? 2: ?Orange Grower section of cervix, opposite aspect. ? 3-5: ?Orange Grower sections of endomyometrium and serosa. ? 6: ?Orange Grower section of endometrium and veterans employment representative section of ? whorled nodule. ? 7: ?Orange Grower section of smaller whorled nodule. ? 8-10: ? Orange Grower section of largest 7 cm whorled nodule. ? 11: ? Fallopian tube, fimbriated end bisected and veterans employment representative cross ? sections. ? 12: ? Fallopian tube, fimbriated end and veterans employment representative cross sections. ??AB ?? PREOP DX/CLINICAL HISTORY ?ABNORMAL UTERINE BLEEDING Signed ____(signature on file)____ Wendy Bundy M.D. 10/23/16 By the signature above, the attending physician certifies that he/she has personally conducted a gross and/or microscopic examination of the described specimens and rendered or confirmed the above diagnosis. Test Performed by [facility], [address] [place] [address] Waterproof Bag Cutting Machine Operator: Wendy Bundy MD PHD ----- ------- us Bonnie Hanson MD PATHOLOGY ORDERABLES Final Res ult [facility] * FL C-ARM URETEROSCOPY (10/17/2016 10:18 EST) Anatomical Region Laterality Modality Body Right Other 10/17/2016 10:1 8 EST Narrative 10/17/2016 10:21 EST ? EXAM: RADIOLOGY/C-ARM URETEROSCOPY ?EX. D/ (1001) ? CLINICAL INFORMATION: ? BILATERAL URETERAL STENTS ? C-ARM URETEROSCOPY ? Signs and Symptoms/Comments: BILATERAL URETERAL STENTS ? Comparison: None ? FINDINGS: ? Fluoroscopy services were provided during placement of bilateral ? ureteral stents. ? Fluoroscopy: 7.0 seconds ? IMPRESSION: ? As above. ? REPORT SIGNED IN OTHER VENDOR SYSTEM 10/17/2016 ?Reported By: Willie Cuellar MD ? CC: ? Transcribed Date/Time: 10/17/2016 (1021) ? Glass Furnace Operator: ? Printed Date/Time: 01/25/2019 (5617) ? PAGE 1 ? Signed Report ? Procedure Note Willie Cuellar MD - 06/18/2019 EXAM: RADIOLOGY/C-ARM URETEROSCOPY EX. D/ (1001) CLINICAL INFORMATION: BILATERAL URETERAL STENTS C-ARM URETEROSCOPY Signs and Symptoms/Comments: BILATERAL URETERAL STENTS Comparison: None FINDINGS: Fluoroscopy services were provided during placement of bilateral ureteral stents. Fluoroscopy: 7.0 seconds IMPRESSION: As above. REPORT SIGNED IN OTHER VENDOR SYSTEM 10/17/2016 Reported By: Willie Cuellar MD CC: Transcribed Date/Time: 10/17/2016 (1021) Glass Furnace Operator: Printed Date/Time: 01/25/2019 (4461) PAGE 1 Signed Report us Joshua Vila MD IMG OTHER IMAGING ORDERABLES Final Result documented in this encounter Visit Diagnoses Not on filedocumented in this encounter Care Teams Cook Fruit Relationship Specialty Start Date End Date Alissa Arellano PA [address] [place] [address] PCP - General 11/27/12 03/11/22 documented as of this encounter
--- OUTSIDE RECORDS SUMMARY | 2024-09-15 15:54 | XMS_ITS | Encounter Summary ---
Author Organization [facility] Address [address] [place] [address] Care Team Providers Care Environmental Health Safety Manager Name Role Phone Alissa Arellano Primary Care Provider [phone] Reason for Visit * Reason Comments Follow-up corneal ulcer right eye and dry eyes Encounter Details Date Type Department Care Team (Late st Contact Info) Description 12/30/2012 15:15 EDT Office Visit [facility] Ophthalmology [address] [address] Ashley Woody [facility] [address] [place] [address] [phone] Social History Tobacco Use Types Packs/Day Years Used Date Smoking Tobacco: Never Alcohol Use Standard Drinks/Week Comments Yes 0 (1 standard drink = 0.6 oz pur e alcohol) social Comments Unknown Sex and Gender Information Value Date Recorded Sex Assigned at Male 07/03/2024 7:00 EST Legal Sex Female 18:31 EST Gender Identity Female 12/23/2019 14:04 EDT Sexual Orientation Not on file Occupation Industry Job Start Date Job End Date Not on file Not on file Not on file Not on file documented as of this encounter Ordered Prescriptions Prescription Sig Dispense Quantity Refills Last Filled Start Date End Date trimethoprim-polymy rickie B (POLYTRIM) ophthalmic solution Place 1 Drop into the right eye 2 times daily. 1 Bottle 0 12/30/2012 07/11/2017 documented in this encounter Progress Notes * Ashley Woody - 12/30/2012 1532 EDT Chief Complaint Patient presents with ??? Follow-up corneal ulcer right eye and dry eyes HPI The patient is a 47 y.o. female Right Eye: Blurred Vision;Burning;Mucous / Discharge (in pm sometimes burning) Left Eye: NL Visual Fluctuations: None Visual Aid: None Current Rx Age Location: Right eye Pain: Quality: Severity: Mild Duration: Days Timing: Constant Lasts: Continuous Context: Patient is doing better, still some burning in the afternoons, discharge in am. Patient isusing Poytrim QID, & FML QID., ATs QID and Refresh gel at bedtime Modifying factors: Associated Signs & Symptoms: Visual Fluctuations: None Attestation: ROS Constitutional: NL Exposures: None Other: Attestation: Base Ophthalmology Exam Visual Acuity Right Left Dist sc 20/30 20/20 -1 Dist ph sc 20/20-2 Method: Snellen - Linear Tonometry Right Left Pressure 14 13 Method: Tonopen Time: 15:30 Main Ophthalmology Exam Slit Lamp Exam Right Left Lids/Lashes Normal Normal Conjunctiva/Sclera White and quiet White and quiet Cornea Mild Keratoconus, < 1mm subepith haze at 5:00, 1+ PEEs Clear Anterior Chamber Deep and quiet Deep and quiet Iris Round and reactive Round and reactive Neuro/Psych Oriented x3: Yes Mood/Affect: Normal DIAGNOSTIC TESTS: IMPRESSION & PLAN: 1. Corneal scar, right eye 2. dry eyes -Improved -will maintain FML QID in attempt to further decrease corneal scarring -decrease polytrim to BID -c/w Refresh QID -c/w Genteal gel at bedtime -f/u 1 month follow up I have reviewed the patient's past medical, family, social and surgical history. I have also reviewed the patient's medications, allergies, and problem list. I performed my own HPI and have reviewed the tech's ROS as well. I personally completed this exam myself. Ashley Woody MD I am scribing for Ashley Woody MD, while she is personally performing the service. Patient Education Topic: follow up Method: Verbal Taught to: Patient Barriers: None Outcomes: independent Signature: MISAEL Nickerson documented in this encounter Plan of Treatment Upcoming Encounters Date Type Department Care Team (Late st Contact Info) Description 09/24/2024 7:30 EST Rehab Therapy Visit [facility] [place] [facility] [address] [place], [place] [id number] Mirlande Keene, PT [address] [place], [place] [address] 11/25/2024 9:00 EDT Office Visit [facility] Total Joint Program - [facility] [address] [facility] [place] [address] Tess Rojas, LUCAS [address] [place] [address] documented as of this encounter Visit Diagnoses Diagnosis Dry eyes- Primary Tear film insufficiency, unspecified Corneal scar Corneal opacity, unspecified documented in this encounter Discontinued Medications Medication Sig Discontinue Reason Start Date End Da te trimethoprim-polymyxin B (POLYTRIM) ophthalmic solution Place 1 Drop into the right eye 4 times daily. Reorder 11/29/2012 12/30/2012 documented as of this encounter Eye Exam Visual Acuity (Snellen - Linear) Right eye Left eye Dist sc 20/30 20/20 -1 Dist ph sc 20/20-2 Tonometry (Tonopen, 15:30) Right eye Left eye Pressure 14 13 Neuro/Psych Oriented x3: Yes Mood/Affect: Normal Slit Lamp Exam Right eye Left eye Lids/Lashes Normal Normal Conjunctiva/Sclera White and quiet White and nicola et Cornea Mild Keratoconus, < 1mm subepith haze at 5:00, 1+ PEEs Clear Anterior Chamber Deep and quiet Deep and quiet Iris Round and reactive Round and siddhartha ctive Care Teams Environmental Health Safety Manager Relationship Specialty Start Date End Date Alissa Arellano PA [address] [place] [address] PCP - General 11/27/12 03/11/22 documented as of this encounter
--- OUTSIDE RECORDS SUMMARY | 2024-09-15 15:54 | XMS_ITS | Encounter Summary ---
Author Organization [facility] Address [address] [place] [address] Care Team Providers Care Stevedoring Supervisor Name Role Phone Alissa Arellano Primary Care Provider [phone] Reason for Visit * Reason Comments Follow-up Corneal Ulcer right eye Encounter Details Date Type Department Care Team (Late st Contact Info) Description 12/06/2012 11:30 EDT Office Visit [facility] Ophthalmology [address] [address] Ashley Woody [address], [place] [address] Social History Tobacco Use Types Packs/Day Years [...] Refills Last Filled Start Date End Date fluorometholone (FML) 0.1 % ophthalmic suspension Place 1 Drop into the right eye 4 times daily. 1 Bottle 1 12/06/2012 07/11/2017 documented in this encounter Progress Notes * Ashley Woody - 12/06/2012 1138 EDT Chief Complaint Patient presents with ??? Follow-up Corneal Ulcer right eye HPI The patient is a 47 y.o. female Right Eye: Blurred Vision;Burning Left Eye: NL Visual Aid: None Current Rx Age Location: Right eye Pain: 0 - No pain Quality: Severity: Moderate Duration: Days Timing: Constant Lasts: Continuous Context: Pt using Vigamox & Polytrim QID in right eye Modifying factors: Associated Signs & Symptoms: Attestation: ROS Constitutional: NL ENT/Mouth Cardiovascular: Respiratory: Gastrointestinal: Genitourinary: Musculoskeletal: Integumentary: Neurologic: Psychiatric: Endocrine: Hematologic: Immunologic: Network Design Architect: Exposures: None Other: Attestation: Base Ophthalmology Exam Visual Acuity Right Left Both Dist sc 20/30 20/20 Dist ph sc 20/30+ Method: Snellen - Linear Tonometry Right Left Pressure 15 15 Method: Tonopen Time: 11:46 Main Ophthalmology Exam Slit Lamp Exam Right Left Lids/Lashes Normal Normal Conjunctiva/Sclera White and quiet White and quiet Cornea Mild Keratoconus, < 1mm subepith haze at 5:00, 1+ PEEs Clear Anterior Chamber Deep and quiet Deep and quiet Iris Round and reactive Round and reactive Neuro/Psych Oriented x3: Yes Mood/Affect: Normal DIAGNOSTIC TESTS: IMPRESSION & PLAN: Corneal Ulcer, right eye -resolving -DC vigamox -c/w Polytrim QID (no allergic issues noted) -add FML QID -f/u 1 week or sooner PRN Dry eyes -start ATs QID -start lubricating liqui-gel QHS I have reviewed the patient's past medical, family, social and surgical history. I have also reviewed the patient's medications, allergies, and problem list. I performed my own HPI and have reviewed the tech's ROS as well. I personally completed this exam myself. Ashley Woody MD I am scribing for Ashley Woody MD, while she is personally performing the service. Patient Education Topic: Corneal Ulcer right eye Method: Verbal Taught to: Patient Barriers: None Outcomes: independent Signature: Farideh Villa documented in this encounter Plan of Treatment Upcoming Encounters Date Type Department Care Team (Late st Contact Info) Description 09/24/2024 7:30 EST Rehab Therapy Visit [facility] [place] [facility] Therapy [address] [place], [place] [phone] Mirlande Keene, PT [address] [place] [address] 11/25/2024 9:00 EDT Office Visit [facility] Total Joint Program - [place] [address] [place] [address] Tess Rojas, LUCAS [address] [place] [address] documented as of this encounter Visit Diagnoses Diagnosis Corneal ulcer- Primary Corneal ulcer, unspecified documented in this encounter Eye Exam Visual Acuity (Snellen - Linear) Right eye Left eye Dist sc 20/30 20/20 Dist ph sc 20/30+ Tonometry (Tonopen, 11:46) Right eye Left eye Pressure 15 15 Neuro/Psych Oriented x3: Yes Mood/Affect: Normal Slit Lamp Exam Right eye Left eye Lids/Lashes Normal Normal Conjunctiva/Sclera White and quiet White and nicola et Cornea Mild Keratoconus, < 1mm subepith haze at 5:00, 1+ PEEs Clear Anterior Chamber Deep and quiet Deep and quiet Iris Round and reactive Round and siddhartha ctive Care Teams Stevedoring Supervisor Relationship Specialty Start Date End Date Alissa Arellano PA [address] [place] [address] PCP - General 11/27/12 03/11/22 documented as of this encounter
--- OUTSIDE RECORDS SUMMARY | 2024-09-15 15:54 | XMS_ITS | Encounter Summary ---
Author Organization [facility] Address [address] [place] [address] Care Team Providers Care Tractor Mechanic Helper Name Role Phone Alissa Arellano Primary Care Provider [phone] Encounter Details Date Type Department Care Team (Latest Contact Info) Description 11/22/2015 18:41 EDT - 11/22/2015 23:59 EDT Hospital Encounter [facility] [address] [place] [address] Unknown, Provider, MD Discharge Disposition: Home or [...] shopping? Answer Date of Assessment Author No 11/17/2015 15:20 EDT documented as of this encounter Mental Status * Because of a physical, mental, or emotional condition, does this person have serious difficulty concentrating, remembering, or making decisions? Answer Entry Date Author No 11/17/2015 15:20 EDT documented in this encounter Medications at Time [...] Code Departure Means Destination Home or Self [facility] documented in this encounter Plan of Treatment Upcoming Encounters Date Type Department Care Team (Late st Contact Info) Description 09/24/2024 7:30 EST Rehab Therapy Visit [facility] [place] [facility] Therapy [address] [place], [place] [address] Mirlande Keene, PT [address] [place], [place] [address] 11/25/2024 9:00 EDT Office Visit [facility] Total Joint Program - [place] [address] Tess Rojas, SPRAY STAINER [address] [place] [address] documented as of this encounter Visit Diagnoses Not on filedocumented in this encounter Care Teams Tractor Mechanic Helper Relationship Specialty Start Date End Date Alissa Arellano PA [address] [place] [address] PCP - General 11/27/12 03/11/22 documented as of this encounter
--- OUTSIDE RECORDS SUMMARY | 2024-09-15 15:54 | XMS_ITS | Encounter Summary ---
Author Organization [facility] Address [address] [place] [address] Care Team Providers Care Oncology Nurse Name Role Phone Alissa Arellano Primary Care Provider [phone] Reason for Visit * Reason Comments Eye Problem Pain right eye Encounter Details Date Type Department Care Team (Late st Contact Info) Description 11/27/2012 13:30 EDT Office Visit [facility] Ophthalmology [address] [address] Ashley Woody [address], [place] [phone] Social History Tobacco Use Types Packs/Day Years Used Date Smoking Tobacco: Never Assessed Comments Unknown Sex and Gender Information Value Date Recorded Sex Assigned at Male 07/03/2024 7:00 EST Legal Sex Female 18:31 EST Gender Identity Female 12/23/2019 14:04 EDT Sexual Orientation Not on file documented as of this encounter Ordered Prescriptions Prescription Sig Dispense Quantity Refills Last Filled Start Date End Date moxifloxacin (VIGAMOX) 0.5 % ophthalmic solution Place 1 Drop into the right eye 4 times daily. 1 Bottle 1 11/27/2012 12/13/2012 documented in this encounter Progress Notes * Ashley Woody - 11/27/2012 6092 EDT Chief Complaint Patient presents with ??? Eye Problem Pain right eye HPI The patient is a 47 y.o. female Right Eye: Burning;Pain/Soreness Left Eye: NL Visual Aid: None Current Rx Age Location: Right eye Pain: 0 - No pain Quality: Severity: Moderate Duration: Days Timing: Waxes and wanes Lasts: Days Context: Pain and discomfort right eye x1 week. Pt has seen Dr Obrien & Dr Alcantara last week. Using Zylet QID right eye. She says eye was feeling better, but became more painful again this morning. Modifying factors: Pt has keratoconus both eyes Associated Signs & Symptoms: Attestation: ROS Constitutional: NL ENT/Mouth Cardiovascular: Respiratory: Gastrointestinal: Genitourinary: Musculoskeletal: Integumentary: Neurologic: Psychiatric: Endocrine: Hematologic: Immunologic: Allergy And Immunology Specialist: Exposures: None Other: Attestation: Base Ophthalmology Exam Visual Acuity Right Left Both Dist sc 20/30 20/20 -1 Dist ph sc 20/20- Method: Snellen - Linear Tonometry Right Left Pressure 14 12 Method: Applanation Time: 14:41 Main Ophthalmology Exam Slit Lamp Exam Right Left Lids/Lashes Normal Normal Conjunctiva/Sclera White and quiet White and quiet Cornea Mild Keratoconus, < 1mm ulcer at 5:00 with adjacent puntate erosions Clear Anterior Chamber Deep and quiet Deep and quiet Iris Round and reactive Round and reactive Neuro/Psych Oriented x3: Yes Mood/Affect: Normal DIAGNOSTIC TESTS: IMPRESSION & PLAN: Corneal Ulcer, right eye -lesion noted [address] Obrien and Dr. Alcantara w/ worsening sx on Zylet -DC Zylet -start vigamox QID -f/u 2 days keratoconus, right eye -pt seen by Dr. Ingram in the past -hold RGP wear for now I have reviewed the patient's past medical, family, social and surgical history. I have also reviewed the patient's medications, allergies, and problem list. I performed my own HPI and have reviewed the tech's ROS as well. I personally completed this exam myself. Ashley Woody MD I am scribing for Ashley Woody MD, while she is personally performing the service. Patient Education Topic: corneal erosion? Method: Other Taught to: Patient Barriers: None Outcomes: independent Signature: Magy Valenzuela COA documented in this encounter Plan of Treatment Upcoming Encounters Date Type Department Care Team (Late st Contact Info) Description 09/24/2024 7:30 EST Rehab Therapy Visit [facility] [place] [facility] [address] [facility], [place] [address] Keene Mirlande, PT [address] [place], [place] [address] 11/25/2024 9:00 EDT Office Visit [facility] Total Joint Program - [facility] [address] [place] [address] Tess Rojas, LUCAS [address] [place] [address] documented as of this encounter Visit Diagnoses Diagnosis Corneal ulcer- Primary Corneal ulcer, unspecified documented in this encounter Historical Medications * This list may reflect changes made after this encounter. sertraline (ZOLOFT) 50 mg tablet Take 1.5 Tablets by mouth daily. nabumetone (RELAFEN) 500 mg tablet Take 500 mg by mouth 2 times daily as needed. Reported on 07/19/2016 11/30/2020 added in this encounter Eye Exam Visual Acuity (Snellen - Linear) Right eye Left eye Dist sc 20/30 20/20 -1 Dist ph sc 20/20- Tonometry (Applanation, 14:41) Right eye Left eye Pressure 14 12 Neuro/Psych Oriented x3: Yes Mood/Affect: Normal Slit Lamp Exam Right eye Left eye Lids/Lashes Normal Normal Conjunctiva/Sclera White and quiet White and nicola et Cornea Mild Keratoconus, < 1mm ulcer at 5:00 with adjacent puntate erosions Clear Anterior Chamber Deep and quiet Deep and quiet Iris Round and reactive Round and siddhartha ctive Care Teams Oncology Nurse Relationship Specialty Start Date End Date Alissa Arellano PA [address] [place] [address] PCP - General 11/27/12 03/11/22 documented as of this encounter
--- OUTSIDE RECORDS SUMMARY | 2024-09-15 15:54 | XMS_ITS | Encounter Summary ---
Author Organization [facility] Address [address] [place] [address] Care Team Providers Care Nuclear Medicine Physician Name Role Phone Alissa Arellano Primary Care Provider [phone] Reason for Visit * Reason Onset Date Comments Results 11/18/2015 Encounter Details Date Type Department Care Team (Late st Contact Info) Description 11/18/2015 Telephone [facility] Interventional Pain [address] [place], [place] [phone] Leandro Oliver, RN Results Social History Tobacco Use Types [...] 11/17/2015 15:20 EDT documented in this encounter Miscellaneous Notes * Telephone Encounter - SilvestreAnia W - 11/19/2015 0859 EDT Procedure end time:____345PM Pain relief start time Returned to baseline pain Hours of relief 24 hours Percentage of relief 0-100 (0 = no relief, 100 = total relief) 90% * Telephone Encounter - Leandro Oliver RN - 11/18/2015 1436 EDT ----- Message from Allyson Schuler RN sent at 11/17/2015 15:46 EDT ----- Regarding: results Bilateral lumbar facets 4-5 5-S1 RN called patient and left a message to call back with % and hours of relief day of injection only out procedure pain from regular pain. Date and type of procedure:11/17/15 facet joint injections at bilateral L4-L5 and L5-S1 Provider:Zaida Hours of relief: 24 hours % of relief:90% Next appointment:Plan: Proceed with diagnostic and therapeutic facet joint injections at bilateral L4- L5 and L5-S1 Follow up: as needed for further evaluation and within 24 hrs by telephone to report results of diagnostic injection ?? She will follow up with Vibha Ledezma post injection Consider hip injection vs lumbar epidural if this is not effective documented in this encounter Plan of Treatment Upcoming Encounters Date Type Department Care Team (Late st Contact Info) Description 09/24/2024 7:30 EST Rehab Therapy Visit [facility] [place] Therapy [address] [place], [place] [address] Mirlande Keene, PT [address] [place] [phone] 11/25/2024 9:00 EDT Office Visit [facility] Total Joint Program - [address] [address] Tess Rojas, LUCAS [address] [place] [phone] documented as of this encounter Visit Diagnoses Not on filedocumented in this encounter Care Teams Nuclear Medicine Physician Relationship Specialty Start Date End Date Alissa Arellano PA [address] [place] [address] PCP - General 11/27/12 03/11/22 documented as of this encounter
--- OUTSIDE RECORDS SUMMARY | 2024-09-15 15:54 | XMS_ITS | Encounter Summary ---
Author Organization [facility] Address [address] [place] [address] Care Team Providers Care Assembly Stock Supervisor Name Role Phone Alissa Arellano Primary Care Provider [phone] Reason for Visit * Reason Onset Date Comments Appointment Related 09/07/2015 Encounter Details Date Type Department Care Team (Late st Contact Info) Description 09/07/2015 Telephone [facility] Spine Program - [address] [place] [address] Loraine Ledezma PA-C [address] [facility] [place] [address] Appointment Related Social History Tobacco [...] shopping? Answer Date of Assessment Author No 05/04/2015 12:56 EDT documented as of this encounter Mental Status * Because of a physical, mental, or emotional condition, does this person have serious difficulty concentrating, remembering, or making decisions? Answer Entry Date Author No 05/04/2015 12:56 EDT documented in this encounter Miscellaneous Notes * Telephone Encounter - Allyson Campos - 09/07/2015 1412 EST Patient called and left message indicating she would like to repeat the injections she had. I called back and got voicemail and left a message with number for CPM since she's been seen in last 3 years. Indicated that she should simply ask to schedule to repeat the injection. documented in this encounter Plan of Treatment Upcoming Encounters Date Type Department Care Team (Late st Contact Info) Description 09/24/2024 7:30 EST Rehab Therapy Visit [facility] [place] [facility] Therapy [address] [place], [place] [phone] Mirlande Keene, PT [address] [place] [address] 11/25/2024 9:00 EDT Office Visit [facility] Total Joint Program - [address] [place] [address] Tess Rojas, LUCAS [address] [place] [address] documented as of this encounter Visit Diagnoses Not on filedocumented in this encounter Care Teams Assembly Stock Supervisor Relationship Specialty Start Date End Date Alissa Arellano PA [address] [place] [address] PCP - General 11/27/12 03/11/22 documented as of this encounter
--- OUTSIDE RECORDS SUMMARY | 2024-09-15 15:54 | XMS_ITS | Encounter Summary ---
Author Organization [facility] Address [address] [place] [address] Care Team Providers Care Construction Producer Name Role Phone Alissa Arellano Primary Care Provider [phone] Reason for Referral * PT/OT/ST (Routine) - Closed Specialty Diagnoses / Procedures Referred By Contac t Referred To Contact Diagnoses Bilateral knee pain Bob Wilcox MD MSc [facility] Phone: tel: fax: Referral ID Status Reason Start Date Expiration Date V isits Requested Visits Authorized [id number] Closed Specialty Services Required 07/06/2015 1 1 Question Answer Reason for Request: bilateral knee pain, primarily anterior knee pain Comments Please focus on bilateral quad/hamstring strengthening, stretching, ROM, balance/gait training Reason for Visit * Reason Comments Knee Pain Bilateral knee pain * Consult (Routine) - Specialty Report Received Specialty Diagnoses / Procedures Referred By Contac t Referred To Contact Orthopedic Surgery Diagnoses Hip pain, left Loraine Ledezma PA-C Phone: tel: fax: [facility] Total [facility] Program [place] [address] Phone: tel: fax: Referral ID Status Reason Start Date Expiration Date Visits Requested Visits Authorized [id number] Specialty Report Received Specialty Services Required 5 1 1 Encounter Details Date Type Department Care Team (Late st Contact Info) Description 07/06/2015 8:00 EST Office Visit [facility] Program - [address] [phone] Bob Wilcox MD MSc [facility] [address] [place] [address] Bilateral knee pain (Primary Dx) Discharge Disposition: Auto Discharge Social [...] - Inhaled Oxygen Concentration - - Weight 88.5 kg (195 lb) 07/06/2015 0835 EST Height 182.9 cm (6') 07/06/2015 0835 EST Body Mass Index 26.45 07/06/2015 0835 EST documented in this encounter Functional Status [...] 05/04/2015 12:56 EDT documented in this encounter Discharge Diagnoses Diagnosis M25.561 Pain in right knee-M25.561[ICD-10-CM] M25.562 Pain in left knee-M25.562[ICD-10-CM] documented in this encounter Discharge Disposition Disposition Code Departure Means Destination Auto Discharge documented in this encounter Progress Notes * Mahesh Hunter MD - 07/06/2015 9238 EST OUTPATIENT CLINIC NOTE Problem: Chief Complaint Patient presents with ??? Knee Pain Bilateral knee pain HPI:Bria Jackman is a 50-year-old female referred here by our spine clinic for bilateral knee pain. The patient states that she has had knee issues for most of her life and is here for a tune up. She states that back in 1988, she had bilateral lateral releases performed of her knee at [facility], and after that time used a brace for a little while as well some physical therapy, but her knees did quite well after these surgeries. Since that time, she said her knees have had pain off and on, especially over the last year or so, right side being worse than the left. She states she does take some pain medication, which was primarily for her hip and back, but now she takes it occasionally for her knees. She states that she has never used braces in the past few years, has never had any injections in her knees and aside from doing her regular physical therapy strengtheningexercises on her own, she has not had formal therapy since being in her 20s. She states that twisting will occasionally make this worse, and she describes the pain as primarily on the anterior aspects of both knees, more on the inside of her knees than the outside. She denies ever really having swelling around her knees, just pain. Stairs do make the pain worse going up and down stairs and any sort of significant increase in activity. She states walking does not necessarily give her the same pain as hiking or stairs. Aside from the above, she has no other concerns or complaints today. ROS: See intake form Past Medical History Diagnosis Date ??? Depression ??? Keratoconus, unspecified ??? Arthritis Past Surgical History Procedure Laterality Date ??? Knee arthroscopy Bilateral ??? Hip arthroscopy Left 2005 ??? Tubal ligation Family History Problem Relation Age of Onset ??? Macular Degeneration Mother ??? Glaucoma Neg Hx ??? Retinal Detachment Neg Hx Social History Occupational History ??? [employer] Social History Main Topics ??? Smoking status: Never Smoker ??? Smokeless tobacco: Not on file ??? Alcohol Use: Yes Comment: social ??? Drug Use: No ??? Sexual Activity: Not on file Allergies Allergen Reactions ??? Penicillins ??? Sulfa (Sulfonamide Antibiotics) ??? Unable To Assess clams [address] [facility] [address] Current Outpatient Prescriptions Medication Sig Dispense Refill ??? Artificial Tear, Hypromellose, (GENTEAL SEVERE) 0.3 % Gel Place 0.5 cm into the right eye at bedtime. ??? Carboxymethylcellulose Sodium (REFRESH) 1 % Drops, Liquid Gel Place 1 Drop into the right eye 4times daily. ??? doxycycline (ADOXA) 100 mg tablet Take 100 mg by mouth ??? fluorometholone (FML) 0.1 % ophthalmic suspension Place 1 Drop into the right eye 4 times daily. 1 Bottle 1 ??? LACTOBACILLUS ACIDOPHILUS (ACIDOPHILUS ORAL) Take by mouth ??? LEVONORGESTREL (MIRENA INTRAUTERINE) by intrauterine route ??? MULTIVITAMIN ORAL Take by mouth ??? nabumetone (RELAFEN) 500 mg tablet Take 500 mg by mouth 2 times daily as needed. ??? sertraline (ZOLOFT) 50 mg tablet Take 75 mg by mouth daily. ??? trimethoprim-polymyxin B (POLYTRIM) ophthalmic solution Place 1 Drop into the right eye 2 timesdaily. 1 Bottle 0 ??? valACYclovir (VALTREX) 500 mg tablet Take 500 mg by mouth as needed No current facility-administered medications for this visit. Exam: On exam, the patient is awake, alert, in no apparent distress, calm and cooperative through the exam. She has a normal mood and affect. She has nonlabored breathing and no peripheral cyanosis. The bilateral lower extremities demonstrate sensation intact to light touch in her sural, saphenous, deep and superficial peroneal and tibial nerve distributions bilaterally. She has 2+ DP and PT pulses, and all of her toes are warm and well perfused with brisk cap refill. She has 5/5 strength in her gastroc, tib ant, quads, and iliopsoas. She has range of motion of her knees bilaterally from hyperextension of 5 to 10 degrees to flexion of approximately 140 to 145 degrees. She has no swelling noted on examination. She does have some tenderness to palpation over her anterior knee, right worse than left. She has mild medial joint line tenderness bilaterally. She does have some right patellar tenderness and mildly positive right patellar grind. She has well-healed arthroscopy incisions bilaterally. She has no patellar apprehension, a negative Yash, no increasing varus or valgus laxity. Negative posterior drawer. She has full and symmetric range of motion of her hips. She has a slight varus malalignment bilaterally when standing. She walks without any sort of limp. Radiographic: Images obtained today were reviewed independently by myself and my attending demonstrating grade 1 degenerative changes in her right knee, otherwise no real abnormalities noted. Slight varus malalignment. A / P: 1. Bilateral knee pain AMB CONS/FOLLOW UP PHYSICAL THERAPY Bria Jackman is a 50-year-old female who presents to clinic today with bilateral right worse than left knee pain. At this point in time, we advised her that she has very mild arthritis and may have some anterior knee pain related to her patellofemoral issues. At this point in time, we advised her to continue with her home therapy and gave her a prescription for some therapy to increase her hamstrings and quad strengthening, especially her VMO. We advised her that she can check in again on an as-needed basis, but this should help her sufficiently in the near future. The patient understood andagreed with this plan. All of her questions were answered at today's encounter. The patient was seen and examined with Dr Wilcox. Mahesh Hunter MD 07/06/2015 9:06 Attestation statement: I saw and examined the patient. I agree with the findings and plan of care documented in the resident's note. Bob Wilcox documented in this encounter Plan of Treatment Upcoming Encounters Date Type Department Care Team (Late st Contact Info) Description 09/24/2024 7:30 EST Rehab Therapy Visit [facility] [address] [place], [place] [phone] Mirlande Keene, PT [address] [place] [address] 11/25/2024 9:00 EDT Office Visit [facility] Program - [address] [place], [place] [phone] Tess Rojas, LUCAS [address] [place] [phone] Scheduled Referrals Name Type Priority Associated Diagnoses Orde r Schedule AMB CONS/FOLLOW UP PHYSICAL THERAPY Outpatient Referral Routine Bilateral knee pain Ordered: 07/06/2015 documented as of this encounter Visit Diagnoses Diagnosis Bilateral knee pain- Primary Pain in joint, lower leg documented in this encounter Care Teams Construction Producer Relationship Specialty Start Date End Date Alissa Arellano PA [address] [place] [address] PCP - General 11/27/12 03/11/22 documented as of this encounter
--- OUTSIDE RECORDS SUMMARY | 2024-09-15 15:54 | XMS_ITS | Encounter Summary ---
Author Organization [facility] Address [address] [place] [address] Care Team Providers Care Vocational Rehab Consultant Name Role Phone Alissa Arellano Primary Care Provider [phone] Encounter Details Date Type Department Care Team (Late st Contact Info) Description 11/30/2015 Historical Results Only [facility] [address] [place], [place] [phone] Alissa Arellano PA [address] [place], [place] Social History Tobacco Use Types Packs/Day [...] 11/17/2015 15:20 EDT documented in this encounter Plan of Treatment Upcoming Encounters Date Type Department Care Team (Late st Contact Info) Description 09/24/2024 7:30 EST Rehab Therapy Visit [facility] [address] [place], [place] [phone] Mirlande Keene, PT [address] [place], [place] [phone] 11/25/2024 9:00 EDT Office Visit [facility] - [facility] [address] [place] [address] Tess Rojas NP [address] [place] [address] documented as of this encounter Procedures Procedure Name Priority Date/Time Associated Diagnosis Comments MA BREAST SCREENING SHRUTI BILATERAL 11/30/2015 10:16 EDT documented in this encounter Results * MA BREAST SCREENING SHRUTI BILATERAL (11/30/2015 10:16 EDT) Anatomical Region Laterality Modality Breast Bilateral Other 11/30/2015 10:1 6 EDT Narrative 12/01/2015 14:05 EDT ? EXAM: MAMMOGRAM/MAMMO BILATERAL SCREEN W ??EX. D/ (1016) ? CLINICAL INFORMATION: ? Z12.31 SCREENING ? TECHNIQUE: ??Full field digital whole breast 2D (C-view) and 3D CC and ? MLO views of both breasts were obtained. CAD technology was utilized. ? INDICATION: ??Screening ? FINDINGS: ??The fibroglandular patterns of the breasts are normal. ? There has been no change when compared to previous mammograms and ? there is no mammographic evidence of cancer. The breasts are of ? heterogeneous density, which limits the sensitivity of mammography for ? the detection of malignancy. ? FINAL ASSESSMENT: ??BILATERAL BREAST - Category 1 - Negative. Routine ?mammographic follow-up is recommended. ? These results will be communicated to your patient via a lay letter ? from Radiology. ??If any additional imaging is needed we will contact ? your patient directly. ? BBL:kad ?Reported By: Willie Cuellar MD ? CC: ? Transcribed Date/Time: 12/01/2015 (1405) ? Emergency Room Physician: KRISTINE ? Printed Date/Time: 01/23/2019 (0948) ? PAGE 1 ? Signed Report ? Procedure Note Willie Cuellar MD - 06/18/2019 EXAM: MAMMOGRAM/MAMMO BILATERAL SCREEN W EX. D/ (1016) CLINICAL INFORMATION: Z12.31 SCREENING TECHNIQUE: Full field digital whole breast 2D (C-view) and 3D CCand MLO views of both breasts were obtained. CAD technology wasutilized. INDICATION: Screening FINDINGS: The fibroglandular patterns of the breasts are normal. There has been no change when compared to previous mammograms and there is no mammographic evidence of cancer. The breasts are of heterogeneous density, which limits the sensitivity of mammographyfor the detection of malignancy. FINAL ASSESSMENT: BILATERAL BREAST - Category 1 - Negative.Routine mammographic follow-up is recommended. These results will be communicated to your patient via a lay letter from Radiology. If any additional imaging is needed we willcontact your patient directly. BBL:[email or web address] Reported By: Willie Cuellar MD CC: Transcribed Date/Time: 12/01/2015 (8631) Emergency Room Physician: KRISTINE Printed Date/Time: 01/23/2019 (8070) PAGE 1 Signed Report us Alissa KUHN IMLeon MAMMOGRAPHY ORDERABLES Fi nal Result documented in this encounter Visit Diagnoses Not on filedocumented in this encounter Care Teams Vocational Rehab Consultant Relationship Specialty Start Date End Date Alissa Arellnao PA [address] [place] [address] PCP - General 11/27/12 03/11/22 documented as of this encounter
--- OUTSIDE RECORDS SUMMARY | 2024-09-15 15:54 | XMS_ITS | Encounter Summary ---
Author Organization [facility] Address [address] [place] [address] Care Team Providers Care Bench Lathe Operator Name Role Phone Alissa Arellano Primary Care Provider Reason for Referral * Consult (Routine) - Specialty Report Received Specialty Diagnoses / Procedures Referred By Jefferson ramires Referred To Contact Orthopedic Surgery Diagnoses Hip pain, left Loraine Ledezma PA-C Phone: tel: fax: [facility] - [address] [address] Phone: tel: fax: Referral ID Status Reason Start Date Expiration Date Visits Requested Visits Authorized [id number] Specialty Report Received Specialty Services Required 5 1 1 Question Answer Reason for Request: hip pain Comments Consultation for hip pain per patient's request Reason for Visit * Reason Comments Follow-up Encounter Details Date Type Department Care Team (Late st Contact Info) Description 05/26/2015 8:15 EDT Office Visit [facility] - [address] [address] Loraine Ledezma PA-C [address] [place] [address] [place] [address] Facet arthropathy, lumbar (Primary Dx); Hip pain, left Discharge Disposition: Auto Discharge Social History Tobacco [...] Spondylosis without myelopathy or radiculopathy, 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 Arellano. Chief Complaint Patient presents with ??? Follow-up The primary encounter diagnosis was Facet arthropathy, lumbar. A diagnosis of Hip pain, left was also pertinent to this visit. HPI Ms. Jackman is a 50 y.o. pleasant female who returns to the clinic today, 05/26/2015, for FU post L4-L5/L5-S1 B/L facet injections (04/29/2015). The patient reports 80% relief of LBP after the injections and about 60% relief of left hip symptoms. She would like to FU with total joint to have a separate evaluation of her hip. In 04/29/2015, Ms. Jackman had a FU visit post MRI (03/28/2015). The patient reports no significant improvement since her last visit. Ms. Jackman presented to the clinic for [...] arthropathy, lumbar ??? Arthralgia of left hip Past Medical History Diagnosis Date ??? Depression ??? Keratoconus, unspecified ??? Arthritis Past Surgical History Procedure Laterality Date ??? Knee arthroscopy Bilateral ??? Hip arthroscopy Left 2006 ??? Tubal ligation History Substance Use Topics ??? Smoking status: Never Smoker ??? Smokeless tobacco: Not on file ??? Alcohol Use: Yes Comment: social Family History Problem Relation [...] visit. Allergies Allergen Reactions ??? Penicillins ??? Sulfa (Sulfonamide Antibiotics) ??? Unable To Assess clams Review of Systems Physical Exam Ortho Exam Neurologic Exam Today, 05/26/2015, I independently reviewed the following: MRI from prior work up in April 2015: Degenerative disc and facet changes w/o any significant central spinal canal or neuroforaminal narrowing Plain radiographs (AP/Lat/Flex/Ex): 1. Five (5) non-rib bearing lumbar vertebrae 2. Mild facet arthropathy of the lower lumbar spine 3. Disc height reduction at L5-S1 conistent with degenerative disc disease 4. No fractures or pars defects noted Assessment 50 y.o. female with LBP most likely from degenerative disc and facet disease and LLE pain along theL3 dermatome not concordant with MRI. Recent lumbar facet injections provided 80% relief of LBP andabout 60% relief of hip pain. She has h/o left hip arthroscopy for labral tear and PE reproduced mild to moderate pain in the left hip with internal and external rotation. She has agreed to the following plan. Other Orders Placed This Visit Procedures ??? Amb Consult/Follow Up Orthopedics Plan: 1. Refer to total joint 2. Continue activity as tolerated 3. Return to spine clinic PRN CC: Dr. Adan Tello was the attending physician available in the clinic today if needed. A consultation was not required. documented in this encounter Plan of Treatment Upcoming Encounters Date Type Department Care Team (Late st Contact Info) Description 09/24/2024 7:30 EST Rehab Therapy Visit [facility] Rehabilitation Therapy [address] [place], [place] [phone] Mirlande Keene, PT [address] [place] [address] 11/25/2024 9:00 EDT Office Visit [facility] - [address] [address] Tess Rojas NP [address] [place] [address] Scheduled Referrals Name Type Priority Associated Diagnoses Order Schedule AMB CONS/FOLLOW UP ORTHOPEDICS Outpatient Referral Routine Hip pain, left Ordered: 05/26/2015 documented as of this encounter Visit Diagnoses Diagnosis Facet arthropathy, lumbar- Primary Lumbosacral spondylosis without myelopathy Hip pain, left Pain in joint, pelvic region and thigh documented in this encounter Care Teams Bench Lathe Operator Relationship Specialty Start Date End Date Alissa Arellano PA [address] [place] [address] PCP - General 11/27/12 03/11/22 documented as of this encounter
--- OUTSIDE RECORDS SUMMARY | 2024-09-15 15:54 | XMS_ITS | Encounter Summary ---
Author Organization [facility] Address [address] [place] [address] Care Team Providers Care Semiconductor Wafers Saw Operator Name Role Phone Alissa Arellano Primary Care Provider [phone] Reason for Visit * Reason Onset Date Comments Results 04/28/2016 Encounter Details Date Type Department Care Team (Late st Contact Info) Description 04/28/2016 Telephone [facility] Interventional Pain [address] [place], [place] [phone] Demi Bañuelos MD [address] [place] [phone] Results Social History Tobacco Use Types Packs/Day [...] 04/27/2016 9:01 EDT documented in this encounter Miscellaneous Notes * Telephone Encounter - Radha Rivers - 05/04/2016 1601 EDT appt 06/28/16 & 07/19/16 * Telephone Encounter - Allyson Moreland - 05/03/2016 1326 EDT The patient has BC/BS of [place]. The patient had good relief from the MBB's and facet injections. Authorization is not required for an RFA. REady to schedule. * Telephone Encounter - Allison Steen RN - 04/28/2016 1350 EDT Date and type of procedure: 04/27/16 Diagnostic medial branch blocks at lumbar L4,5,ala bilateral Provider: Sarmad Hours of relief: 7 hours at 90%, 3.5 at 50% % of relief: Next appointment: Follow up: if diagnostic positive, repeat mbb vs rfa depending on insurance requirements * Telephone Encounter - Carroll Moreno - 04/28/2016 0949 EDT Pt calling in with results from procedure on 04/27/16. Pt got excellent results for several hours. Please review and call back as needed. Percentage of relief from last procedure - 90%, then down to 50%, then gone Duration of relief - 7 hours at 90%, then another 3 1/2 hours at 50%. documented in this encounter Plan of Treatment Upcoming Encounters Date Type Department Care Team (Late st Contact Info) Description 09/24/2024 7:30 EST Rehab Therapy Visit [facility] Rehabilitation [address] [address] Mirlande Keene, PT [address] [place] [address] 11/25/2024 9:[address] [facility] Total [facility] Program - [address] [place], [place] [phone] Tess Rojas, LUCAS [address] [place] [address] documented as of this encounter Visit Diagnoses Not on filedocumented in this encounter Care Teams Semiconductor Wafers Saw Operator Relationship Specialty Start Date End Date Alissa Arellano PA [address] [place] [address] PCP - General 11/27/12 03/11/22 documented as of this encounter
--- OUTSIDE RECORDS SUMMARY | 2024-09-15 15:54 | XMS_ITS | Encounter Summary ---
Author Organization [facility] Address [address] [place] [address] Care Team Providers Care Biophysics Scientist Name Role Phone Alissa Arellano Primary Care Provider [phone] Reason for Referral * PT/OT/ST (Routine) - Closed Specialty Diagnoses / Procedures Referred By Jefferson ramires Referred To Contact Diagnoses Low back pain radiating to left leg Loraine Ledezma PA-C Phone: tel: fax: Referral ID Status Reason Start Date Expiration Date V isits Requested Visits Authorized [id number] Closed Specialty Services Required 04/29/2015 1 1 Question Answer Reason for Request: Low back pain radiating to left leg Comments Land PT twice/week for 8 weeks Loraine Ledezma PA-C * Consult (Routine) - Specialty Report Received Specialty Diagnoses / Procedures Referred By Contronald ramires Referred To Contact Pain Medicine Diagnoses Low back pain radiating to left leg Loraine Ledezma PA-C Phone: tel: fax: [facility] Interventional Pain [address] [place] [address] Phone: tel: fax: Referral ID Status Reason Start Date Expiration Date Visits Requested Visits Authorized [id number] Specialty Report Received Specialty Services Required 04/29/2015 1 1 Question Answer Reason for Request: Low back pain radiating to left leg Comments Recommend L4-L5/L5-S1 B/L facet injections Reason for Visit * Reason Comments Back Pain low back pain MRI f/ u Encounter Details Date Type Department Care Team (Late st Contact Info) Description 04/29/2015 9:15 EDT Office Visit [facility] Spine Program - [address] [place] [address] Loraine Ledezma PA-C [address] [facility] [place] [address] Low back pain radiating to left leg (Primary Dx) Social History Tobacco Use Types [...] on file documented as of this encounter Progress Notes * Allyson Campos - 04/29/2015 1011 EDT Patient given written and verbal patient education on injection * Loraine Ledezma PA - 04/29/2015 0911 EDT Bria Jackman is being seen as a consultation from Dr. Arellano. Chief Complaint Patient presents with ??? Back Pain low back pain MRI f/u The encounter diagnosis was Low back pain radiating to left leg. HPI Ms. Jackman is a 50 y.o. pleasant female who returns to the clinic today, 04/29/2015, for FU post MRI (03/28/2015). The patient reports no [...] Low back pain radiating to left leg Past Medical History Diagnosis Date ??? Depression ??? Keratoconus, unspecified Past Surgical History Procedure Laterality Date ??? Knee arthroscopy Bilateral ??? Hip arthroscopy Left 2005 ??? Tubal ligation History Substance Use Topics ??? Smoking status: Never Smoker ??? Smokeless tobacco: Not on file ??? Alcohol Use: Yes Comment: social Family History Problem Relation Age of Onset ??? Macular Degen Mother ??? Glaucoma Neg Hx ??? Retinal [...] Physical Exam Ortho Exam Neurologic Exam Today, 04/29/2015, I independently reviewed the following: MRI from [...] along theL3 dermatome not concordant with MRI. However, she has h/o left hip arthroscopy for labral tear andPE reproduced mild to moderate pain in the left hip with internal and external rotation. The possibility of this pain being referred facetogenic pain is plausible; we ll reevaluate symptoms after facet injections. She has agreed to the following plan. Other Orders Placed This Visit Procedures ??? Amb Consult/Follow Up Pain Interventional ??? Amb Consult/Follow Up Physical Therapy Plan: 1. Order L4-L5/L5-S1 B/L facet injections 2. Land PT twice/week X 8 weeks 3. Return to clinic post facet injections 4. If no relief from facet injections, consider diagnostic left intraarticular hip joint injection vs referral to total joint CC: Dr. Adan Vazquez was the attending physician available in the clinic today if needed. A consultation was not required. documented in this encounter Plan of Treatment Upcoming Encounters Date Type Department Care Team (Late st Contact Info) Description 09/24/2024 7:30 EST Rehab Therapy Visit [facility] Rehabilitation Therapy [address] [place] [address] Mirlande Keene, PT [address] [place] [phone] 11/25/2024 9:00 EDT Office Visit [facility] Total Joint Program - [facility] [address] [place] [address] Tess Rojas NP [address] [place] [address] Scheduled Referrals Name Type Priority Associated Diagnoses Order Schedule AMB CONS/FOLLOW UP PAIN INTERVENTIONAL Outpatient Referral Routine Low back pain radiating to left leg Ordered: 04/29/2015 AMB CONS/FOLLOW UP PHYSICAL THERAPY Outpatient Referral Routine Low back pain radiating to left leg Ordered: 04/29/2015 documented as of this encounter Visit Diagnoses Diagnosis Low back pain radiating to left leg- Primary Lumbago documented in this encounter Care Teams Biophysics Scientist Relationship Specialty Start Date End Date Alissa Arellano PA [address] [place] [address] PCP - General 11/27/12 03/11/22 documented as of this encounter
--- OUTSIDE RECORDS SUMMARY | 2024-09-15 15:54 | XMS_ITS | Encounter Summary ---
Author Organization [facility] Address [address] [place] [address] Care Team Providers Care Lift Supervisor Name Role Phone Alissa Arellano Primary Care Provider [phone] Reason for Visit * Reason Onset Date Comments Appointment Related 04/05/2015 Encounter Details Date Type Department Care Team (Late st Contact Info) Description 04/05/2015 Telephone [facility] Spine Program - [address] [place] [address] Loraine Ledezma PA-C [address] [facility] [place] [address] Appointment Related Social History Tobacco [...] on file documented as of this encounter Miscellaneous Notes * Telephone Encounter - Allyson Campos - 04/05/2015 0908 EDT Called patient with date and time of MRI and f/u appointment's. Provided appropriate phone numbers to reschedule if necessary. documented in this encounter Plan of Treatment Upcoming Encounters Date Type Department Care Team (Late st Contact Info) Description 09/24/2024 7:30 EST Rehab Therapy Visit [facility] [address] [place], [place] [phone] Mirlande Keene, PT [address] [place] [phone] 11/25/2024 9:00 EDT Office Visit [facility] Total Joint Program - [address] [address] Tess Rojas, LUCAS [address] [place] [address] documented as of this encounter Visit Diagnoses Not on filedocumented in this encounter Care Teams Lift Supervisor Relationship Specialty Start Date End Date Alissa Arellano PA [address] [place] [address] PCP - General 11/27/12 03/11/22 documented as of this encounter
--- OUTSIDE RECORDS SUMMARY | 2024-09-15 15:54 | XMS_ITS | Encounter Summary ---
Author Organization [facility] Address [address] [place] [address] Care Team Providers Care Tare Worker Name Role Phone Alissa Arellano Primary Care Provider [phone] Reason for Visit * Reason Onset Date Comments Appointment Related 09/10/2015 Encounter Details Date Type Department Care Team (Late st Contact Info) Description 09/10/[address] [facility] Interventional Pain [address] [place] [address] Donato Cerda MD [address] [place] [address] Appointment Related Social History Tobacco Use Types [...] Miscellaneous Notes * Telephone Encounter - Allyson Rahman - 09/20/2015 1548 EST appt scheduled 11/17/15 * Telephone Encounter - Allyson Rahman - 09/13/2015 1237 EST Message left. Reminder in ge. * Telephone Encounter - Shanae Singh - 09/13/2015 0800 EST Patient's insurance is BC/BS of [facility] to schedule bilateral L4-5, L5-S1 facet injections per Geraldine's routing note. * Telephone Encounter - Allison Steen RN - 09/10/2015 1525 EST Call to pt who reports 80% relief into July 2015. Currrently is at about 30 % relief and would like another injection. Forward to Patient Scheduling for appt. * Telephone Encounter - Allyson Rahman - 09/10/2015 1141 EST Pt would like to set up another appt for back pain. documented in this encounter Plan of Treatment Upcoming Encounters Date Type Department Care Team (Late st Contact Info) Description 09/24/2024 7:30 EST Rehab Therapy Visit [facility] Rehabilitation Therapy [address] [place] [address] Mirlande Keene, PT [address] [place] [address] 11/25/2024 9:00 EDT Office Visit [facility] Total Joint Program - [place] [address] [place] [address] Tess Rojas, LUCAS [address] [place] [address] documented as of this encounter Visit Diagnoses Not on filedocumented in this encounter Care Teams Tare Worker Relationship Specialty Start Date End Date Alissa Arellano PA [address] [place] [address] PCP - General 11/27/12 03/11/22 documented as of this encounter
--- OUTSIDE RECORDS SUMMARY | 2024-09-15 15:54 | XMS_ITS | Encounter Summary ---
Author Organization [facility] Address [address] [place] [address] Care Team Providers Care Injection Molding Operator Name Role Phone Alissa Arellano Primary Care Provider [phone] Encounter Details Date Type Department Care Team (Late st Contact Info) Description 04/28/2015 16:28 EDT - 04/28/2015 23:59 EDT Hospital Encounter [address] [place] [address] Pedrito Roldan MD [address] [place] [address] Discharge Disposition: Auto Discharge Social History Tobacco [...] on file documented as of this encounter Discharge Diagnoses Diagnosis 724.2 LUMBAGO[ICD-9-CM] documented in this encounter Medications at Time [...] Disposition Code Departure Means Destination Auto Discharge Home documented in this encounter Plan of Treatment Upcoming Encounters Date Type Department Care Team (Late st Contact Info) Description 09/24/2024 7:30 EST Rehab Therapy Visit [facility] Therapy [address] [place], [place] [phone] Mirlande Keene, PT [address] [place], [place] [phone] 11/25/2024 9:00 EDT Office Visit [facility] Total Joint Program - [address] [place] [address] Tess Rojas, LUCAS [address] [place] [address] documented as of this encounter Visit Diagnoses Not on filedocumented in this encounter Care Teams Injection Molding Operator Relationship Specialty Start Date End Date Alissa Arellano PA [address] [place] [address] PCP - General 11/27/12 03/11/22 documented as of this encounter
--- OUTSIDE RECORDS SUMMARY | 2024-09-15 15:54 | XMS_ITS | Encounter Summary ---
Author Organization [facility] Address [address] [place] [address] Care Team Providers Care Fund Accounting Manager Name Role Phone Alissa Arellano Primary Care Provider [phone] Reason for Visit * Reason Onset Date Comments Medication Management 03/03/2016 Encounter Details Date Type Department Care Team (Late st Contact Info) Description 03/03/2016 Telephone [facility] Spine Program - [address] [place] [address] Loraine Ledezma PA-C [address] [facility] [place] [address] Medication Management Social History Tobacco Use Types [...] * Telephone Encounter - Allyson Campos - 03/03/2016 1048 EDT Patient called stating that she would just like to thank Rahul for providing the medrol dose pack and it has truly taken the edge off and provided some good relief for now, although not total relief. documented in this encounter Plan of Treatment Upcoming Encounters Date Type Department Care Team (Late st Contact Info) Description 09/24/2024 7:30 EST Rehab Therapy Visit [facility] Rehabilitation Therapy [address] [place], [place] [address] Mirlande Keene, PT [address] [place] [phone] 11/25/2024 9:00 EDT Office Visit [facility] Total Joint Program - [address] [address] Tess Rojas, LUCAS [address] [place] [address] documented as of this encounter Visit Diagnoses Not on filedocumented in this encounter Care Teams Fund Accounting Manager Relationship Specialty Start Date End Date Alissa Arellano PA [address] [place] [address] PCP - General 11/27/12 03/11/22 documented as of this encounter
--- OUTSIDE RECORDS SUMMARY | 2024-09-15 15:54 | XMS_ITS | Encounter Summary ---
Author Organization [facility] Address [address] [place] [address] Care Team Providers Care Road Mechanic Name Role Phone Alissa Arellano Primary Care Provider [phone] Reason for Visit * Reason Onset Date Comments Results 05/05/2015 Encounter Details Date Type Department Care Team (Late st Contact Info) Description 05/05/2015 Telephone [facility] Interventional Pain [address] [place], [place] [phone] Donato Cerda MD [address] [place] [address] Results Social History Tobacco Use Types Packs/Day [...] encounter Miscellaneous Notes * Telephone Encounter - Urvashi Carrasco RN - 05/05/2015 1047 EDT Date and type of procedure: facet joint injections at bilateral L4-L5 and L5-S1 05/04/15 Provider:Zaida Hours of relief:7 hours % of relief:100% Next appointment: Brisa-05/26/15 * Telephone Encounter - Christopher Bell - 05/05/2015 0820 EDT Solid 7 hours at 100% This am still feels 75% pain relief documented in this encounter Plan of Treatment Upcoming Encounters Date Type Department Care Team (Late st Contact Info) Description 09/24/2024 7:30 EST Rehab Therapy Visit [facility] Rehabilitation Therapy [address] [place], [place] [phone] Mirlande Keene, PT [address] [place] [address] 11/25/2024 9:00 EDT Office Visit [facility] Total Joint Program - [address] [phone] Tess Rojas NP [address] [place] [address] documented as of this encounter Visit Diagnoses Not on filedocumented in this encounter Care Teams Road Mechanic Relationship Specialty Start Date End Date Alissa Arellano PA [address] [place] [address] PCP - General 11/27/12 03/11/22 documented as of this encounter
--- OUTSIDE RECORDS SUMMARY | 2024-09-15 15:54 | XMS_ITS | Encounter Summary ---
Author Organization [facility] Address [address] [place] [address] Care Team Providers Care Career Manager Name Role Phone Alissa Arellano Primary Care Provider [phone] Encounter Details Date Type Department Care Team (Late st Contact Info) Description 03/06/2013 Historical Results Only [facility] Lab - Main [address] [place] [address] Alissa Arellano PA [address] [place] [address] Social History Tobacco Use Types Packs/Day Years [...] on file documented as of this encounter Plan of Treatment Upcoming Encounters Date Type Department Care Team (Late st Contact Info) Description 09/24/2024 7:30 EST Rehab Therapy Visit [facility] Rehabilitation Therapy [address] [place] [address] Mirlande Keene, PT [address] [place] [phone] 11/25/2024 9:00 EDT Office Visit [facility] Total Joint Program - [facility] [address] [place] [address] Tess Rojas NP [address] [place] [address] documented as of this encounter Procedures Procedure Name Priority Date/Time Associated Diagnosis Comments PAP TEST Routine 03/06/2013 documented in this encounter Results * PAP TEST (03/06/2013) 03/06/2013 03/07/2013 12: 05 EDT Narrative [facility] - 03/13/2013 11:27 EDT ----- ------- Name: BESSIE VAUGHN ?: [birth year] ?Age/Sex: 54/F ?Unit#: [id number] ? Loc: LAB.OPX ? Status: REG REF ?? Reg Date: 03/06/13 ? Pt.Phone Number: ? ----- ------- Specimen: [id number] ?STATUS: SOUT ?Spec Date:03/06/13 ? Physician Copies: ?Alissa Arellano PAC Tissues: ? Cervical/Endo Pap ? CPT: 90225 ?? Units: ??1 ----- ------- ? CYTOLOGY DIAGNOSIS SPECIMEN ADEQUACY: ?Satisfactory for evaluation. Transformation zone component present. GENERAL CATEGORIZATION: ? OTHER, See Interpretation. DESCRIPTIVE DIAGNOSIS: ? Endometrial cells present in a woman equal to or greater than 40 years. ? Negative for Intraepithelial Lesion or Malignancy. RECOMMENDATIONS/COMMENTS: ?? Benign appearing endometrial cells on Pap tests are usually a normal finding in women with regular menstrual cycles, especially if the Pap was collected during the first half of the menstrual cycle. ??Endometrial cells after the age of 40, particularly out of phase or after menopause, may be associated with benign endometrium, hormonal alterations and, less commonly, with endometrial/uterine abnormalities. Clinical correlation is recommended. ENDOMETRIAL CELLS COMPATIBLE WITH THE STATED LMP. ----- ------- ?HPV DNA RESULTS ?? 03/06/13 1247 HPV DNA RESULT ??NEG ? Negative for HPV types 16, 18, 31, 33, 35, 39, 45, 51, 52, ? 56, 58, 59, 66, 68. ? Method: Cervista HPV HR (High Risk) DNA test. ----- ------- ORDER QUERIES: LMP: ? - 7-19 ? N Post ? N ??PREVIOUS ATYPICAL: Y BCP/HRT? ?? Rad Rx? N IUD?PAP PLUS HPV? Y ??REFLEX TO HR-HPV IF ASCUS ?? REFLEX TO HPV 16/18 IF HPV POS/PAP NEG ?? HPV REGARDLESS?RFLX HPV IF LSIL ?? IF ASCUS DO HPV? Signed ____(signature on file)____ Wendy Bundy M.D. 03/13/13 By the signature above, the attending physician certifies that he/she has personally conducted a gross and/or microscopic examination of the described specimens and rendered or confirmed the above diagnosis. Test Performed by [facility], [address] [place] [id number] Irrigation Worker: Wendy Bundy MD PHD ----- ------- us Alissa KUHN PATHOLOGY ORDERABLES Final Re sult [facility] documented in this encounter Visit Diagnoses Not on filedocumented in this encounter Care Teams Career Manager Relationship Specialty Start Date End Date Alissa Arellano PA [address] [place] [address] PCP - General 11/27/12 03/11/22 documented as of this encounter
--- OUTSIDE RECORDS SUMMARY | 2024-09-15 15:54 | XMS_ITS | Encounter Summary ---
Author Organization [facility] Address [address] [place] [address] Care Team Providers Care Infant And Toddler Teacher Name Role Phone Meek Arellanosslayo KUHN Primary Care Provider [phone] Encounter Details Date Type Department Care Team (Late st Contact Info) Description 02/02/2016 Historical Results Only [facility] Lab - Main [address] [id number] Hari Haley MD Social History Tobacco Use [...] Description 09/24/2024 7:30 EST Rehab Therapy Visit [facility] [address] [place], [place] [phone] Mirlande Keene, PT [address] [place], [place] [phone] 11/25/2024 9:00 EDT Office Visit [facility] Total Joint Program - [facility] [address] [place] [address] Tess Rojas, SUBMARINE ADVISORY TEAM WATCH OFFICER [address] [facility] [place] [address] documented as of this encounter Procedures Procedure Name Priority Date/Time Associated Diagnosis Comments PAP TEST Routine 02/02/2016 10:13 EDT documented in this encounter Results * PAP TEST (02/02/2016 10:13 EDT) 02/02/2016 10:1 3 EDT 02/03/2016 10:13 EDT Narrative [facility] - 02/08/2016 12:27 EDT ----- ------- Name: BESSIE VAUGHN ?: [birth year] ?Age/Sex: 53/F ?Unit#: [id number] ? Loc: AGO ? Status: REG POV ?? Reg Date: 02/02/16 ? Pt.Phone Number: ? ----- ------- Specimen: [id number] ?STATUS: SOUT ?Spec Date:02/02/16 ? Physician Copies: ?Hari Haley MD ? Tissues: ? Cervical/Endo Pap ?Alissa Arellano PAC CPT: ? Units: ??1 ----- ------- ? CYTOLOGY DIAGNOSIS SPECIMEN ADEQUACY: ?? Unsatisfactory for Evaluation: ??obscuring contaminate that may include lubricant which precludes interpretation of 75% or more of the epithelial cells. GENERAL CATEGORIZATION: ?? Specimen processed and examined. Unsatisfactory for evaluation of epithelial abnormality. ----- ------- ?HPV DNA RESULTS ?? 02/02/16 1014 HPV DNA RESULT ??Not Done ? Unable to recover sufficient DNA for HPV testing. ----- ------- ORDER QUERIES: LMP: NONE WIT- NONEIUD ? N Post ? N ??PREVIOUS ATYPICAL: N BCP/HRT? Y Rad Rx? N IUD? Y ??PAP PLUS HPV? Y ??REFLEX TO HR-HPV IF ASCUS N REFLEX TO HPV 16/18 IF HPV POS/PAP NEG N HPV REGARDLESS? Y ??RFLX HPV IF LSIL ?? Signed Kimani Chapman CT(ASCP) 02/08/16 By the signature above, the attending physician certifies that he/she has personally conducted a gross and/or microscopic examination of the described specimens and rendered or confirmed the above diagnosis. Test Performed by [facility], [address] [place] [address] Contract Runner: Wendy Bundy MD PHD ----- ------- us Hari Haley MD PATHOLOGY ORDERABLES Final Resu lt [facility] documented in this encounter Visit Diagnoses Not on filedocumented in this encounter Care Teams Infant And Toddler Teacher Relationship Specialty Start Date End Date Alissa Arellano PA [address] [place] [address] PCP - General 11/27/12 03/11/22 documented as of this encounter
--- OUTSIDE RECORDS SUMMARY | 2024-09-15 15:54 | XMS_ITS | Encounter Summary ---
Author Organization [facility] Address [address] [place] [address] Care Team Providers Care Supervisor Reinforced [employer] Placing Name Role Phone Alissa Arellano Primary Care Provider [phone] Reason for Visit * Reason Comments Pain lower back and left hip pain Encounter Details Date Type Department Care Team (Latest Contact Info) Description 11/17/2015 15:30 EDT Office Visit [facility] Interventional Pain [address] [place] [address] Donato Cerda MD [address] [place] [address] Spondylosis of lumbar region without myelopathy or radiculopathy (Primary Dx); DDD (degenerative disc disease), lumbosacral Discharge Disposition: Auto Discharge Social History Tobacco [...] Sign Reading Time Taken Comments Blood Pressure 118/71 11/17/2015 1553 EDT Pulse 67 11/17/2015 1553 EDT Temperature 37 ??C (98.6 ??F) 11/17/2015 1519 EDT Respiratory Rate 16 11/17/2015 1553 EDT Oxygen Saturation - - Inhaled Oxygen Concentration - - Weight 93 kg (205 lb) 11/17/2015 1519 EDT per pt Height 182.9 cm (6') 11/17/2015 1519 EDT per pt Body Mass Index 27.8 11/17/2015 1519 EDT documented in this encounter Functional Status [...] 11/17/2015 15:20 EDT documented in this encounter Discharge Diagnoses Diagnosis M47.816 Spondylosis without myelopathy or radiculopathy, lumbar region-M47.816[ICD-10-CM] documented in this encounter Patient Instructions * Patient Instructions* Allyson Schuler RN - 11/17/2015 15:45 EDT [facility] [address] [address] Patient Instructions You have had your bilateral lumbar Facet Steroid Injection.The purpose of this procedure has been to place medication which may help relieve your pain. Steroid may be used to decrease the swelling and nerve irritation which may be causing your pain. The following information should help you over the next few days regarding what you may expect. Today please stay busy/active doing things that would normally cause you pain. Keep track of your hours of relief and your percentage of relief today (0 to 100, 0 = no relief and 100% = total relief). Separate the pressure and tightness that we caused you from your regular pain and see what your relief is. Call us back tomorrow with this information. Procedure end time: 3:45 Pain relief start time: Returned to baseline pain: Hours of relief: Percentage of relief 0-100: (0 = no relief, 100 = total relief) ?? DO NOT drive a car for the remainder of the day. ?? If you feel sore where the needle(s) entered for the block or develop a flare-up of pain over the next few days, please use ice on the area. You may leave the ice on for up to 20 minutes at a time. Do not use heat, as this may cause swelling. ?? As long as your primary doctor has indicated no restrictions, you may take a mild pain medicine,such as acetaminophen (Tylenol), ibuprofen (Advil, Nuprin, Motrin IB, etc.) or aspirin, if needed. ?? The steroid injection usually takes a few days to become effective. On average, you may notice some relief in 3 -5 days. However, it may take up to 10 - 14 days to know whether the injection was helpful. ?? If the block causes numbness/weakness, it should wear off within a few hours. ?? If the area that the needle(s) were inserted becomes hot, red, swollen, or increasingly tender, or if you develop a fever (100.5 or greater) or chills along with these symptoms, please call our office immediately. ?? If you develop increasingly severe neck/back pain, continued numbness or weakness of the arms/legs or changes in your bladder or bowel functions, please call our office immediately. Instructions for follow-up If you have any questions about your block, please call Patient Education Topic: Method: Handout and Verbal Taught to: Patient Barriers: None Outcomes: independent and verbalized understanding Signature: JOIE Valadez documented in this encounter Discharge Disposition Disposition Code Departure Means Destination Auto Discharge documented in this encounter Progress Notes * Donato Cerda MD - 11/17/2015 1552 EDT Patient Name: Bria Jackman : 1965 Date of Service: 11/17/2015 Professor Of Latin American Studies: Donato Cerda MD Nuclear Physics Professor: none Interval History: Ms. Jackman presents at the request of Alissa Arellano for evaluation and treatment of her chronic low back pain and leg pain. The details of the current complaint are thoroughly described in the consultation notes from their last encounter including pain onset, location, course, workup, therapeutic attempts, and associated functional limitations. The patient reports no recent changes in the character, quality, or distribution of the pain. There are no recent onset of new associated symptoms such as changes in strength, sensation, or bladder control. Her pain continues to be in her low back in a band pattern across. 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 She does have history oflabral tear in her left hip. She had complete relief of her low back pain and 80% relief of her left hip pain for 4 months, and pain has returned in exact same pattern. Injection history: 11/17/15: b/l L4-5, L5-S1 facet injections 05/04/15: B/L L4-5, L5-S1 facet injections 100% relief for 7 hrs, almost complete relief of low backpain, and 80% relief of left hip pain for 4 months L spine MRI: 1. Alignment is satisfactory. No spondylolisthesis. 2. 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 Question of a left L5 pars interarticularis defect. If warranted correlate with CT through this level. Disc degeneration at L5/S1 with an annular fissure and minimal posterior midline/right central disc protrusion. Mild right foraminal stenosis. No spinal canal or left foraminal stenosis. 3. At L2/3 left foraminal disc extrusion with superior migration which contacts the exiting left L2 nerve root. Please correlate for left L2 radiculopathy. 4. Mild left L3/4 foraminal extrusion with moderate left foraminal stenosis. Impingement of the exiting left L3 nerve root cannot be excluded. L spine xray: Mild lower lumbar degenerative disc disease without instability Intervertebral disc heights are relatively well-maintained. Small marginal osteophytes are present anteriorly at L3-4, L4-L5 and L5-S1. Allergies Allergen Reactions ??? Penicillins ??? Percocet [Oxycodone-Acetaminophen] Other (See Comments) DROPS BLOOD PRESSURE ??? Sulfa (Sulfonamide Antibiotics) ??? Unable To Assess clams ROS: CONSTITUTIONAL: Patient does not report fevers, nausea, vomiting. NEURO/EYES: Patient does not report headaches, dizziness, or visual changes. HEME: Patient does not report any known coagulopathies. PULM/CARDIAC: Patient does not report shortness of breath or chest pain. GI/: Patient does not report bowel or bladder incontinence. Physical Examination: Vital signs: Blood pressure 111/75, pulse 65, temperature 37 ??C (98.6 ??F), temperature source Tympanic, resp. rate 16, height 182.9 cm (72), weight 92.987 kg (205 lb). GENERAL: Patient is an otherwise pleasant female. Patient is alert and oriented x 3. Appropriate inconversation. NAD. The patient does appear her stated age of 50 y.o.. The pain syndrome is clinically relayed without embellishment. she rises from a seated position without difficulty. SKIN: WNL. Warm and dry. No lesions, apparent rashes, bruising or petechiae. No signs of infection in the lumbar region. NEURO: CN II-XII are grossly intact. Motor strength is 5/5 throughout all motor groups in bilateral lower extremities. Sensation is intact and symmetrical to light touch throughout bilateral 5 extremities. neg SLR. EXTREMITIES: No clubbing, cyanosis, or edema. MUSCULOSKELETAL: ROM was full with flexion, extension and lateral rotation. neg Facet loading maneuvers with extension of lumbar spine. mildly tender to palpation of low back, worse on left PULM: Non labored breathing. Assessment:Patient is a 50 y.o. year old female with a chronic pain syndrome and a primary complaint of low back pain and leg pain. This pain has not responded to conservative/interventional therapy. Associated diagnoses: Encounter Diagnoses Name Primary? Spondylosis of lumbar region without myelopathy or radiculopathy Yes ??? DDD (degenerative disc disease), lumbosacral Plan: Proceed with diagnostic and therapeutic facet joint injections at bilateral L4- L5 and L5-S1 Follow up: as needed for further evaluation and within 24 hrs by telephone to report results of diagnostic injection She will follow up with Vibha Ledezma post injection Consider hip injection vs lumbar epidural if this is not effective Procedure: The patient gave informed written consent to proceed with this procedure following a detailed discussion of the risks and benefits associated with lumbar facet joint injection. The patient was then placed in the prone position, the skin over the lumbosacral area was prepped with chlorhexadine, and the site was draped with sterile towels. Strict sterile technique was maintained throughout the procedure. A lamb moment was performed with full staff present to identify the patient, verify the procedure being performed, and review allergies. Flouroscopy was used to identify the lumbar anatomy and align the facet joints. The skin and subcutaneous tissue over the bilateral L4-L5 and L5-S1 facet joints was anesthetized with 2% lidocaine. A 22 guage 3.5 inch spinal needle was inserted under fluoroscopic guidance using coaxial technique into each of the aforementioned facet joints. After negative aspiration, each joint was injected with 0.5 mls 0.5% Bupivacaine and 20 mg Depo-Medrol. There were no paresthesias during needle placement and aspiration was negative at all times. The patient tolerated the procedure well, there were no apparent complications, and he was discharged in stable condition. Written and verbal discharge instructions were reviewed with the patient prior to discharge. 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 (Solids since midnight & liquids for 4 hrs) NO Blood Thinners: Is patient on Blood Thinners? NO If yes, taking? If stopped, who authorized stopping? Related comments: Infections: Any recent infections, fever of illnesses? NO If on antibiotics, is it 7-10 days past the date of completion of antibiotics? NO : (for females of child-bearing age) NO Is there a chance current ? Other: documented in this encounter Plan of Treatment Upcoming Encounters Date Type Department Care Team (Late st Contact Info) Description 09/24/2024 7:30 EST Rehab Therapy Visit [facility] [address] [place], [place] [phone] Mirlande Keene, PT [address] [place], [place] [phone] 11/25/2024 9:00 EDT Office Visit [facility] Program - [address] [place] [address] Tess Rojas NP [address] [place] [address] documented as of this encounter Visit Diagnoses Diagnosis Spondylosis of lumbar region without myelopathy or radiculopathy- Primary Lumbosacral spondylosis without myelopathy DDD (degenerative disc disease), lumbosacral Degeneration of lumbar or lumbosacral intervertebral disc documented in this encounter Administered Medications Inactive Administered Medications - up to 3 most recent administrations Medication Order MAR Action Action Date Dose Rate Site bupivacaine (PF) (MARCAINE) 0.5 % (5 mg/mL) injection 10 mg 10 mg (2 mL), intra-articular, NOW X1, 1 dose, On Sun11/17/15 at 1615, Routine Given by Other 11/17/2015 15:46 EDT 10 mg methylPREDNISolone ACETATE (DEPO-MEDROL) injection 80 mg 80 mg, intra-articular, NOW X1, 1 dose, On 11/17/15 at 1615, Routine Given by Other 11/17/2015 15:46 EDT 80 mg documented in this encounter Care Teams Supervisor [employer]forced [employer] Pl[employer] Relationship Specialty Start Date End Date Alissa Arellano PA [address] [place] [address] PCP - General 11/27/12 03/11/22 documented as of this encounter
--- OUTSIDE RECORDS SUMMARY | 2024-09-15 15:54 | XMS_ITS | Encounter Summary ---
Author Organization [facility] Address [address] [place] [address] Care Team Providers Care [employer] Information Clerk Name Role Phone Meek Arellanosslayo KUHN Primary Care Provider [phone] Encounter Details Date Type Department Care Team (Late st Contact Info) Description 02/25/2016 Historical Results Only [facility] - Main [address] [id number] Hari Haley MD Social History Tobacco Use [...] 09/24/2024 7:30 EST Rehab Therapy Visit [facility] [place] [address] [place], [place] [phone] Mirlande Keene, PT [address] [place], [place] [phone] 11/25/2024 9:00 EDT Office Visit [facility] Program - [facility] [address] [place] [address] Tess Rojas, COFFEE ROASTER HELPER [address] [place] [address] documented as of this encounter Procedures Procedure Name Priority Date/Time Associated Diagnosis Comments PAP TEST Routine 02/25/2016 documented in this encounter Results * PAP TEST (02/25/2016) 02/25/2016 02/28/2016 9:[address] [facility] - 03/02/2016 16:04 EDT ----- ------- Name: BESSIE VAUGHN ?: [birth year] ?Age/Sex: 53/F ?Unit#: [id number] ? Loc: AGO ? Status: REG POV ?? Reg Date: 02/25/16 ? Pt.Phone Number: ? ----- ------- Specimen: [id number] ?STATUS: SOUT ?Spec Date:02/25/16 ? Physician Copies: ?Hari Haley MD ? Tissues: ? Cervical/Endo Pap ?Alissa Arellano PAC CPT: 93217 ?? Units: ??1 ----- ------- ? CYTOLOGY DIAGNOSIS SPECIMEN ADEQUACY: ?Satisfactory for evaluation. Transformation zone component present. GENERAL CATEGORIZATION: ?Negative for Intraepithelial Lesion or Malignancy DESCRIPTIVE DIAGNOSIS: ? Negative for Intraepithelial Lesion or Malignancy. ----- ------- ?HPV DNA RESULTS ?? 02/25/16 1006 HPV DNA RESULT ??NEG ? Negative for HPV types 16, 18, 31, 33, 35, 39, 45, 51, 52, ? 56, 58, 59, 66, 68. ? Method: Cervista HPV HR (High Risk) DNA test. ----- ------- ORDER QUERIES: LMP: NONE WIT- ? N Post ? N ??PREVIOUS ATYPICAL: N BCP/HRT? Y Rad Rx? N IUD? Y ??PAP PLUS HPV? Y ??REFLEX TO HR-HPV IF ASCUS N REFLEX TO HPV 16/18 IF HPV POS/PAP NEG N HPV REGARDLESS? Y ??RFLX HPV IF LSIL ?? Signed Kimani Chapamn CT(ASCP) 03/02/16 By the signature above, the attending physician certifies that he/she has personally conducted a gross and/or microscopic examination of the described specimens and rendered or confirmed the above diagnosis. Test Performed by [facility], [address] [place] [address] [employer]dl Company Driver: Wendy Bundy MD PHD ----- ------- us Hari Haley MD PATHOLOGY ORDERABLES Final Resu lt [facility] documented in this encounter Visit Diagnoses Not on filedocumented in this encounter Care Teams Automobile Club Information Clerk Relationship Specialty Start Date End Date Alissa Arellano PA [address] [place] [address] PCP - General 11/27/12 03/11/22 documented as of this encounter
--- OUTSIDE RECORDS SUMMARY | 2024-09-15 15:54 | XMS_ITS | Encounter Summary ---
Author Organization [facility] Address [address] [place] [address] Care Team Providers Care Rn Interventional Name Role Phone Alissa Arellano Primary Care Provider [phone] Reason for Visit * Reason Comments Back Pain low back pain left L E Encounter Details Date Type Department Care Team (Late st Contact Info) Description 04/05/2015 7:45 EDT Office Visit [facility] Spine Program - [address] [place] [address] Loraine Ledezma PA-C [address] [facility] [place] [address] Low back pain radiating to left leg (Primary Dx) Discharge Disposition: Auto Discharge Social [...] - Inhaled Oxygen Concentration - - Weight 90.7 kg (200 lb) 04/05/2015814 EDT Height 182.9 cm (6') 04/05/2015814 EDT Body Mass Index 27.12 04/05/2015814 EDT documented in this encounter Discharge Diagnoses Diagnosis 724.2 LUMBAGO[ICD-9-CM] documented in this encounter Discharge Disposition Disposition Code Departure Means Destination Auto Discharge documented in this encounter Progress Notes * Loraine Ledezma PA - 04/05/2015828 EDT Bria Jackman is being seen as a consultation from Dr. Kimbrough. Chief Complaint Patient presents with ??? Back Pain low back pain left LE The encounter diagnosis was Low back pain radiating to left leg. HPI Ms. Jackman is a 50 y.o. pleasant female who presents to the clinic today with 70% LBP, worse on the left, and 30% LLE pain affecting the anterior aspect of her thigh stopping just above the knee. The patient reports long standing h/o intermittent LBP; however, LLE symptoms started about a month ago.She reports h/o left hip arthroscopy and labral [...] Unable To Assess clams Review of Systems Constitutional: Positive for activity change. Negative for unexpected weight change. Eyes: Negative for visual disturbance. Respiratory: Negative for chest tightness. Cardiovascular: Negative for chest pain. Gastrointestinal: Negative for constipation. Genitourinary: Negative for difficulty urinating. Musculoskeletal: Positive for back pain. Negative for neck pain. Skin: Negative for rash. Neurological: Negative for numbness. Psychiatric/Behavioral: Negative for behavioral problems and agitation. Physical Exam Constitutional: She is oriented to person, place, and time. She appears well- developed and well-nourished. HENT: Head: Normocephalic and atraumatic. Eyes: EOM are normal. Cardiovascular: Normal rate. Pulmonary/Chest: Effort normal and breath sounds normal. Neurological: She is alert and oriented to person, place, and time. Skin: Skin is warm and dry. No rash noted. Psychiatric: She has a normal mood and affect. Her behavior is normal. Back Exam Comments: GAIT: Normal. HEEL & TOE WALKING: NEG. LESIONS, RASHES OR HAIR NISHA: NEG. FROM: TENDERNESS ON PALPATION: NEG. STRENGTH: 5/5 REFLEXES: Patellar 2/4 B/L; Achilles 2/4 B/L. BABINSKI: Down. CLONUS: NEG. DP: 2/2. SENSATION: Intact. SLR RIGHT: NEG. LEFT: NEG. HIP ROM: Full, but external and internal rotation of the left hip produces mild to moderate pain. SHELBIE'S: NEG. Neurologic Exam Mental Status Oriented to person, place, and time. Cranial Nerves CN III, IV, Extraocular motions are normal. Today, 04/05/2015, I ordered plain radiographs and MRI and I independently reviewed the following: Plain radiographs (AP/Lat/Flex/Ex): 1. Five (5) non-rib bearing lumbar vertebrae 2. Mild facet arthropathy of the lower lumbar spine 3. Disc height reduction at L5-S1 conistent with degenerative disc disease 4. No fractures or pars defects noted Assessment 50 y.o. female with LBP most likely from degenerative disc and facet disease and LLE pain along theL3 dermatome that could be radicular in nature. However, she has h/o left hip arthroscopy for labral tear and PE reproduced mild to moderate pain in the left hip with internal and external rotation. We will rule out spine pathology with MRI. She has agreed to the following plan. Other Orders Placed This Visit Procedures ??? MR LUMBAR SPINE WO CONTRAST Plan: 1. Order MRI 2. PT post MRI 3. Return to clinic post MRI Dr. Jackson was the attending physician available in the clinic today if needed. A consultation was not required. documented in this encounter Plan of Treatment Upcoming Encounters Date Type Department Care Team (Late st Contact Info) Description 09/24/2024 7:30 EST Rehab Therapy Visit [facility] [address] [place], [place] [address] Mirlande Keene, PT [address] [place], [place] [address] 11/25/2024 9:00 EDT Office Visit [facility] Total Joint Program - [facility] [place] [address] Tess Rojas, LUCAS [address] [place] [address] documented as of this encounter Procedures Procedure Name Priority Date/Time Associated Diagnosis Comments MR LUMBAR SPINE WO CONTRAST 04/28/2015 17:10 EDT documented in this encounter Results * MR LUMBAR SPINE WO CONTRAST (04/28/2015 17:10 EDT) Anatomical Region Laterality Modality Other 04/28/2015 17:1 0 EDT 04/30/2015 9:40 EDT Narrative 04/30/2015 9:40 EDT MR LUMBAR SPINE WO CONTRAST ??04/28/2015 5:10 PM Signs and Symptoms/Comments: ??724.2-Aaqdfio-LBW-9-CM; low back pain Prior exam: Plain films dated 04/05/15 Technique: This examination was performed in the sagittal, axial and coronal planes utilizing multiple pulse sequences which produce images with T1 and variable T2 weighting. Findings: Lumbar lordosis is preserved. Minimal levoscoliosis. Alignment is normal. Normal marrow signal intensity pattern. No compression fracture deformities. At T12/L1 no significant focal disc bulge or herniation. No significant spinal canal or foraminal stenosis. At L1/2 no significant focal disc bulge or herniation. No significant spinal canal or foraminal stenosis. At L2/3 slight circumferential annular disc bulge. Left foraminal extrusion/herniation of the disc with superior migration into the left neural foramen extending anterior to the exiting left L2 nerve root. This appears to contact the exiting left L2 nerve root. Please correlate for left L2 radiculopathy. Slight thickening of the ligamentum flavum and facet joint hypertrophy. No spinal canal or right foraminal stenosis. At L3/4 circumferential annular disc bulge with an annular fissure and mild foraminal extrusion of the disc to the left with slight superior migration. Degenerative hypertrophic facet and ligamentous changes. Moderate left foraminal stenosis. Cannot exclude impingement of the exiting left L3 nerve root. No spinal canal or right foraminal stenosis. At L4/5 disc degeneration with loss of normal T2 signal and generalized bulging. Annular fissure along the posterior margin of the disc. Mild degenerative hypertrophic facet and ligamentous changes. No significant spinal canal or foraminal stenosis. At L5/S1 developmental hypoplasia of the left L5 lamina with tropism of the facet joints. The right L5 pars interarticularis appears intact. A left L5 pars cannot entirely be excluded. If warranted correlate with CT through this level. Mild degenerative hypertrophic facet and ligamentous changes. Spina bifida occulta. Disc degeneration with loss of normal T2 signal. Annular fissure along the posterior margin of the disc in and to the right of midline associated with a mild posterior midline/right central disc protrusion. Mild right foraminal stenosis. No spinal canal or left foraminal stenosis. The conus medullaris terminates at L1 and demonstrates normal signal intensity and is of normal configuration. Impression: 1. Alignment is satisfactory. No spondylolisthesis. 2. [...] left L3 nerve root cannot be excluded. Please see comments above for detailed description of the imaging findings at each specific level. Procedure Note Mark Oneil MD - 04/30/2015 MR LUMBAR SPINE WO CONTRAST 04/28/2015 5:10 PM Signs and Symptoms/Comments: 724.9-Pievlvh-JGX-9-CM; low back pain Prior exam: Plain films dated 04/05/15 Technique: This examination was performed in the sagittal, axial and coronal planes utilizing multiple pulse sequences which produce images with T1 and variable T2 weighting. Findings: Lumbar lordosis is preserved. Minimal levoscoliosis. Alignment is normal. Normal marrow signal intensity pattern. No compression fracture deformities. At T12/L1 no significant focal disc bulge or herniation. No significant spinal canal or foraminal stenosis. At L1/2 no significant focal disc bulge or herniation. No significant spinal canal or foraminal stenosis. At L2/3 slight circumferential annular disc bulge. Left foraminal extrusion/herniation of the disc with superior migration into the left neural foramen extending anterior to the exiting left L2 nerve root. This appears to contact the exiting left L2 nerve root. Please correlate for left L2 radiculopathy. Slight thickening of the ligamentum flavum and facet joint hypertrophy. No spinal canal or right foraminal stenosis. At L3/4 circumferential annular disc bulge with an annular fissure and mild foraminal extrusion of the disc to the left with slight superior migration. Degenerative hypertrophic facet and ligamentous changes. Moderate left foraminal stenosis. Cannot exclude impingement of the exiting left L3 nerve root. No spinal canal or right foraminal stenosis. At L4/5 disc degeneration with loss of normal T2 signal and generalized bulging. Annular fissure along the posterior margin of the disc. Mild degenerative hypertrophic facet and ligamentous changes. No significant spinal canal or foraminal stenosis. At L5/S1 developmental hypoplasia of the left L5 lamina with tropism of the facet joints. The right L5 pars interarticularis appears intact. A left L5 pars cannot entirely be excluded. If warranted correlate with CT through this level. Mild degenerative hypertrophic facet and ligamentous changes. Spina bifida occulta. Disc degeneration with loss of normal T2 signal. Annular fissure along the posterior margin of the disc in and to the right of midline associated with a mild posterior midline/right central disc protrusion. Mild right foraminal stenosis. No spinal canal or left foraminal stenosis. The conus medullaris terminates at L1 and demonstrates normal signal intensity and is of normal configuration. Impression: 1. Alignment is satisfactory. No spondylolisthesis. 2. [...] left L3 nerve root cannot be excluded. Please see comments above for detailed description of the imaging findings at each specific level. us Loraine Ledezma PA-C IMG MRI ORDERABLES Fin al Result documented in this encounter Visit Diagnoses Diagnosis Low back pain radiating to left leg- Primary Lumbago documented in this encounter Historical Medications * This list may reflect changes made after this encounter. MULTIVITAMIN ORAL Take by mouth. Reported on 07/19/2016 LACTOBACILLUS ACIDOPHILUS (ACIDOPHILUS ORAL) Take by mouth. Reported on 07/19/2016 1 doxycycline (ADOXA) 100 mg tablet Take 100 mg by mouth. Reported on 09/18/2016 7 LEVONORGESTREL (MIRENA INTRAUTERINE) by intrauterine route 1 valACYclovir (VALTREX) 500 mg tablet Take 500 mg by mouth as needed. Reported on 07/19/2016 3 added in this encounter Care Teams Rn Interventional Relationship Specialty Start Date End Date Alissa Arellano PA [address] [place] [address] PCP - General 11/27/12 03/11/22 documented as of this encounter
--- OUTSIDE RECORDS SUMMARY | 2024-09-15 15:54 | XMS_ITS | Encounter Summary ---
Author Organization [facility] Address [address] [place] [address] Care Team Providers Care Agricultural Service Worker Name Role Phone Alissa Arellano Primary Care Provider [phone] Reason for Visit * Reason Comments Back Pain low back pain Hip Pain left hip pain * Consult (Routine) - Specialty Report Received Specialty Diagnoses / Procedures Referred By Jefferson ramires Referred To Contact Pain Medicine Diagnoses Low back pain radiating to left leg Loraine Ledezma PA-C Phone: tel: fax: [facility]ventional [facility] [address] [place] [address] Phone: tel: fax: Referral ID Status Reason Start Date Expiration Date Visits Requested Visits Authorized [id number] Specialty Report Received Specialty Services Required 04/29/2015 1 1 Encounter Details Date Type Department Care Team (Late st Contact Info) Description 05/04/2015 13:00 EDT Office Visit [facility] Interventional Pain [address] [place] [address] Donato Cerda MD [address] [place] [address] Facet arthropathy, lumbar (Primary Dx); DDD (degenerative disc disease), lumbar Discharge Disposition: Auto Discharge Social History Tobacco [...] Sign Reading Time Taken Comments Blood Pressure 113/66 05/04/2015 1338 EDT Pulse 68 05/04/2015 1338 EDT Temperature 36.8 ??C (98.2 ??F) 05/04/2015 1255 EDT Respiratory Rate 16 05/04/2015 1338 EDT Oxygen Saturation - - Inhaled Oxygen Concentration - - Weight 90.7 kg (200 lb) 05/04/2015 1255 EDT Height 182.9 cm (6') 05/04/2015 1255 EDT Body Mass Index 27.12 05/04/2015 1255 EDT documented in this encounter Functional Status [...] documented in this encounter Discharge Diagnoses Diagnosis 721.3 LUMBOSACRAL SPONDYLOSIS[ICD-9-CM] 722.52 LUMB/LUMBOSAC DISC DEGEN[ICD-9-CM] documented in this encounter Patient Instructions * Patient Instructions* Allyson Schuler RN - 05/04/2015 13:26 EDT [facility] [address] [id number] Patient Instructions Today please stay busy/active doing things that would normally cause you pain. Keep track of your hours of relief and your percentage of relief today (0 to 100 , 0 = no relief and 100% = total relief). Separate the pressure and tightness that we caused you from your regular pain and see what your relief is. Call us back tomorrow with this information. Procedure end time: 1:45 Pain relief start time Returned to baseline pain Hours of relief Percentage of relief 0-100 (0 = no relief, 100 = total relief) You have had your bilateral lumbar Facet Steroid Injection. The purpose of this procedure has been to place medication which may help relieve your pain. Steroid may be used to decrease the swelling and nerve irritation which may be causing your pain. The following information should help you over the next few days regarding what you may expect. ? DO NOT drive a car for the [...] IB, etc.) or aspirin, if needed. ??? The steroid injection usually takes a few days to become effective. On average, you may notice some relief in 3 -5 days. However, it may take up to 10 - 14 days to know whether the injection was helpful. ??? If the block causes numbness/weakness, it should wear off within a few hours. ??? If the area that the [...] Progress Notes * Donato Cerda MD - 05/04/2015 1313 EDT Patient Name: Bria Jackman : 1965 Date of Service: 05/04/2015 Finance Teacher: Donato Cerda MD Coin Teller: none Interval History: Ms. Jackman presents at the request of Loraine Ledezma for evaluation and treatment of her chronic low back pain and leg pain. The details of the current complaint are thoroughly described in the consultation notes from their last encounter on 04/29/15 including pain onset, location, course, workup, therapeutic attempts, and associated functional limitations. The patient reports no recent changes in the character, quality, or distribution of the pain. There are no recent onset of new associated symptoms such as changes instrength, sensation, or bladder control. Her pain continues to be in her low back in a band pattern across. She also has pain in her left hip that radiates into her groin and down her anterior thigh to knee level. 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 She does have history of labral tear in her left hip. She plans on starting PT this week. She has been taking Relafen with some relief. L spine MRI: 1. Alignment is satisfactory. [...] L5-S1. Allergies Allergen Reactions ??? Penicillins ??? Sulfa [...] incontinence. Physical Examination: Vital signs: Blood pressure 125/67, pulse 72, temperature 36.8 ??C (98.2 ??F), temperature source Tympanic, resp. rate 16, height 182.9 cm (72), weight 90.719 kg (200 lb). GENERAL: Patient is an otherwise pleasant [...] therapy. Associated diagnoses: Encounter Diagnoses Name Primary? Facet arthropathy, lumbar Yes ??? DDD (degenerative disc disease), lumbar Plan: Proceed with diagnostic and therapeutic facet [...] prior to discharge. Donato Cerda MD * Brittaney Hartman - 05/04/2015 4541 EDT [facility] Rooming Note Does patient have a Junior Mechanical Engineer? yes Is patient NPO? (Solids since midnight & liquids for 4 hrs) na Blood Thinners: Is patient on Blood Thinners? no If yes, taking? If stopped, who authorized stopping? Related comments: Infections: Any recent infections, fever of illnesses? no If on antibiotics, is it 7-10 days past the date of completion of antibiotics? no : (for females of child-bearing age) Is there a chance current ? no Other: documented in this encounter Plan of Treatment Upcoming Encounters Date Type Department Care Team (Late st Contact Info) Description 09/24/2024 7:30 EST Rehab Therapy Visit [facility] [address] [place], [place] [id number] Mirlande Keene, PT [address] [place], [place] [id number] 11/25/2024 9:00 EDT Office Visit [facility] Total Joint Program - [facility] [address] [place] [address] Tess Rojas, LUCAS [address] [place] [address] documented as of this encounter Visit Diagnoses Diagnosis Facet arthropathy, lumbar- Primary Lumbosacral spondylosis without myelopathy DDD (degenerative disc disease), lumbar Degeneration of lumbar or lumbosacral intervertebral disc documented in this encounter Administered Medications Inactive Administered Medications - up to 3 most recent administrations Medication Order MAR Action Action Date Dose Rate Site bupivacaine (PF) (MARCAINE) 0.5 % (5 mg/mL) injection 10 mg 10 mg (2 mL), intra-articular, NOW X1, 1 dose, On Sun05/04/15 at 1400, Routine Given by Other 05/04/2015 13:30 EDT 10 mg methylPREDNISolone ACETATE (DEPO-MEDROL) injection 80 mg 80 mg, intra-articular, NOW X1, 1 dose, On Sun05/04/15 at 1400, Routine Given by Other 05/04/2015 13:30 EDT 80 mg documented in this encounter Care Teams Agricultural Service Worker Relationship Specialty Start Date End Date Alissa Arellano PA [address] [place] [address] PCP - General 11/27/12 03/11/22 documented as of this encounter
--- OUTSIDE RECORDS SUMMARY | 2024-09-15 15:54 | XMS_ITS | Encounter Summary ---
Author Organization [facility] Address [address] [place] [address] Care Team Providers Care Air Traffic Controller Name Role Phone Alissa Arellano Primary Care Provider [phone] Reason for Referral * Consult (Routine/Next Available) - Specialty Report Received Specialty Diagnoses / Procedures Referred By Jefferson ramires Referred To Contact Pain Medicine Diagnoses Facet arthropathy, lumbar Loraine Ledezma PA-C Phone: tel: fax: [facility] Interventional Pain [address] [place] [address] Phone: tel: fax: Referral ID Status Reason Start Date Expiration Date Visits Requested Visits Authorized [id number] Specialty Report Received Specialty Services Required 03/01/2016 1 1 Question Answer Reason for Request: Facet arthropathy, lumbar Comments Recommend RFA - facet injections X2 have been very successful Reason for Visit * Reason Comments Back Pain B/L L4-5 L5-S1 facet injections (11/17/15) f/u Encounter Details Date Type Department Care Team (Late st Contact Info) Description 03/01/2016 9:30 EDT Office Visit [facility] Spine Program - [place] [place] [address] Loraine Ledezma PA-C [address] [facility] [place] [phone] Facet arthropathy, lumbar (Primary Dx) Social History [...] 11/17/2015 15:20 EDT documented in this encounter Ordered Prescriptions Prescription Sig Dispense Quantity Refills Last Filled Start Date End Date methylPREDNISolone (MEDROL DOSEPACK) 4 mg tablet follow package directions 1 Pack 0 03/01/2016 7 documented in this encounter Progress Notes * Loraine Ledezma PA - 03/01/2016 1019 EDT Bria Jackman is being seen as a consultation from Dr. Kimbrough. Chief Complaint Patient presents with ??? Back Pain B/L L4-5 L5-S1 facet injections (11/17/15) f/u The encounter diagnosis was Facet arthropathy, lumbar. HPI Ms. Jackman is a 51 y.o. pleasant female who returns to the clinic today, 03/01/2016, for FU post L4-L5/L5-S1 B/L facet injections (11/17/2015). The patient reports 90% relief of symptoms after the injections that lasted for 6 weeks. She is now back to pre-injection status. She thinks that the recent facet injections did not last as much as the previous ones because she has started lifting her 55-lbs dog and had a 5-hour ride to [place] which exacerbated her symptoms further. In 05/26/2015, Ms. Jackman had a FU [...] hip ??? Bilateral knee pain Past Medical History Diagnosis Date ??? Depression ??? Keratoconus, unspecified ??? Arthritis ??? Environmental allergies Past Surgical History Procedure Laterality Date ??? [...] tablet follow package directions 1 Pack 0 ??? MULTIVITAMIN ORAL Take by mouth ??? [...] Physical Exam Ortho Exam Neurologic Exam Today, 03/01/2016, I independently reviewed the following: MRI from [...] 50 y.o. female with LBP most likely secondary to facet arthropathy. Facet injections X2 have provided great relief for 6-8 weeks at a time. She has h/o left hip arthroscopy for labral tear and PE reproduced mild to moderate pain in the left hip with internal and external rotation. At this point, itis very reasonable to proceed with RFA. She has agreed to the following plan. Other Orders Placed This Visit Procedures ??? Amb Pain Procedure Plan: 1. RFA 2. Continue activity as tolerated 3. Medrol dose pack 4. Return to clinic post RFA Dr. Tello was the attending physician available in the clinic today if needed. A consultation was not required. documented in this encounter Plan of Treatment Upcoming Encounters Date Type Department Care Team (Late st Contact Info) Description 09/24/2024 7:30 EST Rehab Therapy Visit [facility] [address] [place], [place] [address] Mirlande Keene, PT [address] [place], [place] [id number] 11/25/2024 9:00 EDT Office Visit [facility] Total Joint Program - [address] [place] [address] Tess Rojas, LUCAS [address] [place] [address] Scheduled Referrals Name Type Priority Associated Diagnoses Orde r Schedule AMB PAIN PROCEDURE Outpatient Referral Routine Facet arthropathy, lumbar Ordered: 03/01/2016 documented as of this encounter Visit Diagnoses Diagnosis Facet arthropathy, lumbar- Primary Lumbosacral spondylosis without myelopathy documented in this encounter Care Teams Air Traffic Controller Relationship Specialty Start Date End Date Alissa Arellano PA [address] [place] [address] PCP - General 11/27/12 03/11/22 documented as of this encounter
--- OUTSIDE RECORDS SUMMARY | 2024-09-15 15:54 | XMS_ITS | Encounter Summary ---
Author Organization [facility] Address [address] [place] [address] Care Team Providers Care Model Builder Name Role Phone Alissa Arellano Primary Care Provider [phone] Encounter Details Date Type Department Care Team (Late st Contact Info) Description 11/22/2015 Historical Results Only [facility] [place] [address] [place], [place] [phone] Alissa Arellaon PA [address] [place], [place] Social History Tobacco Use Types Packs/Day [...] Rehab Therapy Visit [facility] [place] [facility] [address] [place], [place] [address] Mirlande Keene, PT [address] [place] [phone] 11/25/2024 9:00 EDT Office Visit [facility] Total [facility] Program - [facility] [address] [place] [address] Tess Rojas NP [address] [place] [address] documented as of this encounter Procedures Procedure Name Priority Date/Time Associated Diagnosis Comments US PELVIS TRANSVAGINAL COMPLETE 11/22/2015 17:41 EDT documented in this encounter Results * US PELVIS TRANSVAGINAL (11/22/2015 17:41 EDT) Anatomical Region Laterality Modality Pelvis Other 11/22/2015 17:4 1 EDT Narrative 11/22/2015 17:50 EDT ? EXAM: ULTRASOUND/TRANSVAGINAL W/ PELVIC L EX. D/ (1628) ? CLINICAL INFORMATION: ? D25.9 CHECK FIBROID SIZE, MIRENA IN PLACE ? TRANSVAGINAL W/ PELVIC LIMITED ? Signs and Symptoms/Comments: ??D25.9 CHECK FIBROID SIZE, MIRENA IN ? PLACE ? Comparison: Pelvic ultrasound on 03/11/2013 ? Technique: Pelvic ultrasound was performed with color Doppler ? imaging. ? FINDINGS: ? Uterus: ? Orientation: Retroflexed ? Size: 9.2 x 5.9 x 6.2 cm ? Findings: Multiple heterogeneous fibroids are again identified. The ? largest in the left posterior lower uterine segment measures 6.3 cm ? compared to 4.0 cm in 2013. The next largest in the right uterine ? body measures 3.1 cm, compared to 2.8 cm in 2013. An IUD is in ? expected position within the endometrial canal. ? Cervix: Normal. ? Endometrium: ? Echotexture: Homogeneous. ? Thickness: 6.3 mm ? Ovaries: ? Right ovary: ? Size: 1.5 x 1.5 x 1.8 cm. ? Doppler flow: Color Doppler flow is present. ? Findings: None. ? Left ovary: Not visualized. ? Cul-de-sac: No free fluid. ? IMPRESSION: ? 1. Multiple uterine fibroids, overall increased in size compared to ? 2012. ? 2. IUD in expected position. Endometrium unremarkable. ? 3. Normal right ovary. ? PAGE 1 ? Signed Report ? (CONTINUED) ? 4. Left ovary not visualized. ? REPORT SIGNED IN OTHER VENDOR SYSTEM 11/22/2015 ?Reported By: Willie Cuellar MD ? CC: ? Transcribed Date/Time: 11/22/2015 (1750) ? Computer Software Engineer: ? Printed Date/Time: 01/23/2019 (1300) ? PAGE 2 ? Signed Report ? Procedure Note Willie Cuellar MD - 06/18/2019 EXAM: ULTRASOUND/TRANSVAGINAL W/ PELVIC L EX. D/ (1628) CLINICAL INFORMATION: D25.9 CHECK FIBROID SIZE, MIRENA IN PLACE TRANSVAGINAL W/ PELVIC LIMITED Signs and Symptoms/Comments: D25.9 CHECK FIBROID SIZE, MIRENA IN PLACE Comparison: Pelvic ultrasound on 03/11/2013 Technique: Pelvic ultrasound was performed with color Doppler imaging. FINDINGS: Uterus: Orientation: Retroflexed Size: 9.2 x 5.9 x 6.2 cm Findings: Multiple heterogeneous fibroids are again identified. The largest in the left posterior lower uterine segment measures 6.3 cm compared to 4.0 cm in 2013. The next largest in the right uterine body measures 3.1 cm, compared to 2.8 cm in 2013. An IUD is in expected position within the endometrial canal. Cervix: Normal. Endometrium: Echotexture: Homogeneous. Thickness: 6.3 mm Ovaries: Right ovary: Size: 1.5 x 1.5 x 1.8 cm. Doppler flow: Color Doppler flow is present. Findings: None. Left ovary: Not visualized. Cul-de-sac: No free fluid. IMPRESSION: 1. Multiple uterine fibroids, overall increased in size compared to 2013. 2. IUD in expected position. Endometrium unremarkable. 3. Normal right ovary. PAGE 1 Signed Report (CONTINUED) 4. Left ovary not visualized. REPORT SIGNED IN OTHER VENDOR SYSTEM 11/22/2015 Reported By: Willie Cuellar MD CC: Transcribed Date/Time: 11/22/2015 (1750) Computer Software Engineer: Printed Date/Time: 01/23/2019 (3548) PAGE 2 Signed Report Alissa CORCORANLeon US OB ORDERABLES Final Re sult documented in this encounter Visit Diagnoses Not on filedocumented in this encounter Care Teams Model Builder Relationship Specialty Start Date End Date Alissa Arellano PA [address] [place] [address] PCP - General 11/27/12 03/11/22 documented as of this encounter
--- OUTSIDE RECORDS SUMMARY | 2024-09-15 15:54 | XMS_ITS | Encounter Summary ---
Author Organization [facility] Address [address] [place] [address] Care Team Providers Care Claims Adjustor Name Role Phone Adan Alissalayo KUHN Primary Care Provider [phone] Encounter Details Date Type Department Care Team (Late st Contact Info) Description 04/15/2013 Historical Results Only [facility] [place] [address] [place], [place] [phone] Hari Haley MD Social History Tobacco Use [...] [facility] Rehabilitation Therapy [address] [place], [place] [phone] Mirlande Keene, PT [address] [place] [phone] 11/25/2024 9:00 EDT Office Visit [facility] Total Joint Program - [address] [place] [address] Tess Rojas, LUCAS [address] [place] [address] documented as of this encounter Procedures Procedure Name Priority Date/Time Associated Diagnosis Comments SURGICAL PATHOLOGY Routine 04/15/2013 documented in this encounter Results * SURGICAL PATHOLOGY (04/15/2013) 04/15/2013 04/16/2013 11: 31 EDT Narrative [facility] - 04/18/2013 14:44 EDT ----- ------- Name: BESSIE VAUGHN ?: [birth year] ?Age/Sex: 54/F ?Unit#: [id number] ? Loc: AGO ? Status: REG POV ?? Reg Date: 04/15/13 ? Pt.Phone Number: ? ----- ------- Specimen: [id number] ? STATUS: SOUT ?Spec Date:04/15/13 ? Physician Copies: ?Hari Haley MD ? Tissues: A ?? Female Reproductive System (ENDOMETRIUM) ? Cony Andersen MD ? CPT: 80924 ?? Units: ??1 ?FINAL DIAGNOSIS ? Endometrium, biopsy; ? - Periovulatory endometrium. ? GROSS DESCRIPTION ? Received in formalin labeled with the patient's name and endo bx is an ? estimated 1.5 cc aggregate of tran tissue fragments, filtered, e.s. 1. ??CP ?? PREOP DX/CLINICAL HISTORY ?THICKENED ENDOMETRIUM ON US Signed ____(signature on file)____ Wendy Bundy M.D. 04/18/13 By the signature above, the attending physician certifies that he/she has personally conducted a gross and/or microscopic examination of the described specimens and rendered or confirmed the above diagnosis. Test Performed by [facility], [address] [place] [address] Funder: Wendy Bundy MD PHD ----- ------- us Hari Haley MD PATHOLOGY ORDERABLES Final Resu lt [facility] documented in this encounter Visit Diagnoses Not on filedocumented in this encounter Care Teams Claims Adjustor Relationship Specialty Start Date End Date Alissa Arellano PA [address] [place] [address] PCP - General 11/27/12 03/11/22 documented as of this encounter
--- OUTSIDE RECORDS SUMMARY | 2024-09-15 15:54 | XMS_ITS | Encounter Summary ---
Author Organization [facility] Address [address] [place] [address] Care Team Providers Care Ui Architect Name Role Phone Alissa Arellano Primary Care Provider [phone] Reason for Visit * Reason Comments Follow-up Corneal scar, right eye Encounter Details Date Type Department Care Team (Late st Contact Info) Description 02/03/2013 10:15 EDT Office Visit [facility] Ophthalmology [address] [address] Ashley Woody [facility] [address] [place] [phone] Social History Tobacco Use Types Packs/Day Years [...] as of this encounter Progress Notes * Ashley Woody - 02/03/2013 1023 EDT Chief Complaint Patient presents with ??? Follow-up Corneal scar, right eye HPI The patient is a 48 y.o. female Right Eye: Blurred Vision;Mucous / Discharge Left Eye: NL Visual Aid: None Current Rx Age Location: Pain: 0 - No pain Quality: Severity: Duration: Timing: Lasts: Context: Right eye is doing well, has had a little difficulty with taking eye drops. Modifying factors: Associated Signs & Symptoms: Attestation: ROS Constitutional: NL ENT/Mouth Cardiovascular: Respiratory: Gastrointestinal: Genitourinary: Musculoskeletal: Integumentary: Neurologic: Psychiatric: Endocrine: Hematologic: Immunologic: Signals Intelligence Analyst: Exposures: None Other: Attestation: Base Ophthalmology Exam Visual Acuity Right Left Dist sc 20/25 20/20 Method: Snellen - Linear Tonometry Right Left Pressure 12 12 Method: Applanation Time: 10:20 Pupils Pupils APD Right PERRL None Left PERRL None Visual Blackwell Right Left Result Full Full Method: Counting fingers Extraocular Movement Right Left Result Full Full Main Ophthalmology Exam Slit Lamp Exam Right Left Lids/Lashes Normal Normal Conjunctiva/Sclera White and quiet White and quiet Cornea Mild Keratoconus, < 1mm very very faint subepith haze at 5:00 Clear Anterior Chamber Deep and quiet Deep and quiet Iris Round and reactive Round and reactive Fundus Exam Right Left Disc Normal Normal C/D Ratio 0.2 0.2 Macula Normal Normal Vessels Normal Normal Comments: undilated with 90 D lens Neuro/Psych Oriented x3: Yes Mood/Affect: Normal DIAGNOSTIC TESTS: IMPRESSION & PLAN: 1. Corneal scar, right eye 2. dry eyes -Improved -DC FML -DC polytrim -c/w Refresh QID -c/w Genteal gel at bedtime -RTC 8M for complete keratoconus, right eye -continue management per [facility] I have reviewed the patient's past medical, family, social and surgical history. I have also reviewed the patient's medications, allergies, and problem list. I performed my own HPI and have reviewed the tech's ROS as well. I personally completed this exam myself. Ashley Woody MD I am scribing for Ashley Woody MD, while she is personally performing the service. Patient Education Topic: corneal follow up Method: Verbal Taught to: Patient Barriers: None Outcomes: independent Signature: Magy Valenzuela COA documented in this encounter Plan of Treatment Upcoming Encounters Date Type Department Care Team (Late st Contact Info) Description 09/24/2024 7:30 EST Rehab Therapy Visit [facility] [place] [facility] [address] [place], [place] [phone] Mirlande Keene, PT [address] [place] [address] 11/25/2024 9:00 EDT Office Visit [facility] Total Joint Program - [address] [facility] [place] [address] Tess Rojas, LUCAS [address] [place] [address] documented as of this encounter Visit Diagnoses Diagnosis Corneal scar- Primary Corneal opacity, unspecified Dry eyes Tear film insufficiency, unspecified Keratoconus, unspecified documented in this encounter Historical Medications * This list may reflect changes made after this encounter. Artificial Tear, Hypromellose, (GENTEAL SEVERE) 0.3 % Gel Place 0.5 cm into the right eye at bedtime. Reported on 09/18/2016 07/11/2017 Carboxymethylcel lulose Sodium 1 % drops, liquid gel Place 1 Drop into the right eye 4 times daily. Reported on 09/18/2016 09/06/2022 added in this encounter Eye Exam Visual Acuity (Snellen - Linear) Right eye Left eye Dist sc 20/25 20/20 Tonometry (Applanation, 10:20) Right eye Left eye Pressure 12 12 Pupils Pupils APD Right eye PERRL None Left eye PERRL None Visual Blackwell (Counting fingers) Right eye Left eye Full Full Extraocular Movement Right eye Left eye Full Full Neuro/Psych Oriented x3: Yes Mood/Affect: Normal Slit Lamp Exam Right eye Left eye Lids/Lashes Normal Normal Conjunctiva/Sclera White and quiet White and nicola et Cornea Mild Keratoconus, < 1mm very very faint subepith haze at 5:00 Clear Anterior Chamber Deep and quiet Deep and quiet Iris Round and reactive Round and siddhartha ctive Fundus Exam Right eye Left eye Disc Normal Normal C/D Ratio 0.2 0.2 Macula Normal Normal Vessels Normal Normal undilated with 90 D lens Care Teams Ui Architect Relationship Specialty Start Date End Date Alissa Arellano PA [address] [place] [address] PCP - General 11/27/12 03/11/22 documented as of this encounter
--- OUTSIDE RECORDS SUMMARY | 2024-09-15 15:54 | XMS_ITS | Encounter Summary ---
Author Organization [facility] Address [address] [place] [address] Care Team Providers Care Immigration Attorney Name Role Phone Alissa Arellano Primary Care Provider [phone] Reason for Visit * Reason Comments Back Pain low back pain Hip Pain left hip pain * Consult (Routine/Next Available) - Specialty Report Received Specialty Diagnoses / Procedures Referred By Jefferson ramires Referred To Contact Pain Medicine Diagnoses Facet arthropathy, lumbar Delaportas, Loraine, ZION Phone: tel: fax: [facility] Interventional Pain [address] [place] [address] Phone: tel: fax: Referral ID Status Reason Start Date Expiration Date Visits Requested Visits Authorized [id number] Specialty Report Received Specialty Services Required 03/01/2016 1 1 Encounter Details Date Type Department Care Team (Late st Contact Info) Description 04/27/2016 9:00 EDT Office Visit [facility] Interventional Pain [address] [place] [address] Unknown, Provider, Demi Garnett MD [address] [place] [phone] Spondylosis without myelopathy or radiculopathy, lumbosacral region [...] Sign Reading Time Taken Comments Blood Pressure 125/69 04/27/2016936 EDT Pulse 63 04/27/2016936 EDT Temperature 36.3 ??C (97.3 ??F) 04/27/2016899 EDT Respiratory Rate 16 04/27/2016899 EDT Oxygen Saturation - - Inhaled Oxygen Concentration - - Weight 95.3 kg (210 lb) 04/27/2016899 EDT Height 182.9 cm (6') 04/27/2016 09 EDT Body Mass Index 28.48 04/27/2016 09 EDT documented in this encounter Functional Status [...] 04/27/2016 9:01 EDT documented in this encounter Discharge Diagnoses Diagnosis M47.817 Spondylosis without myelopathy or radiculopathy, lumbosacral region-M47.817[ICD-10-CM] documented in this encounter Patient Instructions * Patient Instructions* Rhonda Vitale RN - 04/27/2016 9:28 EDT [facility] [address] [address] Medial Branch Block Patient Instructions You underwent a procedure called MEDIAL BRANCH BLOCK today. This was a diagnostic test to prepare you for the next step of your treatment. Following this procedure, continue to be active for the remainder of the day and maintain your usual daily routine. Please contact our office the day after your Medial Branch Block with your results. Keep track of how long you received relief as well as what percentage of pain relief immediately following the procedure. This diagnostic procedure is ONLY intended to last for a number of hours, not days or weeks. PROCEDURE END TIME: (nurse) 2177 PAIN RELIEF START TIME: PAIN RELIEF END TIME: HOURS OF RELIEF PERCENTAGE OF RELIEF (0-100%) ADDITIONAL MEDIAL BRANCH BLOCK INSTRUCTIONS Do not operate an automobile or other motorized equipment for the remainder of the day today. You may resume your normal activities or rest tomorrow. If you feel sore where the needles were placed, please use ice to the area for up to 20 minutes at a time. Do not use heat, as this may cause swelling. If you have any of the following symptoms, please contact us immediately. - Severe or worsening pain - Unexplained fever or chills If you have any questions about your block, please call Patient Education Topic: Method: Handout and Verbal Taught to: Patient Barriers: None Outcomes: independent Rhonda Cruz RN documented in this encounter Discharge Disposition Disposition Code Departure Means Destination Auto Discharge documented in this encounter Progress Notes * Demi Bañuelos MD - 04/27/2016 0937 EDT Patient Name: Bria Jackman : 1965 Date of Service: 04/27/2016 Requesting physician: Loraine Ledezma Daycare Manager: Demi Bañuelos MD Security Patrol Officer: none Procedure: Diagnostic medial branch blocks at lumbar L4,5,ala bilateral Interval History: Patient presents at the request of Loraine Ledezma for continued evaluation and treatment recommendations of the patient's pain. Bria Jackman primarily localizes the pain at her lower back, with bilateral radiation to the buttocks left greater than right. She describes the pain as dull and throbbing in character. Patient currently denies any progressive weakness, unexplained fever, trauma or unexplained weight loss. Today's pain score is 4 out of 10. Details of the current complaint are thoroughly described in the consultation notes from Grigorios Delaportas's last encounter including pain onset, location, course, workup, therapeutic attempts, and associated functional limitations. The patient reports no recent changes in the character, quality, or distribution of the pain. There are no recent onset of new associat ed symptoms such as changes in strength, sensation, or bladder control. Patient has underwent conservative management such as physical therapy and medications with minimal to mild relief. Patient is functionally limited in terms of not being able to chores and stand for extended periods of time. All previous medical records including current medications, anticoagulation status, any signs of current infection, and new imaging were reviewed. Injection History: 04/27/2016: medial branch blocks at L4,5,ala bilateral [...] Physical Exam: Vitals: Visit Vitals ??? BP 112/67 (BP Cuff Location: Left arm, Patient Position: Sitting, BP Cuff Sizes: Adult, long) ??? Pulse 69 ??? Temp 36.3 ??C (97.3 ??F) (Tympanic) ??? Resp 16 ??? Ht [...] upon palation , pain elicited upon facet loading, pain exacerbated with rotational torque Lower Extremity: strength 5/5, sensory bilaterally equal to light tough, negative straight leg test Assessment: 1. Spondylosis without myelopathy or radiculopathy, lumbosacral region Plan: Ms. Bria Jackman is a 51 y.o. female that presents to the pain clinic to undergo diagnostic medial branch blocks in regards to her chronic back pain. All risks, benefits, and alternatives were thoroughly explained to Ms. Bria Jackman who verbally communicated understanding of the management plan. Proceed with diagnostic medial branch blocks at L4,5,ala bilateral Follow up: if diagnostic positive, repeat mbb vs rfa depending on insurance requirements Procedure: The patient gave informed written consent to proceed with this procedure following a detailed discussion of the risks and benefits associated with lumbar medial branch blocks including but not limited to infection, bleeding, headache, further exacerbation of current symptoms, neurological injury, and lack of efficacy. The patient was then placed in prone position, the skin over the lumbar region was prepped with chlorhexadine, and the site was marked and draped with sterile towels. Strict sterile technique was maintained throughout the procedure. A time out was performed with full staff present to identify the patient, verify the procedure being performed, and review allergies Flouroscopy was used to identify the appropriate lumbar anatomy. The skin and subcutaneous tissue were anesthetized with 2% lidocaine. A 25 gauge 3.5 inch spinal needle was inserted under fluoroscopic guidance to contact the junction of the superior articulating process and transverse process at the L4,5,ala bilateral levels. Final needle position was confirmed with fluoroscopy. Aspiration was negative for blood or CSF. Next, 0.3 ml of 0.5% bupivacaine was injected at each site, the needles were restyletted and withdrawn. There was no paresthesia during needle placement and aspiration was negative at all times. The patient tolerated the procedure well and there were no apparent complications. Written and verbal discharge instructions were reviewed with the patient prior to discharge. They will report the results of today???s diagnostic injection via telephone within 24 hours Pain Score (from Vitals) 04/27/2016 04/27/2016 Initial score 4 - Final score 4 4 Location BACK BACK Comment pre post * Pedro Maciel - 04/27/2016 0902 EDT [facility] Rooming Note Does patient have a Drafter Civil (Cad)? Yes Is patient NPO? (Solids since midnight [...] there a chance current ? No Other: documented in this encounter Plan of Treatment Upcoming Encounters Date Type Department Care Team (Late st Contact Info) Description 09/24/2024 7:30 EST Rehab Therapy Visit [facility] [address] [place], [place] [phone] Mirlande Keene, PT [address] [place], [place] [phone] 11/25/2024 9:00 EDT Office Visit [facility] Total Joint Program - [address] [address] Tess Rojas NP [address] [place] [address] documented as of this encounter Visit Diagnoses Diagnosis Spondylosis without myelopathy or radiculopathy, lumbosacral region- Primary documented in this encounter Administered Medications Inactive Administered Medications - up to 3 most recent administrations Medication Order MAR Action Action Date Dose Rate Site bupivacaine (PF) (MARCAINE) 0.5 % (5 mg/mL) injection 9 mg 9 mg (1.8 mL), keturah-neural, NOW X1, 1 dose, On Yelena 04/27/16 at 0945, Routine Given by Other 04/27/2016 9:29 EDT 9 mg documented in this encounter Orders Medications Ordered That Sae ht Not Have Been Administered Count Last Ordered Date First Ordered Date bupivacaine (PF) (MARCAINE) 0.5 % (5 mg/mL) injection 9 mg 1 04/27/2016 documented in this encounter Care Teams Immigration Attorney Relationship Specialty Start Date End Date Alissa Arellano PA [address] [place] [address] PCP - General 11/27/12 03/11/22 documented as of this encounter
--- OUTSIDE RECORDS SUMMARY | 2024-09-15 15:54 | XMS_ITS | Encounter Summary ---
Author Organization [facility] Address [address] [place] [address] Care Team Providers Care Angle Roll Operator Name Role Phone Alissa Arellano Primary Care Provider [phone] Reason for Visit * Reason Comments Follow-up 1W f/u Corneal Ulcer , right eye. Encounter Details Date Type Department Care Team (Late st Contact Info) Description 12/13/2012 10:30 EDT Office Visit [facility] Ophthalmology [address] [address] Ashley Woody [facility] [address] [place] [phone] Social History Tobacco Use Types Packs/Day Years [...] encounter Progress Notes * Ashley Woody - 12/13/2012 1052 EDT Chief Complaint Patient presents with ??? Follow-up 1W f/u Corneal Ulcer, right eye. HPI The patient is a 47 y.o. female Right Eye: Blurred Vision;Burning;Mucous / Discharge (in pm sometimes burning) Left Eye: NL Visual Aid: None Current Rx Age Location: Right eye Pain: Quality: Severity: Mild Duration: Days Timing: Constant Lasts: Continuous Context: Patient is doing better, still some burning in the afternoons, discharge in am. Patient isusing Poytrim QID, & FML QID. Modifying factors: Associated Signs & Symptoms: Attestation: ROS Constitutional: NL ENT/Mouth Cardiovascular: Respiratory: Gastrointestinal: Genitourinary: Musculoskeletal: Integumentary: Neurologic: Psychiatric: Endocrine: Hematologic: Immunologic: Inward Toll Operator: Exposures: None Other: Attestation: Base Ophthalmology Exam Visual Acuity Right Left Both Dist sc 20/30 +1 20/20 -2 Method: Snellen - Linear Tonometry Right Left Pressure 16 12 Method: Tonopen Time: 10:43 Main Ophthalmology Exam Slit Lamp Exam Right Left Lids/Lashes Normal Normal Conjunctiva/Sclera White and quiet White and quiet Cornea Mild Keratoconus, < 1mm subepith haze at 5:00, 1+ PEEs Clear Anterior Chamber Deep and quiet Deep and quiet Iris Round and reactive Round and reactive Neuro/Psych Oriented x3: Yes Mood/Affect: Normal DIAGNOSTIC TESTS: IMPRESSION & PLAN: 1. Corneal ulcer, right eye 2. dry eyes -minimally improved -c/w polytrim QID -c/w FML QID -discussed placement of punctal plugs, pt deferred, will use AT's QID more consistently -use Genteal gel at bedtime -f/u 2 weeks, t/c punctal plugs if dry eyes not improved I have reviewed the patient's past medical, family, social and surgical history. I have also reviewed the patient's medications, allergies, and problem list. I performed my own HPI and have reviewed the tech's ROS as well. I personally completed this exam myself. Ashley Woody MD I am scribing for Ashley Woody MD, while she is personally performing the service. Patient Education Topic: corneal uler Method: Verbal Taught to: Patient Barriers: None Outcomes: independent Signature:Magy Valenzuela COA documented in this encounter Plan of Treatment Upcoming Encounters Date Type Department Care Team (Late st Contact Info) Description 09/24/2024 7:30 EST Rehab Therapy Visit [facility] [address] [place], [place] [phone] Mirlande Keene, PT [address] [place] [address] 11/25/2024 9:00 EDT Office Visit [facility] Total Joint Program - [facility] [address] [place], [place] [phone] Tess Rojas, LUCAS [address] [place] [address] documented as of this encounter Visit Diagnoses Diagnosis Corneal ulcer- Primary Corneal ulcer, unspecified Dry eye syndrome Tear film insufficiency, unspecified documented in this encounter Discontinued Medications Medication Sig Discontinue Reason Start Date End Da te moxifloxacin (VIGAMOX) 0.5 % ophthalmic solution Place 1 Drop into the right eye 4 times daily. Therapy completed 11/27/2012 12/13/2012 documented as of this encounter Eye Exam Visual Acuity (Snellen - Linear) Right eye Left eye Dist sc 20/30 +1 20/20 -2 Tonometry (Tonopen, 10:43) Right eye Left eye Pressure 16 12 Neuro/Psych Oriented x3: Yes Mood/Affect: Normal Slit Lamp Exam Right eye Left eye Lids/Lashes Normal Normal Conjunctiva/Sclera White and quiet White and nicola et Cornea Mild Keratoconus, < 1mm subepith haze at 5:00, 1+ PEEs Clear Anterior Chamber Deep and quiet Deep and quiet Iris Round and reactive Round and siddhartha ctive Care Teams Angle Roll Operator Relationship Specialty Start Date End Date Alissa Arellano PA [address] [place] [address] PCP - General 11/27/12 03/11/22 documented as of this encounter
--- OUTSIDE RECORDS SUMMARY | 2024-09-15 15:54 | XMS_ITS | Encounter Summary ---
Author Organization [facility] Address [address] [place] [address] Care Team Providers Care Data Systems Analyst Name Role Phone Alissa Arellano Primary Care Provider Reason for Visit * Reason Comments Follow-up corneal ulcer right eye Encounter Details Date Type Department Care Team (Late st Contact Info) Description 11/29/2012 14:00 EDT Office Visit [facility] Ophthalmology [address] [address] Ashley Woody [address] [address] Social History Tobacco Use Types [...] right eye 4 times daily. 1 Bottle 0 11/29/2012 12/30/2012 documented in this encounter Progress Notes * Ashley Woody - 11/29/2012 1420 EDT Chief Complaint Patient presents with ??? Follow-up corneal ulcer right eye HPI The patient is a 47 y.o. female Right Eye: Blurred Vision;Burning Left Eye: NL Visual Aid: Current Rx Age Location: Right eye Pain: 0 - No pain Quality: Burning Severity: Moderate Duration: Weeks Timing: Constant Lasts: Weeks Context: no more real pain but still has a burning sesation right eye, no longer red and only has mucus in am Modifying factors: Vigamox drops QID right eye Associated Signs & Symptoms: Attestation: ROS Constitutional: NL ENT/Mouth Cardiovascular: Respiratory: Gastrointestinal: Genitourinary: Musculoskeletal: Integumentary: Neurologic: Psychiatric: Endocrine: Hematologic: Immunologic: Circulation Director: Exposures: None Other: Attestation: Base Ophthalmology Exam Visual Acuity Right Left Both Dist sc 20/30 20/20 Dist ph sc 20/25-3 Method: Snellen - Linear Tonometry Right Left Pressure 12 15 Method: Tonopen Time: 14:26 Main Ophthalmology Exam Slit Lamp Exam Right Left Lids/Lashes Normal Normal Conjunctiva/Sclera White and quiet White and quiet Cornea Mild Keratoconus, < 1mm ulcer at 5:00 with adjacent puntate erosions Clear Anterior Chamber Deep and quiet Deep and quiet Iris Round and reactive Round and reactive Neuro/Psych Oriented x3: Yes Mood/Affect: Normal DIAGNOSTIC TESTS: IMPRESSION & PLAN: Corneal Ulcer, right eye -minimal improvement -c/w vigamox QID -add Polytrim QID; (h/o sulfa allergy noted) -f/u 1 week or sooner PRN I have reviewed the patient's past medical, [...] the service. Patient Education Topic: Corneal Ulcer Method: Verbal Taught to: Patient Barriers: None Outcomes: independent Signature: Farideh Villa documented in this encounter Plan of Treatment Upcoming Encounters Date Type Department Care Team (Late st Contact Info) Description 09/24/2024 7:30 EST Rehab Therapy Visit [facility] [address] [place], [place] [phone] Mirlande Keene, PT [address] [place] [address] 11/25/2024 9:00 EDT Office Visit [facility] Total Joint Program - [place] [address] [place] [address] Tess Rojas, LUCAS [address] [place] [address] documented as of this encounter Visit Diagnoses Diagnosis Corneal ulcer of right eye- Primary Corneal ulcer, unspecified documented in this encounter Eye Exam Visual Acuity (Snellen - Linear) Right eye Left eye Dist sc 20/30 20/20 Dist ph sc 20/25-3 Tonometry (Tonopen, 14:26) Right eye Left eye Pressure 12 15 Neuro/Psych Oriented x3: Yes Mood/Affect: Normal Slit Lamp Exam Right eye Left eye Lids/Lashes Normal Normal Conjunctiva/Sclera White and quiet White and nicola et Cornea Mild Keratoconus, < 1mm ulcer at 5:00 with adjacent puntate erosions Clear Anterior Chamber Deep and quiet Deep and quiet Iris Round and reactive Round and siddhartha ctive Care Teams Data Systems Analyst Relationship Specialty Start Date End Date Alissa Arellano PA [address] [place] [address] PCP - General 11/27/12 03/11/22 documented as of this encounter
--- OUTSIDE RECORDS SUMMARY | 2024-09-15 15:54 | XMS_ITS | Encounter Summary ---
Author Organization [facility] Address [address] [place] [address] Care Team Providers Care Playground Worker Name Role Phone Alissa Arellano Primary Care Provider [phone] Reason for Referral * Radiology Services (Routine) - Closed Specialty Diagnoses / Procedures Referred By Contac t Referred To Contact Diagnoses Bilateral knee pain Procedures KNEE 1 OR 2 VIEWS Bob Wilcox MD [facility] Phone: tel: fax: Referral ID Status Reason Start Date Expiration Date Visits Re quested Visits Authorized [id number] Closed 07/06/2015 1 1 * Radiology Services (Routine) - Closed Specialty Diagnoses / Procedures Referred By Contac t Referred To Contact Diagnoses Bilateral knee pain Procedures KNEE 1 OR 2 VIEWS Bob Wilcox MD [facility] Phone: tel: fax: Referral ID Status Reason Start Date Expiration Date Visits Re quested Visits Authorized [id number] Closed 07/06/2015 1 1 Encounter Details Date Type Department Care Team (Late st Contact Info) Description 07/06/2015 Orders Only [facility] Total Joint Program - [address] [address] Bob Wilcox MD [address] [address] Bilateral knee pain (Primary Dx) Social History Tobacco Use [...] 05/04/2015 12:56 EDT documented in this encounter Plan of Treatment Upcoming Encounters Date Type Department Care Team (Late st Contact Info) Description 09/24/2024 7:30 EST Rehab Therapy Visit [facility] Rehabilitation Therapy [address] [place], [place] [phone] Mirlande Keene, PT [address] [place] [address] 11/25/2024 9:00 EDT Office Visit [facility] Total Joint Program - [address] [address] Tess Rojas, LUCAS [address] [place] [address] documented as of this encounter Procedures Procedure Name Priority Date/Time Associated Diagnosis Comments KNEE 1 OR 2 VIEWS Routine 07/06/2015 8:32 EST Bilateral knee pain KNEE 1 OR 2 VIEWS Routine 07/06/2015 8:32 EST Bilateral knee pain documented in this encounter Results * KNEE 1 OR 2 VIEWS (07/06/2015 8:32 EST) Anatomical Region Laterality Modality Other 07/06/2015 8:32 EST 07/06/2015 9:04 EST Narrative 07/06/2015 9:04 EST KNEE 1 OR 2 VIEWS, KNEE 1 OR 2 VIEWS ??07/06/2015 8:32 AM Signs and Symptoms/Comments: ?? M25.561-Pain in right knee-ICD-10 M25.562-Pain in left knee-ICD-10; left knee pain Comparison: Outside radiographs of both knees from April 2005. Findings: Right knee: AP and lateral weight-bearing views of the right knee show no evidence of acute fracture or malalignment, no sizable right knee joint effusion is identified either. There is mild joint space narrowing of the medial femorotibial compartment, the joint space in the lateral femorotibial compartment appears preserved. There is spurring of the tibial spines. Tiny patellar osteophyte formation is seen. Mineralization is age-appropriate. Soft tissues are grossly unremarkable. Left knee: AP and lateral weight-bearing views of the left knee show no evidence of acute fracture or malalignment, no sizable left knee joint effusion is identified either. There is mild joint space narrowing of the medial femorotibial compartment, the joint space in the lateral femorotibial compartment appears preserved. There is spurring of the tibial spines. The patellofemoral joint is congruent. Mineralization is age-appropriate. Soft tissues are grossly unremarkable. Procedure Note Ash Wallace MD - 07/06/2015 KNEE 1 OR 2 VIEWS, KNEE 1 OR 2 VIEWS 07/06/2015 8:32 AM Signs and Symptoms/Comments: M25.561-Pain in right knee-ICD-10 M25.562-Pain in left knee-ICD-10; left knee pain Comparison: Outside radiographs of both knees from April 2005. Findings: Right knee: AP and lateral weight-bearing views of the right knee show no evidence of acute fracture or malalignment, no sizable right knee joint effusion is identified either. There is mild joint space narrowing of the medial femorotibial compartment, the joint space in the lateral femorotibial compartment appears preserved. There is spurring of the tibial spines. Tiny patellar osteophyte formation is seen. Mineralization is age-appropriate. Soft tissues are grossly unremarkable. Left knee: AP and lateral weight-bearing views of the left knee show no evidence of acute fracture or malalignment, no sizable left knee joint effusion is identified either. There is mild joint space narrowing of the medial femorotibial compartment, the joint space in the lateral femorotibial compartment appears preserved. There is spurring of the tibial spines. The patellofemoral joint is congruent. Mineralization is age-appropriate. Soft tissues are grossly unremarkable. us Bob Wilcox MD MSc [facility] IMG DIAGNOSTIC I MAGING ORDERABLES Final Result * KNEE 1 OR 2 VIEWS (07/06/2015 8:32 EST) Anatomical Region Laterality Modality Other 07/06/2015 8:32 EST 07/06/2015 9:04 EST Narrative 07/06/2015 9:04 EST KNEE 1 OR 2 VIEWS, KNEE 1 OR 2 VIEWS ??07/06/2015 8:32 AM Signs and Symptoms/Comments: ?? M25.561-Pain in right knee-ICD-10 M25.562-Pain in left knee-ICD-10; left knee pain Comparison: Outside radiographs of both knees from April 2005. Findings: Right knee: AP and lateral weight-bearing views of the right knee show no evidence of acute fracture or malalignment, no sizable right knee joint effusion is identified either. There is mild joint space narrowing of the medial femorotibial compartment, the joint space in the lateral femorotibial compartment appears preserved. There is spurring of the tibial spines. Tiny patellar osteophyte formation is seen. Mineralization is age-appropriate. Soft tissues are grossly unremarkable. Left knee: AP and lateral weight-bearing views of the left knee show no evidence of acute fracture or malalignment, no sizable left knee joint effusion is identified either. There is mild joint space narrowing of the medial femorotibial compartment, the joint space in the lateral femorotibial compartment appears preserved. There is spurring of the tibial spines. The patellofemoral joint is congruent. Mineralization is age-appropriate. Soft tissues are grossly unremarkable. Procedure Note Ash Wallace MD - 07/06/2015 KNEE 1 OR 2 VIEWS, KNEE 1 OR 2 VIEWS 07/06/2015 8:32 AM Signs and Symptoms/Comments: M25.561-Pain in right knee-ICD-10 M25.562-Pain in left knee-ICD-10; left knee pain Comparison: Outside radiographs of both knees from April 2005. Findings: Right knee: AP and lateral weight-bearing views of the right knee show no evidence of acute fracture or malalignment, no sizable right knee joint effusion is identified either. There is mild joint space narrowing of the medial femorotibial compartment, the joint space in the lateral femorotibial compartment appears preserved. There is spurring of the tibial spines. Tiny patellar osteophyte formation is seen. Mineralization is age-appropriate. Soft tissues are grossly unremarkable. Left knee: AP and lateral weight-bearing views of the left knee show no evidence of acute fracture or malalignment, no sizable left knee joint effusion is identified either. There is mild joint space narrowing of the medial femorotibial compartment, the joint space in the lateral femorotibial compartment appears preserved. There is spurring of the tibial spines. The patellofemoral joint is congruent. Mineralization is age-appropriate. Soft tissues are grossly unremarkable. Bob Wilcox MD MSc [facility] IMG DIAGNOSTIC I MAGING ORDERABLES Final Result documented in this encounter Visit Diagnoses Diagnosis Bilateral knee pain- Primary Pain in joint, lower leg documented in this encounter Care Teams Playground Worker Relationship Specialty Start Date End Date Alissa Arellano PA [address] [place] [address] PCP - General 11/27/12 03/11/22 documented as of this encounter
--- OUTSIDE RECORDS SUMMARY | 2024-09-15 15:54 | XMS_ITS | Encounter Summary ---
Author Organization [facility] Address [address] [place] [address] Care Team Providers Care Load Dispatcher Local Name Role Phone Alissa Arellano Primary Care Provider Reason for Referral * Radiology Services (Routine) - Closed Specialty Diagnoses / Procedures Referred By Contronald ramires Referred To Contact Diagnoses Low back pain, unspecified back pain laterality, with sciatica presence unspecified Procedures L SPINE 4 OR MORE VIEWS Loraine Ledezma PA-C Phone: tel: fax: Referral ID Status Reason Start Date Expiration Date Visits Re quested Visits Authorized [id number] Closed 04/01/2015 1 1 Encounter Details Date Type Department Care Team (Late st Contact Info) Description 03/31/2015 Orders Only [facility] Spine Program - [address] [place] [address] Loraine Ledezma PA-C [address] [facility] [place] [address] Low back pain, unspecified back pain laterality, with sciatica presence unspecified (Primary Dx) Social History Tobacco Use Types [...] Rehab Therapy Visit [facility] [address] [place], [place] [phone] Mirlande Keene, PT [address] [address] 11/25/2024 9:00 EDT Office Visit [facility] Total Joint Program - [facility] [address] [place] [address] Tess Rojas, LUCAS [address] [place] [address] documented as of this encounter Procedures Procedure Name Priority Date/Time Associated Diagnosis Comments L SPINE 4 OR MORE VIEWS Routine 04/05/2015 8:23 EDT Low back pain, unspecified back pain laterality, with sciatica presence unspecified documented in this encounter Results * L SPINE 4 OR MORE VIEWS (04/05/2015 8:23 EDT) Anatomical Region Laterality Modality Other 04/05/2015 8:23 EDT 04/05/2015 9:00 EDT Narrative 04/05/2015 9:00 EDT Plain film lumbar spine History: ??Low back pain Comparison: ??None Findings: 4 views, AP, lateral, flexion and extension There is no acute fracture or malalignment. Intervertebral disc heights are relatively well-maintained. Small marginal osteophytes are present anteriorly at L3-4, L4-L5 and L5-S1. Flexion and extension views show no sagittal malalignment. Conclusion: Mild lower lumbar degenerative disc disease without instability. Procedure Note SelmaJag justice Jhon, - 04/05/2015 Plain film lumbar spine History: Low back pain Comparison: None Findings: 4 views, AP, lateral, flexion and extension There is no acute fracture or malalignment. Intervertebral disc heights are relatively well-maintained. Small marginal osteophytes are present anteriorly at L3-4, L4-L5 and L5-S1. Flexion and extension views show no sagittal malalignment. Conclusion: Mild lower lumbar degenerative disc disease without instability. Loraine Ledezma PA-C [facility] DI[facility]NOSTIC IMAGING ORDERABLES Final Result documented in this encounter Visit Diagnoses Diagnosis Low back pain, unspecified back pain laterality, with sciatica presence unspecified- Primary documented in this encounter Care Teams Load Dispatcher Local Relationship Specialty Start Date End Date Alissa Arellano PA [address] [place] [address] PCP - General 11/27/12 03/11/22 documented as of this encounter
--- OUTSIDE RECORDS SUMMARY | 2024-09-15 15:54 | XMS_ITS | Encounter Summary ---
Author Organization [facility] Address [address] [place] [address] Care Team Providers Care Casting Machine Operator Helper Name Role Phone Alissa Arellano Primary Care Provider [phone] Encounter Details Date Type Department Care Team (Late st Contact Info) Description 03/25/2015 Results Only Imaging [facility] [phone] Unknown, Provider, Social History Tobacco Use Types Packs/Day Years [...] Rehab Therapy Visit [facility] [address] [place], [place] [phone] Mirlande Keene, PT [address] [place] [phone] 11/25/2024 9:00 EDT Office Visit [facility] Total Joint Program [place] [address] Tess Rojas, LUCAS [address] [place] [address] Pending Results Name Type Priority Associated Diagnoses Date /Time OUTSIDE IMAGES - MR MSK Imaging 0 03/25/2015 12:38 EDT OUTSIDE IMAGES - MR MSK Imaging 0 03/25/2015 12:38 EDT OUTSIDE IMAGES - PLAIN FILM MSK Imaging 03/25/2015 12:38 EDT OUTSIDE IMAGES - PLAIN FILM MSK Imaging 03/25/2015 12:38 EDT OUTSIDE IMAGES - PLAIN FILM MSK Imaging 03/25/2015 12:38 EDT OUTSIDE IMAGES - PLAIN FILM MSK Imaging 03/25/2015 12:38 EDT OUTSIDE IMAGES - PLAIN FILM MSK Imaging 03/25/2015 12:38 EDT OUTSIDE IMAGES - ARTHROGRAM MSK Imaging 03/25/2015 12:38 EDT OUTSIDE IMAGES - PLAIN FILM MSK Imaging 03/25/2015 12:38 EDT OUTSIDE IMAGES - PLAIN FILM MSK Imaging 03/25/2015 12:38 EDT documented as of this encounter Visit Diagnoses Not on filedocumented in this encounter Care Teams Casting Machine Operator Helper Relationship Specialty Start Date End Date Alissa Arellano PA [address] [place] [address] PCP - General 11/27/12 03/11/22 documented as of this encounter
--- OUTSIDE RECORDS SUMMARY | 2024-09-15 15:54 | XMS_ITS | Encounter Summary ---
Author Organization [facility] Address [address] [place] [address] Care Team Providers Care Knowledge Analyst Name Role Phone Feliberto Lopez MD Primary Care Provider [phone] Alissa Arellano Primary Care Provider [phone] Encounter Details Date Type Department Care Team (Late st Contact Info) Description 11/15/2011 Historical Results Only [facility] - Main [place] [address] [place], [place] [id number] Perry Weiss MD [address] [place] [phone] Social History Tobacco Use Types Packs/Day [...] Therapy Visit [facility] [address] [place] [id number] Mirlande Keene, PT [address] [address] 11/25/2024 9:00 EDT Office Visit [facility] - [place] [address] [place] [address] Tess Rojas NP [address] [place] [address] documented as of this encounter Procedures Procedure Name Priority Date/Time Associated Diagnosis Comments PAP TEST Routine 11/15/2011 documented in this encounter Results * PAP TEST (11/15/2011) 11/15/2011 11/16/2011 10: 10 EDT Narrative [facility] - 11/17/2011 15:57 EDT ----- ------- Name: BESSIE VAUGHN ?: 69 ?Age/Sex: 54/F ?Unit#: [id number] ? Loc: LAB.OPX ? Status: REG REF ?? Reg Date: 11/15/11 ? Pt.Phone Number: ? ----- ------- Specimen: [id number] ?STATUS: SOUT ?Spec Date:11/15/11 ? Physician Copies: ?Perry Weiss MD ?? Tissues: ? Cervical/Endo Pap ?Cony Andersen MD ? CPT: 77909 ?? Units: ??1 ----- ------- ? CYTOLOGY DIAGNOSIS SPECIMEN ADEQUACY: ?Satisfactory for evaluation. Transformation zone component ABSENT. GENERAL CATEGORIZATION: ?Negative for Intraepithelial Lesion or Malignancy DESCRIPTIVE DIAGNOSIS: ? Negative for Intraepithelial Lesion or Malignancy. RECOMMENDATIONS/COMMENTS: ?None. ?? PREOP DX/CLINICAL HISTORY ?HX HPV ----- ------- ORDER QUERIES: LMP: ? - 3 WK ? N Post ? N ??PREVIOUS ATYPICAL: Y BCP/HRT? ?? Rad Rx? N IUD?PAP PLUS HPV?REFLEX TO HR-HPV IF ASCUS ?? REFLEX TO HPV 16/18 IF HPV POS/PAP NEG ?? HPV REGARDLESS?RFLX HPV IF LSIL ?? IF ASCUS DO HPV? Signed Kunal Hayes CT(ASCP) 11/17/11 By the signature above, the attending physician certifies that he/she has personally conducted a gross and/or microscopic examination of the described specimens and rendered or confirmed the above diagnosis. Test Performed by [facility], [address] [place] [address] Industrial Services Worker: Wendy Bundy MD PHD ----- ------- Perry Weiss MD PATHOLOGY ORDERABLES Fin al Result [facility] documented in this encounter Visit Diagnoses Not on filedocumented in this encounter Care Teams Knowledge Analyst Relationship Specialty Start Date End Date Feliberto Lopez MD [address] [place] [address] PCP - General 12/15/11 11/26/12 Alissa Arellano PA [address] [place], [place] PCP - General 11/27/12 03/11/22 documented as of this encounter
--- OUTSIDE RECORDS SUMMARY | 2024-09-15 15:55 | XMS_ITS | Encounter Summary ---
Author Organization [place] [address] Care Team Providers Care Foreign Language Instructor Name Role Phone Feliberto Lopez MD Primary Care Provider [phone] Encounter Details Date Type Department Care Team (Latest Contact Info) Description 06/12/2012 3:26 PM EDT - 06/12/2012 11:59 PM EDT Hospital [place] [phone] CLINIC, Krunal Barreto MD Bursitis of hip; Hip pain Discharge Disposition: Home Social History Tobacco Use Types Packs/Day Years Used Date Smoking Tobacco: Never Alcohol Use Standard Drinks/Week Comments Yes 1.8 (1 standard drink = 0.6 oz p ure alcohol) occassionally Sex and Gender Information Value Date Recorded Sex Assigned at Not on file Gender Identity Not on file Sexual Orientation Not on file documented as of this encounter Medications at Time of Discharge Medication Sig Dispensed Refills Start Date End Date nabumetone (RELAFEN) 500 mg tablet Take 750 mg by mouth 2 times daily. sertraline (ZOLOFT) 50 mg tablet Take 75 mg by mouth daily. MULTIVITAMIN ORAL 12/29/2009 GLUCOSAMINE HCL/CHONDRO HU A (GLUCOSAMINE-CHONDROITIN ORAL) 12/29/2009 LACTOBACILLUS ACIDOPHILUS (ACIDOPHILUS ORAL) 12/29/2009 DOCOSAHEXANOIC ACID/EPA (FISH OIL ORAL) 12/29/2009 ibuprofen (ADVIL;MOTRIN) 800 mg tablet 12/29/2009 08/26/2012 documented as of this encounter Miscellaneous Notes * Miscellaneous - Provider, Scanning - 07/01/2012 11:57 AM EST documented in this encounter Plan of Treatment Not on file documented as of this encounter Procedures Procedure Name Priority Date/Time Associated Diagnosis Comments MRI PELVIS SOFT TISSUE (GI PROSTHETIC AIDE) WO CONTRAST Routine 06/12/2012 5:05 PM EDT Bursitis of hip Hip pain documented in this encounter Results * MRI pelvis WO contrast (06/12/2012 5:05 PM EDT) Anatomical Region Laterality Modality Pelvis Magnetic Resonan ce 06/12/2012 5:05 PM EDT Narrative 06/12/2012 5:34 PM EDT Examination MR Pelvis WO Clinical History hip pain Comparison X-rays dated 06/07/2012. Technique The study consists of large tfetz-gn-pjow images of the pelvis and small ngywe-ko-yllz images of the left hip. ??No contrast was administered. Findings No fracture is identified. ??No soft tissue mass is seen. ??At the left hip there is no effusion. ??The joint capsule does appear somewhat thickened. ??The significance is finding is unclear. ??This may represent a degree of fibrosis. ?? No intraarticular body is identified. ??The ligamentum teres is normal in appearance. ??There is a rim of osteophytes at the head neck junction of the proximal femur and a small osteophyte also arises from the medial aspect of the acetabular roof. ??As seen on sagittal image number 15 there is increased signal intensity within the anterior labrum and I believe there is degenerative tearing. ??At this same level there is loss of articular cartilage at both the acetabular and femoral head surfaces. The gluteal muscles and the gluteal insertions are normal in appearance. ??The iliopsoas insertion is also normal. Impression There is degenerative arthropathy at the left hip characterized by a labral degeneration and tearing anteriorly and focal loss of articular cartilage at the anterior aspect of the hip. ??Small osteophytes are also present. Procedure Note Art Ospina MD - 06/12/2012 Examination MR Pelvis WO Clinical History hip pain Comparison X-rays dated 06/07/2012. Technique The study consists of large cuvfw-pm-nowx images of the pelvis and small vxemp-qh-wzpi images of the left hip. No contrast was administered. Findings No fracture is identified. No soft tissue mass is seen. At the left hipthere is no effusion. The joint capsule does appear somewhat thickened. The significance is finding is unclear. This may represent a degree offibrosis. No intraarticular body is identified. The ligamentum teres is normal in appearance. There is a rim of osteophytes at the head neck junction ofthe proximal femur and a small osteophyte also arises from the medial aspectof the acetabular roof. As seen on sagittal image number 15 there is increasedsignal intensity within the anterior labrum and I believe there is degenerative tearing. At this same level there is loss of articular cartilage at boththe acetabular and femoral head surfaces. The gluteal muscles and the gluteal insertions are normal in appearance.The iliopsoas insertion is also normal. Impression There is degenerative arthropathy at the left hip characterized by alabral degeneration and tearing anteriorly and focal loss of articular cartilageat the anterior aspect of the hip. Small osteophytes are also present. Krunal Shannon MD IMG MRI ORDERABLES documented in this encounter Visit Diagnoses Diagnosis Bursitis of hip Enthesopathy of hip region Hip pain Pain in joint, pelvic region and thigh documented in this encounter Care Teams Foreign Language Instructor Relationship Specialty Start Date End Date Feliberto Lopez MD [address] [place] [id number] PCP - General 07/05/10 documented as of this encounter
--- OUTSIDE RECORDS SUMMARY | 2024-09-15 15:55 | XMS_ITS | Encounter Summary ---
Author Organization [facility] [place] [address] Care Team Providers Care Bobbin Coil Winder Name Role Phone Feliberto Lopez MD Primary Care Provider [phone] Reason for Visit * Reason Onset Date Comments Other 08/30/2012 Encounter Details Date Type Department Care Team (Late st Contact Info) Description 08/30/2012 Telephone [place] [phone] Skyla Chow APRN [facility] [place] [address] Other Social History Tobacco Use Types Packs/Day Years [...] encounter Miscellaneous Notes * Telephone Encounter - Skyla Ross RN - 08/30/2012 9:22 AM EST [employer] DENIED the PA for celebrex documented in this encounter Plan of Treatment Not on file documented as of this encounter Visit Diagnoses Not on filedocumented in this encounter Care Teams Bobbin Coil Winder Relationship Specialty Start Date End Date Feliberto Lopez MD [address] [place], [place] [phone] PCP - General 07/05/10 documented as of this encounter
--- OUTSIDE RECORDS SUMMARY | 2024-09-15 15:55 | XMS_ITS | Clinical Summary ---
Author Organization [facility] [place] [address] Care Team Providers Care Director Stars Name Role Phone Feliberto Lopez MD Primary Care Provider [phone] Allergies Active Allergy Reactions Criticality Noted Date Comments Oxycodone-Acetaminophen Other (See Comments) drops BP markedly Penicillins Other (See Comments) rash/temp. Sulfa (Sulfonamide Antibiotics) Other (See Comments) rash/temp. Medications Medication Sig Dispensed Refills Start Date End Date Status MULTIVITAMIN ORAL 12/29/2009 Active GLUCOSAMINE HCL/CHONDRO HU A (GLUCOSAMINE-CHONDROIT IN ORAL) 12/29/2009 Active LACTOBACILLUS ACIDOPHILUS (ACIDOPHILUS ORAL) 12/29/2009 Active DOCOSAHEXANOIC ACID/EPA (FISH OIL ORAL) 12/29/2009 Active nabumetone (RELAFEN) 500 mg tablet Take 750 mg by mouth 2 times daily. Active sertraline (ZOLOFT) 50 mg tablet Take 75 mg by mouth daily. Active Cholecalciferol, Vitamin D3, (VITAMIN D-3) 5,000 unit Tab Take 1 capsule by mouth every 30 days. 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 Family History Medical History Relation Comments Heart Disease Father Hypertension Father Cancer Mother Macular Degeneration Mother Amblyopia Neg Hx Blindness Neg Hx Cataracts Neg Hx Diabetes Neg Hx Glaucoma Neg Hx Retinal Detachment Neg Hx Strabismus Neg Hx Stroke Neg Hx Thyroid Disease Neg Hx Relation Status Comments Father Alive Mother Alive Social History Tobacco Use Types Packs/Day Years Used Date Smoking Tobacco: Never Smokeless Tobacco: Never Alcohol Use Standard Drinks/Week Comments Yes 1.8 (1 standard drink = 0.6 oz p ure alcohol) occassionally Sex and Gender Information Value Date Recorded Sex Assigned at Not on file Gender Identity Not on file Sexual Orientation Not on file Last Filed Vital Signs Vital Sign Reading Time Taken Comments Blood Pressure 120/70 08/26/2012 8:18 AM EST Pulse 76 08/26/2012 8:18 AM EST Temperature - - Respiratory Rate - - Oxygen Saturation - - Inhaled Oxygen Concentration - - Weight 91.2 kg (201 lb) 08/26/2012 8:18 AM EST Height 182.9 cm (6') 08/26/2012 8:18 AM EST Body Mass Index 27.26 08/26/2012 8:18 AM EST Plan of Treatment Health Maintenance Due Date Last Done Comments CT Colonography 1967 Colonoscopy 1967 Colorectal Cancer Screening 1967 FIT DNA 1967 FIT 1967 Sigmoidoscopy (10 year) with FIT yearly 1967 Sigmoidoscopy 1967 HIV screen 1985 Hepatitis C Screening 1985 Hepatitis B vaccine (0-59 yrs) (1) 1986 Tetanus/Diphtheria/Pertussis Vaccines (1 - Tdap) 02/01 HPV test 1997 PAP Smear 1997 Breast Cancer Share Decision Needed 2007 Breast Cancer screening 2007 Pneumoccocal Vaccine: 50+ (1 of 1 - PCV) 2017 Zoster vaccine (1 of 2) 2017 Advance Directive 2022 Covid-19 Vaccine (1 - 2023- season) 2024 Influenza (Flu) vaccine (1 o f 1 - Influenza standard series) 04/13/2024 Care Teams Director Stars Relationship Specialty Start Date End Date Feliberto Lopez MD [address] [place] [address] PCP - General 07/05/10
--- OUTSIDE RECORDS SUMMARY | 2024-09-15 15:55 | XMS_ITS | Encounter Summary ---
Author Organization [facility] [place] [address] Care Team Providers Care Criminal Defense Lawyer Name Role Phone Feliberto Lopez MD Primary Care Provider [phone] Reason for Referral * Physical Therapy (Routine) - Complete - Patient Will Schedule External Appt Specialty Diagnoses / Procedures Referred By Contac t Referred To Contact Physical Therapy Diagnoses Bursitis of hip Hip pain Nia Avalos PA [facility] [place] [address] Referral ID Status Reason Start Date Expiration Date Visits Requested Visits Authorized [id number] Complete - Patient Will Schedule External Appt Evaluate and Treat 2 12/04/2012 12 12 Reason for Visit * Reason Comments Left Hip Pain Encounter Details Date Type Department Care Team (Late st Contact Info) Description 06/07/2012 3:30 PM EDT Office [place] [address] Nia Avalos PA Hip pain (Primary Dx); Bursitis of hip Discharge Disposition: Home Social History Tobacco Use [...] Sign Reading Time Taken Comments Blood Pressure 117/70 06/07/2012 4:13 PM EDT Pulse - - Temperature - - Respiratory Rate - - Oxygen Saturation - - Inhaled Oxygen Concentration - - Weight 86.2 kg (190 lb) 06/07/2012 4:13 PM EDT Height 182.9 cm (6') 06/07/2012 4:13 PM EDT Body Mass Index 25.77 06/07/2012 4:13 PM EDT documented in this encounter Progress Notes * Nia Avalos PA - 06/08/2012 7:10 AM EDT PATIENT NAME: Bria Jackman AGE: 47 y.o. MR#: [id number] DATE OF VISIT: 06/07/2012 DATE OF INJURY/ONSET: chronic STAFF: Dr. Shannon CHIEF COMPLAINT: Left hip pain HISTORY OF PRESENT ILLNESS Ms. Gasper allison 47 y.o. year old female comes into clinic today for left hippain. This is a patient of Dr. Vasquez'sakshi that I have seen in clinic today. In 2004 she underwent hip arthroscopy for labral pathology associated to mechanical symptoms. Many of those symptoms have resolved, but she continues with now progressive buttock, lateral and groin symptoms. She finds that shehas a constant ache/burning about these areas. She finds that sitting for any period of time is very uncomfortable in these areas. She occasionally has some leg symptoms that radiate down to the calf. She seems to feel they are more lateral than posterior or anterior. She denies any locking or catching. She does not have trouble with shoe and sock application or climbing stairs. She does have some difficulty getting in and out of car. She denies fever or chills. She does have some rare numbnessand tingling in the feet. She does have occasional low back pain. She is currently using relafen atlow doses due to its helpfulness, but ultimately leads to GI upset. She has not had any recent PT or hip injections. PHYSICAL EXAM: Ms. Gasper allison 47 y.o. year old is alert and oriented. She appears in no acute discomfort and is resting comfortably in a chair in the exam room. Inspection: antalgic gait. Left short 0.5 cm leg lengths Palpation: tender Trochanteric bursa. Non tender. IT band I have made the following determinations: Hip Exam: Left Prior surgery on this joint:Yes Varela Hip Score: Less than 30 degrees of fixed flexion: Yes Less than 10 degrees of fixed adduction: Yes Less than 10 degrees of fixed int rotation in extension: Yes Limb Length discrepancy: 0.5cm Motion: Total degrees of Flexion: 105 Total degrees of Abduction: 30 Total degrees of Ext Rotation: 30 Total degrees of Adduction: 20 Gait Abnormality: Normal Radiographic evidence of joint damage: [0= normal; 1=minimal ; 2= some osteophytes , some narrowing ; 3= moderate osteophytes, significantnarrowing, mild deformity; 4= large osteophytes, marked narrowing, obvious deformity]: 2= some osteophytes Skin Integrity: Normal Pulses Palpable: Right PT: Yes Right DP: Yes Motor/Sensory: Left Distal Motor: Normal Distal Sensory: Normal Hip Abductors: 5 Orthopedic testing: Negative straight leg raise RADIOLOGICAL STUDIES: As per radiology report. Examination PELVIS+LATERAL HIP/LEFT Clinical History l hip pain Comparison 12/29/2009. Technique AP view of the pelvis and 2 views of the left hip. Findings There is marginal osteophyte formation, not significantly changed from prior exam. There is no fracture or subluxation seen. Impression Mild degenerative change with no significant interval change. ASSESSMENT: Left hip pain PLAN: Ms. Jackman and I discussed her radiologic findings and physical exam findings. The patient didhave left groin pain with ROM testing in addition to tenderness over left troch bursa. She had a negative st. Leg raise test at this time. I discussed with patient the degree of her symptoms and relation to xray studies. At this point will recommend PT with Core focus, tendinopathy and bursitis. PRN anti inflammatory meds. I have additionally suggested we move forward with MRI. I discussed the possible next step of hip injection versus additional assessment of spine. Patient to follow up 4 weeks after MRI and PT. The patient understands to contact us if they have any other questions or concerns. documented in this encounter Plan of Treatment Scheduled Referrals Name Type Priority Associated Diagnoses Orde r Schedule Referral to Physical Therapy Outpatient Referral Routine Bursitis of hip Hip pain Ordered: 06/07/2012 documented as of this encounter Results * MRI pelvis WO contrast (06/12/2012 5:05 PM EDT) Anatomical Region Laterality Modality Pelvis Magnetic Resonan ce 06/12/2012 5:05 PM EDT Narrative 06/12/2012 5:34 PM EDT Examination MR Pelvis WO Clinical History hip pain Comparison X-rays dated 06/07/2012. Technique The study consists of large qywdb-zz-vkll images of the pelvis and small jjjct-xi-xeep images of the left hip. ??No contrast [...] 06/07/2012. Technique The study consists of large zdsyv-yd-nwkp images of the pelvis and small zfmrc-fd-rkua images of the left hip. No contrast [...] documented in this encounter Visit Diagnoses Diagnosis Hip pain- Primary Pain in joint, pelvic region and thigh Bursitis of hip Enthesopathy of hip region Bursitis of hip Enthesopathy of hip region Hip pain Pain in joint, pelvic region and thigh documented in this encounter Care Teams Criminal Defense Lawyer Relationship Specialty Start Date End Date Feliberto Lopez MD [address] [place] [id number] PCP - General 07/05/10 documented as of this encounter
--- OUTSIDE RECORDS SUMMARY | 2024-09-15 15:55 | XMS_ITS | Encounter Summary ---
Author Organization [facility] [place] [address] Care Team Providers Care Archivist Nonprofit Foundation Name Role Phone Feliberto Lopez MD Primary Care Provider [phone] Reason for Visit * Reason Comments Eye Problem early dilia early catar acts Encounter Details Date Type Department Care Team (Late st Contact Info) Description 02/14/2011 9:00 AM EDT [place] [address] Bob Ingram MD [facility] [place] [address] Keratoconus; Cataract, nuclear sclerotic, both eyes- very mild Discharge Disposition: Home Social History Tobacco Use Types Packs/Day Years Used Date Smoking Tobacco: Never Alcohol Use Standard Drinks/Week Comments Yes 1.8 (1 standard drink = 0.6 oz p ure alcohol) occassionally Sex and Gender Information Value Date Recorded Sex Assigned at Not on file Gender Identity Not on file Sexual Orientation Not on file documented as of this encounter Progress Notes * Bob Ingram MD - 02/14/2011 10:32 AM EDT Bria Jackman is a 46 y.o.. Encounter Diagnoses Name Primary? Keratoconus ??? Cataract, nuclear sclerotic, both eyes- very mild Mild keratoconus doing well in RGPs. No other problems or complaints Plan: - Continue care with Dr. Obrien - Follow up me in 1-2 years or as needed - Findings and concerns discussed with Bria and she expresses understanding. -Upon Return IOP Ref Kennedy documented in this encounter Nursing Notes * 02/14/2011 9:00 AM EDT >> BOB INGRAM MD SunFeb 14, 2011 10:33 AM Doing well no problems since last visit. >> CHRISTIANE ANGELA SunFeb 14, 2011 10:00 AM Description:Patient presents with: Eye Problem - early dilia early cataracts Location: bilateral eye Duration: ongoing years Rapidity of Onset:gradual Severity: relative to dx Condition:No Change Pain:none Associated Symptoms: pt with early dilia and wearing rgp(s) ou for follow up, without any complaints, notes allergy season may have caused eyes to be irritated.wears rgps daily,12 hours 6 days weekly. Comfort, fit,vision, all good. documented in this encounter Plan of Treatment Not on file documented as of this encounter Visit Diagnoses Diagnosis Keratoconus Keratoconus, unspecified Cataract, nuclear sclerotic, both eyes- very mild Senile nuclear sclerosis documented in this encounter Care Teams Archivist Nonprofit Foundation Relationship Specialty Start Date End Date Feliberto Lopez MD [address] [place] [address] PCP - General 07/05/10 documented as of this encounter
--- OUTSIDE RECORDS SUMMARY | 2024-09-15 15:55 | XMS_ITS | Encounter Summary ---
Author Organization [facility] [place] [address] Care Team Providers Care Accounts Payable Bookkeeper Name Role Phone Feliberto Lopez MD Primary Care Provider [phone] Encounter Details Date Type Department Care Team (Late st Contact Info) Description 07/08/2012 Orders [place] [phone] Teddy Vasquez MD [address] [place] [address] Left hip pain (Primary Dx) Social History Tobacco Use Types Packs/Day Years Used Date Smoking Tobacco: Never Alcohol Use Standard Drinks/Week Comments Yes 1.8 (1 standard drink = 0.6 oz p ure alcohol) occassionally Sex and Gender Information Value Date Recorded Sex Assigned at Not on file Gender Identity Not on file Sexual Orientation Not on file documented as of this encounter Plan of Treatment Not on file documented as of this encounter Visit Diagnoses Diagnosis Left hip pain- Primary Pain in joint, pelvic region and thigh documented in this encounter Care Teams Accounts Payable Bookkeeper Relationship Specialty Start Date End Date Feliberto Lopez MD [address] [place] [address] PCP - General 07/05/10 documented as of this encounter
--- OUTSIDE RECORDS SUMMARY | 2024-09-15 15:55 | XMS_ITS | Encounter Summary ---
Author Organization [facility] Address [address] [place] [address] Care Team Providers Care Guest House Manager Name Role Phone Feliberto Lopez MD Primary Care Provider [phone] Alissa Arellano Primary Care Provider [phone] Encounter Details Date Type Department Care Team (Late st Contact Info) Description 11/03/[address] [facility] - Main [place] [address] [place], [place] [id number] Cony Andersen MD [address] [place] [phone] Social History Tobacco Use Types Packs/Day [...] Rehab Therapy Visit [facility] [address] [place] [phone] Mirlande Keene, PT [address] [address] 11/25/2024 9:00 EDT Office Visit [facility] Total Joint Program - [place] [place] [address] Tess Rojas NP [address] [place] [address] documented as of this encounter Procedures Procedure Name Priority Date/Time Associated Diagnosis Comments PAP TEST Routine 11/03/2010 documented in this encounter Results * PAP TEST (11/03/2010) 11/03/2010 11/04/2010 10: 54 EDT Narrative [facility] - 11/07/2010 13:43 EDT ----- ------- Name: BESSIE VAUGHN ?: [birth year] ?Age/Sex: 54/F ?Unit#: [id number] ? Loc: LAB.OPX ? Status: REG REF ?? Reg Date: 11/03/10 ? Pt.Phone Number: ? ----- ------- Specimen: [id number] ?STATUS: SOUT ?Spec Date:11/03/10 ? Physician Copies: ?Cony Andersen MD ? Tissues: ? Cervical/Endo Pap ? CPT: 44258 ?? Units: ??1 ----- ------- ? CYTOLOGY DIAGNOSIS SPECIMEN ADEQUACY: ?Satisfactory for evaluation. Transformation zone component present. GENERAL CATEGORIZATION: ?Negative for Intraepithelial Lesion or Malignancy DESCRIPTIVE DIAGNOSIS: ?? Shift in isabella present suggestive of bacterial vaginosis. RECOMMENDATIONS/COMMENTS: ?None. ----- ------- ORDER QUERIES: LMP: ? - 3/18 ? N Post ? N ??PREVIOUS ATYPICAL: Y BCP/HRT? ?? Rad Rx? ?? IUD?PAP PLUS HPV? N ??REFLEX TO HR-HPV IF ASCUS ?? REFLEX TO HPV 16/18 IF HPV POS/PAP NEG ?? HPV REGARDLESS?RFLX HPV IF LSIL ?? IF ASCUS DO HPV? Y Signed Kunal Hayes CT(ASCP) 11/07/10 By the signature above, the attending physician certifies that he/she has personally conducted a gross and/or microscopic examination of the described specimens and rendered or confirmed the above diagnosis. Test Performed by [facility], [address] [facility] [address] [address] Engineer: Wendy Bundy MD PHD ----- ------- us Cony Andersen MD PATHOLOGY ORDERABLES Final Resul t [facility] documented in this encounter Visit Diagnoses Not on filedocumented in this encounter Care Teams Guest House Manager Relationship Specialty Start Date End Date Feliberto Lopez MD [address] [place] [address] PCP - General 12/15/11 11/26/12 Alissa Arellano PA [address] [place], [place] PCP - General 11/27/12 03/11/22 documented as of this encounter
--- OUTSIDE RECORDS SUMMARY | 2024-09-15 15:55 | XMS_ITS | Encounter Summary ---
Author Organization [facility] [place] [address] Care Team Providers Care Chief Of Service Name Role Phone Feliberto Lopez MD Primary Care Provider [phone] Encounter Details Date Type Department Care Team (Late st Contact Info) Description 05/28/2012 Orders [place] [phone] Nia Avalos PA Left hip pain (Primary Dx) Social History [...] on file documented as of this encounter Results * XR pelvis and lateral hip (06/07/2012 3:29 PM EDT) Anatomical Region Laterality Modality Pelvis, Hip N/A Radiographic Florence ging 06/07/2012 3:29 PM EDT Narrative 06/07/2012 3:36 PM EDT Examination PELVIS+LATERAL HIP/LEFT Clinical History l hip pain Comparison 12/29/2009. Technique AP view of the pelvis and 2 views of the left hip. Findings There is marginal osteophyte formation, not significantly changed from prior exam. ??There is no fracture or subluxation seen. Impression Mild degenerative change with no significant interval change. Procedure Note Ashli Ledezma MD - 06/07/2012 Examination PELVIS+LATERAL HIP/LEFT Clinical History l hip pain Comparison 12/29/2009. Technique AP view of the pelvis and 2 views of the left hip. Findings There is marginal osteophyte formation, not significantly changed fromprior exam. There is no fracture or subluxation seen. Impression Mild degenerative change with no significant interval change. Teddy Vasquez MD IMG DX ORDERABLES documented in this encounter Visit Diagnoses Diagnosis Left hip pain- Primary Pain in joint, pelvic region and thigh Left hip pain Pain in joint, pelvic region and thigh documented in this encounter Care Teams Chief Of Service Relationship Specialty Start Date End Date Feliberto Lopez MD [address] [place] [address] PCP - General 07/05/10 documented as of this encounter
--- OUTSIDE RECORDS SUMMARY | 2024-09-15 15:55 | XMS_ITS | Encounter Summary ---
Author Organization [facility] [place] [address] Care Team Providers Care Director Of Nuclear Medicine Name Role Phone Feliberto Lopez MD Primary Care Provider [phone] Encounter Details Date Type Department Care Team (Late st Contact Info) Description 02/06/2011 [place] [address] Bob Ingram MD [facility] [place] [address] Social History Tobacco Use Types Packs/Day Years Used Date Smoking Tobacco: Never Assessed Sex and Gender Information Value Date Recorded Sex Assigned at Not on file Gender Identity Not on file Sexual Orientation Not on file documented as of this encounter Plan of Treatment Not on file documented as of this encounter Visit Diagnoses Not on filedocumented in this encounter Care Teams Director Of Nuclear Medicine Relationship Specialty Start Date End Date Feliberto Lopez MD [address] [place] [address] PCP - General 07/05/10 documented as of this encounter
--- OUTSIDE RECORDS SUMMARY | 2024-09-15 15:55 | XMS_ITS | Encounter Summary ---
Author Organization [facility] Address [facility] [place] [address] Care Team Providers Care Stamp Redemption Clerk Name Role Phone Feliberto Lopez MD Primary Care Provider [phone] Reason for Referral * Physical Therapy (Routine) - Complete - Patient Will Schedule External Appt Specialty Diagnoses / Procedures Referred By Contac t Referred To Contact Physical Therapy Diagnoses DJD (degenerative joint disease) of hip Skyla Chow APRN [facility] [place] [address] Referral ID Status Reason Start Date Expiration Date Visits Requested Visits Authorized [id number] Complete - Patient Will Schedule External Appt Evaluate and Treat 08/26/2012 02/22/2013 12 12 Reason for Visit * Reason Comments Left Hip Pain s/p mri Encounter Details Date Type Department Care Team (Late st Contact Info) Description 08/26/2012 7:35 AM EST Office [place] [address] Teddy Vasquez [place] [address] DJD (degenerative joint disease) of hip (Primary Dx); Hip pain; Iliotibial band syndrome of left side Discharge Disposition: Home Social History Tobacco Use [...] Mass Index 27.26 08/26/2012 8:18 AM EST documented in this encounter Progress Notes * Skyla Chow, PATTERN ROOM ATTENDANT - 08/26/2012 8:27 AM EST PATIENT NAME: Bria Jackman AGE: 47 y.o. MR#: [id number] DATE OF VISIT: 08/26/2012 DATE OF INJURY/ONSET: chronic CHIEF COMPLAINT: Left hip pain HISTORY OF PRESENT ILLNESS Ms. Jackman a 47 y.o. year old female comes into clinic today for left hippain. To review her progress with physical therapy, NSAID use and to review her MRI scan. It is important to note that her current left hip pain has been insidious of 6 months duration and non-mechanical. Just to review: In 2004 she underwent hip arthroscopy for labral pathology associated to mechan ical symptoms. As stated previously, The mechanical symptoms have resolved, but she continues with now progressive buttock, lateral and groin symptoms. She finds that she has a constant ache/burning about these areas. She finds that sitting for any period of time is very uncomfortable in these areas. She occasionally has some leg symptoms that occasionally radiate down to the calf. She seems to feel they are more lateral than posterior or anterior. The physical therapy program has helped moderately with the lateral hip symptoms. However, Her groin pain persists. On an intermittent basis. No pain at rest. She denies any locking or catching. She does not have trouble with shoe and sock applica tion or climbing stairs. She does have some difficulty getting in and out of car. She denies fever or chills. She does have some rare numbness and tingling in the feet. She does have occasional low back pain non-radicular however. No bowel or bladder complaints. She is currently using Relafen at low doses due to its helpfulness, but ultimately leads to GI upset. She tells me that is not interested in further cortisone injections for fear of side effects. Associated symptoms: Has had Mild weightgain. No injuries. No assistive devices. Pertinent Surgical History: Remote Left knee arthroscopy @ [facility]. 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 Allergies Allergen Reactions ??? Oxycodone-Acetaminophen Other (See Comments) drops BP markedly ??? Penicillins Other (See Comments) rash/temp. ??? Sulfa(Sulfonamide Antibiotics) Other (See Comments) rash/temp. History Substance Use Topics ??? Smoking status: Never Smoker ??? Smokeless tobacco: Never Used ??? Alcohol Use: 1.1 oz/week 1 Glasses of wine, 1 Drinks containing 0.5 oz of alcohol per week occassionally PHYSICAL EXAM: Ms. Gasper allison 47 y.o. year old is alert and oriented. She appears in no acute discomfort and is resting comfortably in a chair in the exam room. Vital Signs above. Inspection: Non-antalgic gait. Mild pelvic obliquity. Very subtle leg length discrepancy. ? Due to pelvic obliquity. Femoral anteversion: + genu valgus. Increased Q angle patellofemoral exam. Palpation: No Tenderness to the Trochanteric bursa. Non tender. IT band Hip range of motion: IR to 20. ER to 30. Left hip abduction: 40. Left hip adduction: 20. Log rolling: Non-tender. Mild tenderness with IR and ER to the psoas. No click or clunk. Mild left hip impingement. Hip abductor strength 5/5. X-ray: 2011. Mild degenerative changes. + acetabular osteophyte MRI: May 2012. + mild left hip OA. + mild degenerative changes to hip and degenerative labral findings. + acetabular osteophyte. ASSESSMENT: Left hip pain mild OA and mild degenerative changes of the labrum. No mechanical complaints left hip. Lateral hip complaints resolving nicely with PT. Mild left hip groin pain persists. Non-focal lumbar spine exam. PLAN: Ms. Jackman and I discussed her radiologic and MRI findings and physical exam findings. H and Previewed with Dr. Vasquez. Responded well to PT for lateral hip symptoms yet mild groin pain persists. Mostly here for advice and reassurance. Treatment options discussed in detail with Dr. Vasquez. We will adjust her PT program to focus on core and abdominal strengthening. Life long hip abductor strengthening and lumbar stabilization program. We will change her anti-inflammatory from Relafen to celebrex sent to pharmacy today. We discussed the possible next step of hip injection versus additional assessment of spine. I gave her Chacha Ross's card and she will let us know how she is doing in ~ 8 we eks for a progress report. The patient understands to contact us if they have any other questions or concerns. Attending Note. I have seen the patient, I have reviewed the care plan as described, and I agree (with any changes or additions outlined below). About 6 months ago she started having more discomfort in the lateral aspect of the left hip, times in the buttock in the groin. Still no mechanical symptoms. Pain seems to be worse with prolonged sitting. Has been taking nabumetone for many years, and has actually bothered her stomach a little bit.Has never had any injections, has been doing physical therapy for the last couple of months, mostlyworking on range of motion and the iliotibial band. Plan: We will try Celebrex 200 mg daily, cautioned about possible side effects. I would like her physical therapist to start working on abdominal and core strengthening. She'll follow up with us in 8weeks by telephone and if symptoms still haven't improved, we can consider an intra-articular cortisone injection at that point. Teddy Vasquez MD documented in this encounter Plan of Treatment Scheduled Referrals Name Type Priority Associated Diagnoses Orde r Schedule Referral to Physical Therapy Outpatient Referral Routine DJD (degenerative joint disease) of hip Ordered: 08/26/2012 documented as of this encounter Visit Diagnoses Diagnosis DJD (degenerative joint disease) of hip- Primary Osteoarthrosis, unspecified whether generalized or localized, pelvic region and thigh Hip pain Pain in joint, pelvic region and thigh Iliotibial band syndrome of left side Other disorder of muscle, ligament, and fascia documented in this encounter Care Teams Stamp Redemption Clerk Relationship Specialty Start Date End Date Feliberto Lopez MD [address] [place] [address] PCP - General 07/05/10 documented as of this encounter
--- OUTSIDE RECORDS SUMMARY | 2024-09-15 15:55 | XMS_ITS | Encounter Summary ---
Author Organization [facility] Address [address] [place] [address] Care Team Providers Care Building Inspection Engineer Name Role Phone Feliberto Lopez MD Primary Care Provider [phone] Alissa Arellano Primary Care Provider [phone] Encounter Details Date Type Department Care Team (Late st Contact Info) Description 07/14/[address] [facility] - Main [place] [address] [place], [place] [id number] Cony Andersen MD [address] [place] [phone] Social History Tobacco Use Types Packs/Day [...] Rehab Therapy Visit [facility] [address] [place] [phone] Mirlande Keene, PT [address] [phone] 11/25/2024 9:00 EDT Office Visit [facility] Total Joint Program - [address] [place] [address] Tess Rojas NP [address] [place] [address] documented as of this encounter Procedures Procedure Name Priority Date/Time Associated Diagnosis Comments PAP TEST Routine 07/14/2009 documented in this encounter Results * PAP TEST (07/14/2009) 07/14/2009 07/15/2009 12: 27 EST [facility] - 07/27/2009 12:56 EST ----- ------- Name: BESSIE VAUGHN ?: [birth year] ?Age/Sex: 54/F ?Unit#: [id number] ? Loc: LAB.OPX ? Status: REG REF ?? Reg Date: 07/14/09 ? Pt.Phone Number: ? ----- ------- Specimen: [id number] ? STATUS: SOUT ?Spec Date:07/14/09 ? Physician Copies: ?Cony Andersen MD ? Tissues: ? Cervical/Endo Pap ? CPT: 65749 ?? Units: ??1 ----- ------- ? CYTOLOGY DIAGNOSIS SPECIMEN ADEQUACY: ?Satisfactory for evaluation. Transformation zone component present. GENERAL CATEGORIZATION: ? OTHER, See Interpretation. DESCRIPTIVE DIAGNOSIS: ??Endometrial cells present in a woman equal to or greater than 40 years. ??Negative for Intraepithelial Lesion or Malignancy. Endometrial cells compatible with the stated LMP. RECOMMENDATIONS/COMMENTS: ?? Benign appearing endometrial cells on [...] with endometrial/uterine abnormalities. Clinical correlation is recommended. ----- ------- ORDER QUERIES: LMP: 07/07/09- ? N Post ? N ??PREVIOUS ATYPICAL: ?? BCP/HRT? ?? Rad Rx? ?? IUD?PAP PLUS HPV?REFLEX TO HR-HPV IF ASCUS ?? REFLEX TO HPV 16/18 IF HPV POS/PAP NEG ?? HPV REGARDLESS?RFLX HPV IF LSIL ?? IF ASCUS DO HPV? Y Signed ____(signature on file)____ Wendy Bundy M.D. 07/27/09 By the signature above, the attending physician certifies that he/she has personally conducted a gross and/or microscopic examination of the described specimens and rendered or confirmed the above diagnosis. Test Performed by [facility], [address] [place] [address] Hod Carrier: Wendy Bundy MD PHD ----- ------- us Cony Andersen MD PATHOLOGY ORDERABLES Final Resul t [facility] documented in this encounter Visit Diagnoses Not on filedocumented in this encounter Care Teams Building Inspection Engineer Relationship Specialty Start Date End Date Feliberto Lopez MD [address] [place] [address] PCP - General 12/15/11 11/26/12 Alissa Arellano PA [address] [place], [place] PCP - General 11/27/12 03/11/22 documented as of this encounter
--- OUTSIDE RECORDS SUMMARY | 2024-09-15 15:55 | XMS_ITS | Encounter Summary ---
Author Organization [facility] Address [facility] [place] [address] Care Team Providers Care Aircraft Engineer Name Role Phone Feliberto Lopez MD Primary Care Provider [phone] Encounter Details Date Type Department Care Team (Late st Contact Info) Description 06/07/2012 3:13 PM EDT - 06/07/2012 11:59 PM EDT Hospital Encounter XRay at [address] [place] [phone] Left hip pain Social History Tobacco Use Types Packs/Day Years [...] 12/29/2009 08/26/2012 documented as of this encounter Plan of Treatment Not on file documented as of this encounter Procedures Procedure Name Priority Date/Time Associated Diagnosis Comments XR PELVIS AND LATERAL HIP Routine 06/07/2012 3:29 PM EDT Left hip pain documented in this encounter Results * XR pelvis and [...] this encounter Visit Diagnoses Diagnosis Left hip pain Pain in joint, pelvic region and thigh documented in this encounter Care Teams Aircraft Engineer Relationship Specialty Start Date End Date Feliberto Lopez MD [address] [place] [address] PCP - General 07/05/10 documented as of this encounter
[2024-09-15 21:17] LABS: Anion Gap 8.3 mmol/L (3-11); BUN 19 mg/dL (7-18); CO2 25.7 mmol/L (21.0-32.0); Calcium 9.3 mg/dL (8.5-10.1); Calculated LDL 93 mg/dL (<100); Chloride 107 mmol/L (98-107); Cholesterol 165 mg/dL (<200); Estimated GFR 65.71 (mL/min/1.73m2); Glucose 126 mg/dL (74-106); HDL Cholesterol 50 mg/dL (40-60); Sodium 141 mmol/L (136-145); Triglyceride 112 mg/dL (<150)
== END 2024-09-15 15:47 | disposition home or self-care (01) ==
LOC: NCHCN 15:46
PROVIDERS: Visit Provider Family Medicine
DX: Z13.220 Encounter for screening for lipoid disorders (principal)
CPT/HCPCS: 80048; 80061

== ENCOUNTER 2024-10-07 14:23 | Outpatient (REF) | payer BC, SELFPAY ==
[2024-10-07 21:54] LABS: Hemoglobin A1C 5.9 % (<5.7)
== END 2024-10-07 14:24 | disposition home or self-care (01) ==
LOC: NCHCN 14:23
PROVIDERS: Visit Provider Family Medicine
DX: R73.9 Hyperglycemia, unspecified (principal)
CPT/HCPCS: 83036